=== PATIENT | male | born 1990 | race Caucasian/White ===

== ENCOUNTER 2016-10-27 19:38 | Emergency (ER) | payer MEDICAID ==
[2016-10-27] MEDS ORDERED: NS 0.9% 1000 ML* 1,000 ML IV ONE (19:56)
[2016-10-27] MEDS ORDERED: Morphine INJ* 2 MG/ML 1 ML SYRINGE IV ONE (19:56)
[2016-10-27] MEDS ORDERED: Ondansetron INJ* 2 MG/ML VIAL IV ONE (19:56)
--- NOTE | 2016-10-27 20:07 | ED ---
Catrina Epstein SooYoung, scribed for Renzo Higgins MD on 10/27/16 at 1953 . Abdominal Pain/Male - HPI Summary HPI Summary: A 25 y/o M CHANTALE presents to ED with worsening umbilical pain onset last night. Associated sx: fever, vomiting. Denies diarrhea. Pt states he went to [facility] this afternoon but that they "did nothing." - History of Current Complaint Chief Complaint: EDAbdPain Stated Complaint: ABD PAIN Time Seen by Provider: 10/27/16 19:46 Hx Obtained From: Patient Onset/Duration: Lasting Hours - onset yesterday, Still Present Timing: Constant Severity Currently: Moderate Pain Intensity: 6 Pain Scale Used: 0-10 Numeric Location: Umbilical Associated Signs And Symptoms: Positive: Fever, Vomiting. Negative: Diarrhea - Allergies/Home Medications Allergies/Adverse Reactions: Allergies Allergy/AdvReac Type Severity Reaction Status Date / Time Amoxicillin Allergy Hives/Diff. Verified 04/28/16 17:34 Breathing/I tching Penicillins [PCN] Allergy Rash Verified 04/28/16 17:34 PMH/Surg Hx/FS Hx/Imm Hx Previously Healthy: No Endocrine/Hematology History: Denies: Hx Anticoagulant Therapy, Hx Diabetes, Hx Thyroid Disease Cardiovascular History: Denies: Hx Congestive Heart Failure, Hx Deep Vein Thrombosis, Hx Hypertension , Hx Myocardial Infarction, Hx Pacemaker/ICD Respiratory History: Reports: Hx Asthma, Hx Chronic Bronchitis, Hx Chronic Obstructive Pulmonary Disease (COPD) - emphysemia, Hx Sleep Apnea - previous dx mild ILIA 2010, Other Respiratory Problems/Disorders - current 1.5 ppd smoker Denies: Hx Lung Cancer, Hx Pneumonia, Hx Pulmonary Embolism GI History: Denies: Hx Gall Bladder Disease, Hx Gastrointestinal Bleed, Hx Ulcer, Hx Urosepsis, Other GI Disorders History: Denies: Hx Dialysis, Hx Kidney Stones, Hx Renal Disease Musculoskeletal History: Reports: Hx Back Problems Sensory History: Reports: Hx Vision Problem - (right) eye stabismus Denies: Hx Hearing Aid Opthamlomology History: Reports: Hx Vision Problem - (right) eye stabismus Neurological History: Denies: Hx Dementia, Hx Migraine, Hx Seizures, Hx Transient Ischemic Attacks (TIA) Psychiatric History: Reports: Other Psychiatric Issues/Disorders - learning disorder Denies: Hx Anxiety, Hx Depression, Hx Panic Disorder, Hx Schizophrenia, Hx Bipolar Disorder, Hx Substance Abuse - Surgical History Surgery Procedure, Year, and Place: LT EYE STRABISMUS SURGERY, DENTAL EXTRACTION 01/30/14 - Immunization History Date of Tetanus Vaccine: 2012 Date of Influenza Vaccine: 2012 Infectious Disease History: Denies: Hx Clostridium Difficile, Hx Hepatitis, Hx Human Immunodeficiency Virus (HIV), Hx of Known/Suspected MRSA, Hx Shingles, Hx Tuberculosis, Hx Known/ Suspected VRE, Hx Known/Suspected VRSA, History Other Infectious Disease, Traveled Outside the [place] in Last 30 Days - Family History Known Family History: Positive: Cardiac Disease, Hypertension, Respiratory Disease - Social History Occupation: Unemployed Lives: With Family Alcohol Use: Occasionally Hx Substance Use: No Substance Use Type: Reports: None Hx Tobacco Use: Yes Smoking Status (MU): Heavy Every Day Tobacco Smoker Type: Cigarettes Amount Used/How Often: 1/2 PPD Length of Time of Smoking/Using Tobacco: started at age 10 Have You Smoked in the Last Year: Yes Review of Systems Positive: Fever Positive: Abdominal Pain, Vomiting. Negative: Diarrhea All Other Systems Reviewed And Are Negative: Yes Physical Exam Triage Information Reviewed: Yes Vital Signs On Initial Exam: Initial Vitals Temp Pulse Resp BP Pulse Ox 97.8 F 68 18 123/58 100 10/27/16 19:48 10/27/16 19:48 10/27/16 19:48 10/27/16 19:48 10/27/16 19:48 Vital Signs Reviewed: Yes Appearance: Positive: Well-Appearing, No Pain Distress Skin: Positive: Warm Head/Face: Positive: Normal Head/Face Inspection Eyes: Positive: CHARMAINE ENT: Positive: Hearing grossly normal Neck: Positive: Supple Respiratory/Lung Sounds: Positive: Clear to Auscultation, Breath Sounds Present Cardiovascular: Positive: RRR Abdomen Description: Positive: No Organomegaly, Soft, Other: - mild diffuse lower abd tenderness. Negative: Distended, Guarding Bowel Sounds: Positive: Present Musculoskeletal: Positive: Strength/ROM Intact Neurological: Positive: Alert, Oriented to Person Place, Time Psychiatric: Positive: Affect/Mood Appropriate Diagnostics - Vital Signs Vital Signs Temp Pulse Resp BP Pulse Ox 10/27/16 19:48 97.8 F 68 18 123/58 100 - Laboratory Result Diagrams: 10/27/16 20:30 10/27/16 20:30 Lab Statement: Any lab studies that have been ordered have been reviewed, and results considered in the medical decision making process. Re-Evaluation - Re-Evaluation 1 Re-Evaluation Time: 20:51 Change: Unchanged Comment: Discussing lab work and [place] CAT scan with pt. reviewed records from [facility], pt had nl labs and abd ct there earlier today. Ot states he doesn't know what they did. In view of recent w/u, no need for ct now, wbc wnl, will d/c pt, to f/u with pcp Abdominal Pain Fem Course/Dx - Course Course Of Treatment: Pt is a 25 y/o M presenting with worsening umbilical pain onset last night. Associated sx: fever, vomiting. Denies diarrhea. Reviewed files from pt's [place] ED visit today, pt did receive a CAT scan, which was negative for acute findings, contradictory to the pt's HPI. Lab work shows pt's WBC is unchaged from today's visit to [place]. Will D/C home. - Diagnoses Provider Diagnoses: Chronic abdominal pain Discharge - Discharge Plan Condition: Stable Disposition: HOME Patient Education Materials: Chronic Abdominal Pain (ED) Referrals: No Primary Care Phys,NOPCP [Primary Care Provider] - [facility] [facility] REFERRAL [Outside] Additional Instructions: Follow with your primary care physician this week. Return to the ED if you experience new or worsening symptoms. The documentation as recorded by the Catrina talbert SooYoung accurately reflects the service I personally performed and the decisions made by me, Renzo Higgins MD.
[2016-10-27 20:44] LABS: Hematocrit 44 % (42-52); Hemoglobin 14.6 g/dl (14.0-18.0); Mean Corpuscular HGB Conc 33 g/dl (31-36); Mean Corpuscular Hemoglobin 29 pg (27-31); Mean Corpuscular Volume 87 fL (80-94); Mean Platelet Volume 9 um3 (7.4-10.4); Red Blood Count 5.07 10^6/ul (4.0-5.4); Red Cell Distribution Width 13 % (10.5-15); White Blood Count 7.8 10^3/ul (3.5-10.8)
[2016-10-27 20:59] LABS: BUN/Creatinine Ratio 6.3 (8-20); C Reactive Protein 3.2 mg/L (< 5.00); Calcium 8.9 mg/dL (8.6-10.3); EGFR African American 103.8 (>60); EGFR Non-African American 80.7 (>60); Globulin 2.6 g/dL (2-4); Magnesium 2.1 mg/dL (1.9-2.7); Potassium 3.7 mmol/L (3.5-5.0); Total Bilirubin 0.3 mg/dL (0.2-1.0); Total Protein 6.6 g/dL (6.4-8.9)
[2016-10-27 21:06] VITALS: BP 122/78
== END 2016-10-27 21:05 | disposition home or self-care (01) ==
LOC: ED 19:38
DX: R10.33 Periumbilical pain (principal); G89.29 Other chronic pain; J44.9 Chronic obstructive pulmonary disease, unspecified; F17.210 Nicotine dependence, cigarettes, uncomplicated
CPT/HCPCS: 36415; 80053; 83605; 83690; 83735; 85025; 86140; 99282

== ENCOUNTER 2016-12-22 22:00 | Emergency (ER) | payer MEDICAID ==
--- NOTE | 2016-12-22 22:27 | ED ---
Jae Epstein Benjamin, scribed for Renzo Higgins MD on 12/22/16 at 2216 . GI/ HPI - HPI Summary HPI Summary: 26yo male CHANTALE c/o nausea, vomiting and dizziness today since 5pm today. Pt reported vomiting up blood twice, at 5pm and at 5:30pm. Pt also vomited again at 8pm without any blood. Pt was seen by his PCP yesterday for his routine check up. Pt hasnt eaten anything today. - History of Current Complaint Time Seen by Provider: 12/22/16 22:03 Stated Complaint: VOMITING Hx Obtained From: Patient Onset/Duration: Started Hours Ago, Still Present Timing: Intermittent Severity: Mild Current Severity: None Pain Intensity: 0 Location of Pain: None Associated Signs and Symptoms: Positive: Hematemesis - x2, Dizziness, Nausea, Vomiting - x1 - Allergy/Home Medications Allergies/Adverse Reactions: Allergies Allergy/AdvReac Type Severity Reaction Status Date / Time Amoxicillin Allergy Hives/Diff. Verified 12/22/16 22:24 Breathing/I tching Penicillins [PCN] Allergy Rash Verified 12/22/16 22:24 PMH/Surg Hx/FS Hx/Imm Hx Endocrine/Hematology History: Denies: Hx Anticoagulant Therapy, Hx Diabetes, Hx Thyroid Disease Cardiovascular History: Denies: Hx Congestive Heart Failure, Hx Deep Vein Thrombosis, Hx Hypertension , Hx Myocardial Infarction, Hx Pacemaker/ICD Respiratory History: Reports: Hx Asthma, Hx Chronic Bronchitis, Hx Chronic Obstructive Pulmonary Disease (COPD) - emphysemia, Hx Sleep Apnea - previous dx mild ILIA 2010, Other Respiratory Problems/Disorders - current 1.5 ppd smoker Denies: Hx Lung Cancer, Hx Pneumonia, Hx Pulmonary Embolism GI History: Denies: Hx Gall Bladder Disease, Hx Gastrointestinal Bleed, Hx Ulcer, Hx Urosepsis, Other GI Disorders History: Denies: Hx Dialysis, Hx Kidney Stones, Hx Renal Disease Musculoskeletal History: Reports: Hx Back Problems Sensory History: Reports: Hx Vision Problem - (right) eye stabismus Denies: Hx Hearing Aid Opthamlomology History: Reports: Hx Vision Problem - (right) eye stabismus Neurological History: Denies: Hx Dementia, Hx Migraine, Hx Seizures, Hx Transient Ischemic Attacks (TIA) Psychiatric History: Reports: Other Psychiatric Issues/Disorders - learning disorder Denies: Hx Anxiety, Hx Depression, Hx Panic Disorder, Hx Schizophrenia, Hx Bipolar Disorder, Hx Substance Abuse - Surgical History Surgery Procedure, Year, and Place: LT EYE STRABISMUS SURGERY, DENTAL EXTRACTION 01/30/14 - Immunization History Date of Tetanus Vaccine: 2012 Date of Influenza Vaccine: 2012 Infectious Disease History: Denies: Hx Clostridium Difficile, Hx Hepatitis, Hx Human Immunodeficiency Virus (HIV), Hx of Known/Suspected MRSA, Hx Shingles, Hx Tuberculosis, Hx Known/ Suspected VRE, Hx Known/Suspected VRSA, History Other Infectious Disease, Traveled Outside the [place] in Last 30 Days - Family History Known Family History: Positive: Cardiac Disease, Hypertension, Respiratory Disease - Social History Occupation: Unemployed Lives: With Family Alcohol Use: Occasionally Hx Substance Use: No Substance Use Type: Reports: None Hx Tobacco Use: Yes Smoking Status (MU): Heavy Every Day Tobacco Smoker Type: Cigarettes Amount Used/How Often: 1/2 PPD Length of Time of Smoking/Using Tobacco: started at age 10 Have You Smoked in the Last Year: Yes Review of Systems Constitutional: Negative Eyes: Negative ENT: Negative Cardiovascular: Negative Respiratory: Negative Positive: Vomiting, Nausea, Other - hematemesis Genitourinary: Negative Musculoskeletal: Negative Skin: Negative Neurological: Other - dizziness Psychological: Normal All Other Systems Reviewed And Are Negative: Yes Physical Exam Triage Information Reviewed: Yes Vital Signs On Initial Exam: Initial Vitals Temp Pulse Resp BP Pulse Ox 98.8 F 77 20 110/61 97 12/22/16 22:20 12/22/16 22:20 12/22/16 22:20 12/22/16 22:20 12/22/16 22:20 Vital Signs Reviewed: Yes Appearance: Positive: Well-Appearing, No Pain Distress Skin: Positive: Warm Head/Face: Positive: Normal Head/Face Inspection Eyes: Positive: CHARMAINE ENT: Positive: Hearing grossly normal Neck: Positive: Supple Respiratory/Lung Sounds: Positive: Clear to Auscultation, Breath Sounds Present Cardiovascular: Positive: RRR Abdomen Description: Positive: Nontender, Soft Bowel Sounds: Positive: Present Musculoskeletal: Positive: Strength/ROM Intact Neurological: Positive: Alert, Oriented to Person Place, Time Psychiatric: Positive: Affect/Mood Appropriate Diagnostics - Vital Signs Vital Signs Temp Pulse Resp BP Pulse Ox 12/22/16 22:20 98.8 F 77 20 110/61 97 - Laboratory Result Diagrams: 12/22/16 23:50 12/22/16 23:50 Lab Statement: Any lab studies that have been ordered have been reviewed, and results considered in the medical decision making process. Re-Evaluation - Re-Evaluation First Eval Change: Improved - results d/w pt GIGU Course/Dx - Diagnoses Provider Diagnoses: Vomiting Discharge - Discharge Plan Condition: Stable Disposition: HOME Patient Education Materials: Acute Nausea and Vomiting (ED) Referrals: No Primary Care Phys,NOPCP [Primary Care Provider] - The documentation as recorded by the Jae talbert Benjamin accurately reflects the service I personally performed and the decisions made by me, Renzo Higgins MD.
[2016-12-23 00:21] LABS: Hematocrit 43 % (42-52); Hemoglobin 14.5 g/dl (14.0-18.0); Mean Corpuscular HGB Conc 34 g/dl (31-36); Mean Corpuscular Hemoglobin 30 pg (27-31); Mean Corpuscular Volume 89 fL (80-94); Mean Platelet Volume 10 um3 (7.4-10.4); Red Blood Count 4.86 10^6/ul (4.0-5.4); Red Cell Distribution Width 13 % (10.5-15); White Blood Count 7.4 10^3/ul (3.5-10.8)
[2016-12-23 00:32] LABS: BUN/Creatinine Ratio 8.3 (8-20); Calcium 8.9 mg/dL (8.6-10.3); EGFR African American 121.8 (>60); EGFR Non-African American 94.7 (>60); Potassium 3.6 mmol/L (3.5-5.0)
[2016-12-23 00:57] VITALS: BP 135/79
== END 2016-12-23 00:55 | disposition home or self-care (01) ==
LOC: ED 22:00
DX: K92.0 Hematemesis (principal); R42 Dizziness and giddiness; J44.9 Chronic obstructive pulmonary disease, unspecified; Z88.0 Allergy status to penicillin; F17.210 Nicotine dependence, cigarettes, uncomplicated
CPT/HCPCS: 36415; 80048; 85025; 99282

== ENCOUNTER 2017-01-15 13:31 | Emergency (ER) | payer MEDICAID, OTHER ==
--- NOTE | 2017-01-15 14:05 | ED ---
Shortness of Breath - HPI Summary HPI Summary: Patient is a 26yo M with a history of asthma BIBA after feeling SOB. He states he wears oxygen overnight, but not during the day and would like to be on O2 during the day as needed for any SOB. He states he felt SOB while sitting at a bus stop after leaving his PCP's office. He is currently not prescribed any medication for asthma symptoms and last asthma attack was last week. He has had 1x episode of chest pain which was over the right chest and did not radiate. This is normal for his asthma symptoms. Resolved spontaneously with no medications after 2-3 minutes. No personal history of cardiac problems. No family history. Denies taking any medications at baseline. Patient is a smoker. He was BIBA with 3L O2 at patients request, however O2 sat at 98% on RA. - History of Current Complaint Chief Complaint: EDShortnessOfBreath Time Seen by Provider: 01/15/17 13:42 Hx Obtained From: Patient Onset/Duration: Sudden Onset Timing: Intermittent Episodes Lasting: - several minutes Current Severity: None Dyspnea At: Rest Aggrevating Factors: Nothing Alleviating Factors: Nothing Associated Signs & Symptoms: Negative - Allergy/Home Medications Allergies/Adverse Reactions: Allergies Allergy/AdvReac Type Severity Reaction Status Date / Time Amoxicillin Allergy Hives/Diff. Verified 12/22/16 22:24 Breathing/I tching Penicillins [PCN] Allergy Rash Verified 12/22/16 22:24 PMH/Surg Hx/FS Hx/Imm Hx Previously Healthy: Yes Endocrine/Hematology History: Denies: Hx Anticoagulant Therapy, Hx Diabetes, Hx Thyroid Disease Cardiovascular History: Denies: Hx Congestive Heart Failure, Hx Deep Vein Thrombosis, Hx Hypertension , Hx Myocardial Infarction, Hx Pacemaker/ICD Respiratory History: Reports: Hx Asthma, Hx Chronic Bronchitis, Hx Chronic Obstructive Pulmonary Disease (COPD) - emphysemia, Hx Sleep Apnea - previous dx mild ILIA 2010, Other Respiratory Problems/Disorders - current 1.5 ppd smoker Denies: Hx Lung Cancer, Hx Pneumonia, Hx Pulmonary Embolism GI History: Denies: Hx Gall Bladder Disease, Hx Gastrointestinal Bleed, Hx Ulcer, Hx Urosepsis, Other GI Disorders History: Denies: Hx Dialysis, Hx Kidney Stones, Hx Renal Disease Musculoskeletal History: Reports: Hx Back Problems Sensory History: Reports: Hx Vision Problem - (right) eye stabismus Denies: Hx Hearing Aid Opthamlomology History: Reports: Hx Vision Problem - (right) eye stabismus Neurological History: Denies: Hx Dementia, Hx Migraine, Hx Seizures, Hx Transient Ischemic Attacks (TIA) Psychiatric History: Reports: Other Psychiatric Issues/Disorders - learning disorder Denies: Hx Anxiety, Hx Depression, Hx Panic Disorder, Hx Schizophrenia, Hx Bipolar Disorder, Hx Substance Abuse - Surgical History Surgery Procedure, Year, and Place: LT EYE STRABISMUS SURGERY, DENTAL EXTRACTION 01/30/14 - Immunization History Date of Tetanus Vaccine: 2012 Date of Influenza Vaccine: 2012 Hx Pertussis Vaccination: No Immunizations Up to Date: Unable to Obtain/Confirm Infectious Disease History: No Infectious Disease History: Denies: Hx Clostridium Difficile, Hx Hepatitis, Hx Human Immunodeficiency Virus (HIV), Hx of Known/Suspected MRSA, Hx Shingles, Hx Tuberculosis, Hx Known/ Suspected VRE, Hx Known/Suspected VRSA, History Other Infectious Disease, Traveled Outside the [place] in Last 30 Days - Family History Known Family History: Positive: Cardiac Disease, Hypertension, Respiratory Disease - Social History Occupation: Unemployed Lives: Alone Alcohol Use: Occasionally Hx Substance Use: No Substance Use Type: Reports: None Hx Tobacco Use: Yes Smoking Status (MU): Heavy Every Day Tobacco Smoker Type: Cigarettes Amount Used/How Often: 1/2 PPD Length of Time of Smoking/Using Tobacco: started at age 10 Have You Smoked in the Last Year: Yes Review of Systems Constitutional: Negative Eyes: Negative ENT: Negative Positive: Chest Pain Positive: Shortness Of Breath Gastrointestinal: Negative Positive: no symptoms reported, see HPI Musculoskeletal: Negative Neurological: Negative Psychological: Normal All Other Systems Reviewed And Are Negative: Yes Physical Exam Triage Information Reviewed: Yes Vital Signs On Initial Exam: Initial Vitals Temp Pulse Resp BP Pulse Ox 98.4 F 77 14 117/65 97 01/15/17 13:34 01/15/17 13:34 01/15/17 13:34 01/15/17 13:34 01/15/17 13:34 Vital Signs Reviewed: Yes Appearance: Positive: Well-Appearing, No Pain Distress, Well-Nourished Skin: Positive: Warm, Skin Color Reflects Adequate Perfusion Head/Face: Positive: Normal Head/Face Inspection Eyes: Positive: EOMI, CHARMAINE, Conjunctiva Clear Neck: Positive: Supple, No Lymphadenopathy Respiratory/Lung Sounds: Positive: Clear to Auscultation, Breath Sounds Present Cardiovascular: Positive: Normal, RRR, Pulses are Symmetrical in both Upper and Lower Extremities Musculoskeletal: Positive: Normal, Strength/ROM Intact Neurological: Positive: Sensory/Motor Intact, Alert, Oriented to Person Place, Time, Speech Normal Psychiatric: Positive: Normal AVPU Assessment: Alert - Elle Coma Scale Best Eye Response: 4 - Spontaneous Best Motor Response: 6 - Obeys Commands Best Verbal Response: 5 - Oriented Coma Scale Total: 15 Diagnostics - Vital Signs Vital Signs Temp Pulse Resp BP Pulse Ox 01/15/17 13:40 79 16 98 01/15/17 13:34 98.4 F 77 14 117/65 97 - Laboratory Result Diagrams: 01/15/17 14:15 01/15/17 14:15 Lab Statement: Any lab studies that have been ordered have been reviewed, and results considered in the medical decision making process. Course/Dx - Course Course Of Treatment: Patient comes today with SOB. 100% on RA on arrival. He was placed on 3L cannula on route to ED at his request. Chest xray, trop and EKG all WNL. Patient made aware and discussed asthma symptoms, anxiety attacks and other causes for acute onset dyspnea. Patient is OK with discharge and he will follow up with his PCP this week. - Diagnoses Differential Diagnosis/HQI/PQRI: Positive: Asthma, Chest Wall Pain, Unstable Angina Provider Diagnoses: Shortness of breath Discharge - Discharge Plan Condition: Stable Disposition: HOME Patient Education Materials: Dyspnea (ED) Referrals: Kayla Drummond MD [Primary Care Provider] - Additional Instructions: Follow up with PCP for any medication additions or changes. No signs of active infection or shortness of breath
[2017-01-15 14:29] LABS: Hematocrit 46 % (42-52); Hemoglobin 15.4 g/dl (14.0-18.0); Mean Corpuscular HGB Conc 34 g/dl (31-36); Mean Corpuscular Hemoglobin 29 pg (27-31); Mean Corpuscular Volume 87 fL (80-94); Mean Platelet Volume 9 um3 (7.4-10.4); Red Cell Distribution Width 13 % (10.5-15); White Blood Count 11.4 10^3/ul (3.5-10.8)
--- NOTE | 2017-01-15 14:36 | RAD ---
Indication: Chest pain. Single frontal view of the chest performed at 1403 hours was reviewed. Comparison is made with previous exam dated March 28, 2016. No mediastinal shift is noted. Heart is of normal size and configuration. Lung cid appear clear. Hyperinflated lung cid are noted. IMPRESSION: NO ACTIVE CARDIOPULMONARY DISEASE IS NOTED.
[2017-01-15 14:46] LABS: Albumin 4.2 g/dL (3.2-5.2); BUN/Creatinine Ratio 9.1 (8-20); Calcium 9.2 mg/dL (8.6-10.3); EGFR African American 117.5 (>60); EGFR Non-African American 91.4 (>60); Globulin 2.8 g/dL (2-4); Magnesium 2.1 mg/dL (1.9-2.7); Potassium 3.9 mmol/L (3.5-5.0); Total Bilirubin 0.4 mg/dL (0.2-1.0)
[2017-01-15] MEDS ORDERED: Ibuprofen TAB* 600 MG PO ONE (16:18)
[2017-01-15 17:09] VITALS: BP 112/90
== END 2017-01-15 16:40 | disposition home or self-care (01) ==
LOC: ED 13:31
DX: R06.02 Shortness of breath (principal); R07.9 Chest pain, unspecified; F17.210 Nicotine dependence, cigarettes, uncomplicated
CPT/HCPCS: 36415; 71010; 80053; 82550; 83735; 83874; 84484; 85025; 93005; 99282; A9270-GY

== ENCOUNTER 2017-03-14 20:29 | Emergency (ER) | payer OTHER ==
[2017-03-14 20:44] VITALS: BP 112/49
--- NOTE | 2017-03-14 21:41 | RAD ---
Indication: LEFT hip pain for 2 days without known injury. Decreased range of motion. Comparison: No relevant prior exams available on the [facility] [place] PACS for comparison. Technique: Upright AP pelvis and AP and frog-leg lateral views LEFT hip. Report: The LEFT hip is normally located. Mildly decreased anterolateral femoral head neck offset consistent with a cam deformity. Unremarkable acetabular morphology. Preserved LEFT hip joint space. No stress reaction or fracture evident. Unremarkable sacroiliac joints and pubic symphysis. Unremarkable soft tissue contours. IMPRESSION: Mild LEFT hip cam deformity; correlate for clinical stigmata of femoroacetabular impingement.
[2017-03-14] MEDS ORDERED: Naproxen TAB* 250 MG PO ONE (21:43)
--- NOTE | 2017-03-14 21:49 | UC ---
Hip/Pelvis Pain - HPI Summary HPI Summary: Patient presents with complaints of non-traumatic right hip pain onset 2 days. He denies any new activity and denies any falls of injury. He states that nothing makes it better or worse. He states the pain in 03/12 and that is constant. He states the pain is sharp and non-radiating. He denies any back pain. He states he is taking advil with no relief. - History Of Current Complaint Chief Complaint: UCLowerExtremity Stated Complaint: HIP PAIN Time Seen by Provider: 03/14/17 21:01 Hx Obtained From: Patient Onset/Duration: Sudden Onset, Lasting Days Severity Initially: Moderate Severity Currently: Severe Character Of Pain: Sharp Aggravating Factor(s): Nothing Alleviating Factor(s): Nothing Associated Signs And Symptoms: Positive: Negative - Allergies/Home Medications Allergies/Adverse Reactions: Allergies Allergy/AdvReac Type Severity Reaction Status Date / Time Amoxicillin Allergy Hives/Diff. Verified 03/14/17 20:44 Breathing/I tching Penicillins [PCN] Allergy Rash Verified 03/14/17 20:44 Home Medications: Home Medications Amphetamine-Dextroamphetamine [Adderall 10 mg-] 1 tab PO DAILY 03/14/17 [ History Confirmed 03/14/17] Gabapentin CAP(*) [Neurontin 300 CAP(*)] 300 mg PO BEDTIME 03/14/17 [History Confirmed 03/14/17] PMH/Surg Hx/FS Hx/Imm Hx Previously Healthy: Yes Other History Of: Negative For: HIV, Hepatitis B, Hepatitis C, Anticoagulant Therapy - Surgical History Surgical History: Yes Surgery Procedure, Year, and Place: LT EYE STRABISMUS SURGERY, DENTAL EXTRACTION 01/30/14 - Family History Known Family History: Positive: Cardiac Disease, Hypertension, Respiratory Disease - Social History Occupation: Disabled Lives: Alone Alcohol Use: Occasionally Substance Use Type: None Smoking Status (MU): Heavy Every Day Tobacco Smoker Type: Cigarettes Amount Used/How Often: 1/2 PPD Length of Time of Smoking/Using Tobacco: started at age 10 Have You Smoked in the Last Year: Yes - Immunization History Most Recent Influenza Vaccination: fall 2016 Review of Systems Constitutional: Negative Skin: Negative Eyes: Negative ENT: Negative Respiratory: Negative Cardiovascular: Negative Gastrointestinal: Negative Genitourinary: Negative Motor: Negative Neurovascular: Negative Musculoskeletal: Other: - right hip pain Neurological: Negative Psychological: Negative All Other Systems Reviewed And Are Negative: Yes Physical Exam Triage Information Reviewed: Yes Appearance: Well-Appearing Vital Signs: Initial Vital Signs Temp 98.7 F 03/14/17 20:40 Pulse 64 03/14/17 20:40 Resp 18 03/14/17 20:40 BP 112/49 03/14/17 20:40 Pulse Ox 100 03/14/17 20:40 Eye Exam: Normal ENT Exam: Normal Neck exam: Normal Neck: Positive: 1 Respiratory Exam: Normal Cardiovascular Exam: Normal Abdominal Exam: Normal Musculoskeletal: Positive: Other: - right hip; inspection, no areas of eccymosis , erythema or edema. Palpation, tenderness over the greater trochangeric processes. ROM intact with full flexion,extension, abduction and adduction. vasc PP+. Neuro no deficits. Gait heel-toe. Neurological Exam: Normal Psychological Exam: Normal Skin Exam: Normal Hip Injury Course/Dx - Course Course Of Treatment: Patient presents with non-traumatic right hip pain. exam reveals some reproducible pain on palpation, and with flexion and extension. Xrays of hip and pelvis were negative. Patient was treated conservatively with Naprosen and referred to the orthopedist within two days if pain persist. He was given naprosen in the clinic for pain. - Differential Dx/Diagnosis Differential Diagnosis/HQI/PQRI: Bursitis Provider Diagnoses: Bursitis Discharge - Discharge Plan Condition: Stable Disposition: HOME Prescriptions: Naproxen Sodium [Naproxen Sodium 220 mg] 220 mg PO TID #30 tab Patient Education Materials: Hip Bursitis (ED) Referrals: Kayla Drummond MD [Primary Care Provider] - João Monique MD [Medical Doctor] -
== END 2017-03-14 21:53 | disposition home or self-care (01) ==
LOC: UCEAST 20:29
DX: M71.551 Other bursitis, not elsewhere classified, right hip (principal); F17.210 Nicotine dependence, cigarettes, uncomplicated; Z88.0 Allergy status to penicillin; Z88.1 Allergy status to other antibiotic agents
CPT/HCPCS: 99212; A9270-GY; G0463

== ENCOUNTER 2017-06-27 00:49 | Emergency (ER) | payer OTHER ==
[2017-06-27] MEDS ORDERED: Cyclobenzaprine TAB* 10 MG PO ONE (02:41)
[2017-06-27] MEDS ORDERED: Ondansetron ODT TAB* 4 MG PO ONE (02:41)
[2017-06-27 03:24] VITALS: BP 120/64
--- NOTE | 2017-06-27 04:01 | ED ---
Caio Epstein Julia, scribed for Ari Espino MD on 06/27/17 at 0239 . Abdominal Pain/Male - HPI Summary HPI Summary: This patient is a 26 year old M presenting to [facility] with a chief complaint of vomiting since 22:00. Patient reports back pain. Patient denies diarrhea, abdominal pain, weakness, fever, cough, and congestion. The patient rates the pain 10/10 in severity. Symptoms aggravated by movement. - History of Current Complaint Chief Complaint: EDNauseaVomitDiarrh Stated Complaint: VOMITING/NAUSEA/BACK PAIN Time Seen by Provider: 06/27/17 02:28 Hx Obtained From: Patient Onset/Duration: Sudden Onset Pain Intensity: 0 Pain Scale Used: 0-10 Numeric Location: Other - back Aggravating Factor(s): Movement - Allergies/Home Medications Allergies/Adverse Reactions: Allergies Allergy/AdvReac Type Severity Reaction Status Date / Time Amoxicillin Allergy Hives/Diff. Verified 06/27/17 00:57 Breathing/I tching Penicillins [PCN] Allergy Rash Verified 06/27/17 00:57 PMH/Surg Hx/FS Hx/Imm Hx Endocrine/Hematology History: Reports: Hx Diabetes Denies: Hx Anticoagulant Therapy, Hx Thyroid Disease Cardiovascular History: Denies: Hx Congestive Heart Failure, Hx Deep Vein Thrombosis, Hx Hypertension , Hx Myocardial Infarction, Hx Pacemaker/ICD Respiratory History: Reports: Hx Asthma, Hx Chronic Bronchitis, Hx Chronic Obstructive Pulmonary Disease (COPD), Hx Sleep Apnea - previous dx mild ILIA 2010 , Other Respiratory Problems/Disorders - current 1.5 ppd smoker Denies: Hx Lung Cancer, Hx Pneumonia, Hx Pulmonary Embolism GI History: Denies: Hx Gall Bladder Disease, Hx Gastrointestinal Bleed, Hx Ulcer, Hx Urosepsis, Other GI Disorders History: Denies: Hx Dialysis, Hx Kidney Stones, Hx Renal Disease Musculoskeletal History: Reports: Hx Back Problems Sensory History: Reports: Hx Vision Problem - (right) eye stabismus Denies: Hx Hearing Aid Opthamlomology History: Reports: Hx Vision Problem - (right) eye stabismus Neurological History: Denies: Hx Dementia, Hx Migraine, Hx Seizures, Hx Transient Ischemic Attacks (TIA) Psychiatric History: Reports: Other Psychiatric Issues/Disorders - learning disorder Denies: Hx Anxiety, Hx Depression, Hx Panic Disorder, Hx Schizophrenia, Hx Bipolar Disorder, Hx Substance Abuse - Surgical History Surgery Procedure, Year, and Place: LT EYE STRABISMUS SURGERY, DENTAL EXTRACTION 01/30/14 - Immunization History Date of Tetanus Vaccine: 2012 Date of Influenza Vaccine: 2012 Infectious Disease History: No Infectious Disease History: Denies: Hx Clostridium Difficile, Hx Hepatitis, Hx Human Immunodeficiency Virus (HIV), Hx of Known/Suspected MRSA, Hx Shingles, Hx Tuberculosis, Hx Known/ Suspected VRE, Hx Known/Suspected VRSA, History Other Infectious Disease, Traveled Outside the [place] in Last 30 Days - Family History Known Family History: Positive: Cardiac Disease, Hypertension, Respiratory Disease - Social History Alcohol Use: Occasionally Hx Substance Use: No Substance Use Type: Reports: None Hx Tobacco Use: Yes Smoking Status (MU): Heavy Every Day Tobacco Smoker Type: Cigarettes Amount Used/How Often: 1/2 PPD Length of Time of Smoking/Using Tobacco: started at age 10 Have You Smoked in the Last Year: Yes Review of Systems Negative: Fever Negative: Nasal Discharge Negative: Cough Positive: Vomiting. Negative: Abdominal Pain Positive: Other - back pain Negative: Weakness All Other Systems Reviewed And Are Negative: Yes Physical Exam - Summary Physical Exam Summary: Appearance: Well appearing, no pain distress Skin: warm, dry, reflects adequate perfusion Head/face: bad cystic acne, reddened epidermal cyst on L neck Eyes: EOMI, CHARMAINE ENT: bidirectional horizontal nystagmus Neck: supple, non-tender Respiratory: CTA, breath sounds present Cardiovascular: RRR, pulses symmetrical Abdomen: non-tender, soft Bowel: present Musculoskeletal: normal, strength/ROM intact Neuro: normal, sensory motor intact, A&Ox3 Triage Information Reviewed: Yes Vital Signs On Initial Exam: Initial Vitals Temp Pulse Resp BP Pulse Ox 97.2 F 72 16 116/64 97 06/27/17 00:54 06/27/17 00:54 06/27/17 00:54 06/27/17 00:54 06/27/17 00:54 Vital Signs Reviewed: Yes Diagnostics - Vital Signs Vital Signs Temp Pulse Resp BP Pulse Ox 06/27/17 00:54 97.2 F 72 16 116/64 97 - Laboratory Lab Statement: Any lab studies that have been ordered have been reviewed, and results considered in the medical decision making process. Abdominal Pain Fem Course/Dx - Course Course Of Treatment: Patient presents with vomiting x 1 at 22:00. Patient reports back pain. Pt given Flexeril and Zofran. No nausea here. Treatment for cystic acne inflammed cyst was offered but pt denied. Will give doxy to start in 2d. No abd pain or fever. - Diagnoses Differential Diagnosis/HQI/PQRI: Appendicitis, Bowel Obstruction, Constipation, Other - viral AGE, gastritis Provider Diagnoses: Acute vomiting, Cystic acne, Chronic low back pain Discharge - Discharge Plan Condition: Good Disposition: HOME Prescriptions: Cyclobenzaprine HCl [Flexeril 5 mg (NF)] 5 mg PO TID #15 tab Doxycycline (Monohydrate) [Doxycycline Monohydrate] 100 mg PO BID #20 cap Ondansetron TAB* [Zofran 4 MG Tab*] 4 mg PO Q6H PRN #12 tab PRN Reason: Nausea Patient Education Materials: Gastroenteritis (ED), Low Back Strain (ED) Referrals: Kayla Drummond MD [Primary Care Provider] - Additional Instructions: Call your doctor in the morning for follow up. Have them address the acne as well. Return if unable to keep down fluids, worse or other concerns. Ice, stretching/range of motion exercises for your back. The documentation as recorded by the Caio talbert Julia accurately reflects the service I personally performed and the decisions made by Kenzie mcleod Kirk, MD.
== END 2017-06-27 03:23 | disposition home or self-care (01) ==
LOC: ED 00:49
DX: R11.2 Nausea with vomiting, unspecified (principal); Z53.21 Procedure and treatment not carried out due to patient leaving prior to being seen by health care provider
CPT/HCPCS: A9270-GY

== ENCOUNTER 2017-08-08 16:50 | Emergency (ER) | payer OTHER ==
[2017-08-08 17:20] VITALS: BP 113/74
[2017-08-08] MEDS ORDERED: Ondansetron ODT TAB* 4 MG PO ONE (17:59)
--- NOTE | 2017-08-08 18:07 | UC ---
Abdominal Pain Male HPI - HPI Summary HPI Summary: Day 2 of vomiting and diarrhea no fevers no illness exposure - History of Current Complaint Chief Complaint: UCGI Stated Complaint: VOMITING, ABD PAIN Time Seen by Provider: 08/08/17 17:51 Hx Obtained From: Patient Onset/Duration: Sudden Onset, Lasting Days - 2, Still Present Timing: Constant Severity Initially: Moderate Severity Currently: Moderate Pain Intensity: 10 Location: Diffuse Radiates: No Character: Cramping Aggravating Factor(s): Food Alleviating Factor(s): Nothing Associated Signs And Symptoms: Positive: Decreased Appetite, Nausea, Vomiting, Diarrhea - Allergies/Home Medications Allergies/Adverse Reactions: Allergies Allergy/AdvReac Type Severity Reaction Status Date / Time amoxicillin Allergy Hives/Diff. Verified 08/08/17 17:15 Breathing/I tching Penicillins Allergy Rash Verified 08/08/17 17:15 Home Medications: Home Medications Cyclobenzaprine TAB* [Flexeril 10 MG TAB*] 10 mg PO TID PRN 08/08/17 [History Confirmed 08/08/17] Topiramate [Topamax] 50 mg PO BID 08/08/17 [History Confirmed 08/08/17] PMH/Surg Hx/FS Hx/Imm Hx Previously Healthy: No - developmental delays, chronic back pain Respiratory History: COPD Neurological History: Migraine Psychological History: Other - Adhd Other Psychological History: Adhd Other History Of: Negative For: HIV, Hepatitis B, Hepatitis C, Anticoagulant Therapy - Surgical History Surgical History: Yes Surgery Procedure, Year, and Place: LT EYE STRABISMUS SURGERY, DENTAL EXTRACTION 01/30/14 - Family History Known Family History: Positive: Cardiac Disease, Hypertension, Respiratory Disease - Social History Occupation: Disabled Lives: With Family Alcohol Use: None Substance Use Type: None Smoking Status (MU): Heavy Every Day Tobacco Smoker Type: Cigarettes Amount Used/How Often: 1/2 PPD Length of Time of Smoking/Using Tobacco: started at age 10 Have You Smoked in the Last Year: Yes Cessation Counseling: Counseled 3+Min - 10 Min - Immunization History Most Recent Influenza Vaccination: fall 2016 Review of Systems Constitutional: Negative Skin: Negative Eyes: Negative ENT: Negative Respiratory: Negative Cardiovascular: Negative Gastrointestinal: Abdominal Pain, Vomiting, Diarrhea, Nausea Genitourinary: Negative Motor: Negative Neurovascular: Negative Musculoskeletal: Negative Neurological: Negative Psychological: Negative Is Patient Immunocompromised?: No All Other Systems Reviewed And Are Negative: Yes Physical Exam Triage Information Reviewed: Yes Appearance: No Pain Distress, Ill-Appearing - chronic poor health, Thin Vital Signs: Initial Vital Signs Temp 98.1 F 08/08/17 17:06 Pulse 102 08/08/17 17:06 Resp 16 08/08/17 17:06 BP 113/74 08/08/17 17:06 Pulse Ox 99 08/08/17 17:06 Vital Signs Reviewed: Yes Eye Exam: Normal Eyes: Positive: Conjunctiva Clear ENT Exam: Normal ENT: Positive: Normal ENT inspection, Hearing grossly normal, Pharynx normal, Uvula midline. Negative: Nasal drainage, TMs normal, Tonsillar swelling, Tonsillar exudate, Trismus, Muffled voice, Hoarse voice, Sinus tenderness Dental Exam: Normal Neck exam: Normal Neck: Positive: Supple, Nontender, No Lymphadenopathy Respiratory Exam: Normal Respiratory: Positive: Chest non-tender, Lungs clear, Normal breath sounds, No respiratory distress, No accessory muscle use Cardiovascular Exam: Normal Cardiovascular: Positive: RRR, No Murmur, Pulses Normal, Brisk Capillary Refill Abdominal Exam: Normal Abdomen Description: Positive: Nontender, No Organomegaly, Soft. Negative: CVA Tenderness (R), CVA Tenderness (L), Distended, Guarding, McBurney's Point Tenderness, Peritoneal Signs, Pulsatile Mass Bowel Sounds: Positive: Present Musculoskeletal Exam: Normal Musculoskeletal: Positive: Strength Intact, ROM Intact, No Edema Neurological Exam: Normal Neurological: Positive: Alert, Muscle Tone Normal Psychological Exam: Normal Skin Exam: Normal Re-Evaluation - Re-Evaluation First Eval Change: Improved - feeling better taking po fluids well Abd Pain Male Course/Dx - Course Course Of Treatment: rest clear liquids and advance diet slowley follow with pcp prn, nicotine cesation information provided - Differential Dx/Clinical Impression Provider Diagnoses: acute nausea/vomiting, nicotine dependent Discharge - Discharge Plan Condition: Stable Disposition: HOME Patient Education Materials: Clear Liquid Diet (ED), Acute Nausea and Vomiting (ED) Referrals: Kayla Drummond MD [Primary Care Provider] - If Needed
== END 2017-08-08 18:58 | disposition home or self-care (01) ==
LOC: UCCORT 16:50
DX: R11.2 Nausea with vomiting, unspecified (principal); F17.210 Nicotine dependence, cigarettes, uncomplicated; Z88.0 Allergy status to penicillin; R62.50 Unspecified lack of expected normal physiological development in childhood
CPT/HCPCS: 81003; 99212; A9270-GY; G0463

== ENCOUNTER 2017-12-12 00:44 | Emergency (ER) | payer OTHER ==
[2017-12-12] MEDS ORDERED: PROCHLORPERAZINE INJ 5 MG/ML 2 ML VIAL IM ONE (01:08)
[2017-12-12] MEDS ORDERED: Morphine VIAL* 10 MG/ML 1 ML VIAL IM ONE (01:08)
[2017-12-12] MEDS ORDERED: Lidocaine 2% PF * 5 ML VIAL ONE (01:10)
[2017-12-12] MEDS ORDERED: Morphine VIAL* 4 MG/ML VIAL (1 ml vial) IV ONE (01:13)
--- NOTE | 2017-12-12 01:15 | ED ---
Skin Complaint - HPI Summary HPI Summary: This patient is a 27 year old M presenting to ED with a chief complaint of abscess on his R upper eyelid since the morning of 12/11/17 after waking up. The patient reports he saw his PCP earlier today and was given Rx cream (unknown) and clindamycin (took 1). Prior treatment includes Ibuprofen taken at 2200 on 04/20. The patient rates the pain 10/10 in severity. Symptoms aggravated by nothing. Symptoms alleviated by nothing. Patient reports eye drainage and NI. Patient denies fever. - History of Current Complaint Chief Complaint: EDRashSkinAbscess Time Seen by Provider: 12/12/17 01:00 Stated Complaint: EYE PROBLEM Hx Obtained From: Patient Onset/Duration: Started Hours Ago - morning of 12/11/17 after waking up, Still Present Skin Exposure Onset/Duration: Hours Ago - morning of 12/11/17 after waking up Timing: Constant, Lasting Hours - morning of 12/11/17 after waking up Onset Severity: Severe Current Severity: Severe Pain Intensity: 10 Pain Scale Used: 0-10 Numeric Skin Location: Discrete - R upper yeelid Aggravating Symptom(s): Nothing Alleviating Symptom(s): Nothing - Allergy/Home Medications Allergies/Adverse Reactions: Allergies Allergy/AdvReac Type Severity Reaction Status Date / Time amoxicillin Allergy Hives/Diff. Verified 12/12/17 00:50 Breathing/I tching Penicillins Allergy Rash Verified 12/12/17 00:50 PMH/Surg Hx/FS Hx/Imm Hx Endocrine/Hematology History: Reports: Hx Diabetes Denies: Hx Anticoagulant Therapy, Hx Thyroid Disease Cardiovascular History: Denies: Hx Congestive Heart Failure, Hx Deep Vein Thrombosis, Hx Hypertension , Hx Myocardial Infarction, Hx Pacemaker/ICD Respiratory History: Reports: Hx Asthma, Hx Chronic Bronchitis, Hx Chronic Obstructive Pulmonary Disease (COPD), Hx Sleep Apnea - previous dx mild ILIA 2010 , Other Respiratory Problems/Disorders - current 1.5 ppd smoker Denies: Hx Lung Cancer, Hx Pneumonia, Hx Pulmonary Embolism GI History: Denies: Hx Gall Bladder Disease, Hx Gastrointestinal Bleed, Hx Ulcer, Hx Urosepsis, Other GI Disorders History: Denies: Hx Dialysis, Hx Kidney Stones, Hx Renal Disease Musculoskeletal History: Reports: Hx Back Problems Sensory History: Reports: Hx Vision Problem - (right) eye stabismus Denies: Hx Hearing Aid Opthamlomology History: Reports: Hx Vision Problem - (right) eye stabismus Neurological History: Denies: Hx Dementia, Hx Migraine, Hx Seizures, Hx Transient Ischemic Attacks (TIA) Psychiatric History: Reports: Other Psychiatric Issues/Disorders - learning disorder Denies: Hx Anxiety, Hx Depression, Hx Panic Disorder, Hx Schizophrenia, Hx Bipolar Disorder, Hx Substance Abuse - Surgical History Surgery Procedure, Year, and Place: LT EYE STRABISMUS SURGERY, DENTAL EXTRACTION 01/30/14 - Immunization History Date of Tetanus Vaccine: 2012 Date of Influenza Vaccine: 2012 Infectious Disease History: No Infectious Disease History: Denies: Hx Clostridium Difficile, Hx Hepatitis, Hx Human Immunodeficiency Virus (HIV), Hx of Known/Suspected MRSA, Hx Shingles, Hx Tuberculosis, Hx Known/ Suspected VRE, Hx Known/Suspected VRSA, History Other Infectious Disease, Traveled Outside the [place] in Last 30 Days - Family History Known Family History: Positive: Cardiac Disease, Hypertension, Respiratory Disease - Social History Alcohol Use: None Hx Substance Use: No Substance Use Type: Reports: None Hx Tobacco Use: Yes Smoking Status (MU): Heavy Every Day Tobacco Smoker Type: Cigarettes Amount Used/How Often: 1/2 PPD Length of Time of Smoking/Using Tobacco: started at age 10 Have You Smoked in the Last Year: Yes Review of Systems Negative: Fever Positive: Other - abscess on his R upper eyelid (some drainage) and some eye drainage Positive: Other - abscess on his R upper eyelid (some drainage) Positive: Headache All Other Systems Reviewed And Are Negative: Yes Physical Exam - Summary Physical Exam Summary: VITAL SIGNS: Reviewed. GENERAL: Patient is a well-developed and nourished MALE who is lying comfortable in the stretcher. Patient is not in any acute respiratory distress. HEAD AND FACE: No signs of trauma. No ecchymosis, hematomas or skull depressions. No sinus tenderness. EYES: PERRLA, EOMI x 2, No injected conjunctiva, no nystagmus. Large fluctuant swelling over L upper eyelid. Purulent discharge in R eye. Conjunctiva is normal. EARS: Hearing grossly intact. Ear canals and tympanic membranes are within normal limits. MOUTH: Oropharynx within normal limits. NECK: Supple, trachea is midline, no adenopathy, no JVD, no carotid bruit, no c- spine tenderness, neck with full ROM. CHEST: Symmetric, no tenderness at palpation LUNGS: Clear to auscultation bilaterally. No wheezing or crackles. CVS: Regular rate and rhythm, S1 and S2 present, no murmurs or gallops appreciated. ABDOMEN: Soft, non-tender. No signs of distention. No rebound no guarding, and no masses palpated. Bowel sounds are normal. EXTREMITIES: FROM in all major joints, no edema, no cyanosis or clubbing. NEURO: Alert and oriented x 3. No acute neurological deficits. Speech is normal and follows commands. SKIN: Large fluctuant swelling over L upper eyelid. Triage Information Reviewed: Yes Vital Signs On Initial Exam: Initial Vitals Temp Pulse Resp BP Pulse Ox 97.9 F 62 16 121/71 100 12/12/17 00:45 12/12/17 00:45 12/12/17 00:45 12/12/17 00:45 12/12/17 00:45 Vital Signs Reviewed: Yes Diagnostics - Vital Signs Vital Signs Temp Pulse Resp BP Pulse Ox 12/12/17 00:45 97.9 F 62 16 121/71 100 - Laboratory Lab Statement: Any lab studies that have been ordered have been reviewed, and results considered in the medical decision making process. Re-Evaluation - Re-Evaluation First Eval Re-Evaluation Time: 01:24 Comment: The patient hesitated and wants to think about whether or not he wants the procedure to drain the abscess. Second Eval Re-Evaluation Time: 01:40 Comment: The patient refuses to have I&D procedure done. He was told that it might get worse and might get cellulitis or infection. Course/Dx - Course Assessment/Plan: This patient is a 27 year old M presenting to ED with a chief complaint of abscess on his R upper eyelid since the morning of 12/11/17 after waking up. The patient refuses to have I&D done. I have explained to him that it will get worse, might get cellulitis or infection. The patient already has clindamycin given by his PCP. He will be given eye drops and eye ointment abx and was advised to continue with the clindamycin. - Differential Diagnoses - Skin Complaint Differential Diagnoses: Abscess - over R upper eyelid - Diagnoses Provider Diagnoses: Abscess of right upper eyelid Discharge - Sign-Out/Discharge Documenting (check all that apply): Patient Departure - Discharge Plan Condition: Stable Disposition: HOME Patient Education Materials: Abscess (ED) Referrals: Kayla Drummond MD [Primary Care Provider] - (Follow up with your PCP in 1-2 days.) Adam Adams MD [Medical Doctor] - (Please follow up with Dr. Adams ( opthamologist) in 1-2 days.) Additional Instructions: USE WARM COMPRESSES. USE CIPRO EYE DROPS: 1-2 DROPS TO RIGHT EYE EVERY 4 HOURS. GENTAMICIN OINTMENT: 1 INCH TO RIGHT EYE 2X A DAY. RETURN TO THE EMERGENCY DEPARTMENT FOR CHANGING OR WORSENING SYMPTOMS.
[2017-12-12] MEDS ORDERED: Tobramycin 0.3% OPHTH.OINT* 3.5 GM TUBE (OPTH OINTMENT) RIGHT EYE SCH (02:00)
[2017-12-12] MEDS ORDERED: Ciprofloxacin 0.3% OPTH.SOL* 2.5 ML BTL RIGHT EYE SCH (02:00)
[2017-12-12 02:31] VITALS: BP 111/68
== END 2017-12-12 02:28 | disposition home or self-care (01) ==
LOC: ED 00:44
DX: H00.031 Abscess of right upper eyelid (principal); F17.210 Nicotine dependence, cigarettes, uncomplicated; Z88.3 Allergy status to other anti-infective agents; Z88.0 Allergy status to penicillin
CPT/HCPCS: 96372; 99282; A9270-GY; J0780; J2270

== ENCOUNTER 2017-12-15 16:22 | Emergency (ER) | payer OTHER ==
[2017-12-15 16:30] VITALS: BP 116/73
--- NOTE | 2017-12-15 16:44 | UC ---
Abdominal Pain Male HPI - HPI Summary HPI Summary: This is Thao Reyes documenting for attending Danyel Kang MD. This patient is a 27 year old M presenting to [facility] with a chief complaint of sharp RLQ abd pain radiating to back that began 5 days ago. The patient rates the pain 10/10 in severity. Symptoms aggravated by ambulation. Symptoms alleviated by nothing. Patient reports slight nausea. Patient denies vomiting and diarrhea. Patient reports most recent BM occurring yesterday. - History of Current Complaint Chief Complaint: UCAbdominalPain Stated Complaint: ABD PAIN Time Seen by Provider: 12/15/17 16:36 Hx Obtained From: Patient Onset/Duration: Sudden Onset, Lasting Weeks, Still Present Timing: Constant Severity Initially: Severe Severity Currently: Severe Pain Intensity: 10 Pain Scale Used: 0-10 Numeric Location: Discrete At: RLQ Radiates: Yes Radiates to: Back Character: Sharp Aggravating Factor(s): Other - Ambulation Alleviating Factor(s): Nothing Associated Signs And Symptoms: Positive: Nausea. Negative: Vomiting, Diarrhea - Allergies/Home Medications Allergies/Adverse Reactions: Allergies Allergy/AdvReac Type Severity Reaction Status Date / Time amoxicillin Allergy Hives/Diff. Verified 12/15/17 16:30 Breathing/I tching Penicillins Allergy Rash Verified 12/15/17 16:30 Home Medications: Home Medications Oxygen 12/15/17 [History] PMH/Surg Hx/FS Hx/Imm Hx Previously Healthy: No Endocrine History: Diabetes Respiratory History: COPD Other History Of: Negative For: HIV, Hepatitis B, Hepatitis C, Anticoagulant Therapy - Surgical History Surgical History: Yes Surgery Procedure, Year, and Place: LT EYE STRABISMUS SURGERY, DENTAL EXTRACTION 01/30/14 - Family History Known Family History: Positive: Cardiac Disease, Hypertension, Respiratory Disease - Social History Alcohol Use: Occasionally Substance Use Type: None Smoking Status (MU): Heavy Every Day Tobacco Smoker Type: Cigarettes Amount Used/How Often: 1/2 PPD Length of Time of Smoking/Using Tobacco: started at age 10 Have You Smoked in the Last Year: Yes Household Exposure Type: Cigarettes - Immunization History Most Recent Influenza Vaccination: fall 2016 Review of Systems Constitutional: Other - Negative fever Gastrointestinal: Abdominal Pain, Nausea, Other - Negative vomiting and diarrhea All Other Systems Reviewed And Are Negative: Yes Physical Exam - Summary Physical Exam Summary: VITAL SIGNS: Reviewed. GENERAL: Patient is a well-developed and nourished male who is lying comfortable in the stretcher. Patient is not in any acute respiratory distress. HEAD AND FACE: Normocephalic EYES: PERRLA, EOMI x 2. EARS: Hearing grossly intact. MOUTH: Oropharynx within normal limits. NECK: Supple, trachea is midline, no adenopathy, no JVD, no carotid bruit. CHEST: Symmetric, no tenderness at palpation LUNGS: Clear to auscultation bilaterally. No wheezing or crackles. CVS: Regular rate and rhythm, S1 and S2 present, no murmurs or gallops appreciated. ABDOMEN: Soft, RLQ tenderness with some rebound, no guarding. Bowel sounds are normal. EXTREMITIES: Full ROM in all major joints, no edema, no cyanosis or clubbing. NEURO: Alert and oriented x 3. No acute neurological deficits. Speech is normal and follows commands. SKIN: Dry and warm Triage Information Reviewed: Yes Vital Signs: Initial Vital Signs Temp 98.8 F 12/15/17 16:26 Pulse 70 12/15/17 16:26 Resp 18 12/15/17 16:26 BP 116/73 12/15/17 16:26 Pulse Ox 100 12/15/17 16:26 Vital Signs Reviewed: Yes Abd Pain Male Course/Dx - Course Course Of Treatment: Patient is a 27-year-old male who presents to the urgent care with a chief complaint of having right lower quadrant pain. The patient reports that he has been presents for the last 4-5 days, slight nausea and known vomiting, no diarrhea or constipation. Last bowel movement was yesterday. He reports pain is 10 out of 10 with radiation to the back. Physical exam reveals a right upper quadrant tenderness with guarding but no rebound. At this point her Toradol and acute appendicitis therefore the patient will be sent to the emergency department via ambulance for further workup and management. I discussed the case with Dr. Langston who accepted the patient for transport. This patient is hemodynamically stable alert and oriented 3. - Differential Dx/Clinical Impression Provider Diagnoses: Right lower quadrant pain Discharge - Sign-Out/Discharge Documenting (check all that apply): Patient Departure - Discharge Plan Condition: Stable Disposition: TRANS HIGHER LVL OF CARE FAC Referrals: Kayla Drummond MD [Primary Care Provider] - - Billing Disposition and Condition Condition: STABLE Disposition: Trans Higher Lvl of Care Fac
== END 2017-12-15 17:06 | disposition short-term general hospital (02) ==
LOC: UCEAST 16:22
DX: R10.31 Right lower quadrant pain (principal); R11.0 Nausea; E11.9 Type 2 diabetes mellitus without complications; J44.9 Chronic obstructive pulmonary disease, unspecified; Z88.0 Allergy status to penicillin; Z82.49 Family history of ischemic heart disease and other diseases of the circulatory system; Z83.6 Family history of other diseases of the respiratory system; F17.210 Nicotine dependence, cigarettes, uncomplicated
CPT/HCPCS: 99213; G0463

== ENCOUNTER 2017-12-15 17:16 | Emergency (ER) | payer OTHER ==
[2017-12-15] MEDS ORDERED: NS 0.9% 1000 ML* 1,000 ML IV ONE (17:23)
[2017-12-15 17:34] LABS: ABS Basophils 0 10^3/ul (0-0.2); ABS Eosinophils 0.3 10^3/ul (0-0.6); ABS Lymphocytes 1.7 10^3/ul (1.0-4.8); ABS Monocytes 0.6 10^3/ul (0-0.8); ABS Neutrophils 7.7 10^3/ul (1.5-7.7); ABS Nucleated RBC 0 10^3/ul; Eosinophil % 3.3 % (0-6); Hematocrit 43 % (42-52); Hemoglobin 14.2 g/dl (14.0-18.0); Lymphocyte % 16.4 % (25-47); Mean Corpuscular HGB Conc 33 g/dl (31-36); Mean Corpuscular Hemoglobin 29 pg (27-31); Mean Corpuscular Volume 87 fL (80-94); Nucleated Red Blood Cells % 0.1; Platelet Count 255 10^3/ul (150-450); Red Blood Count 4.91 10^6/ul (4.00-5.40); Red Cell Distribution Width 13 % (10.5-15); White Blood Count 10.4 10^3/ul (3.5-10.8)
[2017-12-15 17:43] LABS: INR 0.99 (0.77-1.02)
[2017-12-15 17:50] LABS: EGFR Non-African American 86.6 (>60)
[2017-12-15] MEDS ORDERED: Metoclopramide IV* 5 MG/ML 2 ML VIAL IV ONE (17:52)
[2017-12-15] MEDS ORDERED: Morphine VIAL* 4 MG/ML VIAL (1 ml vial) IV ONE (17:52)
[2017-12-15] MEDS ORDERED: Iodixanol* (CONTRAST) 320 MG/ML 100 ML SDV IV ONE (18:29)
--- NOTE | 2017-12-15 18:29 | ED ---
Abdominal Pain/Male - HPI Summary HPI Summary: A 27 y/o male CHANTALE presents to ED c/o RLQ pain. The patient was referred to ED by Dr. Kang at [facility] for concern of appendicitis. According to the patient, he has abdominal pain reaching 8/10 in severity, where everything aggravates it. Pt denies any nausea or vomiting, however has lost his appetite. He stated he was given no medications for pain at [facility] and his last meal was this morning. PMHx of COPD. SHx of heavy smoker. No major surgeries. Allergies include Penicillin and Amoxicillin. No other known medical conditions at this time. - History of Current Complaint Chief Complaint: EDAbdPain Stated Complaint: ABD PAIN Time Seen by Provider: 12/15/17 17:21 Hx Obtained From: Patient Onset/Duration: Still Present Timing: Constant Severity Initially: Severe Severity Currently: Severe Pain Intensity: 8 Pain Scale Used: 0-10 Numeric Location: Discrete At: RLQ Radiates: No Aggravating Factor(s): Other: - Everything Alleviating Factor(s): Nothing Associated Signs And Symptoms: Negative: Nausea, Vomiting - Allergies/Home Medications Allergies/Adverse Reactions: Allergies Allergy/AdvReac Type Severity Reaction Status Date / Time amoxicillin Allergy Hives/Diff. Verified 12/15/17 16:30 Breathing/I tching Penicillins Allergy Rash Verified 12/15/17 16:30 Home Medications: Home Medications Dicyclomine CAP* [Bentyl CAP*] 1 cap PO QID 12/15/17 [History Confirmed 12/15/17 ] Ibuprofen TAB* [Motrin TAB* 600 MG] 600 mg PO TID PRN 12/15/17 [History Confirmed 12/15/17] PMH/Surg Hx/FS Hx/Imm Hx Endocrine/Hematology History: Reports: Hx Diabetes Denies: Hx Anticoagulant Therapy, Hx Thyroid Disease Cardiovascular History: Denies: Hx Congestive Heart Failure, Hx Deep Vein Thrombosis, Hx Hypertension , Hx Myocardial Infarction, Hx Pacemaker/ICD Respiratory History: Reports: Hx Asthma, Hx Chronic Bronchitis, Hx Chronic Obstructive Pulmonary Disease (COPD), Hx Sleep Apnea - previous dx mild ILIA 2010 , Other Respiratory Problems/Disorders - current 1.5 ppd smoker Denies: Hx Lung Cancer, Hx Pneumonia, Hx Pulmonary Embolism GI History: Denies: Hx Gall Bladder Disease, Hx Gastrointestinal Bleed, Hx Ulcer, Hx Urosepsis, Other GI Disorders History: Denies: Hx Dialysis, Hx Kidney Stones, Hx Renal Disease Musculoskeletal History: Reports: Hx Back Problems Sensory History: Reports: Hx Vision Problem - (right) eye stabismus Denies: Hx Hearing Aid Opthamlomology History: Reports: Hx Vision Problem - (right) eye stabismus Neurological History: Denies: Hx Dementia, Hx Migraine, Hx Seizures, Hx Transient Ischemic Attacks (TIA) Psychiatric History: Reports: Other Psychiatric Issues/Disorders - learning disorder Denies: Hx Anxiety, Hx Depression, Hx Panic Disorder, Hx Schizophrenia, Hx Bipolar Disorder, Hx Substance Abuse - Surgical History Surgery Procedure, Year, and Place: LT EYE STRABISMUS SURGERY, DENTAL EXTRACTION 01/30/14 - Immunization History Date of Tetanus Vaccine: 2012 Date of Influenza Vaccine: 2012 Infectious Disease History: No Infectious Disease History: Denies: Hx Clostridium Difficile, Hx Hepatitis, Hx Human Immunodeficiency Virus (HIV), Hx of Known/Suspected MRSA, Hx Shingles, Hx Tuberculosis, Hx Known/ Suspected VRE, Hx Known/Suspected VRSA, History Other Infectious Disease, Traveled Outside the [place] in Last 30 Days - Family History Known Family History: Positive: Cardiac Disease, Hypertension, Respiratory Disease - Social History Alcohol Use: Occasionally Hx Substance Use: No Substance Use Type: Reports: None Hx Tobacco Use: Yes Smoking Status (MU): Heavy Every Day Tobacco Smoker Type: Cigarettes Amount Used/How Often: 1/2 PPD Length of Time of Smoking/Using Tobacco: started at age 10 Have You Smoked in the Last Year: Yes Review of Systems Negative: Fever Positive: Abdominal Pain - RLQ. Negative: Vomiting, Nausea All Other Systems Reviewed And Are Negative: Yes Physical Exam - Summary Physical Exam Summary: GENERAL: Patient is a well developed and nourished male who is lying comfortable in the stretcher. Patient is not in any acute respiratory distress. HEAD AND FACE: Normocephalic EYES: PERRLA, EOMI x 2. EARS: Hearing grossly intact. MOUTH: Oropharynx within normal limits. NECK: Supple, trachea is midline, no adenopathy, no JVD, no carotid bruit. CHEST: Symmetric, no tenderness at palpation LUNGS: Clear to auscultation bilaterally. No wheezing or crackles. CVS: Regular rate and rhythm, S1 and S2 present, no murmurs or gallops appreciated. ABDOMEN: Soft, tenderness to palpation in RLQ, no guarding. Bowel sounds are normal. No abdominal abnormal pulsations. EXTREMITIES: Full ROM in all major joints, no edema, no cyanosis or clubbing. NEURO: Alert and oriented x 3. No acute neurological deficits. Speech is normal and follows commands. SKIN: Dry and warm Triage Information Reviewed: Yes Vital Signs On Initial Exam: Initial Vitals Temp Pulse Resp BP Pulse Ox 97.8 F 74 16 129/80 98 12/15/17 17:27 12/15/17 17:27 12/15/17 17:27 12/15/17 17:27 12/15/17 17:27 Vital Signs Reviewed: Yes Diagnostics - Vital Signs Vital Signs Temp Pulse Resp BP Pulse Ox 12/15/17 18:08 76 127/68 97 12/15/17 18:00 75 16 98 12/15/17 17:29 71 98 12/15/17 17:27 97.8 F 74 16 129/80 98 - Laboratory Lab Results: Lab Results 12/15/17 12/15/17 12/15/17 Range/Units 16:55 16:55 16:55 WBC 10.4 (3.5-10.8) 10^3/ul RBC 4.91 (4.00-5.40) 10^6/ul Hgb 14.2 (14.0-18.0) g/dl Hct 43 (42-52) % MCV 87 (80-94) fL MCH 29 (27-31) pg MCHC 33 (31-36) g/dl RDW 13 (10.5-15) % Plt Count 255 (150-450) 10^3/ul MPV 9.0 (7.4-10.4) um3 Neut % (Auto) 74.5 (38-83) % Lymph % (Auto) 16.4 L (25-47) % [place] % (Auto) 5.4 (0-7) % Eos % (Auto) 3.3 (0-6) % Baso % (Auto) 0.4 (0-2) % Absolute Neuts (auto) 7.7 (1.5-7.7) 10^3/ul Absolute Lymphs (auto) 1.7 (1.0-4.8) 10^3/ul Absolute Monos (auto) 0.6 (0-0.8) 10^3/ul Absolute Eos (auto) 0.3 (0-0.6) 10^3/ul Absolute Basos (auto) 0 (0-0.2) 10^3/ul Absolute Nucleated RBC 0 10^3/ul Nucleated RBC % 0.1 INR (Anticoag Therapy) 0.99 (0.77-1.02) APTT 31.0 (26.0-36.3) seconds Sodium 137 (135-145) mmol/L Potassium 3.6 (3.5-5.0) mmol/L Chloride 100 L (101-111) mmol/L Carbon Dioxide 29 (22-32) mmol/L Anion Gap 8 (2-11) mmol/L BUN 11 (6-24) mg/dL Creatinine 1.03 (0.67-1.17) mg/dL Est GFR ( Amer) 104.8 (>60) Est GFR (Non-Af Amer) 86.6 (>60) BUN/Creatinine Ratio 10.7 (8-20) Glucose 90 (70-100) mg/dL Lactic Acid (0.5-2.0) mmol/L Calcium 9.3 (8.6-10.3) mg/dL Total Bilirubin 0.50 (0.2-1.0) mg/dL AST 15 (13-39) U/L ALT 10 (7-52) U/L Alkaline Phosphatase 59 (34-104) U/L C-Reactive Protein 22.57 H (<8.01) mg/L Total Protein 7.3 (6.4-8.9) g/dL Albumin 4.3 (3.2-5.2) g/dL Globulin 3.0 (2-4) g/dL Albumin/Globulin Ratio 1.4 (1-3) Lipase 28 (11.0-82.0) U/L Blood Type Antibody Screen 12/15/17 12/15/17 Range/Units 16:55 16:55 WBC (3.5-10.8) 10^3/ul RBC (4.00-5.40) 10^6/ul Hgb (14.0-18.0) g/dl Hct (42-52) % MCV (80-94) fL MCH (27-31) pg MCHC (31-36) g/dl RDW (10.5-15) % Plt Count (150-450) 10^3/ul MPV (7.4-10.4) um3 Neut % (Auto) (38-83) % Lymph % (Auto) (25-47) % [place] % (Auto) (0-7) % Eos % (Auto) (0-6) % Baso % (Auto) (0-2) % Absolute Neuts (auto) (1.5-7.7) 10^3/ul Absolute Lymphs (auto) (1.0-4.8) 10^3/ul Absolute Monos (auto) (0-0.8) 10^3/ul Absolute Eos (auto) (0-0.6) 10^3/ul Absolute Basos (auto) (0-0.2) 10^3/ul Absolute Nucleated RBC 10^3/ul Nucleated RBC % INR (Anticoag Therapy) (0.77-1.02) APTT (26.0-36.3) seconds Sodium (135-145) mmol/L Potassium (3.5-5.0) mmol/L Chloride (101-111) mmol/L Carbon Dioxide (22-32) mmol/L Anion Gap (2-11) mmol/L BUN (6-24) mg/dL Creatinine (0.67-1.17) mg/dL Est GFR ( Amer) (>60) Est GFR (Non-Af Amer) (>60) BUN/Creatinine Ratio (8-20) Glucose (70-100) mg/dL Lactic Acid 0.8 (0.5-2.0) mmol/L Calcium (8.6-10.3) mg/dL Total Bilirubin (0.2-1.0) mg/dL AST (13-39) U/L ALT (7-52) U/L Alkaline Phosphatase (34-104) U/L C-Reactive Protein (<8.01) mg/L Total Protein (6.4-8.9) g/dL Albumin (3.2-5.2) g/dL Globulin (2-4) g/dL Albumin/Globulin Ratio (1-3) Lipase (11.0-82.0) U/L Blood Type O Positive Antibody Screen Pending Result Diagrams: 12/15/17 16:55 12/15/17 16:55 Lab Statement: Any lab studies that have been ordered have been reviewed, and results considered in the medical decision making process. - CT CT A/P CT Interpretation Completed By: Radiologist - CT findings are consistent with duodenitis and jejunitis of either an infectious or inflammatory etiology. ED physician reviewed this radiology report. Re-Evaluation - Re-Evaluation First Eval Re-Evaluation Time: 19:45 Change: Unchanged Comment: Patient is still in pain. Second Eval Re-Evaluation Time: 20:05 Comment: DISCUSSED DISCHARGE WITH PATIENT. Abdominal Pain Fem Course/Dx - Course Course Of Treatment: A 27 y/o male CHANT[place] presents to ED c/o RLQ pain. The patient was referred to ED by Dr. Kang at [facility] for concern of appendicitis. According to the patient, he has abdominal pain reaching 8/10 in severity, where everything aggravates it. Pt denies any nausea or vomiting, however has lost his appetite. A CT A/P revealed CT findings are consistent with duodenitis and jejunitis of either an infectious or. inflammatory etiology. In the ED course, patient recieved Morphine, Protonix, Reglan, Visipaque and IV fluids. Patient care was discussed with Dr. Caldwell of GI. Patient's pain is improved at this time and was able to drink without difficulty he will follow up as an outpatient. Patient will be discharged with a diagnosis of duodenitis and jejunitis. Patient is to follow up with PCP and GI in 2-3 days. Pt is agreeable with this plan. - Diagnoses Provider Diagnoses: Duodenitis, Jejunitis - Provider Notifications Discussed Care Of Patient With: Ruddy Caldwell Time Discussed With Above Provider: 19:54 Instructed by Provider To: Other - Dr. Caldwell stated that the patient can follow up as an outpatient. Discharge - Sign-Out/Discharge Documenting (check all that apply): Patient Departure - DISCHARGE - Discharge Plan Condition: Stable Disposition: HOME Patient Education Materials: Abdominal Pain (ED), Duodenitis (ED) Referrals: Kayla Drummond MD [Primary Care Provider] - 2 Days (FOLLOW UP WITH PRIMARY CARE PHYSICIAN IN 2-3 DAYS.) Ruddy Caldwlel MD [Medical Doctor] - 2 Days (FOLLOW UP WITH GI IN 2-3 DAYS.) Additional Instructions: RETURN TO ED FOR ANY NEW OR WORSENING SYMPTOMS. - Billing Disposition and Condition Condition: STABLE Disposition: Home
--- NOTE | 2017-12-15 19:32 | RAD ---
CLINICAL HISTORY: Right lower quadrant pain COMPARISON: Most recent CT of the abdomen and pelvis is dated June 17, 2014 TECHNIQUE: Contrast enhanced CT examination of the abdomen and pelvis from the lung bases through the initial tuberosities. The patient received 124 mL of Visipaque 320 intravenously prior to imaging.The patient received oral contrast as well prior to imaging. FINDINGS: VISUALIZED LUNG BASES: The visualized lung bases are grossly clear. There is no pleural effusion. ABDOMEN AND PELVIS: The liver, spleen, pancreas and adrenal glands are grossly normal in appearance. The gallbladder is normal. The kidneys are normal in appearance without focal mass, calcification or signs of hydronephrosis. Evaluation of the gastrointestinal tract is limited in the absence of oral contrast. There is thickening of the wall of the distal duodenum and proximal jejunum measuring up to 1.1 cm in thickness (axial image 37 for example). More distally the ileum does not appear to exhibit as severe wall thickening bowel evaluation is limited without oral contrast and the lumen.. The patient's diminutive in normal appearing appendix is identified in the right abdomen (coronal image 45). There is no gross retroperitoneal or mesenteric lymphadenopathy. The pelvic viscera is normal in appearance. The abdominal aorta and iliac arteries are normal in course and diameter. There are no sinister bone lesions. IMPRESSION: CT findings are consistent with duodenitis and jejunitis of either an infectious or inflammatory etiology.
[2017-12-15] MEDS ORDERED: Pantoprazole IV* 40 MG IV ONE (19:36)
[2017-12-15 20:22] VITALS: BP 111/53
== END 2017-12-15 20:22 | disposition home or self-care (01) ==
LOC: ED 17:16
DX: K29.80 Duodenitis without bleeding (principal); K52.9 Noninfective gastroenteritis and colitis, unspecified; J44.9 Chronic obstructive pulmonary disease, unspecified; F17.210 Nicotine dependence, cigarettes, uncomplicated; Z88.0 Allergy status to penicillin; Z88.3 Allergy status to other anti-infective agents
CPT/HCPCS: 36415; 74177; 80053; 83605; 83690; 85025; 85610; 85730; 86140; 86850; 86900; 86901; 96361; 96374; 96375; 99283; J2270; J2765; Q9967

== ENCOUNTER 2017-12-19 01:03 | Emergency (ER) | payer OTHER ==
[2017-12-19 04:21] LABS: ABS Basophils 0.1 10^3/ul (0-0.2); ABS Eosinophils 0.7 10^3/ul (0-0.6); ABS Lymphocytes 2.4 10^3/ul (1.0-4.8); ABS Monocytes 0.7 10^3/ul (0-0.8); ABS Neutrophils 7.4 10^3/ul (1.5-7.7); ABS Nucleated RBC 0 10^3/ul; Hematocrit 40 % (42-52); Hemoglobin 13.6 g/dl (14.0-18.0); Lymphocyte % 21.1 % (25-47); Mean Corpuscular HGB Conc 34 g/dl (31-36); Mean Corpuscular Hemoglobin 29 pg (27-31); Mean Corpuscular Volume 86 fL (80-94); Mean Platelet Volume 8.5 um3 (7.4-10.4); Nucleated Red Blood Cells % 0; Platelet Count 220 10^3/ul (150-450); Red Blood Count 4.67 10^6/ul (4.00-5.40); Red Cell Distribution Width 13 % (10.5-15); White Blood Count 11.1 10^3/ul (3.5-10.8)
[2017-12-19 04:27] LABS: INR 0.98 (0.77-1.02)
[2017-12-19 04:37] LABS: EGFR Non-African American 109.6 (>60)
--- NOTE | 2017-12-19 05:21 | ED ---
Abdominal Pain/Male - HPI Summary HPI Summary: A 27 y/o male presents to ED c/o RLQ abdominal pain. According to the patient, for the past 2 weeks he has exhibited abdominal pain. He decided to come into the ED today because the pain has constant for 2 weeks and has been getting worse. Pt denies any vomiting, fever, chest pain, dizziness or diarrhea, however he did have a diffuse headache (woke up with it this morning). He noted that his stool this morning was brown and normal. FHx of spine issues, no appendicitis. PMHx of right eye surgery and COPD. SHx of heavy smoker. Current medications are an inhaler and his ADHD medication. Allergic to Penicillin and Amoxicillin. - History of Current Complaint Chief Complaint: EDAbdPain Stated Complaint: ABD PAIN/HEADACHE Time Seen by Provider: 12/19/17 03:52 Hx Obtained From: Patient Onset/Duration: Sudden Onset, Lasting Weeks - 2 weeks, Still Present Timing: Constant Severity Initially: Severe Severity Currently: Severe Pain Intensity: 10 Pain Scale Used: 0-10 Numeric Location: Discrete At: RLQ Radiates: No Character: Sharp Aggravating Factor(s): Nothing Alleviating Factor(s): Nothing Associated Signs And Symptoms: Negative: Fever, Chest Pain, Vomiting, Diarrhea - Allergies/Home Medications Allergies/Adverse Reactions: Allergies Allergy/AdvReac Type Severity Reaction Status Date / Time amoxicillin Allergy Hives/Diff. Verified 12/19/17 01:13 Breathing/I tching Penicillins Allergy Rash Verified 12/19/17 01:13 PMH/Surg Hx/FS Hx/Imm Hx Previously Healthy: No Endocrine/Hematology History: Reports: Hx Diabetes Denies: Hx Anticoagulant Therapy, Hx Thyroid Disease Cardiovascular History: Denies: Hx Congestive Heart Failure, Hx Deep Vein Thrombosis, Hx Hypertension , Hx Myocardial Infarction, Hx Pacemaker/ICD Respiratory History: Reports: Hx Asthma, Hx Chronic Bronchitis, Hx Chronic Obstructive Pulmonary Disease (COPD), Hx Sleep Apnea - previous dx mild ILIA 2010 , Other Respiratory Problems/Disorders - current 1.5 ppd smoker Denies: Hx Lung Cancer, Hx Pneumonia, Hx Pulmonary Embolism GI History: Denies: Hx Gall Bladder Disease, Hx Gastrointestinal Bleed, Hx Ulcer, Hx Urosepsis, Other GI Disorders History: Denies: Hx Dialysis, Hx Kidney Stones, Hx Renal Disease Musculoskeletal History: Reports: Hx Back Problems Sensory History: Reports: Hx Vision Problem - (right) eye stabismus Denies: Hx Hearing Aid Opthamlomology History: Reports: Hx Vision Problem - (right) eye stabismus Neurological History: Denies: Hx Dementia, Hx Migraine, Hx Seizures, Hx Transient Ischemic Attacks (TIA) Psychiatric History: Reports: Other Psychiatric Issues/Disorders - learning disorder Denies: Hx Anxiety, Hx Depression, Hx Panic Disorder, Hx Schizophrenia, Hx Bipolar Disorder, Hx Substance Abuse - Surgical History Surgery Procedure, Year, and Place: LT EYE STRABISMUS SURGERY, DENTAL EXTRACTION 01/30/14 - Immunization History Date of Tetanus Vaccine: utd Date of Influenza Vaccine: utd Infectious Disease History: No Infectious Disease History: Denies: Hx Clostridium Difficile, Hx Hepatitis, Hx Human Immunodeficiency Virus (HIV), Hx of Known/Suspected MRSA, Hx Shingles, Hx Tuberculosis, Hx Known/ Suspected VRE, Hx Known/Suspected VRSA, History Other Infectious Disease, Traveled Outside the [place] in Last 30 Days - Family History Known Family History: Positive: Cardiac Disease, Hypertension, Respiratory Disease - Social History Alcohol Use: Occasionally Hx Substance Use: No Substance Use Type: Reports: None Hx Tobacco Use: Yes Smoking Status (MU): Heavy Every Day Tobacco Smoker Type: Cigarettes Amount Used/How Often: 1/2 PPD Length of Time of Smoking/Using Tobacco: started at age 10 Have You Smoked in the Last Year: Yes Review of Systems Negative: Fever Negative: Chest Pain Respiratory: Negative Positive: Abdominal Pain. Negative: Diarrhea Positive: no symptoms reported Skin: Negative Neurological: Other - NEGATIVE: Dizziness Positive: Headache Psychological: Normal All Other Systems Reviewed And Are Negative: Yes Physical Exam - Summary Physical Exam Summary: Appearance: Ill-appearing, moderate pain distress, well-nourished Skin:Warm, color reflects adequate perfusion, dry Head:Normal Head/Face inspection, atraumatic Eyes: Conjunctiva clear ENT:Normal inspection Neck:Supple, no nodes, no JVD Respiratory: Lungs clear, normal breath sounds, no respiratory distress Cardio: RRR, No murmur, pulses normal, brisk capillary refill Abdomen: Soft, tender RLQ, no guarding, no rebound, no masses, no CVAT Bowel sounds: Present : testicles descended bilaterally with no masses, normal circumcised male, no hernias bilat. Musculoskeletal: Strength Intact/ROM intact, no calf tenderness, no edema. Psychological: Normal Neuro: Alert, muscle tone normal, no focal deficit Triage Information Reviewed: Yes Vital Signs On Initial Exam: Initial Vitals Temp Pulse Resp BP Pulse Ox 98.6 F 68 16 84/68 99 12/19/17 01:11 12/19/17 01:11 12/19/17 01:11 12/19/17 01:11 12/19/17 01:11 Vital Signs Reviewed: Yes Diagnostics - Vital Signs Vital Signs Temp Pulse Resp BP Pulse Ox 12/19/17 04:00 59 100 12/19/17 03:57 57 113/79 100 12/19/17 03:28 55 96/73 98 12/19/17 03:00 55 98 12/19/17 02:59 59 98 12/19/17 02:58 61 114/57 99 12/19/17 01:11 98.6 F 68 16 84/ 99 - Laboratory Lab Results: Lab Results 12/19/17 12/19/17 12/19/17 Range/Units 04:10 04:10 04:10 WBC 11.1 H (3.5-10.8) 10^3/ul RBC 4.67 (4.00-5.40) 10^6/ul Hgb 13.6 L (14.0-18.0) g/dl Hct 40 L (42-52) % MCV 86 (80-94) fL MCH 29 (27-31) pg MCHC 34 (31-36) g/dl RDW 13 (10.5-15) % Plt Count 220 (150-450) 10^3/ul MPV 8.5 (7.4-10.4) um3 Neut % (Auto) 66.1 (38-83) % Lymph % (Auto) 21.1 L (25-47) % [place] % (Auto) 6.2 (0-7) % Eos % (Auto) 6.0 (0-6) % Baso % (Auto) 0.6 (0-2) % Absolute Neuts (auto) 7.4 (1.5-7.7) 10^3/ul Absolute Lymphs (auto) 2.4 (1.0-4.8) 10^3/ul Absolute Monos (auto) 0.7 (0-0.8) 10^3/ul Absolute Eos (auto) 0.7 H (0-0.6) 10^3/ul Absolute Basos (auto) 0.1 (0-0.2) 10^3/ul Absolute Nucleated RBC 0 10^3/ul Nucleated RBC % 0 INR (Anticoag Therapy) 0.98 (0.77-1.02) APTT 32.2 (26.0-36.3) seconds Sodium 137 (135-145) mmol/L Potassium 3.4 L (3.5-5.0) mmol/L Chloride 103 (101-111) mmol/L Carbon Dioxide 26 (22-32) mmol/L Anion Gap 8 (2-11) mmol/L BUN 7 (6-24) mg/dL Creatinine 0.84 (0.67-1.17) mg/dL Est GFR ( Amer) 132.6 (>60) Est GFR (Non-Af Amer) 109.6 (>60) BUN/Creatinine Ratio 8.3 (8-20) Glucose 108 H (70-100) mg/dL Lactic Acid (0.5-2.0) mmol/L Calcium 8.7 (8.6-10.3) mg/dL Magnesium 2.0 (1.9-2.7) mg/dL Total Bilirubin 0.30 (0.2-1.0) mg/dL AST 11 L (13-39) U/L ALT 8 (7-52) U/L Alkaline Phosphatase 51 (34-104) U/L Total Creatine Kinase 39 (10-223) U/L C-Reactive Protein 14.70 H (<8.01) mg/L B-Natriuretic Peptide ( - 100) pg/mL Total Protein 6.3 L (6.4-8.9) g/dL Albumin 3.7 (3.2-5.2) g/dL Globulin 2.6 (2-4) g/dL Albumin/Globulin Ratio 1.4 (1-3) Amylase 35 (29-103) U/L Lipase 26 (11.0-82.0) U/L 12/19/17 12/19/17 Range/Units 04:10 04:10 WBC (3.5-10.8) 10^3/ul RBC (4.00-5.40) 10^6/ul Hgb (14.0-18.0) g/dl Hct (42-52) % MCV (80-94) fL MCH (27-31) pg MCHC (31-36) g/dl RDW (10.5-15) % Plt Count (150-450) 10^3/ul MPV (7.4-10.4) um3 Neut % (Auto) (38-83) % Lymph % (Auto) (25-47) % [place] % (Auto) (0-7) % Eos % (Auto) (0-6) % Baso % (Auto) (0-2) % Absolute Neuts (auto) (1.5-7.7) 10^3/ul Absolute Lymphs (auto) (1.0-4.8) 10^3/ul Absolute Monos (auto) (0-0.8) 10^3/ul Absolute Eos (auto) (0-0.6) 10^3/ul Absolute Basos (auto) (0-0.2) 10^3/ul Absolute Nucleated RBC 10^3/ul Nucleated RBC % INR (Anticoag Therapy) (0.77-1.02) APTT (26.0-36.3) seconds Sodium (135-145) mmol/L Potassium (3.5-5.0) mmol/L Chloride (101-111) mmol/L Carbon Dioxide (22-32) mmol/L Anion Gap (2-11) mmol/L BUN (6-24) mg/dL Creatinine (0.67-1.17) mg/dL Est GFR ( Amer) (>60) Est GFR (Non-Af Amer) (>60) BUN/Creatinine Ratio (8-20) Glucose (70-100) mg/dL Lactic Acid 0.7 (0.5-2.0) mmol/L Calcium (8.6-10.3) mg/dL Magnesium (1.9-2.7) mg/dL Total Bilirubin (0.2-1.0) mg/dL AST (13-39) U/L ALT (7-52) U/L Alkaline Phosphatase (34-104) U/L Total Creatine Kinase (10-223) U/L C-Reactive Protein (<8.01) mg/L B-Natriuretic Peptide 14 ( - 100) pg/mL Total Protein (6.4-8.9) g/dL Albumin (3.2-5.2) g/dL Globulin (2-4) g/dL Albumin/Globulin Ratio (1-3) Amylase (29-103) U/L Lipase (11.0-82.0) U/L Result Diagrams: 12/19/17 04:10 12/19/17 04:10 Lab Statement: Any lab studies that have been ordered have been reviewed, and results considered in the medical decision making process. Re-Evaluation - Re-Evaluation First Eval Re-Evaluation Time: 07:50 Change: Improved Comment: advised of CT results. Pain is controlled. Agrees with DC. Abdominal Pain Fem Course/Dx - Course Course Of Treatment: 27 yo M with 2 week hx worsening RLQ pain. Pt given IV fluids and morphine 4mg IV during ED course. CT abd pelvis with oral and IV contrast, neg for acute appendicitis, or any abnormality. Pt's pain is controlled and pt agrees to DC. - Diagnoses Differential Diagnosis/HQI/PQRI: Appendicitis, Bowel Obstruction, Constipation, Gall Bladder Disease, Pancreatitis, Renal Colic, Testicular Torsion, Urinary Tract Infection Provider Diagnoses: Acute abdominal pain in right lower quadrant Discharge - Sign-Out/Discharge Documenting (check all that apply): Patient Departure - home - Discharge Plan Condition: Stable Disposition: HOME Patient Education Materials: Acute Abdominal Pain (ED) Referrals: Kayla Drummond MD [Primary Care Provider] - 1 Day Additional Instructions: Your CT scan did not show appendicitis or any acute abnormality. Return to the ER if you have any new or worsening symptoms. - Billing Disposition and Condition Condition: STABLE Disposition: Home
[2017-12-19] MEDS ORDERED: Morphine VIAL* 4 MG/ML VIAL (1 ml vial) IV ONE (05:28)
[2017-12-19 06:03] LABS: Urine Appearance Clear; Urine Blood Negative (Negative); Urine Color Yellow; Urine Ketones Negative (Negative); Urine Protein Negative (Negative); Urine Specific Gravity 1.011 (1.010-1.030); Urine Urobilinogen Negative (Negative)
[2017-12-19] MEDS ORDERED: Iodixanol* (CONTRAST) 320 MG/ML 100 ML SDV IV ONE (06:41)
--- NOTE | 2017-12-19 07:40 | RAD ---
INDICATION: Right lower quadrant pain COMPARISON: CT abdomen pelvis December 15, 2017 TECHNIQUE: Axial source images were obtained from the hemidiaphragms to the symphysis pubis following administration of oral and intravenous contrast. 121 mL Visipaque 320 was utilized. Coronal and sagittal reconstructed images were acquired. Lung bases: The lung bases are clear. Liver: The liver is normal in size. There are no masses. There is no ductal dilatation. Gallbladder: There are no calcified gallstones. There is no evidence of wall thickening or pericholecystic fluid. Spleen: The spleen is normal in size. There are no masses. Pancreas: There is no focal pancreatic mass or ductal dilatation. Adrenal glands: There is no evidence of adrenal mass. Kidneys: The kidneys are normal in size and position. There are prompt nephrograms and there is prompt excretion bilaterally. There are no renal parenchymal masses. There is no evidence of nephrolithiasis. Adenopathy: There is no evidence of adenopathy by size criteria. There are several tiny gastrohepatic lymph nodes Fluid collections: There are no free or localized fluid collections. Vessels:There are no significant atherosclerotic changes involving the aorta. There is no focal aneurysm. The iliac vessels are normal in caliber. The IVC appears normal. GI tract: There are no acute CT bowel findings. There is no obstruction. The stomach and small bowel appear normal. The lower GI tract is normal. The cecum, ileocecal valve, and terminal ileum appear normal. There is limited and partial evaluation of the diminutive appendix. There is no periappendiceal inflammatory change. Pelvic organs: The prostate and seminal vesicles appear normal Bladder: There are no bladder masses. Abdominal and pelvic soft tissues: The extraperitoneal abdominal and pelvic soft tissues appear normal.. Osseous structures: There are no acute osseous findings. Other: None IMPRESSION: NO ACUTE CT FINDINGS. NO MASS OR INFLAMMATORY CHANGES.
[2017-12-19 08:16] VITALS: BP 136/67
== END 2017-12-19 08:14 | disposition home or self-care (01) ==
LOC: ED 01:03
DX: R10.31 Right lower quadrant pain (principal); R51 Headache; J45.909 Unspecified asthma, uncomplicated; F90.9 Attention-deficit hyperactivity disorder, unspecified type; Z88.0 Allergy status to penicillin; F17.210 Nicotine dependence, cigarettes, uncomplicated
CPT/HCPCS: 36415; 74177; 80053; 81003; 82150; 82550; 83605; 83690; 83735; 83880; 85025; 85610; 85730; 86140; 96374; 99283; J2270; Q9967

== ENCOUNTER 2017-12-20 19:59 | Emergency (ER) | payer OTHER ==
[2017-12-20 20:13] VITALS: BP 116/67
[2017-12-20] MEDS ORDERED: Ondansetron INJ* 2 MG/ML VIAL IV ONE (20:41)
[2017-12-20] MEDS ORDERED: Morphine INJ* 2 MG/ML 1 ML CARPUJECT IV ONE (20:42)
--- NOTE | 2017-12-20 20:45 | UC ---
Abdominal Pain Male HPI - HPI Summary HPI Summary: 27 yo male with about a 2 week hx of progressively worsening right sided abd pain N/V fever to 102 no diarrhea Has had multiple visits to ED Initial CT scan showed distal DUODENITIS and proximal JEJUNITIS appendix normal today his pain has worsened he states he has lost 10 pounds was referred to GI but his appt is not until 01/01 has been taking motrin without relief. - History of Current Complaint Chief Complaint: UCAbdominalPain Stated Complaint: ABD PAIN Time Seen by Provider: 12/20/17 20:03 Hx Obtained From: Patient Onset/Duration: Sudden Onset, Lasting Weeks Timing: Constant Severity Initially: Moderate Severity Currently: Severe Pain Intensity: 10 Pain Scale Used: 0-10 Numeric Location: Discrete At: RUQ, Discrete At: RLQ Character: Aching Aggravating Factor(s): Movement Alleviating Factor(s): Other Associated Signs And Symptoms: Positive: Fever, Nausea, Vomiting. Negative: Urinary Symptoms - Allergies/Home Medications Allergies/Adverse Reactions: Allergies Allergy/AdvReac Type Severity Reaction Status Date / Time amoxicillin Allergy Hives/Diff. Verified 12/19/17 01:13 Breathing/I tching Penicillins Allergy Rash Verified 12/19/17 01:13 PMH/Surg Hx/FS Hx/Imm Hx Previously Healthy: Yes Endocrine History: Diabetes - "borderline" Other History Of: Negative For: HIV, Hepatitis B, Hepatitis C, Anticoagulant Therapy - Surgical History Surgical History: Yes Surgery Procedure, Year, and Place: LT EYE STRABISMUS SURGERY, DENTAL EXTRACTION 01/30/14 - Family History Known Family History: Positive: Cardiac Disease, Hypertension, Respiratory Disease - Social History Alcohol Use: Occasionally Substance Use Type: None Smoking Status (MU): Heavy Every Day Tobacco Smoker Type: Cigarettes Amount Used/How Often: 1/2 PPD Length of Time of Smoking/Using Tobacco: started at age 10 Have You Smoked in the Last Year: Yes Household Exposure Type: Cigarettes - Immunization History Most Recent Influenza Vaccination: fall 2016 Review of Systems Constitutional: Negative Skin: Negative Eyes: Negative ENT: Negative Respiratory: Negative Cardiovascular: Negative Gastrointestinal: Negative Genitourinary: Negative Motor: Decreased ROM Neurovascular: Negative Musculoskeletal: Negative Neurological: Negative Psychological: Negative Is Patient Immunocompromised?: No All Other Systems Reviewed And Are Negative: Yes Physical Exam Triage Information Reviewed: Yes Appearance: Well-Appearing, Well-Nourished, Pain Distress Vital Signs: Initial Vital Signs Temp 99.5 F 12/20/17 20:08 Pulse 73 12/20/17 20:08 Resp 16 12/20/17 20:08 BP 116/67 12/20/17 20:08 Pulse Ox 99 12/20/17 20:08 Vital Signs Reviewed: Yes Eyes: Positive: Conjunctiva Clear ENT: Positive: Hearing grossly normal. Negative: Nasal congestion, Nasal drainage, Tonsillar swelling, Tonsillar exudate, Trismus, Muffled voice, Hoarse voice Neck: Positive: Supple, Nontender, No Lymphadenopathy Respiratory: Positive: Lungs clear, Normal breath sounds, No respiratory distress, No accessory muscle use Cardiovascular: Positive: RRR, No Murmur Abdomen Description: Positive: No Organomegaly, McBurney's Point Tenderness. Negative: Nontender - tendr RUQ and RLQ, CVA Tenderness (R), CVA Tenderness (L) , Distended Male Genital Exam: Positive: Normal Genitalia. Negative: No Hernia, Bleeding, Epididymal Tenderness, Erythema, Hernia Mass Musculoskeletal: Positive: ROM Intact, No Edema Neurological: Positive: Alert Psychological Exam: Normal Skin Exam: Normal Abd Pain Male Course/Dx - Course Course Of Treatment: D/[place] Renzo ([place] [facility] [place] [facility] [place] - Differential Dx/Clinical Impression Provider Diagnoses: severe abdominal pain. duodentis/jejunitis ? crohns vs other. wt loss Discharge - Sign-Out/Discharge Documenting (check all that apply): Patient Departure - Discharge Plan Condition: Stable Disposition: TRANS HIGHER LVL OF CARE FAC Referrals: Kayla Drummond MD [Primary Care Provider] - - Billing Disposition and Condition Condition: STABLE Disposition: Trans Higher Lvl of Care Fac
[2017-12-20] MEDS ORDERED: NS 0.9% 1000 ML* 1,000 ML BOLUS ONE (20:46)
== END 2017-12-20 21:58 | disposition short-term general hospital (02) ==
LOC: UCEAST 19:59
DX: R10.9 Unspecified abdominal pain (principal); R63.4 Abnormal weight loss; F17.210 Nicotine dependence, cigarettes, uncomplicated; Z88.0 Allergy status to penicillin
CPT/HCPCS: 96360; 96361; 96374; 96375; 99213; G0463; J2270; J2405

== ENCOUNTER 2017-12-20 22:10 | Emergency (ER) | payer OTHER ==
[2017-12-20] MEDS ORDERED: NS 0.9% 1000 ML* 1,000 ML IV ONE (23:14)
[2017-12-20] MEDS ORDERED: Ketorolac INJ* 30 MG/ML 1 ML VIAL IV PUSH ONE (23:14)
[2017-12-20 23:36] LABS: ABS Basophils 0.1 10^3/ul (0-0.2); ABS Eosinophils 0.4 10^3/ul (0-0.6); ABS Lymphocytes 1.6 10^3/ul (1.0-4.8); ABS Monocytes 0.6 10^3/ul (0-0.8); ABS Neutrophils 7.3 10^3/ul (1.5-7.7); ABS Nucleated RBC 0 10^3/ul; Eosinophil % 4.3 % (0-6); Hematocrit 40 % (42-52); Hemoglobin 13.5 g/dl (14.0-18.0); Lymphocyte % 15.9 % (25-47); Mean Corpuscular HGB Conc 34 g/dl (31-36); Mean Corpuscular Hemoglobin 29 pg (27-31); Mean Corpuscular Volume 86 fL (80-94); Mean Platelet Volume 8.5 um3 (7.4-10.4); Nucleated Red Blood Cells % 0; Platelet Count 215 10^3/ul (150-450); Red Blood Count 4.62 10^6/ul (4.00-5.40); Red Cell Distribution Width 13 % (10.5-15)
[2017-12-20 23:54] LABS: EGFR Non-African American 95.1 (>60)
--- NOTE | 2017-12-21 00:39 | ED ---
Abdominal Pain/Male - HPI Summary HPI Summary: Patient sent from urgent care for right lower quadrant pain 2 weeks with associated nausea and vomiting and fever. Patient has been seen here twice before on 12/15/17, and 12/19/[address] abdomen and pelvis x 2, both negative for appendicitis or other acute process. Pt states pain is the same location and type but has increased in intensity at times. Patient has appointment with GI Jan 01 2018. Denies any other symptoms or trauma. Medical history COPD, DM. Abdominal/pelvic surgical history is none. Positive smoker. Occasional EtOH , denies illegal drugs. Patient states unable to keep food down, tolerating fluids. - History of Current Complaint Chief Complaint: EDAbdPain Stated Complaint: ABD PAIN Time Seen by Provider: 12/20/17 22:29 Hx Obtained From: Patient Onset/Duration: Gradual Onset, Lasting Weeks Timing: Constant Severity Initially: Mild Severity Currently: Severe Pain Intensity: 10 Pain Scale Used: 0-10 Numeric Location: Discrete At: RLQ Radiates: No Character: Sharp, Dull Aggravating Factor(s): Nothing Alleviating Factor(s): Nothing Associated Signs And Symptoms: Positive: Fever, Nausea, Vomiting - Allergies/Home Medications Allergies/Adverse Reactions: Allergies Allergy/AdvReac Type Severity Reaction Status Date / Time amoxicillin Allergy Hives/Diff. Verified 12/19/17 01:13 Breathing/I tching Penicillins Allergy Rash Verified 12/19/17 01:13 PMH/Surg Hx/FS Hx/Imm Hx Endocrine/Hematology History: Reports: Hx Diabetes Denies: Hx Anticoagulant Therapy, Hx Thyroid Disease Cardiovascular History: Denies: Hx Congestive Heart Failure, Hx Deep Vein Thrombosis, Hx Hypertension , Hx Myocardial Infarction, Hx Pacemaker/ICD Respiratory History: Reports: Hx Asthma, Hx Chronic Bronchitis, Hx Chronic Obstructive Pulmonary Disease (COPD), Hx Sleep Apnea - previous dx mild ILIA 2010 , Other Respiratory Problems/Disorders - current 1.5 ppd smoker Denies: Hx Lung Cancer, Hx Pneumonia, Hx Pulmonary Embolism GI History: Denies: Hx Gall Bladder Disease, Hx Gastrointestinal Bleed, Hx Ulcer, Hx Urosepsis, Other GI Disorders History: Denies: Hx Dialysis, Hx Kidney Stones, Hx Renal Disease Musculoskeletal History: Reports: Hx Back Problems Sensory History: Reports: Hx Vision Problem - (right) eye stabismus Denies: Hx Hearing Aid Opthamlomology History: Reports: Hx Vision Problem - (right) eye stabismus Neurological History: Denies: Hx Dementia, Hx Migraine, Hx Seizures, Hx Transient Ischemic Attacks (TIA) Psychiatric History: Reports: Other Psychiatric Issues/Disorders - learning disorder Denies: Hx Anxiety, Hx Depression, Hx Panic Disorder, Hx Schizophrenia, Hx Bipolar Disorder, Hx Substance Abuse - Surgical History Surgery Procedure, Year, and Place: LT EYE STRABISMUS SURGERY, DENTAL EXTRACTION 01/30/14 - Immunization History Date of Tetanus Vaccine: utd Date of Influenza Vaccine: utd Infectious Disease History: No Infectious Disease History: Denies: Hx Clostridium Difficile, Hx Hepatitis, Hx Human Immunodeficiency Virus (HIV), Hx of Known/Suspected MRSA, Hx Shingles, Hx Tuberculosis, Hx Known/ Suspected VRE, Hx Known/Suspected VRSA, History Other Infectious Disease, Traveled Outside the [place] in Last 30 Days - Family History Known Family History: Positive: Cardiac Disease, Hypertension, Respiratory Disease - Social History Alcohol Use: Occasionally Hx Substance Use: No Substance Use Type: Reports: None Hx Tobacco Use: Yes Smoking Status (MU): Heavy Every Day Tobacco Smoker Type: Cigarettes Amount Used/How Often: 1/2 PPD Length of Time of Smoking/Using Tobacco: started at age 10 Have You Smoked in the Last Year: Yes Review of Systems Positive: Fever Eyes: Negative ENT: Negative Cardiovascular: Negative Respiratory: Negative Positive: Abdominal Pain, Vomiting, Nausea Genitourinary: Negative Musculoskeletal: Negative Skin: Negative Neurological: Negative Psychological: Normal All Other Systems Reviewed And Are Negative: Yes Physical Exam Triage Information Reviewed: Yes Vital Signs On Initial Exam: Initial Vitals Temp Pulse Resp BP Pulse Ox 99 F 57 16 112/58 99 12/20/17 22:34 12/20/17 22:34 12/20/17 22:34 12/20/17 22:34 12/20/17 22:34 Vital Signs Reviewed: Yes Appearance: Positive: Well-Appearing Skin: Positive: Warm Head/Face: Positive: Normal Head/Face Inspection Eyes: Positive: Normal Neck: Positive: Supple Respiratory/Lung Sounds: Positive: Clear to Auscultation Cardiovascular: Positive: Normal Abdomen Description: Positive: McBurney's Point Tenderness Musculoskeletal: Positive: Normal Neurological: Positive: Normal Psychiatric: Positive: Normal AVPU Assessment: Alert - [place] Coma Scale Best Eye Response: 4 - Spontaneous Best Motor Response: 6 - Obeys Commands Best Verbal Response: 5 - Oriented Coma Scale Total: 15 Diagnostics - Vital Signs Vital Signs Temp Pulse Resp BP Pulse Ox 12/20/17 23:05 55 114/52 99 12/20/17 23:00 59 99 12/20/17 22:35 60 112/58 99 12/20/17 22:34 99 F 52 16 112/58 99 - Laboratory Lab Results: Lab Results 12/20/17 12/20/17 12/20/17 Range/Units 23:19 23:19 23:19 WBC 10.0 (3.5-10.8) 10^3/ul RBC 4.62 (4.00-5.40) 10^6/ul Hgb 13.5 L (14.0-18.0) g/dl Hct 40 L (42-52) % MCV 86 (80-94) fL MCH 29 (27-31) pg MCHC 34 (31-36) g/dl RDW 13 (10.5-15) % Plt Count 215 (150-450) 10^3/ul MPV 8.5 (7.4-10.4) um3 Neut % (Auto) 73.1 (38-83) % Lymph % (Auto) 15.9 L (25-47) % Hardin % (Auto) 5.8 (0-7) % Eos % (Auto) 4.3 (0-6) % Baso % (Auto) 0.9 (0-2) % Absolute Neuts (auto) 7.3 (1.5-7.7) 10^3/ul Absolute Lymphs (auto) 1.6 (1.0-4.8) 10^3/ul Absolute Monos (auto) 0.6 (0-0.8) 10^3/ul Absolute Eos (auto) 0.4 (0-0.6) 10^3/ul Absolute Basos (auto) 0.1 (0-0.2) 10^3/ul Absolute Nucleated RBC 0 10^3/ul Nucleated RBC % 0 Sodium 139 (135-145) mmol/L Potassium 3.7 (3.5-5.0) mmol/L Chloride 106 (101-111) mmol/L Carbon Dioxide 27 (22-32) mmol/L Anion Gap 6 (2-11) mmol/L BUN 4 L (6-24) mg/dL Creatinine 0.95 (0.67-1.17) mg/dL Est GFR ( Amer) 115.1 (>60) Est GFR (Non-Af Amer) 95.1 (>60) BUN/Creatinine Ratio 4.2 L (8-20) Glucose 101 H (70-100) mg/dL Lactic Acid 0.7 (0.5-2.0) mmol/L Calcium 8.3 L (8.6-10.3) mg/dL Total Bilirubin 0.30 (0.2-1.0) mg/dL AST 11 L (13-39) U/L ALT 7 (7-52) U/L Alkaline Phosphatase 59 (34-104) U/L C-Reactive Protein 12.23 H (<8.01) mg/L Total Protein 6.4 (6.4-8.9) g/dL Albumin 3.7 (3.2-5.2) g/dL Globulin 2.7 (2-4) g/dL Albumin/Globulin Ratio 1.4 (1-3) Lipase 17 (11.0-82.0) U/L Result Diagrams: 12/20/17 23:19 12/20/17 23:19 Lab Statement: Any lab studies that have been ordered have been reviewed, and results considered in the medical decision making process. Abdominal Pain Fem Course/Dx - Course Course Of Treatment: Patient sent from urgent care for right lower quadrant pain 2 weeks with associated nausea and vomiting and fever. Patient has been seen here twice before on 12/15/17, and 12/19/[address] abdomen and pelvis x 2, both negative for appendicitis or other acute process. Pt states pain is the same location and type but has increased in intensity at times. Patient has appointment with GI Jan 01 2018. Denies any other symptoms or trauma. Medical history COPD, DM. Abdominal/pelvic surgical history is none. Positive smoker. Occasional EtOH, denies illegal drugs. Patient states unable to keep food down, tolerating fluids. Mild tenderness to palpation in right lower quadrant. Afebrile. Vital signs within normal limits and stable. Blood work unremarkable. Discussed patient with Dr. saxena who agreed that CT of abdomen and pelvis not indicated given 2 recent [address]s. Patient has appointment with GI on January 01. Patient advised to follow-up with GI on his appointment. Rx for Zofran. Tylenol or ibuprofen for pain. - Diagnoses Provider Diagnoses: Right sided abdominal pain Discharge - Sign-Out/Discharge Documenting (check all that apply): Patient Departure - Discharge Plan Condition: Stable Disposition: HOME Prescriptions: Promethazine TAB* [Phenergan TAB*] 25 mg PO Q8H PRN 5 Days #15 tab PRN Reason: Nausea Patient Education Materials: Acute Abdominal Pain (ED), Abdominal Pain (ED) Referrals: Kayla Drummond MD [Primary Care Provider] - Additional Instructions: Follow-up with your appointment with GI on 01/01. Tylenol or ibuprofen for pain. Return to the ED for any new or worsening symptoms - Billing Disposition and Condition Condition: STABLE Disposition: Home
[2017-12-21 01:09] VITALS: BP 114/57
== END 2017-12-21 01:09 | disposition home or self-care (01) ==
LOC: ED 22:10
DX: R10.31 Right lower quadrant pain (principal); R50.9 Fever, unspecified; R11.2 Nausea with vomiting, unspecified; Z88.0 Allergy status to penicillin; F17.210 Nicotine dependence, cigarettes, uncomplicated
CPT/HCPCS: 36415; 80053; 83605; 83690; 85025; 86140; 96374; 99283; J1885

== ENCOUNTER 2017-12-22 23:23 | Emergency (ER) | payer OTHER ==
[2017-12-23] MEDS ORDERED: Ketorolac INJ* 30 MG/ML 1 ML VIAL IV PUSH ONE (00:01)
[2017-12-23] MEDS ORDERED: Metoclopramide IV* 5 MG/ML 2 ML VIAL IV SLOW PU ONE (00:01)
[2017-12-23] MEDS ORDERED: diPHENhydraMINE IV* 50 MG/ML 1 ml VIAL (BENADRYL) IV ONE (00:02)
[2017-12-23] MEDS ORDERED: NS 0.9% 1000 ML* 1,000 ML IV ONE (00:02)
[2017-12-23] MEDS ORDERED: Ketorolac INJ* 30 MG/ML 1 ML VIAL IM ONE (00:22)
[2017-12-23] MEDS ORDERED: diPHENhydraMINE PO* 50 MG PO ONE (00:22)
--- NOTE | 2017-12-23 00:22 | ED ---
Headache - HPI Summary HPI Summary: 27 male presents with headache for the past couple hours. He states he has history of migraines. He states though this does not feel like his typical migraine. He has states that this is most intense headache of his life. Although in the waiting room he was laughing and talking and he does not appear in any distress in the room. He denies any nausea vomiting. Denies any change in vision. No photophobia. No fevers. He states that his pain radiates down into his back. No saddle anesthesia. No loss of bowel or bladder. Is able to ambulate with a normal gait. took 600mg ibuprofen. - History Of Current Complaint Chief Complaint: EDHeadache Stated Complaint: BACK PAIN/HEAD ACHE Time Seen by Provider: 12/22/17 23:50 - Allergies/Home Medications Allergies/Adverse Reactions: Allergies Allergy/AdvReac Type Severity Reaction Status Date / Time amoxicillin Allergy Hives/Diff. Verified 12/19/17 01:13 Breathing/I tching Penicillins Allergy Rash Verified 12/19/17 01:13 PMH/Surg Hx/FS Hx/Imm Hx Endocrine/Hematology History: Reports: Hx Diabetes Denies: Hx Anticoagulant Therapy, Hx Thyroid Disease Cardiovascular History: Denies: Hx Congestive Heart Failure, Hx Deep Vein Thrombosis, Hx Hypertension , Hx Myocardial Infarction, Hx Pacemaker/ICD Respiratory History: Reports: Hx Asthma, Hx Chronic Bronchitis, Hx Chronic Obstructive Pulmonary Disease (COPD), Hx Sleep Apnea - previous dx mild ILIA 2010 , Other Respiratory Problems/Disorders - current 1.5 ppd smoker Denies: Hx Lung Cancer, Hx Pneumonia, Hx Pulmonary Embolism GI History: Denies: Hx Gall Bladder Disease, Hx Gastrointestinal Bleed, Hx Ulcer, Hx Urosepsis, Other GI Disorders History: Denies: Hx Dialysis, Hx Kidney Stones, Hx Renal Disease Musculoskeletal History: Reports: Hx Back Problems Sensory History: Reports: Hx Vision Problem - (right) eye stabismus Denies: Hx Hearing Aid Opthamlomology History: Reports: Hx Vision Problem - (right) eye stabismus Neurological History: Denies: Hx Dementia, Hx Migraine, Hx Seizures, Hx Transient Ischemic Attacks (TIA) Psychiatric History: Reports: Other Psychiatric Issues/Disorders - learning disorder Denies: Hx Anxiety, Hx Depression, Hx Panic Disorder, Hx Schizophrenia, Hx Bipolar Disorder, Hx Substance Abuse - Surgical History Surgery Procedure, Year, and Place: LT EYE STRABISMUS SURGERY, DENTAL EXTRACTION 01/30/14 - Immunization History Date of Tetanus Vaccine: utd Date of Influenza Vaccine: utd Infectious Disease History: No Infectious Disease History: Denies: Hx Clostridium Difficile, Hx Hepatitis, Hx Human Immunodeficiency Virus (HIV), Hx of Known/Suspected MRSA, Hx Shingles, Hx Tuberculosis, Hx Known/ Suspected VRE, Hx Known/Suspected VRSA, History Other Infectious Disease, Traveled Outside the [place] in Last 30 Days - Family History Known Family History: Positive: Cardiac Disease, Hypertension, Respiratory Disease - Social History Alcohol Use: Occasionally Hx Substance Use: No Substance Use Type: Reports: None Hx Tobacco Use: Yes Smoking Status (MU): Heavy Every Day Tobacco Smoker Type: Cigarettes Amount Used/How Often: 1/2 PPD Length of Time of Smoking/Using Tobacco: started at age 10 Have You Smoked in the Last Year: Yes Review of Systems Negative: Fever Negative: Chest Pain Negative: Shortness Of Breath Positive: Headache All Other Systems Reviewed And Are Negative: Yes Physical Exam Triage Information Reviewed: Yes Vital Signs On Initial Exam: Initial Vitals Temp Pulse Resp BP Pulse Ox 97.5 F 75 16 129/61 100 12/22/17 23:26 12/22/17 23:26 12/22/17 23:26 12/22/17 23:26 12/22/17 23:26 Vital Signs Reviewed: Yes Appearance: Positive: Well-Appearing Skin: Positive: Warm, Dry Head/Face: Positive: Normal Head/Face Inspection Eyes: Positive: Normal, EOMI, CHARMAINE, Conjunctiva Clear ENT: Positive: Normal ENT inspection, Pharynx normal, TMs normal Neck: Positive: Other: - full ROM neck. Negative: Nuchal Rigidity Respiratory/Lung Sounds: Positive: Clear to Auscultation, Breath Sounds Present Cardiovascular: Positive: Normal, RRR Abdomen Description: Positive: Nontender, Soft Bowel Sounds: Positive: Absent Neurological: Positive: Sensory/Motor Intact, Alert, Oriented to Person Place, Time, CN Intact II-III Psychiatric: Positive: Normal - Elle Coma Scale Best Eye Response: 4 - Spontaneous Best Motor Response: 6 - Obeys Commands Best Verbal Response: 5 - Oriented Coma Scale Total: 15 Diagnostics - Vital Signs Vital Signs Temp Pulse Resp BP Pulse Ox 12/22/17 23:26 97.5 F 75 16 129/61 100 - Laboratory Result Diagrams: 12/23/17 00:20 12/23/17 00:20 Lab Statement: Any lab studies that have been ordered have been reviewed, and results considered in the medical decision making process. - CT brain CT Interpretation: No Acute Changes CT Interpretation Completed By: Radiologist Re-Evaluation - Re-Evaluation First Eval Re-Evaluation Time: 01:07 Change: Improved Comment: improved after benadryl and toradol Headache Course/Dx - Course Course Of Treatment: 27 male presents with headache for the past couple hours. He states he has history of migraines. He states though this does not feel like his typical migraine. He has states that this is most intense headache of his life. Although in the waiting room he was laughing and talking and he does not appear in any distress in the room. He denies any nausea vomiting. Denies any change in vision. No photophobia. No fevers. He states that his pain radiates down into his back. No saddle anesthesia. No loss of bowel or bladder. Is able to ambulate with a normal gait. took 600mg ibuprofen. On exam normal neuro exam. Head CT as is within the first 6 hours and so sensitivity is a very high. no need for LP and patient appears in no distress. CT brain normal. labs wnl. feeling better after bendaryl and toradol. will have follow up with primary about headache. patient understand and agrees with plan. - Diagnoses Differential Diagnosis/HQI/PQRI: Migraine, Sinus Headache, Tension Headache Provider Diagnoses: Headache Discharge - Sign-Out/Discharge Documenting (check all that apply): Patient Departure - Discharge Plan Condition: Good Disposition: HOME Patient Education Materials: General Headache (ED) Referrals: Kayla Drummond MD [Primary Care Provider] - Additional Instructions: Take Tylenol or ibuprofen for pain every 6 hours Follow up with primary within 5 days Return to ED if develop any new or worsening symptoms - Billing Disposition and Condition Condition: GOOD Disposition: Home
[2017-12-23 00:28] LABS: ABS Basophils 0.1 10^3/ul (0-0.2); ABS Eosinophils 0.5 10^3/ul (0-0.6); ABS Lymphocytes 2.2 10^3/ul (1.0-4.8); ABS Monocytes 0.5 10^3/ul (0-0.8); ABS Neutrophils 4.3 10^3/ul (1.5-7.7); ABS Nucleated RBC 0 10^3/ul; Eosinophil % 6.7 % (0-6); Hematocrit 40 % (42-52); Hemoglobin 13.4 g/dl (14.0-18.0); Lymphocyte % 28.9 % (25-47); Mean Corpuscular HGB Conc 34 g/dl (31-36); Mean Corpuscular Hemoglobin 29 pg (27-31); Mean Corpuscular Volume 87 fL (80-94); Mean Platelet Volume 8.5 um3 (7.4-10.4); Nucleated Red Blood Cells % 0; Platelet Count 239 10^3/ul (150-450); Red Blood Count 4.61 10^6/ul (4.00-5.40); Red Cell Distribution Width 13 % (10.5-15); White Blood Count 7.6 10^3/ul (3.5-10.8)
[2017-12-23 00:47] LABS: EGFR Non-African American 89.6 (>60)
[2017-12-23 01:40] VITALS: BP 112/60
--- NOTE | 2017-12-23 08:08 | RAD ---
HISTORY: headache COMPARISONS: June 23, 2010 TECHNIQUE: Multiple contiguous axial CT scans were obtained of the head without intravenous contrast. FINDINGS: HEMORRHAGE/INFARCT: There is no hemorrhage or acute infarct. MASSES/SHIFT: There is no mass or shift. EXTRA-AXIAL SPACES: There are no extra-axial fluid collections. SULCI AND VENTRICLES: The sulci and ventricles are normal in size and position for the patient's stated age. CEREBRUM: There are no focal parenchymal abnormalities. BRAINSTEM: There are no focal parenchymal abnormalities. CEREBELLUM: There are no focal parenchymal abnormalities. VESSELS: The vessels are grossly normal. PARANASAL SINUSES: There is mucosal thickening of the ethmoid air cells. ORBITS: The orbits are unremarkable. BONES AND SOFT TISSUE: No bone or soft tissue abnormalities are noted. OTHER: None IMPRESSION: NO ACUTE INTRACRANIAL PATHOLOGY. R0
== END 2017-12-23 01:39 | disposition home or self-care (01) ==
LOC: ED 23:23
DX: R51 Headache (principal); Z88.0 Allergy status to penicillin; F17.210 Nicotine dependence, cigarettes, uncomplicated
CPT/HCPCS: 36415; 70450; 80053; 83735; 85025; 96374; 96375; 99283; A9270-GY; J1885

== ENCOUNTER 2018-02-19 15:49 | Emergency (ER) | payer OTHER ==
[2018-02-19 16:18] VITALS: BP 143/75
[2018-02-19] MEDS ORDERED: Ondansetron ODT TAB* 4 MG PO ONE (17:06)
[2018-02-19] MEDS ORDERED: Acetaminophen TAB* 325 MG PO ONE (17:06)
--- NOTE | 2018-02-19 18:21 | UC ---
Throat Pain/Nasal Aldo HPI - HPI Summary HPI Summary: 27 YO MALE who comes to clinic today with a complaint of not feeling well. His symptoms started yesterday. Complains of generalized body aches and nausea fever vomiting and diarrhea. He also complains of generalized weakness. No complaint of headache or stiff neck. No complaint of dysuria. He has tried some ibuprofen which helped somewhat the body aches. There is no blood in the stool or the emesis. - History of Current Complaint Chief Complaint: UCGeneralIllness Stated Complaint: BODY ACHES Time Seen by Provider: 02/19/18 17:02 Pain Intensity: 10 - Allergies/Home Medications Allergies/Adverse Reactions: Allergies Allergy/AdvReac Type Severity Reaction Status Date / Time amoxicillin Allergy Hives/Diff. Verified 02/19/18 16:20 Breathing/I tching naproxen Allergy Rash Verified 02/19/18 16:20 Penicillins Allergy Rash Verified 02/19/18 16:20 Home Medications: Home Medications Adhd Medication DAILY 02/19/18 [History] PMH/Surg Hx/FS Hx/Imm Hx Other History Of: Negative For: HIV, Hepatitis B, Hepatitis C, Anticoagulant Therapy - Surgical History Surgical History: Yes Surgery Procedure, Year, and Place: LT EYE STRABISMUS SURGERY, DENTAL EXTRACTION 01/30/14 - Family History Known Family History: Positive: Cardiac Disease, Hypertension, Respiratory Disease - Social History Alcohol Use: Occasionally Substance Use Type: None Smoking Status (MU): Heavy Every Day Tobacco Smoker Type: Cigarettes Amount Used/How Often: 1/2 PPD Length of Time of Smoking/Using Tobacco: started at age 10 Have You Smoked in the Last Year: Yes Household Exposure Type: Cigarettes - Immunization History Most Recent Influenza Vaccination: fall 2016 Review of Systems Constitutional: Fever, Chills Skin: Negative Eyes: Negative ENT: Sore Throat Respiratory: Negative Cardiovascular: Negative Gastrointestinal: Vomiting, Diarrhea Genitourinary: Negative Motor: Negative Neurovascular: Negative Musculoskeletal: Myalgia Neurological: Negative Psychological: Negative Is Patient Immunocompromised?: No All Other Systems Reviewed And Are Negative: Yes Physical Exam Triage Information Reviewed: Yes Appearance: Ill-Appearing - MILD Vital Signs: Initial Vital Signs Temp 100.0 F 02/19/18 16:15 Pulse 90 02/19/18 16:15 Resp 16 02/19/18 16:15 BP 143/75 02/19/18 16:15 Pulse Ox 100 02/19/18 16:15 Vital Signs Reviewed: Yes Eye Exam: Normal Eyes: Positive: Conjunctiva Clear ENT: Positive: Pharyngeal erythema, Nasal congestion Neck exam: Normal Neck: Positive: Supple Respiratory: Positive: Lungs clear, Normal breath sounds, No respiratory distress Cardiovascular: Positive: RRR Abdominal Exam: Normal Abdomen Description: Positive: Nontender, Soft Bowel Sounds: Positive: Present Musculoskeletal Exam: Normal Musculoskeletal: Positive: Strength Intact, ROM Intact Neurological Exam: Normal Neurological: Positive: Alert Psychological Exam: Normal Skin Exam: Normal Throat Pain/Nasal Course/Dx - Course Course Of Treatment: Patient feels improved in the clinic after Zofran and acetaminophen. Discussed test results with the patient. At this time will continue with symptomatic treatment. Follow up with primary care doctor recheck sooner if worse. - Differential Dx/Diagnosis Provider Diagnoses: MYALGIAS. NAUSEA. VOMITING Discharge - Sign-Out/Discharge Documenting (check all that apply): Patient Departure All imaging exams completed and their final reports reviewed: No Studies - Discharge Plan Condition: Stable Disposition: HOME Prescriptions: Ondansetron ODT TAB* [Zofran 4 MG Odt TAB*] 4 mg PO Q6H PRN #10 tab.odt PRN Reason: Nausea Patient Education Materials: Dehydration (ED), Acute Nausea and Vomiting (ED), Acute Diarrhea (ED) Referrals: Kayla Drummond MD [Primary Care Provider] - Additional Instructions: FOLLOW UP WITH YOUR DOCTOR. GET RECHECKED FOR ANY WORSENING OF YOUR CONDITION OR QUESTIONS OR CONCERNS. - Billing Disposition and Condition Condition: STABLE Disposition: Home
== END 2018-02-19 18:31 | disposition home or self-care (01) ==
LOC: UCCORT 15:49
DX: R11.2 Nausea with vomiting, unspecified (principal); M79.1 Myalgia; Z88.0 Allergy status to penicillin; Z88.6 Allergy status to analgesic agent; F17.210 Nicotine dependence, cigarettes, uncomplicated
CPT/HCPCS: 87651; 99212; A9270-GY; G0463

== ENCOUNTER 2018-03-02 23:20 | Emergency (ER) | payer OTHER ==
[2018-03-02] MEDS ORDERED: Ondansetron INJ* 2 MG/ML VIAL IV ONE (23:48)
[2018-03-02] MEDS ORDERED: NS 0.9% 1000 ML* 1,000 ML IV ONE (23:48)
--- NOTE | 2018-03-02 23:53 | ED ---
Nausea/Vomiting/Diarrhea HPI - HPI Summary HPI Summary: Patient is a 27-year-old male who presents emergency department for vomiting and diarrhea 3 weeks. Patient notes mild diffuse abdominal pain intermittently. Denies blood in stool or emesis. Patient states that multiple family members have been sick with similar symptoms. Patient denies any recent travel, no exposures, recent hospitalizations, antibiotic use. He admits to fever of 100.2F last night. Pt. states he's been having 3 watery bowel movements and 3 episodes of vomiting a day. Past medical history of COPD, ADHD. Symptoms are moderate in severity. No current modifying factors. - History of Current Complaint Chief Complaint: EDAbdPain Stated Complaint: VOMITING Time Seen by Provider: 03/02/18 23:31 Hx Obtained From: Patient Pain Intensity: 9 - Allergies/Home Medications Allergies/Adverse Reactions: Allergies Allergy/AdvReac Type Severity Reaction Status Date / Time amoxicillin Allergy Hives/Diff. Verified 03/02/18 23:42 Breathing/I tching naproxen Allergy Rash Verified 03/02/18 23:42 Penicillins Allergy Rash Verified 03/02/18 23:42 PMH/Surg Hx/FS Hx/Imm Hx Previously Healthy: Yes Endocrine/Hematology History: Reports: Hx Diabetes Denies: Hx Anticoagulant Therapy, Hx Thyroid Disease Cardiovascular History: Denies: Hx Congestive Heart Failure, Hx Deep Vein Thrombosis, Hx Hypertension , Hx Myocardial Infarction, Hx Pacemaker/ICD Respiratory History: Reports: Hx Asthma, Hx Chronic Bronchitis, Hx Chronic Obstructive Pulmonary Disease (COPD), Hx Sleep Apnea - previous dx mild ILIA 2010 , Other Respiratory Problems/Disorders - current 1.5 ppd smoker Denies: Hx Lung Cancer, Hx Pneumonia, Hx Pulmonary Embolism GI History: Denies: Hx Gall Bladder Disease, Hx Gastrointestinal Bleed, Hx Ulcer, Hx Urosepsis, Other GI Disorders History: Denies: Hx Dialysis, Hx Kidney Stones, Hx Renal Disease Musculoskeletal History: Reports: Hx Back Problems Sensory History: Reports: Hx Vision Problem - (right) eye stabismus Denies: Hx Hearing Aid Opthamlomology History: Reports: Hx Vision Problem - (right) eye stabismus Neurological History: Denies: Hx Dementia, Hx Migraine, Hx Seizures, Hx Transient Ischemic Attacks (TIA) Psychiatric History: Reports: Other Psychiatric Issues/Disorders - learning disorder Denies: Hx Anxiety, Hx Depression, Hx Panic Disorder, Hx Schizophrenia, Hx Bipolar Disorder, Hx Substance Abuse - Surgical History Surgery Procedure, Year, and Place: LT EYE STRABISMUS SURGERY, DENTAL EXTRACTION 01/30/14 - Immunization History Date of Tetanus Vaccine: utd Date of Influenza Vaccine: utd Infectious Disease History: No Infectious Disease History: Denies: Hx Clostridium Difficile, Hx Hepatitis, Hx Human Immunodeficiency Virus (HIV), Hx of Known/Suspected MRSA, Hx Shingles, Hx Tuberculosis, Hx Known/ Suspected VRE, Hx Known/Suspected VRSA, History Other Infectious Disease, Traveled Outside the [place] in Last 30 Days - Family History Known Family History: Positive: Cardiac Disease, Hypertension, Respiratory Disease - Social History Occupation: Unemployed Lives: With Family Alcohol Use: Occasionally Hx Substance Use: No Substance Use Type: Reports: None Hx Tobacco Use: Yes Smoking Status (MU): Heavy Every Day Tobacco Smoker Type: Cigarettes Amount Used/How Often: 1/2 PPD Length of Time of Smoking/Using Tobacco: started at age 10 Have You Smoked in the Last Year: Yes Review of Systems Positive: Fever, Chills Eyes: Negative ENT: Negative Positive: Palpitations Respiratory: Negative Positive: Abdominal Pain, Vomiting, Diarrhea, Nausea Musculoskeletal: Negative Skin: Negative Neurological: Negative All Other Systems Reviewed And Are Negative: Yes Physical Exam Triage Information Reviewed: Yes Vital Signs On Initial Exam: Initial Vitals Temp Pulse Resp BP Pulse Ox 98.4 F 63 15 125/77 97 03/02/18 23:22 03/02/18 23:22 03/02/18 23:22 03/02/18 23:22 03/02/18 23:22 Vital Signs Reviewed: Yes Appearance: Positive: Well-Appearing - Pt. lying in bed in NAD. Skin: Positive: Warm, Dry Head/Face: Positive: Normal Head/Face Inspection Eyes: Positive: Normal, EOMI Neck: Positive: Supple Respiratory/Lung Sounds: Positive: Clear to Auscultation, Breath Sounds Present Cardiovascular: Positive: Normal, RRR Abdomen Description: Positive: Other: - Abdomen is soft nontender throughout. No rebound tenderness or guarding. Neurological: Positive: Normal, CN Intact II-III Psychiatric: Positive: Affect/Mood Appropriate Diagnostics - Vital Signs Vital Signs Temp Pulse Resp BP Pulse Ox 03/02/18 23:22 98.4 F 63 15 125/77 97 - Laboratory Result Diagrams: 03/02/18 23:47 03/02/18 23:47 Lab Statement: Any lab studies that have been ordered have been reviewed, and results considered in the medical decision making process. Naus/Vom/Diarrhea Course/Dx - Course Course Of Treatment: Pt. presenting with V/D and abd. pain. He is afebrile. He has a benign abd. exam. Will check basic labs. IV fluids and zofran given. Labs are unremarkable. On re-exam N/V has improved and pt. is tolerating POs. He still c/o lower abd. cramping. Pt. has been seen in ER numerous times for abd. pain and has had numerous CT scans. Pt. states pain today feels the same as his ongoing abd. pain. He describes it as cramping. Pt. was unable to provide stool sample. Will try bentyl for pain. Pt. requesting a sandwich. He is comfortable with dc at this time. Strongly advised to f.u with the [facility]. To return to ER if sxs change or worsen. Pt. understands and agrees with plan. - Differential Dx/Diagnosis Provider Diagnoses: 1. Vomiting and diarrhea 2. Chronic abdominal pain Condition At Discharge: Good Discharge - Sign-Out/Discharge Documenting (check all that apply): Patient Departure - Discharge Plan Condition: Good Disposition: HOME Prescriptions: Dicyclomine CAP* [Bentyl CAP*] 10 mg PO TID PRN #12 cap PRN Reason: Pain Ondansetron TAB* [Zofran 4 MG Tab*] 4 mg PO Q6H PRN #12 tab PRN Reason: Nausea Patient Education Materials: Gastroenteritis (ED), Chronic Abdominal Pain (ED) Referrals: [facility] [Outside] Additional Instructions: Call the [facility] tomorrow for a follow up appointment Medication as directed Increase fluids Return to ER if symptoms change or worsen - Billing Disposition and Condition Condition: GOOD Disposition: Home
[2018-03-03 00:01] LABS: ABS Basophils 0.1 10^3/ul (0-0.2); ABS Eosinophils 0.5 10^3/ul (0-0.6); ABS Lymphocytes 2.6 10^3/ul (1.0-4.8); ABS Monocytes 0.7 10^3/ul (0-0.8); ABS Neutrophils 5.9 10^3/ul (1.5-7.7); ABS Nucleated RBC 0 10^3/ul; Eosinophil % 5.6 % (0-6); Hematocrit 42 % (42-52); Hemoglobin 14.2 g/dl (14.0-18.0); Lymphocyte % 26.6 % (25-47); Mean Corpuscular HGB Conc 34 g/dl (31-36); Mean Corpuscular Hemoglobin 29 pg (27-31); Mean Corpuscular Volume 85 fL (80-94); Mean Platelet Volume 8.5 um3 (7.4-10.4); Nucleated Red Blood Cells % 0.2; Platelet Count 252 10^3/ul (150-450); Red Blood Count 4.91 10^6/ul (4.00-5.40); Red Cell Distribution Width 13 % (10.5-15); White Blood Count 9.9 10^3/ul (3.5-10.8)
[2018-03-03] MEDS ORDERED: Dicyclomine CAP* 10 MG PO ONE (00:54)
[2018-03-03 01:23] VITALS: BP 130/76
== END 2018-03-03 01:22 | disposition home or self-care (01) ==
LOC: ED 23:20
DX: R11.2 Nausea with vomiting, unspecified (principal); R19.7 Diarrhea, unspecified; R50.9 Fever, unspecified; R00.2 Palpitations; F17.210 Nicotine dependence, cigarettes, uncomplicated
CPT/HCPCS: 36415; 80053; 83690; 83735; 85025; 96365; 99283; A9270-GY; J2405

== ENCOUNTER → 2018-04-01 22:47 | Emergency (ER) | payer OTHER ==
--- NOTE | 2018-04-02 00:05 | ED ---
Adult Trauma - HPI Summary HPI Summary: 27 year old male presents with left wrist and knee pain after fall today. He states he tripped and fell down the stairs. He denies any head injury. No loss consciousness or neck pain. He admits to lower back pain. No urinary symptoms. No loss of bowel or bladder. No weakness. No numbness and tingling. He denies any previous fractures. No other injury. has pain over the ulnar aspect of his left wrist. No snuffbox tenderness. - History of Current Complaint Chief Complaint: EDExtremityUpper Stated Complaint: FALL Time Seen by Provider: 04/01/18 23:04 Pain Intensity: 10 - Allergy/Home Medications Allergies/Adverse Reactions: Allergies Allergy/AdvReac Type Severity Reaction Status Date / Time amoxicillin Allergy Hives/Diff. Verified 03/02/18 23:42 Breathing/I tching naproxen Allergy Rash Verified 03/02/18 23:42 Penicillins Allergy Rash Verified 03/02/18 23:42 PMH/Surg Hx/FS Hx/Imm Hx Endocrine/Hematology History: Reports: Hx Diabetes Denies: Hx Anticoagulant Therapy, Hx Thyroid Disease Cardiovascular History: Denies: Hx Congestive Heart Failure, Hx Deep Vein Thrombosis, Hx Hypertension , Hx Myocardial Infarction, Hx Pacemaker/ICD Respiratory History: Reports: Hx Asthma, Hx Chronic Bronchitis, Hx Chronic Obstructive Pulmonary Disease (COPD), Hx Sleep Apnea - previous dx mild ILIA 2010 , Other Respiratory Problems/Disorders - current 1.5 ppd smoker Denies: Hx Lung Cancer, Hx Pneumonia, Hx Pulmonary Embolism GI History: Denies: Hx Gall Bladder Disease, Hx Gastrointestinal Bleed, Hx Ulcer, Hx Urosepsis, Other GI Disorders History: Denies: Hx Dialysis, Hx Kidney Stones, Hx Renal Disease Musculoskeletal History: Reports: Hx Back Problems Sensory History: Reports: Hx Vision Problem - (right) eye stabismus Denies: Hx Hearing Aid Opthamlomology History: Reports: Hx Vision Problem - (right) eye stabismus Neurological History: Denies: Hx Dementia, Hx Migraine, Hx Seizures, Hx Transient Ischemic Attacks (TIA) Psychiatric History: Reports: Other Psychiatric Issues/Disorders - learning disorder Denies: Hx Anxiety, Hx Depression, Hx Panic Disorder, Hx Schizophrenia, Hx Bipolar Disorder, Hx Substance Abuse - Surgical History Surgery Procedure, Year, and Place: LT EYE STRABISMUS SURGERY, DENTAL EXTRACTION 01/30/14 - Immunization History Date of Tetanus Vaccine: utd Date of Influenza Vaccine: utd Infectious Disease History: No Infectious Disease History: Denies: Hx Clostridium Difficile, Hx Hepatitis, Hx Human Immunodeficiency Virus (HIV), Hx of Known/Suspected MRSA, Hx Shingles, Hx Tuberculosis, Hx Known/ Suspected VRE, Hx Known/Suspected VRSA, History Other Infectious Disease, Traveled Outside the [place] in Last 30 Days - Family History Known Family History: Positive: Cardiac Disease, Hypertension, Respiratory Disease - Social History Alcohol Use: Occasionally Hx Substance Use: No Substance Use Type: Reports: None Hx Tobacco Use: Yes Smoking Status (MU): Heavy Every Day Tobacco Smoker Type: Cigarettes Amount Used/How Often: 1/2 PPD Length of Time of Smoking/Using Tobacco: started at age 10 Have You Smoked in the Last Year: Yes Review of Systems Negative: Fever Negative: Chest Pain Negative: Shortness Of Breath Positive: Myalgia - back, left knee pain, left wrist pain All Other Systems Reviewed And Are Negative: Yes Physical Exam Triage Information Reviewed: Yes Vital Signs On Initial Exam: Initial Vitals Temp Pulse Resp BP Pulse Ox 98.3 F 77 20 127/81 97 04/01/18 22:49 04/01/18 22:49 04/01/18 22:49 04/01/18 22:49 04/01/18 22:49 Vital Signs Reviewed: Yes Appearance: Positive: Well-Appearing Skin: Positive: Warm, Dry Head/Face: Positive: Normal Head/Face Inspection Eyes: Positive: Normal, Conjunctiva Clear ENT: Positive: Pharynx normal Respiratory/Lung Sounds: Positive: Clear to Auscultation, Breath Sounds Present Cardiovascular: Positive: Normal, RRR Abdomen Description: Positive: Nontender, Soft Bowel Sounds: Positive: Present Musculoskeletal: Positive: Strength/ROM Intact - knee, Limited @ - wrist, Other - tenderness over left patella, tenderness ulnar aspect of left wrist, good pulses, neg snuff box tenderness, tenderness lower back, neg SLR Neurological: Positive: Normal Psychiatric: Positive: Normal Diagnostics - Vital Signs Vital Signs Temp Pulse Resp BP Pulse Ox 04/01/18 22:49 98.3 F 77 20 127/81 97 - Laboratory Lab Statement: Any lab studies that have been ordered have been reviewed, and results considered in the medical decision making process. - Radiology wrist Radiology Interpretation Completed By: ED Physician Summary of Radiographic Findings: no fx back Radiology Interpretation Completed By: ED Physician Summary of Radiographic Findings: no fx knee Radiology Interpretation Completed By: ED Physician Summary of Radiographic Findings: no fx Adult Trauma Course/Dx - Course Course Of Treatment: 27 year old male presents with left wrist and knee pain after fall today. He states he tripped and fell down the stairs. He denies any head injury. No loss consciousness or neck pain. He admits to lower back pain. No urinary symptoms. No loss of bowel or bladder. No weakness. No numbness and tingling. He denies any previous fractures. No other injury. has pain over the ulnar aspect of his left wrist. No snuffbox tenderness. On exam tenderness over the ulnar aspect. Full range of motion. Neurovascular intact. No snuffbox tenderness. Tenderness over patella left knee. Tenderness over her lower back. X-ray as read by me as normal. We'll treat with rice. Patient understands agrees with plan. - Diagnoses Differential Diagnosis/HQI/PQRI: Positive: Contusion(s), Fracture, Sprain Provider Diagnoses: Fall, Left wrist pain, Left knee pain, Back pain Discharge - Sign-Out/Discharge Documenting (check all that apply): Patient Departure - Discharge Plan Condition: Good Disposition: HOME Patient Education Materials: R.I.C.E. Treatment (ED) Referrals: [facility] [Outside] Additional Instructions: Take Tylenol or ibuprofen every 6 hours as needed for pain Apply ice, rest, elevate Keep yanet on area establish care with primary Return to ED if develop any new or worsening symptoms - Billing Disposition and Condition Condition: GOOD Disposition: Home
[2018-04-02 00:54] VITALS: BP 0/0
--- NOTE | 2018-04-02 08:11 | RAD ---
Indication: Left wrist pain. 3 views of left wrist demonstrates no fracture or dislocation. No other bone or joint abnormality is noted. IMPRESSION: No fracture of the left wrist is noted. R0 .
--- NOTE | 2018-04-02 08:11 | RAD ---
Indication: Left knee pain. 4 views of left knee demonstrates no fracture. Degenerative changes of the patellofemoral joint is noted. No joint effusion noted. IMPRESSION: Unremarkable left knee. R0
--- NOTE | 2018-04-02 08:12 | RAD ---
HISTORY: lower back pain, fall COMPARISONS: None VIEWS: 5 , Frontal, lateral, coned-down lateral sacral, and bilateral oblique views of the lumbar spine. FINDINGS: ALIGNMENT: The alignment is normal. VERTEBRAL BODIES: There is a right-sided pars defect at L5 with a probable small associated dysraphic defect of the lamina. There is no acute displaced fracture. JOINTS: The facet joints are normal. INTERVERTEBRAL DISCS: There is mild diffuse loss of intervertebral disc height. SOFT TISSUE: Unremarkable. OTHER: The pelvis is unremarkable. The lung bases are clear. 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 R2
== END | disposition home or self-care (01) ==
LOC: ED 22:47
DX: M25.532 Pain in left wrist (principal); M54.9 Dorsalgia, unspecified; W10.9XXA Fall (on) (from) unspecified stairs and steps, initial encounter; Y92.9 Unspecified place or not applicable; M51.36 Other intervertebral disc degeneration, lumbar region
CPT/HCPCS: 72110; 99282

== ENCOUNTER 2018-04-19 22:18 | Emergency (ER) | payer OTHER ==
[2018-04-19 23:41] LABS: ABS Basophils 0.1 10^3/ul (0-0.2); ABS Eosinophils 0.4 10^3/ul (0-0.6); ABS Lymphocytes 2.6 10^3/ul (1.0-4.8); ABS Monocytes 0.5 10^3/ul (0-0.8); ABS Neutrophils 4.8 10^3/ul (1.5-7.7); ABS Nucleated RBC 0 10^3/ul; Eosinophil % 5.3 % (0-6); Hematocrit 44 % (42-52); Hemoglobin 15.2 g/dl (14.0-18.0); Lymphocyte % 30.8 % (25-47); Mean Corpuscular HGB Conc 35 g/dl (31-36); Mean Corpuscular Hemoglobin 30 pg (27-31); Mean Corpuscular Volume 85 fL (80-94); Mean Platelet Volume 8.8 fL (7.4-10.4); Nucleated Red Blood Cells % 0.1; Platelet Count 227 10^3/ul (150-450); Red Blood Count 5.16 10^6/ul (4.00-5.40); Red Cell Distribution Width 14 % (10.5-15); White Blood Count 8.4 10^3/ul (3.5-10.8)
[2018-04-19 23:58] LABS: EGFR Non-African American 88.6 (>60)
[2018-04-20 00:23] LABS: Urine Appearance Clear; Urine Blood Negative (Negative); Urine Color Yellow; Urine Ketones Negative (Negative); Urine Protein Negative (Negative); Urine Specific Gravity 1.005 (1.010-1.030); Urine Urobilinogen Negative (Negative)
--- NOTE | 2018-04-20 00:31 | ED ---
Complex/Multi-Sys Presentation - HPI Summary HPI Summary: Patient with recent diagnosis of borderline DM has been monitoring his blood sugar 1 week, complains of irregular blood sugar readings starting last night. States blood sugar reading of 79 last night, 129 this morning and 64 PATROL GUARD this ED. Also complains of headache which is chronic and the same as his usual headache. Denies fever, cough, sore throat, CP, SOB, N/V/D, abdominal pain, change in urine, change in BM. Medical history COPD. - History Of Current Complaint Chief Complaint: EDGeneral Time Seen by Provider: 04/19/18 22:47 Hx Obtained From: Patient Onset/Duration: Gradual Onset Timing: Intermittent, Lasting: Severity Currently: None Location: Negative Associated Signs And Symptoms: Positive: Other - Allergies/Home Medications Allergies/Adverse Reactions: Allergies Allergy/AdvReac Type Severity Reaction Status Date / Time amoxicillin Allergy Hives/Diff. Verified 04/19/18 22:27 Breathing/I tching naproxen Allergy Rash Verified 04/19/18 22:27 Penicillins Allergy Rash Verified 04/19/18 22:27 PMH/Surg Hx/FS Hx/Imm Hx Endocrine/Hematology History: Reports: Hx Diabetes Denies: Hx Anticoagulant Therapy, Hx Thyroid Disease Cardiovascular History: Denies: Hx Congestive Heart Failure, Hx Deep Vein Thrombosis, Hx Hypertension , Hx Myocardial Infarction, Hx Pacemaker/ICD Respiratory History: Reports: Hx Asthma, Hx Chronic Bronchitis, Hx Chronic Obstructive Pulmonary Disease (COPD), Hx Sleep Apnea - previous dx mild ILIA 2010 , Other Respiratory Problems/Disorders - current 1.5 ppd smoker Denies: Hx Lung Cancer, Hx Pneumonia, Hx Pulmonary Embolism GI History: Denies: Hx Gall Bladder Disease, Hx Gastrointestinal Bleed, Hx Ulcer, Hx Urosepsis, Other GI Disorders History: Denies: Hx Dialysis, Hx Kidney Stones, Hx Renal Disease Musculoskeletal History: Reports: Hx Back Problems Sensory History: Reports: Hx Vision Problem - (right) eye stabismus Denies: Hx Hearing Aid Opthamlomology History: Reports: Hx Vision Problem - (right) eye stabismus Neurological History: Denies: Hx Dementia, Hx Migraine, Hx Seizures, Hx Transient Ischemic Attacks (TIA) Psychiatric History: Reports: Other Psychiatric Issues/Disorders - learning disorder Denies: Hx Anxiety, Hx Depression, Hx Panic Disorder, Hx Schizophrenia, Hx Bipolar Disorder, Hx Substance Abuse - Surgical History Surgery Procedure, Year, and Place: LT EYE STRABISMUS SURGERY, DENTAL EXTRACTION 01/30/14 - Immunization History Date of Tetanus Vaccine: utd Date of Influenza Vaccine: utd Infectious Disease History: No Infectious Disease History: Denies: Hx Clostridium Difficile, Hx Hepatitis, Hx Human Immunodeficiency Virus (HIV), Hx of Known/Suspected MRSA, Hx Shingles, Hx Tuberculosis, Hx Known/ Suspected VRE, Hx Known/Suspected VRSA, History Other Infectious Disease, Traveled Outside the [place] in Last 30 Days - Family History Known Family History: Positive: Cardiac Disease, Hypertension, Respiratory Disease - Social History Alcohol Use: Occasionally Hx Substance Use: No Substance Use Type: Reports: None Hx Tobacco Use: Yes Smoking Status (MU): Heavy Every Day Tobacco Smoker Type: Cigarettes Amount Used/How Often: 1/2 PPD Length of Time of Smoking/Using Tobacco: started at age 10 Have You Smoked in the Last Year: Yes Review of Systems Constitutional: Negative Eyes: Negative ENT: Negative Cardiovascular: Negative Respiratory: Negative Gastrointestinal: Negative Genitourinary: Negative Musculoskeletal: Negative Skin: Negative Neurological: Negative Psychological: Normal All Other Systems Reviewed And Are Negative: Yes Physical Exam Triage Information Reviewed: Yes Vital Signs On Initial Exam: Initial Vitals Temp Pulse Resp BP Pulse Ox 98.8 F 72 18 158/82 99 04/19/18 22:22 04/19/18 22:22 04/19/18 22:22 04/19/18 22:22 04/19/18 22:22 Vital Signs Reviewed: Yes Appearance: Positive: Well-Appearing Skin: Positive: Warm Head/Face: Positive: Normal Head/Face Inspection Eyes: Positive: Normal ENT: Positive: Normal ENT inspection Neck: Positive: Supple Respiratory/Lung Sounds: Positive: Clear to Auscultation Cardiovascular: Positive: Normal Abdomen Description: Positive: Nontender Musculoskeletal: Positive: Normal Neurological: Positive: Normal Psychiatric: Positive: Normal AVPU Assessment: Alert - Elle Coma Scale Best Eye Response: 4 - Spontaneous Best Motor Response: 6 - Obeys Commands Best Verbal Response: 5 - Oriented Coma Scale Total: 15 Diagnostics - Vital Signs Vital Signs Temp Pulse Resp BP Pulse Ox 04/19/18 22:22 98.8 F 72 18 158/82 99 - Laboratory Lab Results: Lab Results 11/17/18 11/17/18 11/17/18 Range/Units 23:31 23:31 23:31 WBC 8.4 (3.5-10.8) 10^3/ul RBC 5.16 (4.00-5.40) 10^6/ul Hgb 15.2 (14.0-18.0) g/dl Hct 44 (42-52) % MCV 85 (80-94) fL MCH 30 (27-31) pg MCHC 35 (31-36) g/dl RDW 14 (10.5-15) % Plt Count 227 (150-450) 10^3/ul MPV 8.8 (7.4-10.4) fL Neut % (Auto) 57.3 (38-83) % Lymph % (Auto) 30.8 (25-47) % [place] % (Auto) 5.5 (0-7) % Eos % (Auto) 5.3 (0-6) % Baso % (Auto) 1.1 (0-2) % Absolute Neuts (auto) 4.8 (1.5-7.7) 10^3/ul Absolute Lymphs (auto) 2.6 (1.0-4.8) 10^3/ul Absolute Monos (auto) 0.5 (0-0.8) 10^3/ul Absolute Eos (auto) 0.4 (0-0.6) 10^3/ul Absolute Basos (auto) 0.1 (0-0.2) 10^3/ul Absolute Nucleated RBC 0 10^3/ul Nucleated RBC % 0.1 VBG pH (7.33-7.43) VBG pCO2 (41-51) mmHg VBG pO2 (35-45) mmHg VBG HCO3 (24-28) mmol/L VBG O2 Saturation (70-80) % VBG Base Excess (0-4) Sodium 137 (135-145) mmol/L Potassium 3.5 (3.5-5.0) mmol/L Chloride 104 (101-111) mmol/L Carbon Dioxide 29 (22-32) mmol/L Anion Gap 4 (2-11) mmol/L BUN 9 (6-24) mg/dL Creatinine 1.01 (0.67-1.17) mg/dL Est GFR ( Amer) 107.2 (>60) Est GFR (Non-Af Amer) 88.6 (>60) BUN/Creatinine Ratio 8.9 (8-20) Glucose 109 H (70-100) mg/dL Lactic Acid 0.4 L (0.5-2.0) mmol/L Calcium 9.3 (8.6-10.3) mg/dL Total Bilirubin 0.40 (0.2-1.0) mg/dL AST 16 (13-39) U/L ALT 13 (7-52) U/L Alkaline Phosphatase 64 (34-104) U/L C-Reactive Protein 17.34 H (<8.01) mg/L Total Protein 6.7 (6.4-8.9) g/dL Albumin 4.1 (3.2-5.2) g/dL Globulin 2.6 (2-4) g/dL Albumin/Globulin Ratio 1.6 (1-3) Urine Color Urine Appearance Urine pH (5-9) Ur Specific [place] (1.010-1.030) Urine Protein (Negative) Urine Ketones (Negative) Urine Blood (Negative) Urine Nitrate (Negative) Urine Bilirubin (Negative) Urine Urobilinogen (Negative) Ur Leukocyte Esterase (Negative) Urine Glucose (Negative) 04/19/18 04/20/18 Range/Units 23:31 00:10 WBC (3.5-10.8) 10^3/ul RBC (4.00-5.40) 10^6/ul Hgb (14.0-18.0) g/dl Hct (42-52) % MCV (80-94) fL MCH (27-31) pg MCHC (31-36) g/dl RDW (10.5-15) % Plt Count (150-450) 10^3/ul MPV (7.4-10.4) fL Neut % (Auto) (38-83) % Lymph % (Auto) (25-47) % [place] % (Auto) (0-7) % Eos % (Auto) (0-6) % Baso % (Auto) (0-2) % Absolute Neuts (auto) (1.5-7.7) 10^3/ul Absolute Lymphs (auto) (1.0-4.8) 10^3/ul Absolute Monos (auto) (0-0.8) 10^3/ul Absolute Eos (auto) (0-0.6) 10^3/ul Absolute Basos (auto) (0-0.2) 10^3/ul Absolute Nucleated RBC 10^3/ul Nucleated RBC % VBG pH 7.43 (7.33-7.43) VBG pCO2 45 (41-51) mmHg VBG pO2 45 (35-45) mmHg VBG HCO3 28.1 H (24-28) mmol/L VBG O2 Saturation 87.0 H (70-80) % VBG Base Excess 4.7 H (0-4) Sodium (135-145) mmol/L Potassium (3.5-5.0) mmol/L Chloride (101-111) mmol/L Carbon Dioxide (22-32) mmol/L Anion Gap (2-11) mmol/L BUN (6-24) mg/dL Creatinine (0.67-1.17) mg/dL Est GFR ( Amer) (>60) Est GFR (Non-Af Amer) (>60) BUN/Creatinine Ratio (8-20) Glucose (70-100) mg/dL Lactic Acid (0.5-2.0) mmol/L Calcium (8.6-10.3) mg/dL Total Bilirubin (0.2-1.0) mg/dL AST (13-39) U/L ALT (7-52) U/L Alkaline Phosphatase (34-104) U/L C-Reactive Protein (<8.01) mg/L Total Protein (6.4-8.9) g/dL Albumin (3.2-5.2) g/dL Globulin (2-4) g/dL Albumin/Globulin Ratio (1-3) Urine Color Yellow Urine Appearance Clear Urine pH 7.0 (5-9) Ur Specific [place] 1.005 L (1.010-1.030) Urine Protein Negative (Negative) Urine Ketones Negative (Negative) Urine Blood Negative (Negative) Urine Nitrate Negative (Negative) Urine Bilirubin Negative (Negative) Urine Urobilinogen Negative (Negative) Ur Leukocyte Esterase Negative (Negative) Urine Glucose Negative (Negative) Result Diagrams: 04/19/18 23:31 04/19/18 23:31 Lab Statement: Any lab studies that have been ordered have been reviewed, and results considered in the medical decision making process. Complex Multi-Symp Course/Dx Course Of Treatment: Patient with recent diagnosis of borderline DM has been monitoring his blood sugar 1 week, complains of irregular blood sugar readings starting last night. States blood sugar reading of 79 last night, 129 this morning and 64 PATROL GUARD this ED. Also complains of headache which is chronic and the same as his usual headache. Denies fever, cough, sore throat, CP, SOB, N/V/ D, abdominal pain, change in urine, change in BM. Medical history COPD. Physical exam unremarkable. Labs unremarkable. Patient advised to continue monitoring blood glucose levels and follow-up with primary care. Patient understands and approves plan. - Diagnoses Provider Diagnoses: Blood glucose level instability risk Discharge - Sign-Out/Discharge Documenting (check all that apply): Patient Departure - Discharge Plan Condition: Stable Disposition: HOME Patient Education Materials: How to Check your Blood Sugar (ED) Referrals: No Primary Care Phys,NOPCP [Primary Care Provider] - [facility] [Outside] Additional Instructions: Follow-up with primary care for further evaluation of blood sugar levels. Return to the ED for any worsening symptoms - Billing Disposition and Condition Condition: STABLE Disposition: Home
[2018-04-20 00:46] VITALS: BP 0/0
== END 2018-04-20 00:44 | disposition home or self-care (01) ==
LOC: ED 22:18
DX: R73.03 Prediabetes (principal); R73.09 Other abnormal glucose; R51 Headache; Z88.6 Allergy status to analgesic agent; F17.210 Nicotine dependence, cigarettes, uncomplicated
CPT/HCPCS: 36415; 80053; 81003; 82803; 83605; 85025; 86140; 99282

== ENCOUNTER 2018-04-23 19:37 | Emergency (ER) | payer OTHER ==
[2018-04-23 20:00] VITALS: BP 123/64
--- NOTE | 2018-04-23 20:43 | UC ---
Abdominal Pain Male HPI - HPI Summary HPI Summary: 27 yo male states he checks his fingersticks TID Has no hx of DM Has not had much to eat today felt shaky and sweaty/weak BS 57 had some peanut butter feels better - History of Current Complaint Chief Complaint: UCDizziness Stated Complaint: BLOOD SUGAR Time Seen by Provider: 04/23/18 19:56 Hx Obtained From: Patient Onset/Duration: Sudden Onset, Lasting Hours Timing: Constant Severity Initially: Mild Severity Currently: Moderate Pain Intensity: 6 - chronic abd pain x mos Pain Scale Used: 0-10 Numeric Location: Diffuse Radiates: No Character: Aching Aggravating Factor(s): Nothing Alleviating Factor(s): Nothing Associated Signs And Symptoms: Positive: Diaphoresis - Allergies/Home Medications Allergies/Adverse Reactions: Allergies Allergy/AdvReac Type Severity Reaction Status Date / Time amoxicillin Allergy Hives/Diff. Verified 04/23/18 19:49 Breathing/I tching naproxen Allergy Rash Verified 04/23/18 19:49 Penicillins Allergy Rash Verified 04/23/18 19:49 Home Medications: Home Medications Tiotropium CAP.INH* [Spiriva CAP.INH*] 1 cap.inh INH DAILY 04/23/18 [History Confirmed 04/23/18] PMH/Surg Hx/FS Hx/Imm Hx Previously Healthy: Yes Other History Of: Negative For: HIV, Hepatitis B, Hepatitis C, Anticoagulant Therapy - Surgical History Surgical History: Yes Surgery Procedure, Year, and Place: LT EYE STRABISMUS SURGERY, DENTAL EXTRACTION 01/30/14 - Family History Known Family History: Positive: Cardiac Disease, Hypertension, Respiratory Disease - Social History Alcohol Use: None Substance Use Type: None Smoking Status (MU): Heavy Every Day Tobacco Smoker Type: Cigarettes Amount Used/How Often: 1/2 PPD Length of Time of Smoking/Using Tobacco: started at age 10 Have You Smoked in the Last Year: Yes Household Exposure Type: Cigarettes - Immunization History Most Recent Influenza Vaccination: fall 2016 Review of Systems All Other Systems Reviewed And Are Negative: Yes Constitutional: Positive: Fatigue Skin: Positive: Negative Eyes: Positive: Negative ENT: Positive: Negative Respiratory: Positive: Negative Cardiovascular: Positive: Negative Gastrointestinal: Positive: Abdominal Pain Genitourinary: Positive: Negative Motor: Positive: Negative Neurovascular: Positive: Negative Musculoskeletal: Positive: Negative Neurological: Positive: Negative Psychological: Positive: Negative Physical Exam Triage Information Reviewed: Yes Appearance: Well-Appearing, No Pain Distress, Well-Nourished Vital Signs: Initial Vital Signs Temp 98.1 F 04/23/18 19:52 Pulse 65 04/23/18 19:52 Resp 16 04/23/18 19:52 BP 123/64 04/23/18 19:52 Pulse Ox 98 04/23/18 19:52 Eyes: Positive: Conjunctiva Clear ENT: Positive: Hearing grossly normal, Other - moist mucous menbranes. Negative : Nasal congestion, Nasal drainage, Trismus, Muffled voice, Hoarse voice Neck: Positive: Supple, Nontender, No Lymphadenopathy Respiratory: Positive: Lungs clear, Normal breath sounds, No respiratory distress, No accessory muscle use Cardiovascular: Positive: RRR, No Murmur Abdomen Description: Positive: Nontender, Soft. Negative: CVA Tenderness (R), CVA Tenderness (L) Musculoskeletal: Positive: ROM Intact, No Edema Neurological: Positive: Alert Psychological Exam: Normal Skin Exam: Normal Diagnostics - Laboratory Diagnostic Studies Completed/Ordered: BS 99 here Abd Pain Male Course/Dx - Differential Dx/Clinical Impression Provider Diagnoses: hypoglycemic episode. chronic abd pain Discharge - Sign-Out/Discharge Documenting (check all that apply): Patient Departure All imaging exams completed and their final reports reviewed: No Studies - Discharge Plan Condition: Stable Disposition: HOME Patient Education Materials: What to Do if Your Blood Sugar is Low (ED) Referrals: Eriberto Alvarado MD [Primary Care Provider] - As Soon As Possible - Billing Disposition and Condition Condition: STABLE Disposition: Home
== END 2018-04-23 20:53 | disposition home or self-care (01) ==
LOC: UCEAST 19:37
DX: E16.2 Hypoglycemia, unspecified (principal); R10.9 Unspecified abdominal pain; G89.29 Other chronic pain; F17.210 Nicotine dependence, cigarettes, uncomplicated; Z88.0 Allergy status to penicillin; Z88.6 Allergy status to analgesic agent
CPT/HCPCS: 99212; G0463

== ENCOUNTER → 2018-05-18 22:29 | Emergency (ER) | payer OTHER ==
[~2018-05-18 22:29] MED LIST: Ibuprofen TAB* 600 MG PO ONE; Metoclopramide IV* 5 MG/ML 2 ML VIAL IV ONE; NS 0.9% 1000 ML* 1,000 ML IV ONE; diPHENhydraMINE PO* 25 MG PO ONE
[2018-05-18 23:29] LABS: ABS Basophils 0.1 10^3/ul (0-0.2); ABS Eosinophils 0.7 10^3/ul (0-0.6); ABS Lymphocytes 2.6 10^3/ul (1.0-4.8); ABS Monocytes 0.6 10^3/ul (0-0.8); ABS Neutrophils 4.1 10^3/ul (1.5-7.7); ABS Nucleated RBC 0 10^3/ul; Eosinophil % 8.4 %; Hematocrit 42 % (42-52); Hemoglobin 14.1 g/dl (14.0-18.0); Lymphocyte % 32.2 %; Mean Corpuscular HGB Conc 34 g/dl (31-36); Mean Corpuscular Hemoglobin 29 pg (27-31); Mean Corpuscular Volume 86 fL (80-94); Mean Platelet Volume 8.7 fL (7.4-10.4); Nucleated Red Blood Cells % 0.1; Platelet Count 246 10^3/ul (150-450); Red Blood Count 4.87 10^6/ul (4.00-5.40); Red Cell Distribution Width 14 % (10.5-15); White Blood Count 8.2 10^3/ul (3.5-10.8)
[2018-05-18 23:47] LABS: EGFR Non-African American 98.7 (>60)
--- NOTE | 2018-05-19 00:24 | ED ---
Headache - HPI Summary HPI Summary: Patient complains of headache starting today and acute on chronic right lower backache. Headache described as constant, diffuse, associated with N/V, rated 10/10. States history of headaches but this is a little more intense in pain than usual, otherwise same as prior headaches. Tried Tylenol and ibuprofen with no relief. Denies fever, vision change, EMS, ear pain, cough, sore throat , neck stiffness, CP, SOB, V/D, abdominal pain, change in urine, change in BM. Medical history is DM 2, COPD. - History Of Current Complaint Chief Complaint: EDGeneral Stated Complaint: GENERAL ILLNESS Time Seen by Provider: 05/18/18 23:03 Hx Obtained From: Patient Onset/Duration: Gradual Onset Initially Headache Was: Severe Currently Pain Is: Severe Timing: Constant Character: Throbbing Location of Headache: Diffuse Aggravating Factor: Nothing Allevating Factors: Nothing Associated Signs And Symptoms: Nausea, Vomiting - Allergies/Home Medications Allergies/Adverse Reactions: Allergies Allergy/AdvReac Type Severity Reaction Status Date / Time amoxicillin Allergy Hives/Diff. Verified 05/18/18 22:38 Breathing/I tching naproxen Allergy Rash Verified 05/18/18 22:38 Penicillins Allergy Rash Verified 05/18/18 22:38 PMH/Surg Hx/FS Hx/Imm Hx Endocrine/Hematology History: Reports: Hx Diabetes Denies: Hx Anticoagulant Therapy, Hx Thyroid Disease Cardiovascular History: Denies: Hx Congestive Heart Failure, Hx Deep Vein Thrombosis, Hx Hypertension , Hx Myocardial Infarction, Hx Pacemaker/ICD Respiratory History: Reports: Hx Asthma, Hx Chronic Bronchitis, Hx Chronic Obstructive Pulmonary Disease (COPD), Hx Sleep Apnea - previous dx mild ILIA 2010 , Other Respiratory Problems/Disorders - current 1.5 ppd smoker Denies: Hx Lung Cancer, Hx Pneumonia, Hx Pulmonary Embolism GI History: Denies: Hx Gall Bladder Disease, Hx Gastrointestinal Bleed, Hx Ulcer, Hx Urosepsis, Other GI Disorders History: Denies: Hx Dialysis, Hx Kidney Stones, Hx Renal Disease Musculoskeletal History: Reports: Hx Back Problems Sensory History: Reports: Hx Vision Problem - (right) eye stabismus Denies: Hx Hearing Aid Opthamlomology History: Reports: Hx Vision Problem - (right) eye stabismus Neurological History: Denies: Hx Dementia, Hx Migraine, Hx Seizures, Hx Transient Ischemic Attacks (TIA) Psychiatric History: Reports: Other Psychiatric Issues/Disorders - learning disorder Denies: Hx Anxiety, Hx Depression, Hx Panic Disorder, Hx Schizophrenia, Hx Bipolar Disorder, Hx Substance Abuse - Surgical History Surgery Procedure, Year, and Place: LT EYE STRABISMUS SURGERY, DENTAL EXTRACTION 01/30/14 - Immunization History Date of Tetanus Vaccine: utd Date of Influenza Vaccine: utd Infectious Disease History: No Infectious Disease History: Denies: Hx Clostridium Difficile, Hx Hepatitis, Hx Human Immunodeficiency Virus (HIV), Hx of Known/Suspected MRSA, Hx Shingles, Hx Tuberculosis, Hx Known/ Suspected VRE, Hx Known/Suspected VRSA, History Other Infectious Disease, Traveled Outside the [place] in Last 30 Days - Family History Known Family History: Positive: Cardiac Disease, Hypertension, Respiratory Disease - Social History Alcohol Use: None Hx Substance Use: No Substance Use Type: Reports: None Hx Tobacco Use: Yes Smoking Status (MU): Heavy Every Day Tobacco Smoker Type: Cigarettes Amount Used/How Often: 1/2 PPD Length of Time of Smoking/Using Tobacco: started at age 10 Have You Smoked in the Last Year: Yes Review of Systems Constitutional: Negative Eyes: Negative ENT: Negative Cardiovascular: Negative Respiratory: Negative Gastrointestinal: Negative Genitourinary: Negative Musculoskeletal: Negative Skin: Negative Positive: Headache Psychological: Normal All Other Systems Reviewed And Are Negative: Yes Physical Exam - Summary Physical Exam Summary: Neuro exam normal. Negative neck stiffness. Physical exam otherwise unremarkable. Triage Information Reviewed: Yes Vital Signs On Initial Exam: Initial Vitals Temp Pulse Resp BP Pulse Ox 98.2 F 59 16 138/65 97 05/18/18 22:35 05/18/18 22:35 05/18/18 22:35 05/18/18 22:35 05/18/18 22:35 Vital Signs Reviewed: Yes Appearance: Positive: Well-Appearing Skin: Positive: Warm Head/Face: Positive: Normal Head/Face Inspection Eyes: Positive: Normal ENT: Positive: Normal ENT inspection Neck: Positive: Supple Respiratory/Lung Sounds: Positive: Clear to Auscultation Cardiovascular: Positive: Normal Abdomen Description: Positive: Nontender Musculoskeletal: Positive: Normal Neurological: Positive: Normal Psychiatric: Positive: Normal AVPU Assessment: Alert - Elle Coma Scale Best Eye Response: 4 - Spontaneous Best Motor Response: 6 - Obeys Commands Best Verbal Response: 5 - Oriented Coma Scale Total: 15 Diagnostics - Vital Signs Vital Signs Temp Pulse Resp BP Pulse Ox 05/19/18 00:00 63 96 05/18/18 23:58 71 141/59 97 05/18/18 23:00 73 97 05/18/18 22:58 75 149/82 97 05/18/18 22:35 98.2 F 59 16 138/65 97 - Laboratory Lab Results: Lab Results 05/18/18 05/18/18 Range/Units 23:16 23:16 WBC 8.2 (3.5-10.8) 10^3/ul RBC 4.87 (4.00-5.40) 10^6/ul Hgb 14.1 (14.0-18.0) g/dl Hct 42 (42-52) % MCV 86 (80-94) fL MCH 29 (27-31) pg MCHC 34 (31-36) g/dl RDW 14 (10.5-15) % Plt Count 246 (150-450) 10^3/ul MPV 8.7 (7.4-10.4) fL Neut % (Auto) 50.8 % Lymph % (Auto) 32.2 % [place] % (Auto) 7.4 % Eos % (Auto) 8.4 % Baso % (Auto) 1.2 % Absolute Neuts (auto) 4.1 (1.5-7.7) 10^3/ul Absolute Lymphs (auto) 2.6 (1.0-4.8) 10^3/ul Absolute Monos (auto) 0.6 (0-0.8) 10^3/ul Absolute Eos (auto) 0.7 H (0-0.6) 10^3/ul Absolute Basos (auto) 0.1 (0-0.2) 10^3/ul Absolute Nucleated RBC 0 10^3/ul Nucleated RBC % 0.1 Sodium 138 (135-145) mmol/L Potassium 3.8 (3.5-5.0) mmol/L Chloride 105 (101-111) mmol/L Carbon Dioxide 27 (22-32) mmol/L Anion Gap 6 (2-11) mmol/L BUN 13 (6-24) mg/dL Creatinine 0.92 (0.67-1.17) mg/dL Est GFR ( Amer) 119.4 (>60) Est GFR (Non-Af Amer) 98.7 (>60) BUN/Creatinine Ratio 14.1 (8-20) Glucose 91 (70-100) mg/dL Calcium 8.7 (8.6-10.3) mg/dL Total Bilirubin 0.20 (0.2-1.0) mg/dL AST 13 (13-39) U/L ALT 9 (7-52) U/L Alkaline Phosphatase 61 (34-104) U/L C-Reactive Protein 6.42 (<8.01) mg/L Total Protein 6.3 L (6.4-8.9) g/dL Albumin 3.9 (3.2-5.2) g/dL Globulin 2.4 (2-4) g/dL Albumin/Globulin Ratio 1.6 (1-3) Result Diagrams: 05/18/18 23:16 05/18/18 23:16 Lab Statement: Any lab studies that have been ordered have been reviewed, and results considered in the medical decision making process. Headache Course/Dx - Course Course Of Treatment: Patient complains of headache starting today and acute on chronic right lower backache. Headache described as constant, diffuse, associated with N/V, rated 10/10. States history of headaches but this is a little more intense in pain than usual, otherwise same as prior headaches. Tried Tylenol and ibuprofen with no relief. Denies fever, vision change, EMS, ear pain, cough, sore throat, neck stiffness, CP, SOB, V/D, abdominal pain, change in urine, change in BM. Medical history is DM 2, COPD. Physical exam: Neuro exam normal. Negative neck stiffness. Physical exam otherwise unremarkable. Vital signs within normal limits. Labs unremarkable. Patient states pain is 0/10 after migraine cocktail. - Diagnoses Provider Diagnoses: Migraine headache Discharge - Sign-Out/Discharge Documenting (check all that apply): Patient Departure - Discharge Plan Condition: Stable Disposition: HOME Patient Education Materials: Migraine Headache (ED) Referrals: Eriberto Alvarado MD [Primary Care Provider] - Additional Instructions: Follow-up with primary care. Return to the ED for any new or worsening symptoms - Billing Disposition and Condition Condition: STABLE Disposition: Home
[2018-05-19 00:39] VITALS: BP 137/92
== END | disposition home or self-care (01) ==
LOC: ED 22:29
DX: R10.84 Generalized abdominal pain (principal); R11.0 Nausea; R39.198 Other difficulties with micturition
CPT/HCPCS: 36415; 80053; 85025; 86140; 96374; 96375; 99283; A9270-GY; J2765

== ENCOUNTER 2018-05-25 20:06 | Emergency (ER) | payer OTHER ==
[2018-05-25 20:15] VITALS: BP 125/84
--- NOTE | 2018-05-25 20:45 | UC ---
Respiratory Complaint HPI - HPI Summary HPI Summary: patient is limited in his historical abilities and understanding--he states he has has nausea, vomiting and diarrhea for 2 weeks the diarrhea has resolved-his pcp sent him to [facility] [place] were he was dx with influenza. He is keeping down water but even with the zofran he is not keeping down solid food- Patient states his blood sugars have been fine 100-150. - History of Current Complaint Chief Complaint: UCRespiratory Stated Complaint: COUGH, AND CHEST CONGESTION Time Seen by Provider: 05/25/18 20:38 Hx Obtained From: Patient Onset/Duration: Gradual Onset, Lasting Weeks Timing: Constant Pain Intensity: 0 Pain Scale Used: 0-10 Numeric Character: Cough: Nonproductive Aggravating Factors: Other - food - Allergies/Home Medications Allergies/Adverse Reactions: Allergies Allergy/AdvReac Type Severity Reaction Status Date / Time amoxicillin Allergy Hives/Diff. Verified 05/25/18 20:15 Breathing/I tching naproxen Allergy Rash Verified 05/25/18 20:15 Penicillins Allergy Rash Verified 05/25/18 20:15 PMH/Surg Hx/FS Hx/Imm Hx Previously Healthy: No Endocrine History: Diabetes Respiratory History: COPD Other History Of: Negative For: HIV, Hepatitis B, Hepatitis C, Anticoagulant Therapy - Surgical History Surgical History: Yes Surgery Procedure, Year, and Place: LT EYE STRABISMUS SURGERY, DENTAL EXTRACTION 01/30/14 - Family History Known Family History: Positive: Cardiac Disease, Hypertension, Respiratory Disease - Social History Occupation: Disabled Lives: With Family Alcohol Use: None Substance Use Type: None Smoking Status (MU): Heavy Every Day Tobacco Smoker Type: Cigarettes Amount Used/How Often: 1/2 PPD Length of Time of Smoking/Using Tobacco: started at age 10 Have You Smoked in the Last Year: Yes Household Exposure Type: Cigarettes Cessation Counseling: Counseled 3+Min - 10 Min - Immunization History Most Recent Influenza Vaccination: fall 2016 Review of Systems All Other Systems Reviewed And Are Negative: Yes Constitutional: Positive: Negative Skin: Positive: Negative Eyes: Positive: Negative ENT: Positive: Negative Respiratory: Positive: Negative Cardiovascular: Positive: Negative Gastrointestinal: Positive: Vomiting Genitourinary: Positive: Negative Motor: Positive: Negative Neurovascular: Positive: Negative Musculoskeletal: Positive: Negative Neurological: Positive: Negative Psychological: Positive: Negative Is Patient Immunocompromised?: No Physical Exam Triage Information Reviewed: Yes Appearance: Well-Appearing, No Pain Distress, Well-Nourished Vital Signs: Initial Vital Signs Temp 99.1 F 05/25/18 20:11 Pulse 94 05/25/18 20:11 Resp 18 05/25/18 20:11 BP 125/84 05/25/18 20:11 Pulse Ox 99 05/25/18 20:11 Vital Signs Reviewed: Yes Eye Exam: Normal Eyes: Positive: Conjunctiva Clear ENT Exam: Normal ENT: Positive: Normal ENT inspection, Hearing grossly normal, Pharynx normal, TMs normal, Uvula midline. Negative: Nasal congestion, Trismus, Muffled voice, Hoarse voice, Dental tenderness, Sinus tenderness Dental Exam: Normal Neck exam: Normal Neck: Positive: Supple, Nontender, No Lymphadenopathy Respiratory Exam: Normal Respiratory: Positive: Chest non-tender, Lungs clear, Normal breath sounds, No respiratory distress, No accessory muscle use Cardiovascular Exam: Normal Cardiovascular: Positive: RRR, No Murmur, Pulses Normal, Brisk Capillary Refill Abdominal Exam: Normal Abdomen Description: Positive: Nontender, No Organomegaly, Soft Musculoskeletal Exam: Normal Musculoskeletal: Positive: Strength Intact, ROM Intact, No Edema Neurological Exam: Normal Neurological: Positive: Alert, Muscle Tone Normal Psychological Exam: Normal Skin Exam: Normal UC Diagnostic Evaluation - Laboratory O2 Sat by Pulse Oximetry: 99 Re-Evaluation - Re-Evaluation First Eval Change: Unchanged - taking po fluids well, ua and finger stick blood sugar are all ok influenza (-). Respiratory Course/Dx - Course Course Of Treatment: continue zofran advance clear liquids slowly follow with Dr. Bardales in am - Differential Dx/Diagnosis Provider Diagnosis: Gastritis Discharge - Sign-Out/Discharge Documenting (check all that apply): Patient Departure All imaging exams completed and their final reports reviewed: No Studies - Discharge Plan Condition: Stable Disposition: HOME Prescriptions: Omeprazole CAP* [Prilosec CAP* 20 MG] 20 mg PO BEDTIME #30 cap.dr Patient Education Materials: Gastritis (DC), Diet for Stomach Ulcers and Gastritis (ED) Referrals: Eriberto Alvarado MD [Primary Care Provider] - 1 Day - Billing Disposition and Condition Condition: STABLE Disposition: Home
[2018-05-25] MEDS ORDERED: Omeprazole CAP* 20 MG PO ONE (21:15)
== END 2018-05-25 21:27 | disposition home or self-care (01) ==
LOC: UCEAST 20:06
DX: K29.70 Gastritis, unspecified, without bleeding (principal); Z88.0 Allergy status to penicillin; Z88.3 Allergy status to other anti-infective agents; E11.9 Type 2 diabetes mellitus without complications; F17.210 Nicotine dependence, cigarettes, uncomplicated
CPT/HCPCS: 81003; 99212; A9270-GY; G0463

== ENCOUNTER 2018-05-31 01:48 | Emergency (ER) | payer OTHER ==
[2018-05-31] MEDS ORDERED: NS 0.9% 1000 ML* 2,000 ML IV ONE (02:22)
--- NOTE | 2018-05-31 02:22 | ED ---
Complex/Multi-Sys Presentation - HPI Summary HPI Summary: A 27 y/o male presents to [facility] with a chief complaint of continuous vomiting since 18:00 05/30/18. He rates his pain as a 9/10 in severity. He states that he has had N/V for two weeks [employer] in addition to diarrhea, but he has been able to keep some fluids down before 18:00. He was seen at [facility], who gave the patient cough medication, and then went to his PCP who told the patient he may have PNA. He also reports a cough with phlegm, headache and fever of 101.2 [employer]. In the ED his temperature is 98.2. He claims that he recently lost weight. He denies runny nose or sore throat. He has a Hx of DM, COPD and emphysema. He reports wearing O2 at night, taking Spiriva and ADHD medication. He denies any recent travels or a Hx of ulcers or colitis. He admits to smoking 1/2 ppd. - History Of Current Complaint Chief Complaint: EDGeneral Time Seen by Provider: 05/31/18 02:16 Hx Obtained From: Patient Onset/Duration: Sudden Onset, Lasting Weeks, Still Present Timing: Constant, Weeks Severity Currently: Severe Severity Initially: Severe Character: Unable To Describe Associated Signs And Symptoms: Positive: Headache, Cough, Nausea, Diarrhea, Fever - Allergies/Home Medications Allergies/Adverse Reactions: Allergies Allergy/AdvReac Type Severity Reaction Status Date / Time amoxicillin Allergy Hives/Diff. Verified 05/25/18 20:15 Breathing/I tching naproxen Allergy Rash Verified 05/25/18 20:15 Penicillins Allergy Rash Verified 05/25/18 20:15 PMH/Surg Hx/FS Hx/Imm Hx Endocrine/Hematology History: Reports: Hx Diabetes Denies: Hx Anticoagulant Therapy, Hx Thyroid Disease Cardiovascular History: Denies: Hx Congestive Heart Failure, Hx Deep Vein Thrombosis, Hx Hypertension , Hx Myocardial Infarction, Hx Pacemaker/ICD Respiratory History: Reports: Hx Asthma, Hx Chronic Bronchitis, Hx Chronic Obstructive Pulmonary Disease (COPD), Hx Sleep Apnea - previous dx mild ILIA 2010 , Other Respiratory Problems/Disorders - current 1.5 ppd smoker Denies: Hx Lung Cancer, Hx Pneumonia, Hx Pulmonary Embolism GI History: Denies: Hx Gall Bladder Disease, Hx Gastrointestinal Bleed, Hx Ulcer, Hx Urosepsis, Other GI Disorders History: Denies: Hx Dialysis, Hx Kidney Stones, Hx Renal Disease Musculoskeletal History: Reports: Hx Back Problems Sensory History: Reports: Hx Vision Problem - (right) eye stabismus Denies: Hx Hearing Aid Opthamlomology History: Reports: Hx Vision Problem - (right) eye stabismus Neurological History: Denies: Hx Dementia, Hx Migraine, Hx Seizures, Hx Transient Ischemic Attacks (TIA) Psychiatric History: Reports: Other Psychiatric Issues/Disorders - learning disorder Denies: Hx Anxiety, Hx Depression, Hx Panic Disorder, Hx Schizophrenia, Hx Bipolar Disorder, Hx Substance Abuse - Surgical History Surgery Procedure, Year, and Place: LT EYE STRABISMUS SURGERY, DENTAL EXTRACTION 01/30/14 - Immunization History Date of Tetanus Vaccine: utd Date of Influenza Vaccine: utd Infectious Disease History: No Infectious Disease History: Denies: Hx Clostridium Difficile, Hx Hepatitis, Hx Human Immunodeficiency Virus (HIV), Hx of Known/Suspected MRSA, Hx Shingles, Hx Tuberculosis, Hx Known/ Suspected VRE, Hx Known/Suspected VRSA, History Other Infectious Disease, Traveled Outside the [place] in Last 30 Days - Family History Known Family History: Positive: Cardiac Disease, Hypertension, Respiratory Disease - Social History Alcohol Use: Rare Hx Substance Use: No Substance Use Type: Reports: None Hx Tobacco Use: Yes Smoking Status (MU): Heavy Every Day Tobacco Smoker Type: Cigarettes Amount Used/How Often: 1/2 PPD Length of Time of Smoking/Using Tobacco: started at age 10 Have You Smoked in the Last Year: Yes Review of Systems Positive: Fever Positive: Cough Positive: Vomiting, Diarrhea, Nausea Positive: Headache All Other Systems Reviewed And Are Negative: Yes Physical Exam - Summary Physical Exam Summary: Appearance: Well-appearing, Well-nourished, lying in bed comfortably Skin: Warm, dry, no obvious rash Eyes: sclera anicteric, no conjunctival pallor ENT: mucous membranes moist, pharynx appears normal Neck: Supple, nontender Respiratory: Clear to auscultation, no signs of respiratory distress Cardiovascular: Normal S1, S2. No murmurs. Normal distal pulses in tibial and radial bilaterally. Abdomen: Soft, nontender, normal active bowel sounds present Musculoskeletal: Normal, Strength/ROM Intact Neurological: A&Ox3, awake and alert, mentation is normal, speech is fluent and appropriate Psychiatric: affect is normal, does not appear anxious or depressed Triage Information Reviewed: Yes Vital Signs On Initial Exam: Initial Vitals Temp Pulse Resp BP Pulse Ox 98.2 F 68 18 122/78 97 05/31/18 01:51 05/31/18 01:51 05/31/18 01:51 05/31/18 01:51 05/31/18 01:51 Vital Signs Reviewed: Yes Diagnostics - Vital Signs Vital Signs Temp Pulse Resp BP Pulse Ox 05/31/18 01:51 98.2 F 68 18 122/78 97 - Laboratory Result Diagrams: 05/31/18 02:30 05/31/18 02:30 Lab Statement: Any lab studies that have been ordered have been reviewed, and results considered in the medical decision making process. - Radiology CXR Radiology Interpretation Completed By: ED Physician Summary of Radiographic Findings: No acute disease. Pending official radiology report. - EKG 02:32 Cardiac Rate: NL - 54 bpm EKG Rhythm: Sinus Rhythm Summary of EKG Findings: NSR at 54 BPM, P waves, QRS complex, and T waves are within normal limits, T waves and intervals are normal, no ischemic changes. This is a normal EKG. Re-Evaluation - Re-Evaluation First Eval Re-Evaluation Time: 04:10 Change: Improved Comment: Nausea is better after taking medicine. Complex Multi-Symp Course/Dx Course Of Treatment: A 27 y/o male presents to [facility] with a chief complaint of continuous vomiting since 18:00 05/30/18. He rates his pain as a 9/10 in severity. He states that he has had N/V for two weeks [employer] in addition to diarrhea, but he has been able to keep some fluids down before 18:00. He was seen at [facility], who told him that He also reports a cough with phlegm , headache and fever of 101.2 [employer]. In the ED his temperature is 98.2. He claims that he recently lost weight. He denies runny nose or sore throat. He has a Hx of DM, COPD and emphysema. He reports wearing O2 at night, taking Spiriva and ADHD medication. He denies any recent travels or a Hx of ulcers or colitis. He admits to smoking 1/2 ppd. EKG shows NSR at 54 BPM, P waves, QRS complex, and T waves are within normal limits, T waves and intervals are normal, no ischemic changes. This is a normal EKG. Lab results obtained and are WNL. CXR showed no acute disease. In the ED course the patient was given Zofran IV and Sodium Chloride IV. Influenza A and Influenza B negative. Upon re-eval the patient reports that his nausea is better. The patient will be discharged home with prescriptions for Zofran and Protonix and is agreeable with this plan. - Diagnoses Provider Diagnoses: GERD (gastroesophageal reflux disease) Discharge - Sign-Out/Discharge Documenting (check all that apply): Patient Departure - Discharge Plan Condition: Good Disposition: HOME Prescriptions: Ondansetron ODT TAB* [Zofran 4 MG Odt TAB*] 8 mg PO Q6H PRN #14 tab.odt PRN Reason: Nausea Pantoprazole Sodium [Protonix] 20 mg PO DAILY #30 tablet. Patient Education Materials: Esophagitis (ED) Referrals: Ruddy Caldwell MD [Medical Doctor] - Additional Instructions: Your chest x-ray and blood work all look okay. He can be difficult to tie together symptoms that are quite different, but in your case I would be suspicious that a problem in the esophagus could be causing your gastrointestinal symptoms and also contributed in 2 your cough and respiratory symptoms. I have prescribed some empiric therapy and we will see if this helps at all. I would recommend seeing a modern languages professor for further evaluation. - Billing Disposition and Condition Condition: GOOD Disposition: Home - Attestation Statements Document Initiated by Christopher: Yes Documenting Scribe: Ramakrishna Rader Provider For Whom Christopher is Documenting (Include Credential): Jaspal Conti MD Scribe Attestation: I, Ramakrishna Rader, scribed for Jaspal Conti MD on 05/31/18 at 0541. Scribe Documentation Reviewed: Yes Provider Attestation: The documentation as recorded by the Ramakrishna talbert accurately reflects the service I personally performed and the decisions made by me, Jaspal Conti MD Status of Scribe Document: Viewed
[2018-05-31] MEDS ORDERED: Ondansetron INJ* 2 MG/ML VIAL IV ONE (02:23)
[2018-05-31 02:37] LABS: ABS Basophils 0 10^3/ul (0-0.2); ABS Eosinophils 0.4 10^3/ul (0-0.6); ABS Lymphocytes 2.7 10^3/ul (1.0-4.8); ABS Monocytes 0.5 10^3/ul (0-0.8); ABS Neutrophils 3.6 10^3/ul (1.5-7.7); ABS Nucleated RBC 0 10^3/ul; Eosinophil % 6.2 %; Hematocrit 43 % (42-52); Hemoglobin 14.4 g/dl (14.0-18.0); Lymphocyte % 36.7 %; Mean Corpuscular HGB Conc 34 g/dl (31-36); Mean Corpuscular Hemoglobin 29 pg (27-31); Mean Corpuscular Volume 86 fL (80-94); Mean Platelet Volume 8.5 fL (7.4-10.4); Nucleated Red Blood Cells % 0; Platelet Count 246 10^3/ul (150-450); Red Blood Count 4.97 10^6/ul (4.00-5.40); Red Cell Distribution Width 13 % (10.5-15); White Blood Count 7.2 10^3/ul (3.5-10.8)
[2018-05-31 02:53] LABS: Albumin 3.8 g/dL (3.2-5.2); Albumin/Globulin Ratio 1.5 (1-3); Calcium 9.2 mg/dL (8.6-10.3); EGFR Non-African American 96.3 (>60); Globulin 2.5 g/dL (2-4); Potassium 3.7 mmol/L (3.5-5.0); Total Bilirubin 0.2 mg/dL (0.2-1.0); Total Protein 6.3 g/dL (6.4-8.9)
[2018-05-31 04:30] VITALS: BP 117/75
== END 2018-05-31 04:26 | disposition home or self-care (01) ==
LOC: ED 01:48
DX: K21.9 Gastro-esophageal reflux disease without esophagitis (principal); R51 Headache; R05 Cough; R19.7 Diarrhea, unspecified; R50.9 Fever, unspecified; Z88.0 Allergy status to penicillin; F17.210 Nicotine dependence, cigarettes, uncomplicated; R11.2 Nausea with vomiting, unspecified
CPT/HCPCS: 36415; 71046; 80053; 83605; 83690; 84484; 85025; 93005; 96374; 96375; 99283; J2405

== ENCOUNTER 2018-06-08 20:07 | Emergency (ER) | payer OTHER ==
[2018-06-08] MEDS ORDERED: diPHENhydraMINE PO* 50 MG PO ONE (22:22)
[2018-06-08] MEDS ORDERED: PROCHLORPERAZINE INJ 5 MG/ML 2 ML VIAL IV ONE (22:22)
[2018-06-08] MEDS ORDERED: NS 0.9% 1000 ML* 1,000 ML IV ONE (22:22)
[2018-06-08] MEDS ORDERED: Ketorolac INJ* 30 MG/ML 1 ML VIAL IV PUSH ONE (22:23)
[2018-06-08 22:52] LABS: ABS Basophils 0.1 10^3/ul (0-0.2); ABS Eosinophils 0.5 10^3/ul (0-0.6); ABS Lymphocytes 2.3 10^3/ul (1.0-4.8); ABS Monocytes 0.5 10^3/ul (0-0.8); ABS Nucleated RBC 0 10^3/ul; Hematocrit 44 % (42-52); Hemoglobin 14.8 g/dl (14.0-18.0); Lymphocyte % 24.3 %; Mean Corpuscular HGB Conc 33 g/dl (31-36); Mean Corpuscular Hemoglobin 29 pg (27-31); Mean Corpuscular Volume 86 fL (80-94); Mean Platelet Volume 8.8 fL (7.4-10.4); Nucleated Red Blood Cells % 0; Platelet Count 237 10^3/ul (150-450); Red Blood Count 5.17 10^6/ul (4.00-5.40); Red Cell Distribution Width 14 % (10.5-15); White Blood Count 9.3 10^3/ul (3.5-10.8)
[2018-06-08 23:02] LABS: Albumin 4.2 g/dL (3.2-5.2); Albumin/Globulin Ratio 1.8 (1-3); BUN/Creatinine Ratio 12.8 (8-20); C Reactive Protein 7.62 mg/L (<8.01); Calcium 9.1 mg/dL (8.6-10.3); EGFR Non-African American 106.7 (>60); Globulin 2.4 g/dL (2-4); Magnesium 2.1 mg/dL (1.9-2.7); Total Bilirubin 0.1 mg/dL (0.2-1.0); Total Protein 6.6 g/dL (6.4-8.9)
--- NOTE | 2018-06-08 23:36 | ED ---
Headache - HPI Summary HPI Summary: 27-year-old male presents with headache for past day. He states he has history of migraine states this is similar location. He states that he has been nauseous and has been vomiting. He took his topamax without any relief. He denies any fevers. No sinus congestion. Denies any neck stiffness. He admits to photophobia. no abdominal pain. He hasn't tried anything else for his symptoms. this is not the worst headache of his life. - History Of Current Complaint Chief Complaint: EDNauseaVomitDiarrh Stated Complaint: VOMITING /HEADACHE Time Seen by Provider: 06/08/18 22:03 - Allergies/Home Medications Allergies/Adverse Reactions: Allergies Allergy/AdvReac Type Severity Reaction Status Date / Time amoxicillin Allergy Hives/Diff. Verified 06/08/18 20:10 Breathing/I tching naproxen Allergy Rash Verified 06/08/18 20:10 Penicillins Allergy Rash Verified 06/08/18 20:10 Home Medications: Home Medications Topiramate 50 mg PO DAILY 06/08/18 [History Confirmed 06/08/18] PMH/Surg Hx/FS Hx/Imm Hx Endocrine/Hematology History: Reports: Hx Diabetes Denies: Hx Anticoagulant Therapy, Hx Thyroid Disease Cardiovascular History: Denies: Hx Congestive Heart Failure, Hx Deep Vein Thrombosis, Hx Hypertension , Hx Myocardial Infarction, Hx Pacemaker/ICD Respiratory History: Reports: Hx Asthma, Hx Chronic Bronchitis, Hx Chronic Obstructive Pulmonary Disease (COPD), Hx Sleep Apnea - previous dx mild ILIA 2010 , Other Respiratory Problems/Disorders - current 1.5 ppd smoker Denies: Hx Lung Cancer, Hx Pneumonia, Hx Pulmonary Embolism GI History: Denies: Hx Gall Bladder Disease, Hx Gastrointestinal Bleed, Hx Ulcer, Hx Urosepsis, Other GI Disorders History: Denies: Hx Dialysis, Hx Kidney Stones, Hx Renal Disease Musculoskeletal History: Reports: Hx Back Problems Sensory History: Reports: Hx Vision Problem - (right) eye stabismus Denies: Hx Hearing Aid Opthamlomology History: Reports: Hx Vision Problem - (right) eye stabismus Neurological History: Denies: Hx Dementia, Hx Migraine, Hx Seizures, Hx Transient Ischemic Attacks (TIA) Psychiatric History: Reports: Other Psychiatric Issues/Disorders - learning disorder Denies: Hx Anxiety, Hx Depression, Hx Panic Disorder, Hx Schizophrenia, Hx Bipolar Disorder, Hx Substance Abuse - Surgical History Surgery Procedure, Year, and Place: LT EYE STRABISMUS SURGERY, DENTAL EXTRACTION 01/30/14 - Immunization History Date of Tetanus Vaccine: utd Date of Influenza Vaccine: utd Infectious Disease History: No Infectious Disease History: Denies: Hx Clostridium Difficile, Hx Hepatitis, Hx Human Immunodeficiency Virus (HIV), Hx of Known/Suspected MRSA, Hx Shingles, Hx Tuberculosis, Hx Known/ Suspected VRE, Hx Known/Suspected VRSA, History Other Infectious Disease, Traveled Outside the [place] in Last 30 Days - Family History Known Family History: Positive: Cardiac Disease, Hypertension, Respiratory Disease - Social History Alcohol Use: Rare Hx Substance Use: No Substance Use Type: Reports: None Hx Tobacco Use: Yes Smoking Status (MU): Heavy Every Day Tobacco Smoker Type: Cigarettes Amount Used/How Often: 1/2 PPD Length of Time of Smoking/Using Tobacco: started at age 10 Have You Smoked in the Last Year: Yes Review of Systems Negative: Fever Negative: Chest Pain Negative: Shortness Of Breath Positive: Vomiting, Nausea. Negative: Abdominal Pain Positive: Headache All Other Systems Reviewed And Are Negative: Yes Physical Exam Triage Information Reviewed: Yes Vital Signs On Initial Exam: Initial Vitals Temp Pulse Resp BP Pulse Ox 98.9 F 67 16 142/65 100 06/08/18 20:08 06/08/18 20:08 06/08/18 20:08 06/08/18 20:08 06/08/18 20:08 Vital Signs Reviewed: Yes Appearance: Positive: Well-Appearing Skin: Positive: Warm, Dry Head/Face: Positive: Normal Head/Face Inspection Eyes: Positive: Normal, Conjunctiva Clear ENT: Positive: Pharynx normal Respiratory/Lung Sounds: Positive: Clear to Auscultation, Breath Sounds Present Cardiovascular: Positive: Normal, RRR Abdomen Description: Positive: Nontender, Soft Bowel Sounds: Positive: Present Musculoskeletal: Positive: Normal Neurological: Positive: Sensory/Motor Intact, Alert, Oriented to Person Place, Time, CN Intact II-III Psychiatric: Positive: Normal Diagnostics - Vital Signs Vital Signs Temp Pulse Resp BP Pulse Ox 06/08/18 20:08 98.9 F 67 16 142/65 100 - Laboratory Lab Results: Lab Results 06/08/18 06/08/18 Range/Units 21:46 21:46 WBC 9.3 (3.5-10.8) 10^3/ul RBC 5.17 (4.00-5.40) 10^6/ul Hgb 14.8 (14.0-18.0) g/dl Hct 44 (42-52) % MCV 86 (80-94) fL MCH 29 (27-31) pg MCHC 33 (31-36) g/dl RDW 14 (10.5-15) % Plt Count 237 (150-450) 10^3/ul MPV 8.8 (7.4-10.4) fL Neut % (Auto) 64.4 % Lymph % (Auto) 24.3 % Coal % (Auto) 5.7 % Eos % (Auto) 5.0 % Baso % (Auto) 0.6 % Absolute Neuts (auto) 6.0 (1.5-7.7) 10^3/ul Absolute Lymphs (auto) 2.3 (1.0-4.8) 10^3/ul Absolute Monos (auto) 0.5 (0-0.8) 10^3/ul Absolute Eos (auto) 0.5 (0-0.6) 10^3/ul Absolute Basos (auto) 0.1 (0-0.2) 10^3/ul Absolute Nucleated RBC 0 10^3/ul Nucleated RBC % 0 Sodium 138 (135-145) mmol/L Potassium 4.0 (3.5-5.0) mmol/L Chloride 105 (101-111) mmol/L Carbon Dioxide 28 (22-32) mmol/L Anion Gap 5 (2-11) mmol/L BUN 11 (6-24) mg/dL Creatinine 0.86 (0.67-1.17) mg/dL Est GFR ( Amer) 129.1 (>60) Est GFR (Non-Af Amer) 106.7 (>60) BUN/Creatinine Ratio 12.8 (8-20) Glucose 98 (70-100) mg/dL Calcium 9.1 (8.6-10.3) mg/dL Magnesium 2.1 (1.9-2.7) mg/dL Total Bilirubin 0.10 L (0.2-1.0) mg/dL AST 12 L (13-39) U/L ALT 9 (7-52) U/L Alkaline Phosphatase 57 (34-104) U/L C-Reactive Protein 7.62 (<8.01) mg/L Total Protein 6.6 (6.4-8.9) g/dL Albumin 4.2 (3.2-5.2) g/dL Globulin 2.4 (2-4) g/dL Albumin/Globulin Ratio 1.8 (1-3) Result Diagrams: 06/08/18 21:46 06/08/18 21:46 Lab Statement: Any lab studies that have been ordered have been reviewed, and results considered in the medical decision making process. Re-Evaluation - Re-Evaluation First Eval Re-Evaluation Time: 23:37 Change: Improved Comment: sleeping, headache improved Headache Course/Dx - Course Course Of Treatment: 27-year-old male presents with headache for past day. He states he has history of migraine states this is similar location. He states that he has been nauseous and has been vomiting. He took his topamax without any relief. He denies any fevers. No sinus congestion. Denies any neck stiffness. He admits to photophobia. no abdominal pain. He hasn't tried anything else for his symptoms. this is not the worst headache of his life. on exam has normal neuro exam. Gave migraine cocktail and feeling better. We' ll discharge home to follow up with primary. Patient understand and agrees with plan. - Diagnoses Differential Diagnosis/HQI/PQRI: Migraine, Tension Headache, Viral Syndrome Provider Diagnoses: Headache Discharge - Sign-Out/Discharge Documenting (check all that apply): Patient Departure - Discharge Plan Condition: Good Disposition: HOME Patient Education Materials: Migraine Headache (ED) Referrals: Eriberto Alvarado MD [Primary Care Provider] - Additional Instructions: take tyenlol or ibuprofen every 6 hours as needed for headache Follow up with primary Return to ED if develop any new or worsening symptoms - Billing Disposition and Condition Condition: GOOD Disposition: Home
[2018-06-08 23:56] VITALS: BP 124/78
== END 2018-06-08 23:55 | disposition home or self-care (01) ==
LOC: ED 20:07
DX: G43.909 Migraine, unspecified, not intractable, without status migrainosus (principal); Z88.0 Allergy status to penicillin; F17.210 Nicotine dependence, cigarettes, uncomplicated; R11.2 Nausea with vomiting, unspecified; R51 Headache
CPT/HCPCS: 36415; 80053; 83735; 85025; 86140; 99282; A9270-GY; J0780; J1885

== ENCOUNTER 2018-06-30 01:13 | Emergency (ER) | payer OTHER ==
--- NOTE | 2018-06-30 01:45 | ED ---
Lower Extremity - HPI Summary HPI Summary: Patient states he slipped on the ice yesterday and fell onto his right knee with subsequent pain. Patient states he was seen yesterday evening according in the ER and I did not do an x-ray, but did give him crutches. Patient states pain has been persistent since, has tried ibuprofen and Tylenol without relief. Patient is ambulatory with crutches. Denies any other pain, symptoms or injuries from fall. - History of Current Complaint Chief Complaint: EDExtremityLower Stated Complaint: RT KNEE PAIN Time Seen by Provider: 06/30/18 01:22 Hx Obtained From: Patient Mechanism Of Injury: Fall From A Standing Position Onset of Pain: Immediate Onset/Duration: Days Severity Initially: Severe Severity Currently: Severe Pain Intensity: 10 Pain Scale Used: 0-10 Numeric Timing: Constant Location: Is Discrete @ Character Of Pain: Aching, Throbbing Associated Signs And Symptoms: Positive: Knee Pain Aggravating Factor(s): Standing, Ambulation, Movement, Weight Bearing Alleviating Factor(s): Rest, Elevation Able to Bear Weight: Yes - Allergies/Home Medications Allergies/Adverse Reactions: Allergies Allergy/AdvReac Type Severity Reaction Status Date / Time amoxicillin Allergy Hives/Diff. Verified 06/30/18 01:16 Breathing/I tching naproxen Allergy Rash Verified 06/30/18 01:16 Penicillins Allergy Rash Verified 06/30/18 01:16 PMH/Surg Hx/FS Hx/Imm Hx Endocrine/Hematology History: Reports: Hx Diabetes Denies: Hx Anticoagulant Therapy, Hx Thyroid Disease Cardiovascular History: Denies: Hx Congestive Heart Failure, Hx Deep Vein Thrombosis, Hx Hypertension , Hx Myocardial Infarction, Hx Pacemaker/ICD Respiratory History: Reports: Hx Asthma, Hx Chronic Bronchitis, Hx Chronic Obstructive Pulmonary Disease (COPD), Hx Sleep Apnea - previous dx mild ILIA 2010 , Other Respiratory Problems/Disorders - current 1.5 ppd smoker Denies: Hx Lung Cancer, Hx Pneumonia, Hx Pulmonary Embolism GI History: Denies: Hx Gall Bladder Disease, Hx Gastrointestinal Bleed, Hx Ulcer, Hx Urosepsis, Other GI Disorders History: Denies: Hx Dialysis, Hx Kidney Stones, Hx Renal Disease Musculoskeletal History: Reports: Hx Back Problems Sensory History: Reports: Hx Vision Problem - (right) eye stabismus Denies: Hx Hearing Aid Opthamlomology History: Reports: Hx Vision Problem - (right) eye stabismus Neurological History: Denies: Hx Dementia, Hx Migraine, Hx Seizures, Hx Transient Ischemic Attacks (TIA) Psychiatric History: Reports: Other Psychiatric Issues/Disorders - learning disorder Denies: Hx Anxiety, Hx Depression, Hx Panic Disorder, Hx Schizophrenia, Hx Bipolar Disorder, Hx Substance Abuse - Surgical History Surgery Procedure, Year, and Place: LT EYE STRABISMUS SURGERY, DENTAL EXTRACTION 01/30/14 - Immunization History Date of Tetanus Vaccine: utd Date of Influenza Vaccine: utd Infectious Disease History: No Infectious Disease History: Denies: Hx Clostridium Difficile, Hx Hepatitis, Hx Human Immunodeficiency Virus (HIV), Hx of Known/Suspected MRSA, Hx Shingles, Hx Tuberculosis, Hx Known/ Suspected VRE, Hx Known/Suspected VRSA, History Other Infectious Disease, Traveled Outside the [place] in Last 30 Days - Family History Known Family History: Positive: Cardiac Disease, Hypertension, Respiratory Disease - Social History Alcohol Use: Rare Hx Substance Use: No Substance Use Type: Reports: None Hx Tobacco Use: Yes Smoking Status (MU): Heavy Every Day Tobacco Smoker Type: Cigarettes Amount Used/How Often: 1/2 PPD Length of Time of Smoking/Using Tobacco: started at age 10 Have You Smoked in the Last Year: Yes Review of Systems Constitutional: Negative Eyes: Negative ENT: Negative Cardiovascular: Negative Respiratory: Negative Gastrointestinal: Negative Genitourinary: Negative Musculoskeletal: Other Skin: Negative Neurological: Negative Psychological: Normal All Other Systems Reviewed And Are Negative: Yes Physical Exam - Summary Physical Exam Summary: No swelling, deformity, ecchymosis, erythema, wound noted to right knee. Tenderness to palpation of entire anterior for knee. Patient has about 40 of flexion and extension before pain sits in. PMS intact distally. No pain with palpation of ankle, calf, thigh. Hip flexion and extension intact without pain. Patient sitting in exam room texting on the phone. Triage Information Reviewed: Yes Vital Signs On Initial Exam: Initial Vitals Temp Pulse Resp BP Pulse Ox 98.8 F 88 16 147/88 94 06/30/18 01:13 06/30/18 01:13 06/30/18 01:13 06/30/18 01:13 06/30/18 01:13 Vital Signs Reviewed: Yes Appearance: Positive: Well-Appearing Skin: Positive: Warm Head/Face: Positive: Normal Head/Face Inspection Eyes: Positive: Normal Neck: Positive: Supple Respiratory/Lung Sounds: Positive: Clear to Auscultation Cardiovascular: Positive: Normal Abdomen Description: Positive: Nontender Musculoskeletal: Positive: Normal Neurological: Positive: Normal Psychiatric: Positive: Normal AVPU Assessment: Alert - [place] Coma Scale Best Eye Response: 4 - Spontaneous Best Motor Response: 6 - Obeys Commands Best Verbal Response: 5 - Oriented Coma Scale Total: 15 Diagnostics - Vital Signs Vital Signs Temp Pulse Resp BP Pulse Ox 06/30/18 01:13 98.8 F 88 16 147/88 94 - Laboratory Lab Statement: Any lab studies that have been ordered have been reviewed, and results considered in the medical decision making process. Lower Extremity Course/Dx - Course Course Of Treatment: Patient states he slipped on the ice yesterday and fell onto his right knee with subsequent pain. Patient states he was seen yesterday evening according in the ER and I did not do an x-ray, but did give him crutches. Patient states pain has been persistent since, has tried ibuprofen and Tylenol without relief. Patient is ambulatory with crutches. Denies any other pain, symptoms or injuries from fall. Physical exam:No swelling, deformity, ecchymosis, erythema, wound noted to right knee. Tenderness to palpation of entire anterior for knee. Patient has about 40 of flexion and extension before pain sits in. PMS intact distally. No pain with palpation of ankle, calf, thigh. Hip flexion and extension intact without pain. Patient sitting in exam room texting on the phone. X-ray negative. Patient already has crutches. Sebastián wrap administered. Follow-up with orthopedics if symptoms do not improve. Patient understands and approves of plan. - Diagnoses Provider Diagnoses: Fall, Knee pain, acute Discharge - Sign-Out/Discharge Documenting (check all that apply): Patient Departure - Discharge Plan Condition: Stable Disposition: HOME Patient Education Materials: Knee Pain (ED) Referrals: Eriberto Alvarado MD [Primary Care Provider] - Brittney Calles MD [Medical Doctor] - Additional Instructions: Weightbearing as tolerated. Ice, rest, elevation and ibuprofen for pain. Symptoms should improve over the next 4-5 days. If symptoms persist follow-up with orthopedics Dr. Calles for further evaluation. Return to the ED for any new or worsening symptoms. - Billing Disposition and Condition Condition: STABLE Disposition: Home
[2018-06-30 02:43] VITALS: BP 139/72
== END 2018-06-30 02:41 | disposition home or self-care (01) ==
LOC: ED 01:13
DX: M25.561 Pain in right knee (principal); Z88.0 Allergy status to penicillin; F17.210 Nicotine dependence, cigarettes, uncomplicated
CPT/HCPCS: 99282

== ENCOUNTER 2018-07-08 01:12 | Emergency (ER) | payer OTHER ==
[2018-07-08] MEDS ORDERED: NS 0.9% 1000 ML** 1,000 ML IV ONE (02:48)
--- NOTE | 2018-07-08 02:48 | ED ---
Headache - HPI Summary HPI Summary: This pt is a 27 y/o male presenting to [facility] c/o headache since 18:30 yesterday 07/07/18. Pt reports he gets very frequent migraine headache. He notes he takes Topamax PRN and today he took 1 tab without relief. Pt notes he did eat dinner last night. Denies dizziness, lightheadedness, nausea, vomiting, chest pain. He states his last blood glucose was 78 around 22:30 on 07/07/18. Pt notes he does not take any medications for diabetes because he is borderline. - History Of Current Complaint Chief Complaint: EDDiabeticProb Stated Complaint: HEADACHE/LOW BLOOD SUGAR Time Seen by Provider: 07/08/18 02:14 Hx Obtained From: Patient Onset/Duration: Started hours ago, Still Present Currently Pain Is: Current Pain Scale(0-10)= - 8, Severe Timing: Constant, Hours Character: Migraine Aggravating Factor: Nothing Allevating Factors: Nothing Associated Signs And Symptoms: Negative - Allergies/Home Medications Allergies/Adverse Reactions: Allergies Allergy/AdvReac Type Severity Reaction Status Date / Time amoxicillin Allergy Hives/Diff. Verified 07/08/18 01:16 Breathing/I tching naproxen Allergy Rash Verified 07/08/18 01:16 Penicillins Allergy Rash Verified 07/08/18 01:16 PMH/Surg Hx/FS Hx/Imm Hx Endocrine/Hematology History: Reports: Hx Diabetes Denies: Hx Anticoagulant Therapy, Hx Thyroid Disease Cardiovascular History: Denies: Hx Congestive Heart Failure, Hx Deep Vein Thrombosis, Hx Hypertension , Hx Myocardial Infarction, Hx Pacemaker/ICD Respiratory History: Reports: Hx Asthma, Hx Chronic Bronchitis, Hx Chronic Obstructive Pulmonary Disease (COPD), Hx Sleep Apnea - previous dx mild ILIA 2010 , Other Respiratory Problems/Disorders - current 1.5 ppd smoker Denies: Hx Lung Cancer, Hx Pneumonia, Hx Pulmonary Embolism GI History: Denies: Hx Gall Bladder Disease, Hx Gastrointestinal Bleed, Hx Ulcer, Hx Urosepsis, Other GI Disorders History: Denies: Hx Dialysis, Hx Kidney Stones, Hx Renal Disease Musculoskeletal History: Reports: Hx Back Problems Sensory History: Reports: Hx Vision Problem - (right) eye stabismus Denies: Hx Hearing Aid Opthamlomology History: Reports: Hx Vision Problem - (right) eye stabismus Neurological History: Denies: Hx Dementia, Hx Migraine, Hx Seizures, Hx Transient Ischemic Attacks (TIA) Psychiatric History: Reports: Other Psychiatric Issues/Disorders - learning disorder Denies: Hx Anxiety, Hx Depression, Hx Panic Disorder, Hx Schizophrenia, Hx Bipolar Disorder, Hx Substance Abuse - Surgical History Surgery Procedure, Year, and Place: LT EYE STRABISMUS SURGERY, DENTAL EXTRACTION 01/30/14 - Immunization History Date of Tetanus Vaccine: utd Date of Influenza Vaccine: utd Infectious Disease History: No Infectious Disease History: Denies: Hx Clostridium Difficile, Hx Hepatitis, Hx Human Immunodeficiency Virus (HIV), Hx of Known/Suspected MRSA, Hx Shingles, Hx Tuberculosis, Hx Known/ Suspected VRE, Hx Known/Suspected VRSA, History Other Infectious Disease, Traveled Outside the [place] in Last 30 Days - Family History Known Family History: Positive: Cardiac Disease, Hypertension, Respiratory Disease - Social History Alcohol Use: Rare Hx Substance Use: No Substance Use Type: Reports: None Hx Tobacco Use: Yes Smoking Status (MU): Heavy Every Day Tobacco Smoker Type: Cigarettes Amount Used/How Often: 1/2 PPD Length of Time of Smoking/Using Tobacco: started at age 10 Have You Smoked in the Last Year: Yes Review of Systems Negative: Fever, Chills Negative: Chest Pain Negative: Vomiting, Nausea Neurological: Other - NEG: dizziness, lightheadedness Positive: Headache All Other Systems Reviewed And Are Negative: Yes Physical Exam - Summary Physical Exam Summary: VITAL SIGNS: Reviewed. GENERAL: Patient is a well-developed and nourished male who is lying comfortable in the stretcher. Patient is not in any acute respiratory distress. HEAD AND FACE: No signs of trauma. No ecchymosis, hematomas or skull depressions. No sinus tenderness. EYES: PERRLA, EOMI x 2, No injected conjunctiva, no nystagmus. EARS: Hearing grossly intact. Ear canals and tympanic membranes are within normal limits. MOUTH: Oropharynx within normal limits. NECK: Supple, trachea is midline, no adenopathy, no JVD, no carotid bruit, no c- spine tenderness, neck with full ROM. CHEST: Symmetric, no tenderness at palpation LUNGS: Clear to auscultation bilaterally. No wheezing or crackles. CVS: Regular rate and rhythm, S1 and S2 present, no murmurs or gallops appreciated. ABDOMEN: Soft, non-tender. No signs of distention. No rebound no guarding, and no masses palpated. Bowel sounds are normal. EXTREMITIES: FROM in all major joints, no edema, no cyanosis or clubbing. NEURO: Alert and oriented x 3. No acute neurological deficits. Speech is normal and follows commands. SKIN: Dry and warm Triage Information Reviewed: Yes Vital Signs On Initial Exam: Initial Vitals Temp Pulse Resp BP Pulse Ox 98.1 F 65 16 123/80 97 07/08/18 01:14 07/08/18 01:14 07/08/18 01:14 07/08/18 01:14 07/08/18 01:14 Vital Signs Reviewed: Yes Diagnostics - Vital Signs Vital Signs Temp Pulse Resp BP Pulse Ox 07/08/18 01:14 98.1 F 65 16 123/80 97 - Laboratory Lab Results: Lab Results 07/08/18 Range/Units 01:26 POC Glucose (mg/dL) 92 (70-100) mg/dL Lab Statement: Any lab studies that have been ordered have been reviewed, and results considered in the medical decision making process. Headache Course/Dx - Course Assessment/Plan: Pt is a 27 y/o male who presents with a headache since 18:30 yesterday 07/07/18. Pt reports he gets very frequent migraine headache. He notes he takes Topamax PRN and today he took 1 tab without relief. He states his last blood glucose was 78 around 22:30 on 07/07/18. In the ED course the pt was given IV fluids, reglan, morphine. Pt is feeling better. He will be discharged home with follow up fom his PCP. He is instructed to return to the ED for any new or worsening symptoms. - Diagnoses Provider Diagnoses: Headache Discharge - Sign-Out/Discharge Documenting (check all that apply): Patient Departure - Discharge home Patient Received Moderate/Deep Sedation with Procedure: No - Discharge Plan Condition: Stable Disposition: HOME Patient Education Materials: General Headache (ED) Referrals: Eriberto Alvarado MD [Primary Care Provider] - Additional Instructions: Please follow up with your primary care provider in 1-2 days. RETURN TO EMERGENCY DEPARTMENT FOR ANY NEW OR WORSENING SYMPTOMS. - Attestation Statements Document Initiated by Scribe: Yes Documenting Scribe: Monika Khalil Provider For Whom Scribe is Documenting (Include Credential): Kelsey Rivera MD Scribe Attestation: I, Monika Khalil, scribed for Kelsey Rivera MD on 07/08/18 at 0341. Status of Scribbooker Document: Ready
[2018-07-08] MEDS ORDERED: Metoclopramide IV* 5 MG/ML 2 ML VIAL IV SLOW PU ONE (02:49)
[2018-07-08] MEDS ORDERED: Morphine VIAL* 10 MG/ML 1 ML VIAL IV ONE (02:49)
[2018-07-08 03:53] VITALS: BP 127/73
== END 2018-07-08 03:58 | disposition home or self-care (01) ==
LOC: ED 01:12
DX: G43.909 Migraine, unspecified, not intractable, without status migrainosus (principal); E11.649 Type 2 diabetes mellitus with hypoglycemia without coma; Z88.6 Allergy status to analgesic agent; Z88.0 Allergy status to penicillin; F17.210 Nicotine dependence, cigarettes, uncomplicated
CPT/HCPCS: 96374; 96375; 99282; J2270; J2765

== ENCOUNTER 2018-07-11 16:36 | Emergency (ER) | payer OTHER ==
[2018-07-11] MEDS ORDERED: Albuterol/Ipratropium NEB.SOL* Albuterol 2.5 MG/Ipratropium 0.5 MG 3 ML INH ONE (18:50)
[2018-07-11 19:18] LABS: ABS Basophils 0.1 10^3/ul (0-0.2); ABS Eosinophils 0.3 10^3/ul (0-0.6); ABS Lymphocytes 1.7 10^3/ul (1.0-4.8); ABS Monocytes 0.4 10^3/ul (0-0.8); ABS Neutrophils 4.4 10^3/ul (1.5-7.7); ABS Nucleated RBC 0 10^3/ul; Eosinophil % 3.9 %; Hematocrit 44 % (42-52); Hemoglobin 15.2 g/dl (14.0-18.0); Lymphocyte % 25.1 %; Mean Corpuscular HGB Conc 35 g/dl (31-36); Mean Corpuscular Hemoglobin 30 pg (27-31); Mean Corpuscular Volume 85 fL (80-94); Mean Platelet Volume 8.7 fL (7.4-10.4); Nucleated Red Blood Cells % 0.1; Platelet Count 214 10^3/ul (150-450); Red Blood Count 5.15 10^6/ul (4.00-5.40); Red Cell Distribution Width 13 % (10.5-15); White Blood Count 6.7 10^3/ul (3.5-10.8)
[2018-07-11] MEDS ORDERED: Ketorolac INJ* 30 MG/ML 1 ML VIAL IM ONE (19:27)
[2018-07-11] MEDS ORDERED: Ketorolac INJ* 30 MG/ML 1 ML VIAL ONE (19:30)
[2018-07-11 19:39] LABS: CKMB ng/mL 0.4 ng/mL (0.6-6.3)
[2018-07-11 19:40] LABS: Albumin 4.5 g/dL (3.2-5.2); Albumin/Globulin Ratio 1.7 (1-3); BUN/Creatinine Ratio 6.1 (8-20); Calcium 9.2 mg/dL (8.6-10.3); EGFR African American 109.7 (>60); EGFR Non-African American 90.7 (>60); Globulin 2.6 g/dL (2-4); Magnesium 2.1 mg/dL (1.9-2.7); Potassium 4.3 mmol/L (3.5-5.0); Total Bilirubin 0.4 mg/dL (0.2-1.0); Total Protein 7.1 g/dL (6.4-8.9)
[2018-07-11 20:01] LABS: TSH (Thyroid Stimulating Horm) 0.8 mcIU/mL (0.34-5.60)
[2018-07-11 20:18] LABS: Urine Appearance Clear; Urine Bilirubin Negative (Negative); Urine Blood Negative (Negative); Urine Color Yellow; Urine Glucose Negative (Negative); Urine Ketones Negative (Negative); Urine Nitrite Negative (Negative); Urine Protein Negative (Negative); Urine Specific Gravity 1.017 (1.010-1.030); Urine Urobilinogen Negative (Negative)
--- NOTE | 2018-07-11 20:20 | ED ---
HPI Chest Pain - HPI Summary HPI Summary: Patient is a 27 y/o M presenting to ED with complaints of constant, sharp chest pain with radiation to back for the past three days. He notes chest pain is aggravated by deep breaths, cough, movement of arms. He endorses N/V/D but denies abdominal pain. Patient endorses dizziness, states he was SOB last night but not at present. No numbness/tingling is reported. PMHx of COPD, emphysema, borderline diabetes. He notes rare alcohol consumption, claims he has been a smoker since age 10. Patient is on 2L o2 at night, took home treatments today. He also took 500 mg Motrin at 1100 today. On triage, pain is rated 10/10, nothing is noted to aggravate/alleviate Sx. Home medications and allergies are reviewed. - History of Current Complaint Chief Complaint: EDChestPainROMI Time Seen by Provider: 07/11/18 18:43 Hx Obtained From: Patient Onset/Duration: Started Days Ago - chest pain onset three days ago, SOB onset last night, since resolved, Still Present, Resolved - SOB Timing: Constant, Intermittent - SOB onset last night, since resolved, Lasting Days - chest pain onset three days ago Current Severity: Severe - 10/10 Pain Intensity: 10 Pain Scale Used: 0-10 Numeric - 10/10 Chest Pain Location: Diffuse Chest Pain Radiates: Yes Chest Pain Radiates To:: Back Character: Sharp/Stabbing Aggravating Factor(s): Movement, Deep Breaths, Other: - cough Alleviating Factor(s): Nothing Associated Signs and Symptoms: Positive: Chest Pain, Dizziness, Shortness of Breath - since resolved, Nausea, Back Pain, Vomiting, Other: - POSITIVE - DIARRHEA. Negative: Numbness, Tingling, Abdominal Pain - Allergy/Home Medications Allergies/Adverse Reactions: Allergies Allergy/AdvReac Type Severity Reaction Status Date / Time amoxicillin Allergy Hives/Diff. Verified 07/08/18 01:16 Breathing/I tching naproxen Allergy Rash Verified 07/08/18 01:16 Penicillins Allergy Rash Verified 07/08/18 01:16 Home Medications: Home Medications Cyclobenzaprine TAB* [Flexeril 10 MG TAB*] 10 mg PO BID PRN 07/11/18 [History Confirmed 07/11/18] Topiramate TAB(*) [Topamax 100 mg tab] 100 mg PO BEDTIME 07/11/18 [History Confirmed 07/11/18] PMH/Surg Hx/FS Hx/Imm Hx Endocrine/Hematology History: Reports: Hx Diabetes Denies: Hx Anticoagulant Therapy, Hx Thyroid Disease Cardiovascular History: Denies: Hx Congestive Heart Failure, Hx Deep Vein Thrombosis, Hx Hypertension , Hx Myocardial Infarction, Hx Pacemaker/ICD Respiratory History: Reports: Hx Asthma, Hx Chronic Bronchitis, Hx Chronic Obstructive Pulmonary Disease (COPD), Hx Sleep Apnea - previous dx mild ILIA 2010 , Other Respiratory Problems/Disorders - current 1.5 ppd smoker Denies: Hx Lung Cancer, Hx Pneumonia, Hx Pulmonary Embolism GI History: Denies: Hx Gall Bladder Disease, Hx Gastrointestinal Bleed, Hx Ulcer, Hx Urosepsis, Other GI Disorders History: Denies: Hx Dialysis, Hx Kidney Stones, Hx Renal Disease Musculoskeletal History: Reports: Hx Back Problems Sensory History: Reports: Hx Vision Problem - (right) eye stabismus Denies: Hx Hearing Aid Opthamlomology History: Reports: Hx Vision Problem - (right) eye stabismus Neurological History: Denies: Hx Dementia, Hx Migraine, Hx Seizures, Hx Transient Ischemic Attacks (TIA) Psychiatric History: Reports: Other Psychiatric Issues/Disorders - learning disorder Denies: Hx Anxiety, Hx Depression, Hx Panic Disorder, Hx Schizophrenia, Hx Bipolar Disorder, Hx Substance Abuse - Surgical History Surgery Procedure, Year, and Place: LT EYE STRABISMUS SURGERY, DENTAL EXTRACTION 01/30/14 - Immunization History Date of Tetanus Vaccine: utd Date of Influenza Vaccine: utd Infectious Disease History: No Infectious Disease History: Denies: Hx Clostridium Difficile, Hx Hepatitis, Hx Human Immunodeficiency Virus (HIV), Hx of Known/Suspected MRSA, Hx Shingles, Hx Tuberculosis, Hx Known/ Suspected VRE, Hx Known/Suspected VRSA, History Other Infectious Disease, Traveled Outside the [place] in Last 30 Days - Family History Known Family History: Positive: Cardiac Disease, Hypertension, Respiratory Disease - Social History Alcohol Use: None Hx Substance Use: No Substance Use Type: Reports: None Hx Tobacco Use: Yes Smoking Status (MU): Heavy Every Day Tobacco Smoker Type: Cigarettes Amount Used/How Often: 1/2 PPD Length of Time of Smoking/Using Tobacco: started at age 10 Have You Smoked in the Last Year: Yes Review of Systems Positive: Chest Pain Positive: Shortness Of Breath - SINCE RESOLVED Positive: Vomiting, Diarrhea, Nausea. Negative: Abdominal Pain Musculoskeletal: Other - POSITIVE - BACK PAIN Neurological: Other - POSITIVE - DIZZINESS Negative: Numbness - NO TINGLING All Other Systems Reviewed And Are Negative: Yes Physical Exam - Summary Physical Exam Summary: VITAL SIGNS: Reviewed. GENERAL: Patient is a well-developed and nourished male who is lying comfortable in the stretcher. Patient is not in any acute respiratory distress. HEAD AND FACE: No signs of trauma. No ecchymosis, hematomas or skull depressions. No sinus tenderness. EYES: PERRLA, EOMI x 2, No injected conjunctiva, no nystagmus. EARS: Hearing grossly intact. Ear canals and tympanic membranes are within normal limits. MOUTH: Oropharynx within normal limits. NECK: Supple, trachea is midline, no adenopathy, no JVD, no carotid bruit, no c- spine tenderness, neck with full ROM. CHEST: Symmetric, reproducible chest pain LUNGS: Coarse breath sounds throughout, slight wheezing at the apices of lungs CVS: Regular rate and rhythm, S1 and S2 present, no murmurs or gallops appreciated. ABDOMEN: Soft, non-tender. No signs of distention. No rebound no guarding, and no masses palpated. Bowel sounds are normal. EXTREMITIES: FROM in all major joints, no edema, no cyanosis or clubbing. NEURO: Alert and oriented x 3. No acute neurological deficits. Speech is normal and follows commands. SKIN: Dry and warm Triage Information Reviewed: Yes Vital Signs On Initial Exam: Initial Vitals Temp Pulse Resp BP Pulse Ox 98.9 F 74 18 137/73 98 07/11/18 16:38 07/11/18 16:38 07/11/18 16:38 07/11/18 16:38 07/11/18 16:38 Vital Signs Reviewed: Yes Diagnostics - Vital Signs Vital Signs Temp Pulse Resp BP Pulse Ox 07/11/18 20:09 63 13 138/61 97 07/11/18 19:38 70 17 144/65 95 07/11/18 19:07 67 16 100 07/11/18 19:00 68 11 98 07/11/18 18:40 59 99 07/11/18 18:39 64 134/79 98 07/11/18 16:38 98.9 F 74 18 137/73 98 - Laboratory Lab Results: Lab Results 07/11/18 07/11/18 07/11/18 Range/Units 19:11 19:11 19:11 WBC 6.7 (3.5-10.8) 10^3/ul RBC 5.15 (4.00-5.40) 10^6/ul Hgb 15.2 (14.0-18.0) g/dl Hct 44 (42-52) % MCV 85 (80-94) fL MCH 30 (27-31) pg MCHC 35 (31-36) g/dl RDW 13 (10.5-15) % Plt Count 214 (150-450) 10^3/ul MPV 8.7 (7.4-10.4) fL Neut % (Auto) 64.9 % Lymph % (Auto) 25.1 % [place] % (Auto) 5.3 % Eos % (Auto) 3.9 % Baso % (Auto) 0.8 % Absolute Neuts (auto) 4.4 (1.5-7.7) 10^3/ul Absolute Lymphs (auto) 1.7 (1.0-4.8) 10^3/ul Absolute Monos (auto) 0.4 (0-0.8) 10^3/ul Absolute Eos (auto) 0.3 (0-0.6) 10^3/ul Absolute Basos (auto) 0.1 (0-0.2) 10^3/ul Absolute Nucleated RBC 0 10^3/ul Nucleated RBC % 0.1 Sodium 138 (135-145) mmol/L Potassium 4.3 (3.5-5.0) mmol/L Chloride 103 (101-111) mmol/L Carbon Dioxide 29 (22-32) mmol/L Anion Gap 6 (2-11) mmol/L BUN 6 (6-24) mg/dL Creatinine 0.99 (0.67-1.17) mg/dL Est GFR ( Amer) 109.7 (>60) Est GFR (Non-Af Amer) 90.7 (>60) BUN/Creatinine Ratio 6.1 L (8-20) Glucose 109 H (70-100) mg/dL Lactic Acid 0.6 (0.5-2.0) mmol/L Calcium 9.2 (8.6-10.3) mg/dL Magnesium 2.1 (1.9-2.7) mg/dL Total Bilirubin 0.40 (0.2-1.0) mg/dL AST 12 L (13-39) U/L ALT 9 (7-52) U/L Alkaline Phosphatase 57 (34-104) U/L Total Creatine Kinase 35 (10-223) U/L CK-MB (CK-2) 0.4 L (0.6-6.3) ng/mL Troponin I 0.00 (<0.04) ng/mL B-Natriuretic Peptide (<=100) pg/mL Total Protein 7.1 (6.4-8.9) g/dL Albumin 4.5 (3.2-5.2) g/dL Globulin 2.6 (2-4) g/dL Albumin/Globulin Ratio 1.7 (1-3) TSH 0.80 (0.34-5.60) mcIU/mL Urine Color Urine Appearance Urine pH (5-9) Ur Specific [place] (1.010-1.030) Urine Protein (Negative) Urine Ketones (Negative) Urine Blood (Negative) Urine Nitrate (Negative) Urine Bilirubin (Negative) Urine Urobilinogen (Negative) Ur Leukocyte Esterase (Negative) Urine Glucose (Negative) 07/11/18 07/11/18 Range/Units 19:11 20:05 WBC (3.5-10.8) 10^3/ul RBC (4.00-5.40) 10^6/ul Hgb (14.0-18.0) g/dl Hct (42-52) % MCV (80-94) fL MCH (27-31) pg MCHC (31-36) g/dl RDW (10.5-15) % Plt Count (150-450) 10^3/ul MPV (7.4-10.4) fL Neut % (Auto) % Lymph % (Auto) % [place] % (Auto) % Eos % (Auto) % Baso % (Auto) % Absolute Neuts (auto) (1.5-7.7) 10^3/ul Absolute Lymphs (auto) (1.0-4.8) 10^3/ul Absolute Monos (auto) (0-0.8) 10^3/ul Absolute Eos (auto) (0-0.6) 10^3/ul Absolute Basos (auto) (0-0.2) 10^3/ul Absolute Nucleated RBC 10^3/ul Nucleated RBC % Sodium (135-145) mmol/L Potassium (3.5-5.0) mmol/L Chloride (101-111) mmol/L Carbon Dioxide (22-32) mmol/L Anion Gap (2-11) mmol/L BUN (6-24) mg/dL Creatinine (0.67-1.17) mg/dL Est GFR ( Amer) (>60) Est GFR (Non-Af Amer) (>60) BUN/Creatinine Ratio (8-20) Glucose (70-100) mg/dL Lactic Acid (0.5-2.0) mmol/L Calcium (8.6-10.3) mg/dL Magnesium (1.9-2.7) mg/dL Total Bilirubin (0.2-1.0) mg/dL AST (13-39) U/L ALT (7-52) U/L Alkaline Phosphatase (34-104) U/L Total Creatine Kinase (10-223) U/L CK-MB (CK-2) (0.6-6.3) ng/mL Troponin I (<0.04) ng/mL B-Natriuretic Peptide 9 (<=100) pg/mL Total Protein (6.4-8.9) g/dL Albumin (3.2-5.2) g/dL Globulin (2-4) g/dL Albumin/Globulin Ratio (1-3) TSH (0.34-5.60) mcIU/mL Urine Color Yellow Urine Appearance Clear Urine pH 6.0 (5-9) Ur Specific [place] 1.017 (1.010-1.030) Urine Protein Negative (Negative) Urine Ketones Negative (Negative) Urine Blood Negative (Negative) Urine Nitrate Negative (Negative) Urine Bilirubin Negative (Negative) Urine Urobilinogen Negative (Negative) Ur Leukocyte Esterase Negative (Negative) Urine Glucose Negative (Negative) Result Diagrams: 07/11/18 19:11 07/11/18 19:11 Lab Statement: Any lab studies that have been ordered have been reviewed, and results considered in the medical decision making process. - Radiology CXR Radiology Interpretation Completed By: ED Physician Summary of Radiographic Findings: COPD, pending official report. - EKG 1710 Cardiac Rate: NL - rate of 67 BPM EKG Rhythm: Sinus Rhythm Summary of EKG Findings: EKG showed sinus rhythm with rate of 67 BPM, no ST elevations. Re-Evaluation - Re-Evaluation First Eval Re-Evaluation Time: 20:23 Change: Improved Comment: In the ED course and the patient was given DuoNeb and the symptoms have significantly improved. The patient also was given Toradol and the chest pain has resolved. Therefore the patient will be discharged home with follow- up with primary care physician. I discussed all the findings and test results with the patient. Patient was instructed to return to the emergency room immediately if any of the symptoms return or worsens. Plan of care was discussed with the patient and understands and agrees. All questions were answered at patient satisfaction. There were no further complaints or concerns. Lung exam before discharge: CTA B/L. Good air exchange. No wheezing or crackles heard. CVS: S1 and S2 present. No murmurs appreciated. Patient is alert and oriented x 3. Patient is hemodynamically stable. Patient will be discharged home with follow up PCP in the next 2-3 days Chest Pain Course/Dx - Course Assessment/Plan: Patient is a 27 y/o M presenting to ED with complaints of constant, sharp chest pain with radiation to back for the past three days. He notes chest pain is aggravated by deep breaths, cough, movement of arms. He endorses N/V/D but denies abdominal pain. Patient endorses dizziness, states he was SOB last night but not at present. No numbness/tingling is reported. PMHx of COPD, emphysema, borderline diabetes. He notes rare alcohol consumption, claims he has been a smoker since age 10. Patient is on 2L o2 at night, took home treatments today. He also took 500 mg Motrin at 1100 today. Test results without any significant abnormality except for glucose of 109, AST is 12, troponin 0.00. Chest x-ray is consistent with COPD. There is no infiltrate. In the ED course and the patient was given DuoNeb and the symptoms have significantly improved. The patient also was given Toradol and the chest pain has resolved. Therefore the patient will be discharged home with follow-up with primary care physician. I discussed all the findings and test results with the patient. Patient was instructed to return to the emergency room immediately if any of the symptoms return or worsens. Plan of care was discussed with the patient and understands and agrees. All questions were answered at patient satisfaction. There were no further complaints or concerns. Lung exam before discharge: CTA B/L. Good air exchange. No wheezing or crackles heard. CVS: S1 and S2 present. No murmurs appreciated. Patient is alert and oriented x 3. Patient is hemodynamically stable. Patient will be discharged home with follow up PCP in the next 2-3 days - Chest Pain Differential Diagnosis/HQI/PQRI: Acute GA, ACS, Angina, CHF, Chest Wall, GI Disease, Lower Respiratory Infection - Diagnoses Provider Diagnoses: COPD (chronic obstructive pulmonary disease), Atypical chest pain Discharge - Sign-Out/Discharge Documenting (check all that apply): Patient Departure - discharge Patient Received Moderate/Deep Sedation with Procedure: No - NO PROCEDURES DONE - Discharge Plan Condition: Stable Disposition: HOME Patient Education Materials: Chest Pain (ED), COPD (Chronic Obstructive Pulmonary Disease) (ED) Referrals: Eriberto Alvarado MD [Primary Care Provider] - 3 Days Additional Instructions: RETURN TO EMERGENCY DEPARTMENT FOR ANY NEW OR WORSENING SYMPTOMS. FOLLOW UP WITH PRIMARY CARE PHYSICIAN WITHIN THREE DAYS. - Billing Disposition and Condition Condition: STABLE Disposition: Home - Attestation Statements Document Initiated by Christopher: Yes Documenting Scribe: BJ DENT Provider For Whom Christopher is Documenting (Include Credential): MC ANNA MD Scribe Attestation: BJ Epstein scribed for MC ANNA MD on 07/12/18 at 1053. Scribe Documentation Reviewed: Yes Provider Attestation: The documentation as recorded by the BJ talbert accurately reflects the service I personally performed and the decisions made by MC mcleod MD Status of Scribe Document: Viewed
[2018-07-11 20:28] VITALS: BP 145/63
== END 2018-07-11 20:40 | disposition home or self-care (01) ==
LOC: ED 16:36
DX: J44.9 Chronic obstructive pulmonary disease, unspecified (principal); R07.89 Other chest pain; R42 Dizziness and giddiness; R06.02 Shortness of breath; M54.9 Dorsalgia, unspecified; Z88.0 Allergy status to penicillin; E11.9 Type 2 diabetes mellitus without complications; F17.210 Nicotine dependence, cigarettes, uncomplicated
CPT/HCPCS: 36415; 71045; 80053; 81003; 82550; 82553; 83605; 83735; 83880; 84443; 84484; 85025; 93005; 96372; 96374; 99283; A9270-GY; J1885

== ENCOUNTER 2018-09-22 20:46 | Emergency (ER) | payer OTHER ==
[2018-09-22 21:39] VITALS: BP 133/79
--- NOTE | 2018-09-22 21:52 | UC ---
Back Pain HPI - HPI Summary HPI Summary: 27 -year-old male who was moving furniture 2 days ago and he experienced some low back strain. He denies any difficulty urinating, no saddle anesthesia, no illness or tingling in his extremities. - History of Current Complaint Chief Complaint: UCBackPain Stated Complaint: BACK PAIN Time Seen by Provider: 09/22/18 21:43 Hx Obtained From: Patient Onset/Duration: Gradual Onset Timing: Intermittent Severity Initially: Moderate Severity Currently: Mild Pain Intensity: 10 Back Pain: Is Diffuse Character: Dull, Aching - Cross lower back. Aggravating Factor(s): Movement, Bending Alleviating Factor(s): Rest Associated Signs And Symptoms: Positive: Negative. Negative: Weakness, Numbness , Tingling, Bladder Incontinence, Bowel Incontinence - Allergies/Home Medications Allergies/Adverse Reactions: Allergies Allergy/AdvReac Type Severity Reaction Status Date / Time amoxicillin Allergy Hives/Diff. Verified 09/22/18 21:35 Breathing/I tching naproxen Allergy Rash Verified 09/22/18 21:35 Penicillins Allergy Rash Verified 09/22/18 21:35 Home Medications: Home Medications Oxygen 3 inh SEE INSTRUCTIONS 09/22/18 [History Confirmed 09/22/18] PMH/Surg Hx/FS Hx/Imm Hx Previously Healthy: Yes Other History Of: Negative For: HIV, Hepatitis B, Hepatitis C, Anticoagulant Therapy - Surgical History Surgical History: Yes Surgery Procedure, Year, and Place: LT EYE STRABISMUS SURGERY, DENTAL EXTRACTION 01/30/14 - Family History Known Family History: Positive: Cardiac Disease, Hypertension, Respiratory Disease - Social History Alcohol Use: None Substance Use Type: None Smoking Status (MU): Heavy Every Day Tobacco Smoker Type: Cigarettes Amount Used/How Often: 1/2 PPD Length of Time of Smoking/Using Tobacco: started at age 10 Have You Smoked in the Last Year: Yes Household Exposure Type: Cigarettes - Immunization History Most Recent Influenza Vaccination: fall 2016 Review of Systems All Other Systems Reviewed And Are Negative: Yes Musculoskeletal: Positive: Other: - Describes pain across low back as aching. Is Patient Immunocompromised?: No Physical Exam Triage Information Reviewed: Yes Appearance: Well-Appearing, No Pain Distress, Well-Nourished Vital Signs: Initial Vital Signs Temp 98.5 F 09/22/18 21:36 Pulse 101 09/22/18 21:36 Resp 16 09/22/18 21:36 BP 133/79 09/22/18 21:36 Pulse Ox 97 09/22/18 21:36 Vital Signs Reviewed: Yes Respiratory Exam: Normal Respiratory: Positive: Lungs clear, Normal breath sounds, No respiratory distress, No accessory muscle use Cardiovascular: Positive: RRR, No Murmur, Pulses Normal, Brisk Capillary Refill Musculoskeletal Exam: Normal - Negative straight leg raise, mild tenderness on palpation to the paraspinal muscle areas bilaterally. Neurological Exam: Normal Psychological Exam: Normal Skin Exam: Normal Back Pain Course/Dx - Course Course Of Treatment: The patient is to continue Motrin which he is able to take every 8 hours and can alternate that with Tylenol which he had no money to buy that medication so a prescription was sent in - Differential Dx/Diagnosis Provider Diagnosis: Low back strain Discharge - Sign-Out/Discharge Documenting (check all that apply): Patient Departure All imaging exams completed and their final reports reviewed: No Studies - Discharge Plan Condition: Good Disposition: HOME Prescriptions: Acetaminophen TAB* [Tylenol TAB*] 650 mg PO Q4H PRN #1 bottle PRN Reason: Pain Patient Education Materials: Low Back Strain (ED) Referrals: Kayla Drummond MD [Primary Care Provider] - Additional Instructions: Apply heat to the sore area, avoid movements that cause pain, you may alternate Tylenol every 4 hours with Motrin every 8 hours as needed for pain. Follow-up with your primary care provider if no improvement in 4-5 days. - Billing Disposition and Condition Condition: GOOD Disposition: Home - Attestation Statements Provider Attestation: Per institutional requirements, I have reviewed the chart, however, I was not consulted specifically or made aware of this patient by the midlevel provider. I did not personally evaluate, interact with , or disposition this patient.
== END 2018-09-22 22:00 | disposition home or self-care (01) ==
LOC: UCCORT 20:46
DX: S39.012A Strain of muscle, fascia and tendon of lower back, initial encounter (principal); F17.210 Nicotine dependence, cigarettes, uncomplicated; Z88.0 Allergy status to penicillin; Z88.8 Allergy status to other drugs, medicaments and biological substances; X50.9XXA Other and unspecified overexertion or strenuous movements or postures, initial encounter; Y92.9 Unspecified place or not applicable
CPT/HCPCS: 99212; G0463

== ENCOUNTER 2018-09-27 17:35 | Emergency (ER) | payer OTHER ==
[2018-09-27 17:53] VITALS: BP 131/69
[2018-09-27] MEDS ORDERED: methylPREDNISolone SOD 40 MG* 1 ML VIAL IV ONE (18:17)
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
== END 2018-09-27 18:51 | disposition home or self-care (01) ==
LOC: UCCORT 17:35
DX: M54.5 Low back pain (principal); E11.9 Type 2 diabetes mellitus without complications; J44.9 Chronic obstructive pulmonary disease, unspecified; F17.210 Nicotine dependence, cigarettes, uncomplicated; Z88.8 Allergy status to other drugs, medicaments and biological substances; Z88.0 Allergy status to penicillin
CPT/HCPCS: 96372; 99212; G0463; J2920

== ENCOUNTER 2018-10-23 15:21 | Emergency (ER) | payer OTHER ==
[2018-10-23 17:32] LABS: ABS Basophils 0.1 10^3/ul (0-0.2); ABS Eosinophils 0.3 10^3/ul (0-0.6); ABS Lymphocytes 2.1 10^3/ul (1.0-4.8); ABS Monocytes 0.4 10^3/ul (0-0.8); ABS Neutrophils 5.2 10^3/ul (1.5-7.7); Eosinophil % 4.3 %; Hematocrit 44 % (42-52); Hemoglobin 14.5 g/dL (14.0-18.0); Mean Corpuscular HGB Conc 33 g/dL (31-36); Mean Corpuscular Hemoglobin 28 pg (27-31); Mean Corpuscular Volume 86 fL (80-94); Mean Platelet Volume 8.5 fL (7.4-10.4); Nucleated Red Blood Cells % 0.1; Platelet Count 230 10^3/uL (150-450); Red Blood Count 5.12 10^6 /uL (4.18-5.48); Red Cell Distribution Width 14 % (10.5-15); White Blood Count 8.1 10^3/uL (3.5-10.8)
[2018-10-23 17:51] LABS: Albumin 4.4 g/dL (3.2-5.2); Albumin/Globulin Ratio 1.8 (1-3); BUN/Creatinine Ratio 6.3 (8-20); C Reactive Protein 5.75 mg/L (<8.01); Calcium 9.3 mg/dL (8.6-10.3); EGFR African American 115.1 (>60); EGFR Non-African American 95.1 (>60); Globulin 2.5 g/dL (2-4); Potassium 3.9 mmol/L (3.5-5.0); Total Bilirubin 0.4 mg/dL (0.2-1.0); Total Protein 6.9 g/dL (6.4-8.9)
[2018-10-23 17:51] LABS: Urine Appearance Clear; Urine Bilirubin Negative (Negative); Urine Blood Negative (Negative); Urine Color Yellow; Urine Glucose Negative (Negative); Urine Ketones Negative (Negative); Urine Nitrite Negative (Negative); Urine Protein Negative (Negative); Urine Specific Gravity 1.008 (1.010-1.030); Urine Urobilinogen Negative (Negative)
--- NOTE | 2018-10-23 18:36 | ED ---
Abdominal Pain/Male - HPI Summary HPI Summary: The patient is a 27 y/o M presenting to [facility] with a chief complaint of sudden onset low abd pain radiating from LLQ to RLQ, right flank, and low right back starting today. Currently, the pain is rated 10/10 in severity. He additionally c/o nausea and vomiting. He denies previous hx of kidney stones. - History of Current Complaint Chief Complaint: EDAbdPain Stated Complaint: RIGHT FLANK,BACK PAIN PER PT Time Seen by Provider: 10/23/18 18:01 Hx Obtained From: Patient Onset/Duration: Sudden Onset, Lasting Hours, Still Present Timing: Constant, Lasting Hours Severity Initially: Moderate Severity Currently: Severe Pain Intensity: 10 Pain Scale Used: 0-10 Numeric Location: Discrete At: RLQ, Flank - right Radiates: Yes Radiates to: Back - low right Character: Sharp Aggravating Factor(s): Nothing Alleviating Factor(s): Nothing Associated Signs And Symptoms: Positive: Back Pain, Nausea, Vomiting - Allergies/Home Medications Allergies/Adverse Reactions: Allergies Allergy/AdvReac Type Severity Reaction Status Date / Time amoxicillin Allergy Hives/Diff. Verified 10/23/18 15:30 Breathing/I tching naproxen Allergy Rash Verified 10/23/18 15:30 Penicillins Allergy Rash Verified 10/23/18 15:30 PMH/Surg Hx/FS Hx/Imm Hx Endocrine/Hematology History: Reports: Hx Diabetes Denies: Hx Anticoagulant Therapy, Hx Thyroid Disease Cardiovascular History: Denies: Hx Congestive Heart Failure, Hx Deep Vein Thrombosis, Hx Hypertension , Hx Myocardial Infarction, Hx Pacemaker/ICD Respiratory History: Reports: Hx Asthma, Hx Chronic Bronchitis, Hx Chronic Obstructive Pulmonary Disease (COPD), Hx Sleep Apnea - previous dx mild ILIA 2010 , Other Respiratory Problems/Disorders - current 1.5 ppd smoker Denies: Hx Lung Cancer, Hx Pneumonia, Hx Pulmonary Embolism GI History: Denies: Hx Gall Bladder Disease, Hx Gastrointestinal Bleed, Hx Ulcer, Hx Urosepsis, Other GI Disorders History: Denies: Hx Dialysis, Hx Kidney Stones, Hx Renal Disease Musculoskeletal History: Reports: Hx Back Problems Sensory History: Reports: Hx Vision Problem - (right) eye stabismus Denies: Hx Hearing Aid Opthamlomology History: Reports: Hx Vision Problem - (right) eye stabismus Neurological History: Denies: Hx Dementia, Hx Migraine, Hx Seizures, Hx Transient Ischemic Attacks (TIA) Psychiatric History: Reports: Other Psychiatric Issues/Disorders - learning disorder Denies: Hx Anxiety, Hx Depression, Hx Panic Disorder, Hx Schizophrenia, Hx Bipolar Disorder, Hx Substance Abuse - Surgical History Surgery Procedure, Year, and Place: LT EYE STRABISMUS SURGERY, DENTAL EXTRACTION 01/30/14 - Immunization History Date of Tetanus Vaccine: utd Date of Influenza Vaccine: utd Infectious Disease History: No Infectious Disease History: Denies: Hx Clostridium Difficile, Hx Hepatitis, Hx Human Immunodeficiency Virus (HIV), Hx of Known/Suspected MRSA, Hx Shingles, Hx Tuberculosis, Hx Known/ Suspected VRE, Hx Known/Suspected VRSA, History Other Infectious Disease, Traveled Outside the [place] in Last 30 Days - Family History Known Family History: Positive: Cardiac Disease, Hypertension, Respiratory Disease - Social History Alcohol Use: Rare Hx Substance Use: No Substance Use Type: Reports: None Hx Tobacco Use: Yes Smoking Status (MU): Heavy Every Day Tobacco Smoker Type: Cigarettes Amount Used/How Often: 1/2 PPD Length of Time of Smoking/Using Tobacco: started at age 10 Have You Smoked in the Last Year: Yes Review of Systems Positive: Abdominal Pain - low abd including RLQ and right flank, Vomiting, Nausea Positive: Other - right low back pain All Other Systems Reviewed And Are Negative: Yes Physical Exam - Summary Physical Exam Summary: VITAL SIGNS: Reviewed. GENERAL: Patient is a well-developed and nourished male who is lying comfortable in the stretcher. Patient is not in any acute respiratory distress. HEAD AND FACE: Normocephalic and atraumatic. EYES: PERRLA, EOMI x 2, No injected conjunctiva. EARS: Hearing grossly intact. Ear canals and tympanic membranes are WNL. MOUTH: Oropharynx within normal limits. NECK: Supple, trachea is midline, no adenopathy, no JVD. CHEST: Symmetric, no tenderness at palpation LUNGS: Clear to auscultation bilaterally. No wheezing or crackles. CVS: RRR, S1 and S2 present, no murmurs or gallops appreciated. ABDOMEN: Soft, right flank tenderness. No signs of distention. Positive bowel sounds. No rebound no guarding, and no masses palpated. No abdominal bruit or pulsations. EXTREMITIES: FROM in all major joints, no edema, no cyanosis or clubbing. NEURO: Alert and oriented x 3. No acute neurological deficits. Speech is normal. SKIN: Dry and warm. Triage Information Reviewed: Yes Vital Signs On Initial Exam: Initial Vitals Temp Pulse Resp BP Pulse Ox 98.3 F 67 18 152/70 98 10/23/18 15:27 10/23/18 15:27 10/23/18 15:27 10/23/18 15:27 10/23/18 15:27 Vital Signs Reviewed: Yes Diagnostics - Vital Signs Vital Signs Temp Pulse Resp BP Pulse Ox 10/23/18 18:12 60 129/75 98 10/23/18 18:00 65 100 10/23/18 17:42 51 120/72 98 10/23/18 17:08 61 98 10/23/18 15:27 98.3 F 67 18 152/70 98 - Laboratory Lab Results: Lab Results 10/23/18 10/23/18 10/23/18 Range/Units 17:24 17:24 17:24 WBC 8.1 (3.5-10.8) 10^3/uL RBC 5.12 (4.18-5.48) 10^6 /uL Hgb 14.5 (14.0-18.0) g/dL Hct 44 (42-52) % MCV 86 (80-94) fL MCH 28 (27-31) pg MCHC 33 (31-36) g/dL RDW 14 (10.5-15) % Plt Count 230 (150-450) 10^3/uL MPV 8.5 (7.4-10.4) fL Neut % (Auto) 64.4 % Lymph % (Auto) 26.0 % [place] % (Auto) 4.5 % Eos % (Auto) 4.3 % Baso % (Auto) 0.8 % Absolute Neuts (auto) 5.2 (1.5-7.7) 10^3/ul Absolute Lymphs (auto) 2.1 (1.0-4.8) 10^3/ul Absolute Monos (auto) 0.4 (0-0.8) 10^3/ul Absolute Eos (auto) 0.3 (0-0.6) 10^3/ul Absolute Basos (auto) 0.1 (0-0.2) 10^3/ul Absolute Nucleated RBC 0.0 10^3/ul Nucleated RBC % 0.1 Sodium 139 (135-145) mmol/L Potassium 3.9 (3.5-5.0) mmol/L Chloride 106 (101-111) mmol/L Carbon Dioxide 29 (22-32) mmol/L Anion Gap 4 (2-11) mmol/L BUN 6 (6-24) mg/dL Creatinine 0.95 (0.67-1.17) mg/dL Est GFR ( Amer) 115.1 (>60) Est GFR (Non-Af Amer) 95.1 (>60) BUN/Creatinine Ratio 6.3 L (8-20) Glucose 98 (70-100) mg/dL Lactic Acid 0.5 (0.5-2.0) mmol/L Calcium 9.3 (8.6-10.3) mg/dL Total Bilirubin 0.40 (0.2-1.0) mg/dL AST 13 (13-39) U/L ALT 10 (7-52) U/L Alkaline Phosphatase 52 (34-104) U/L C-Reactive Protein 5.75 (<8.01) mg/L Total Protein 6.9 (6.4-8.9) g/dL Albumin 4.4 (3.2-5.2) g/dL Globulin 2.5 (2-4) g/dL Albumin/Globulin Ratio 1.8 (1-3) Lipase 26 (11.0-82.0) U/L Urine Color Urine Appearance Urine pH (5-9) Ur Specific [place] (1.010-1.030) Urine Protein (Negative) Urine Ketones (Negative) Urine Blood (Negative) Urine Nitrate (Negative) Urine Bilirubin (Negative) Urine Urobilinogen (Negative) Ur Leukocyte Esterase (Negative) Urine Glucose (Negative) 10/23/18 Range/Units 17:36 WBC (3.5-10.8) 10^3/uL RBC (4.18-5.48) 10^6 /uL Hgb (14.0-18.0) g/dL Hct (42-52) % MCV (80-94) fL MCH (27-31) pg MCHC (31-36) g/dL RDW (10.5-15) % Plt Count (150-450) 10^3/uL MPV (7.4-10.4) fL Neut % (Auto) % Lymph % (Auto) % [place] % (Auto) % Eos % (Auto) % Baso % (Auto) % Absolute Neuts (auto) (1.5-7.7) 10^3/ul Absolute Lymphs (auto) (1.0-4.8) 10^3/ul Absolute Monos (auto) (0-0.8) 10^3/ul Absolute Eos (auto) (0-0.6) 10^3/ul Absolute Basos (auto) (0-0.2) 10^3/ul Absolute Nucleated RBC 10^3/ul Nucleated RBC % Sodium (135-145) mmol/L Potassium (3.5-5.0) mmol/L Chloride (101-111) mmol/L Carbon Dioxide (22-32) mmol/L Anion Gap (2-11) mmol/L BUN (6-24) mg/dL Creatinine (0.67-1.17) mg/dL Est GFR ( Amer) (>60) Est GFR (Non-Af Amer) (>60) BUN/Creatinine Ratio (8-20) Glucose (70-100) mg/dL Lactic Acid (0.5-2.0) mmol/L Calcium (8.6-10.3) mg/dL Total Bilirubin (0.2-1.0) mg/dL AST (13-39) U/L ALT (7-52) U/L Alkaline Phosphatase (34-104) U/L C-Reactive Protein (<8.01) mg/L Total Protein (6.4-8.9) g/dL Albumin (3.2-5.2) g/dL Globulin (2-4) g/dL Albumin/Globulin Ratio (1-3) Lipase (11.0-82.0) U/L Urine Color Yellow Urine Appearance Clear Urine pH 6.0 (5-9) Ur Specific [place] 1.008 L (1.010-1.030) Urine Protein Negative (Negative) Urine Ketones Negative (Negative) Urine Blood Negative (Negative) Urine Nitrate Negative (Negative) Urine Bilirubin Negative (Negative) Urine Urobilinogen Negative (Negative) Ur Leukocyte Esterase Negative (Negative) Urine Glucose Negative (Negative) Result Diagrams: 10/23/18 17:24 10/23/18 17:24 Lab Statement: Any lab studies that have been ordered have been reviewed, and results considered in the medical decision making process. - CT Abd/Pel CT CT Interpretation Completed By: Radiologist Summary of CT Findings: 1. The appendix is unremarkable. 2. No visible renal, ureteral or bladder calculi. ED physician has reviewed this report. Re-Evaluation - Re-Evaluation First Eval Re-Evaluation Time: 19:55 Change: Improved Comment: I discussed with the patient the results and discharge home. Abdominal Pain Male Course/Dx - Course Assessment/Plan: The patient is a 27 y/o M presenting to [facility] with a chief complaint of sudden onset low abd pain radiating from LLQ to RLQ, right flank, and low right back starting today. Currently, the pain is rated 10/10 in severity. He denies previous hx of kidney stones. Blood work without any significant abnormality, urinalysis is negative for UTI. Abdominopelvic CT impression: The appendix is unremarkable. No visible renal or ureteral or bladder calculi. In the ED course, the patient was given Tylenol for the pain. He seems that the patient has a more muscular skeletal pain therefore he will be discharged home with follow-up with primary care physician. I discussed all the findings and test results with the patient. Patient was instructed to return to the emergency room immediately if any of the symptoms return or worsen. Plan of care was discussed with the patient, and he understands and agrees. All questions were answered at patient satisfaction. There were no further complaints or concerns. Lung exam before discharge: CTA B/L. Good air exchange. No wheezing or crackles heard. CVS: S1 and S2 present. No murmurs appreciated. Patient is alert and oriented x 3. Patient is hemodynamically stable. Patient will be discharged home with follow up PCP in the next 2-3 days. - Diagnoses Provider Diagnoses: Right flank pain Discharge - Sign-Out/Discharge Documenting (check all that apply): Patient Departure - Patient will be discharged home. Patient Received Moderate/Deep Sedation with Procedure: No - Discharge Plan Condition: Stable Disposition: HOME Patient Education Materials: Flank Pain (ED) Referrals: [facility] [place] [facility] REFERR[facility] [Outside] - 3 Days Additional Instructions: FOLLOW UP WITH YOUR PRIMARY CARE PROVIDER WITHIN ONE WEEK. RETURN TO THE ED FOR ANY WORSENING OR NEW SYMPTOMS. - Billing Disposition and Condition Condition: STABLE Disposition: Home - Attestation Statements Document Initiated by Scribe: Yes Documenting Scribe: Bibiana Rajan Provider For Whom Sheriibbooker is Documenting (Include Credential): Dr. Danyel Kang MD Scribe Attestation: I, Bibiana Rajan, scribed for Dr. Danyel Kang MD on 10/23/18 at 2205. Scribe Documentation Reviewed: Yes Provider Attestation: The documentation as recorded by the gali, Bibiana Rajan accurately reflects the service I personally performed and the decisions made by me, Dr. Danyel Kang MD Status of Scribe Document: Viewed
[2018-10-23] MEDS ORDERED: Acetaminophen TAB* 325 MG PO ONE (19:52)
[2018-10-23 20:43] VITALS: BP 115/65
== END 2018-10-23 20:15 | disposition home or self-care (01) ==
LOC: ED 15:21
DX: R10.9 Unspecified abdominal pain (principal); E11.9 Type 2 diabetes mellitus without complications; J44.9 Chronic obstructive pulmonary disease, unspecified; F17.210 Nicotine dependence, cigarettes, uncomplicated; Z88.3 Allergy status to other anti-infective agents; Z88.6 Allergy status to analgesic agent; Z88.0 Allergy status to penicillin
CPT/HCPCS: 36415; 74176; 80053; 81003; 83605; 83690; 85025; 86140; 99283; A9270-GY

== ENCOUNTER 2018-11-09 23:59 | Emergency (ER) | payer OTHER ==
[2018-11-10] MEDS ORDERED: NS 0.9% 1000 ML** 1,000 ML IV ONE (02:05)
[2018-11-10] MEDS ORDERED: Metoclopramide IV* 5 MG/ML 2 ML VIAL IV SLOW PU ONE (02:06)
--- NOTE | 2018-11-10 02:16 | ED ---
Respiratory - HPI Summary HPI Summary: Patient is a 27 y/o M presenting to ED claiming that he has PNA. He reports that he was admitted to [facility] yesterday and was discharged today, 11/09/18. Patient claims that he only received x-rays and did not receive a Rx for antibiotics. Patient states that he has been experiencing fever, cough, N/V. Sx are reported to have been worsening. However, he denies SOB, diarrhea and abdominal pain. Patient has not taken Motrin, Tylenol BOX LINER. On triage, pain is denied, nothing is noted to aggravate/alleviate Sx. Home medications and allergies are reviewed. - History of Current Complaint Chief Complaint: EDUpperRespComplaint Stated Complaint: "PNEUMONIA" PER PT Time Seen by Provider: 11/10/18 01:53 Hx Obtained From: Patient Onset/Duration: Still Present, Worse Since Timing: Constant Current Severity: None Pain Intensity: 0 Aggravating Factor(s): Nothing Alleviating Factor(s): Nothing Associated Signs and Symptoms: Fever - Allergy/Home Medications Allergies/Adverse Reactions: Allergies Allergy/AdvReac Type Severity Reaction Status Date / Time amoxicillin Allergy Hives/Diff. Verified 11/10/18 00:03 Breathing/I tching naproxen Allergy Rash Verified 11/10/18 00:03 Penicillins Allergy Rash Verified 11/10/18 00:03 PMH/Surg Hx/FS Hx/Imm Hx Endocrine/Hematology History: Reports: Hx Diabetes Denies: Hx Anticoagulant Therapy, Hx Thyroid Disease Cardiovascular History: Denies: Hx Congestive Heart Failure, Hx Deep Vein Thrombosis, Hx Hypertension , Hx Myocardial Infarction, Hx Pacemaker/ICD Respiratory History: Reports: Hx Asthma, Hx Chronic Bronchitis, Hx Chronic Obstructive Pulmonary Disease (COPD), Hx Sleep Apnea - previous dx mild ILIA 2010 , Other Respiratory Problems/Disorders - current 1.5 ppd smoker Denies: Hx Lung Cancer, Hx Pneumonia, Hx Pulmonary Embolism GI History: Denies: Hx Gall Bladder Disease, Hx Gastrointestinal Bleed, Hx Ulcer, Hx Urosepsis, Other GI Disorders History: Denies: Hx Dialysis, Hx Kidney Stones, Hx Renal Disease Musculoskeletal History: Reports: Hx Back Problems Sensory History: Reports: Hx Vision Problem - (right) eye stabismus Denies: Hx Hearing Aid Opthamlomology History: Reports: Hx Vision Problem - (right) eye stabismus Neurological History: Denies: Hx Dementia, Hx Migraine, Hx Seizures, Hx Transient Ischemic Attacks (TIA) Psychiatric History: Reports: Other Psychiatric Issues/Disorders - learning disorder Denies: Hx Anxiety, Hx Depression, Hx Panic Disorder, Hx Schizophrenia, Hx Bipolar Disorder, Hx Substance Abuse - Surgical History Surgery Procedure, Year, and Place: LT EYE STRABISMUS SURGERY, DENTAL EXTRACTION 01/30/14 - Immunization History Date of Tetanus Vaccine: utd Date of Influenza Vaccine: utd Infectious Disease History: No Infectious Disease History: Denies: Hx Clostridium Difficile, Hx Hepatitis, Hx Human Immunodeficiency Virus (HIV), Hx of Known/Suspected MRSA, Hx Shingles, Hx Tuberculosis, Hx Known/ Suspected VRE, Hx Known/Suspected VRSA, History Other Infectious Disease, Traveled Outside the [place] in Last 30 Days - Family History Known Family History: Positive: Cardiac Disease, Hypertension, Respiratory Disease - Social History Alcohol Use: Rare Hx Substance Use: No Substance Use Type: Reports: None Hx Tobacco Use: Yes Smoking Status (MU): Heavy Every Day Tobacco Smoker Type: Cigarettes Amount Used/How Often: 1/2 PPD Length of Time of Smoking/Using Tobacco: started at age 10 Have You Smoked in the Last Year: Yes Review of Systems Positive: Fever Positive: Cough. Negative: Shortness Of Breath Positive: Vomiting, Nausea. Negative: Abdominal Pain, Diarrhea All Other Systems Reviewed And Are Negative: Yes Physical Exam - Summary Physical Exam Summary: VITAL SIGNS: Reviewed. GENERAL: Patient is a well-developed and nourished male who is lying comfortable in the stretcher. Patient is not in any acute respiratory distress. HEAD AND FACE: No signs of trauma. No ecchymosis, hematomas or skull depressions. No sinus tenderness. EYES: PERRLA, EOMI x 2, No injected conjunctiva, no nystagmus. EARS: Hearing grossly intact. Ear canals and tympanic membranes are within normal limits. MOUTH: Oropharynx within normal limits. NECK: Supple, trachea is midline, no adenopathy, no JVD, no carotid bruit, no c- spine tenderness, neck with full ROM CHEST: Symmetric, no tenderness at palpation LUNGS: Clear to auscultation bilaterally. No wheezing or crackles. CVS: Regular rate and rhythm, S1 and S2 present, no murmurs or gallops appreciated. ABDOMEN: Soft, non-tender. No signs of distention. No rebound no guarding, and no masses palpated. Bowel sounds are normal. EXTREMITIES: FROM in all major joints, no edema, no cyanosis or clubbing. NEURO: Alert and oriented x 3. No acute neurological deficits. Speech is normal and follows commands. SKIN: Dry and warm Triage Information Reviewed: Yes Vital Signs On Initial Exam: Initial Vitals Temp Pulse Resp BP Pulse Ox 99.2 F 78 18 120/93 98 11/10/18 00:01 11/10/18 00:01 11/10/18 00:01 11/10/18 00:01 11/10/18 00:01 Vital Signs Reviewed: Yes Diagnostics - Vital Signs Vital Signs Temp Pulse Resp BP Pulse Ox 11/10/18 00:01 99.2 F 78 18 120/93 98 - Laboratory Result Diagrams: 11/10/18 02:12 11/10/18 02:12 Lab Statement: Any lab studies that have been ordered have been reviewed, and results considered in the medical decision making process. - Radiology CHEST X-RAY Radiology Interpretation Completed By: ED Physician Summary of Radiographic Findings: CXR showed NAD, pending official report. Re-Evaluation - Re-Evaluation First Eval Re-Evaluation Time: 03:21 Comment: Results of labs and imaging were discussed, patient will be discharged to home and follow up with PCP. Strict return precautions were given. He is agreeable with this. Disposition - Course Course Of Treatment: Patient is a 27 y/o M presenting to ED claiming that he has PNA. He reports that he was admitted to [facility] yesterday and was discharged today, 11/09/18. Patient claims that he only received x-rays and did not receive a Rx for antibiotics. Patient states that he has been experiencing fever, cough, N/V. Sx are reported to have been worsening. However, he denies SOB, diarrhea and abdominal pain. Patient has not taken Motrin, Tylenol BOX LINER. Physical exam was unremarkable. CXR showed NAD. Labs showed BUN 5, BUN/ creatinine ratio 5.7, glucose 101, AST 12, CRP 42.05, lipase 18, amylase 35. During ED course, patient received fluids and reglan 10 mg IV. Results of labs and imaging were discussed, patient will be discharged to home and follow up with PCP. Strict return precautions were given. He is agreeable with this. - Diagnoses Provider Diagnoses: Vomiting Discharge - Sign-Out/Discharge Documenting (check all that apply): Patient Departure - discharge Patient Received Moderate/Deep Sedation with Procedure: No - Discharge Plan Condition: Stable Disposition: HOME Prescriptions: Metoclopramide TAB* [Reglan TAB*] 10 mg PO Q6H PRN #20 tab PRN Reason: Nausea/Vomiting Patient Education Materials: Acute Nausea and Vomiting (ED) Referrals: [facility] [Outside] - 3 Days Additional Instructions: PLEASE RETURN TO THE ED IMMEDIATELY FOR WORSENING OR CONCERNING SYMPTOMS. FOLLOW UP WITH YOUR PRIMARY CARE PHYSICIAN WITHIN THREE DAYS - Billing Disposition and Condition Condition: STABLE Disposition: Home - Attestation Statements Document Initiated by Rileye: Yes Documenting Scribe: BJ DENT Provider For Whom Christopher is Documenting (Include Credential): JARRET MONTALVO MD Scribe Attestation: BJ Epstein scribed for JARRET MONTALVO MD on 11/10/18 at 0537. Scribe Documentation Reviewed: Yes Provider Attestation: The documentation as recorded by the BJ talbert accurately reflects the service I personally performed and the decisions made by WAQAR mcleod MD Status of Scribbooker Document: Viewed
[2018-11-10 02:19] LABS: ABS Eosinophils 0.3 10^3/ul (0-0.6); ABS Lymphocytes 1.9 10^3/ul (1.0-4.8); ABS Monocytes 0.7 10^3/ul (0-0.8); ABS Neutrophils 4.9 10^3/ul (1.5-7.7); Eosinophil % 3.3 %; Hematocrit 42 % (42-52); Hemoglobin 14.2 g/dL (14.0-18.0); Lymphocyte % 24.7 %; Mean Corpuscular HGB Conc 34 g/dL (31-36); Mean Corpuscular Hemoglobin 29 pg (27-31); Mean Corpuscular Volume 85 fL (80-94); Mean Platelet Volume 8.5 fL (7.4-10.4); Nucleated Red Blood Cells % 0.2; Platelet Count 202 10^3/uL (150-450); Red Blood Count 4.89 10^6 /uL (4.18-5.48); Red Cell Distribution Width 14 % (10-15); White Blood Count 7.8 10^3/uL (3.5-10.8)
[2018-11-10 02:35] LABS: Albumin 3.9 g/dL (3.2-5.2); Albumin/Globulin Ratio 1.4 (1-3); BUN/Creatinine Ratio 5.7 (8-20); C Reactive Protein 42.05 mg/L (<8.01); EGFR African American 127.4 (>60); EGFR Non-African American 105.3 (>60); Globulin 2.8 g/dL (2-4); Potassium 3.5 mmol/L (3.5-5.0); Total Bilirubin 0.4 mg/dL (0.2-1.0); Total Protein 6.7 g/dL (6.4-8.9)
[2018-11-10 03:54] VITALS: BP 126/70
== END 2018-11-10 03:53 | disposition home or self-care (01) ==
LOC: ED 23:59
DX: R11.10 Vomiting, unspecified (principal); R50.9 Fever, unspecified; R05 Cough; E11.9 Type 2 diabetes mellitus without complications; J44.9 Chronic obstructive pulmonary disease, unspecified; Z88.6 Allergy status to analgesic agent; Z88.0 Allergy status to penicillin; F17.210 Nicotine dependence, cigarettes, uncomplicated
CPT/HCPCS: 36415; 71045; 80053; 82150; 83690; 85025; 86140; 96361; 96374; 99283; J2765

== ENCOUNTER 2019-01-08 17:40 | Emergency (ER) | payer OTHER ==
[2019-01-08 18:28] VITALS: BP 118/78
--- NOTE | 2019-01-08 18:39 | UC ---
Skin Complaint HPI - HPI Summary HPI Summary: Pt presents with c/o sudden onset of erythematous tend mass in upper left inner corner of eyebrow. - History of Current Complaint Chief Complaint: UCEye Time Seen by Provider: 01/08/19 18:25 Stated Complaint: RIGHT EYE COMPLAINT Hx Obtained From: Patient Onset/Duration: Sudden Onset, Still Present Skin Exposure Onset/Duration: Hours Ago Timing: Constant Onset Severity: Mild Current Severity: Moderate Pain Intensity: 9 Location: Face Character: Pain, Redness, Raised, Painful Aggravating Factor(s): Touch Alleviating Factor(s): Unknown Associated Signs & Symptoms: Positive: Tenderness - Allergy/Home Medications Allergies/Adverse Reactions: Allergies Allergy/AdvReac Type Severity Reaction Status Date / Time amoxicillin Allergy Hives/Diff. Verified 01/08/19 18:17 Breathing/I tching naproxen Allergy Rash Verified 01/08/19 18:17 Penicillins Allergy Rash Verified 01/08/19 18:17 Home Medications: Home Medications Albuterol HFA INHALER* [Ventolin HFA Inhaler*] 2 puff INH Q4H PRN 01/08/19 [ History Confirmed 01/08/19] Budesonide/Formote 160/4.5(NF) [Symbicort 160/4.5 (NF)] 2 puff INH BID 01/08/19 [History Confirmed 01/08/19] Ibuprofen TAB* [Motrin TAB* 600 MG] 600 mg PO Q6H PRN 01/08/19 [History Confirmed 01/08/19] PMH/Surg Hx/FS Hx/Imm Hx Previously Healthy: Yes Other History Of: Negative For: HIV, Hepatitis B, Hepatitis C, Anticoagulant Therapy - Surgical History Surgical History: Yes Surgery Procedure, Year, and Place: LT EYE STRABISMUS SURGERY, DENTAL EXTRACTION 01/30/14 - Family History Known Family History: Positive: Cardiac Disease, Hypertension, Respiratory Disease - Social History Occupation: Unemployed Lives: With Family Alcohol Use: Rare Substance Use Type: None Smoking Status (MU): Light Every Day Tobacco Smoker Type: Cigarettes Amount Used/How Often: 4 CIGS A DAY Length of Time of Smoking/Using Tobacco: started at age 10 Have You Smoked in the Last Year: Yes Household Exposure Type: Cigarettes - Immunization History Most Recent Influenza Vaccination: fall 2016 Review of Systems All Other Systems Reviewed And Are Negative: Yes Constitutional: Positive: Negative Skin: Positive: Other - acne on face Eyes: Positive: Negative ENT: Positive: Negative Respiratory: Positive: Negative Cardiovascular: Positive: Negative Gastrointestinal: Positive: Negative Genitourinary: Positive: Negative Motor: Positive: Negative Neurovascular: Positive: Negative Musculoskeletal: Positive: Negative Neurological: Positive: Headache Psychological: Positive: Negative Is Patient Immunocompromised?: No Physical Exam Triage Information Reviewed: Yes Vital Signs: Initial Vital Signs Temp 98 F 01/08/19 18:19 Pulse 72 01/08/19 18:19 Resp 18 01/08/19 18:19 BP 118/78 01/08/19 18:19 Pulse Ox 99 01/08/19 18:19 Vital Signs Reviewed: Yes Eye Exam: Normal ENT Exam: Normal Dental: Positive: Gross Decay/Caries @ Neck exam: Normal Respiratory: Positive: No respiratory distress Musculoskeletal Exam: Normal Neurological Exam: Normal Psychological Exam: Normal Skin Exam: Other - infected sebaceous cyst right upper inner eyebrow Course/Dx - Differential Diagnoses - Skin Complaint Differential Diagnoses: Cellulitis, MRSA - Diagnoses Provider Diagnosis: Infected sebaceous cyst of skin Discharge - Sign-Out/Discharge Documenting (check all that apply): Patient Departure All imaging exams completed and their final reports reviewed: No Studies - Discharge Plan Condition: Stable Disposition: HOME Prescriptions: DOXYcycline CAP(*) [DOXYcycline 100MG CAP(*)] 100 mg PO Q12H #20 cap Patient Education Materials: Cyst (ED), Warm Compress or Soak (ED) Referrals: [facility] [Outside] No Primary Care Phys,NOPCP [Primary Care Provider] - Additional Instructions: If your symptoms do not improve or worsen please seek care at the closest emergency room. - Billing Disposition and Condition Condition: STABLE Disposition: Home
== END 2019-01-08 18:51 | disposition home or self-care (01) ==
LOC: UCCORT 17:40
DX: L72.3 Sebaceous cyst (principal); Z88.0 Allergy status to penicillin; F17.210 Nicotine dependence, cigarettes, uncomplicated
CPT/HCPCS: 99212; G0463

== ENCOUNTER 2019-01-24 23:46 | Emergency (ER) | payer OTHER ==
--- OUTSIDE RECORDS SUMMARY | 2019-01-24 23:59 | XMS REPORT | Continuity of Care Document ---
:1990 External Reference #:[id number] Author Name João Cantu N.P. Address [address] [place] [address] Care Team Providers Name Role Phone Kayla Drummond MD - Family Medicine Care Team Information It Recruiter [facility] Physical Therapy - Care Team Information It Recruiter Physical Therapist Problems Active Problems Provider Date Moderate intellectual disability Kayla Drummond M.D. Onset: 03/11/2012 Anxiety state Kayla Drummond M.D. Onset: 03/11/2012 Social History Type Date Description Comments Sex Unknown Tobacco Use Start: Unknown Current Cigarette Smoker pt smokes a pack a day since age 18 ETOH Use Denies alcohol use Tobacco Use Start: Unknown Patient is a current smoker, smokes every day Smoking Status Reviewed: 12/17/17 Patient is a current smoker, smokes every day Allergies, Adverse Reactions, Alerts Active Allergies Reaction Severity Comments Date Penicillin GETS HIVES ALL OVER 05/07/2017 Amoxicillin GETS HIVES ALL OVER 05/07/2017 Inactive Allergies NKDA 02/29/2012 Medications Active Medications SIG Qnty Indications Ordering Date Provider Skelaxin 1 tab by mouth 90tabs M54.6 Kayla Drummond 01/16/2019 800mg three times a day James Sheppard Tablets as needed for Back spasm Benzoyl Peroxide Cleanse Face as 170.300gm L70.0 Kayla Drummond 01/16/2019 Cleanser Directed James Sheppard 6% Liquid Nebulizer nebulize 1units J45.909 Kayla Drummond 01/14/2019 Device nebulizable James Sheppard medicationas directed Hepa Filter For uad 1units J45.909 Kayla Drummond 01/14/2019 Room Air James Sheppard Clindamycin HCL 1 cap by mouth 42caps L03.211 BhanuKayla lindsey 01/09/2019 three times a day James Sheppard 300mg Capsules Clindamycin apply to acne twice 60gm L70.0 BhanuKayla lindsey 01/09/2019 Phosphate daily after washing MValarie oCleD. 1% Gel with mild soap and water and pat dry then apply Ibuprofen take one tablet by 90tabs G43.119 BhanuKayla lindsey 01/09/2019 600mg mouth three times Valarie MKelseyDKelsey Tablets daily with food as Needed For Migraine Proair HFA inhale 2 puffs by 17gm J45.909 Kayla Drummond 10/29/2017 mouth every 4 hours James Sheppard 108(90Base) if needed mcg/Act Aerosol Airduo Respiclick 1 by mouth twice a 1units Kayla Drummond 10/01/2017 113/14 day James Sheppard 113-14mcg/Act Aerosol Topamax 1 tab by mouth 60tabs R51 Kayla Drummond 04/30/2017 50mg twice a day James Sheppard Tablets History Medications Neutrogena Facial Wash Face With 1units L70.0 Kayla Drummond, 01/09/2019 - Soap Original Formula Soap And Water Anthony.DKelsey 01/15/2019 Twice Daily Bar Medications Administered in Office Medication SIG Qnty Indications Ordering Provider Date Rocephin 250 Kayla Drummond M.D. 05/17/2017 Injection Immunizations Description No Information Available Vital Signs Date Vital Result Comment 01/16/2019 9:49am BP Systolic 118 mmHg BP Diastolic 82 mmHg Height 84 inches 7'0" Weight 227.00 lb BMI (Body Mass Index) 22.6 kg/m2 Heart Rate 70 /min Respiratory Rate 16 /min 01/14/2019 2:08pm BP Systolic 132 mmHg BP Diastolic 64 mmHg Height 84 inches 7'0" Weight 227.00 lb BMI (Body Mass Index) 22.6 kg/m2 Heart Rate 94 /min Respiratory Rate 16 /min Results Test Date Facility Test Result H/L Range Note Hemoglobin A1c 01/16/2019 [facility] Hemoglobin A1c @ 5.5 % (4.0-6.0) 1 [address] (607)- - Est Average Glucose 111 mg/dL CBC With Diff 01/16/2019 [facility] WBC 11.1 10*3/uL High (4.1-11.0) [address] (607)- - RBC 5.07 10*6/uL (4.60-6.10) HGB 14.7 g/dL (13.5-18.0) HCT 43.7 % (41.0-53.0) MCV 86.2 fL (80.0-95.0) MCH 29.0 pg (27.0-32.0) MCHC 33.7 g/dL (32.0-36.0) RDW 13.9 % (10.5-14.5) PLT 235 10*3/uL (150-450) MPV 8.9 fL (7.1-10.7) Neut % 72.9 % (35.0-75.0) Lymph % 17.0 % (16.0-52.0) Phelps % 5.1 % (0.0-8.0) Eos % 4.4 % (0.0-5.0) Baso % 0.6 % (0.0-4.0) Neut # 8.1 10*3/uL High (1.8-7.7) Lymph # 1.9 10*3/uL (1.2-4.8) Phelps # 0.6 10*3/uL (0.0-0.8) Eos # 0.5 10*3/uL (0.0-0.5) Baso # 0.1 10*3/uL (0.0-0.2) CMP 01/16/2019 [facility] Sodium 140 mmol/L (136-145) [facility] (607)- - Potassium 3.9 mmol/L (3.6-5.2) Chloride 108 mmol/L (100-108) Co2 25 mmol/L (22-31) Anion Gap 7 mmol/L (7-16) Urea Nitrogen 8 mg/dL (7-24) Creatinine 0.98 mg/dL (0.80-1.30) BUN/Creat Ratio 8.2 RATIO Low (10.0-20.0) Glucose 77 mg/dL (70-99) Calcium 8.7 mg/dL (8.4-10.2) Total Protein 6.9 g/dL (6.4-8.2) Albumin 3.7 g/dL (3.5-4.6) Globulin 3.2 g/dL (2.7-4.3) Alb/Glob Ratio 1.2 RATIO Alkaline Phosphatase 63 U/L (45-117) Bilirubin,Total 0.3 mg/dL (0.0-1.0) Ast (Sgot) 17 U/L (11-39) Alt (SGPT) 14 U/L (12-78) GFR >60 ml/min/1.73m2 (>59) GFR ( Amer) >60 ml/min/1.73m2 (>59) GFR Interpretation <SEE NOTE> 2 Lipid 01/16/2019 [facility] Cholesterol @ 150 mg/dL (0-200) Eduin [facility] (607)- - Triglyceride @ 90 mg/dL (30-200) HDL Cholesterol @ 44 mg/dL (>40) 3 Chol/HDL Ratio 3.4 RATIO 4 LDL Chol (Calc) 88 mg/dL (<130) 5 Laboratory test finding 01/16/2019 [facility] Lipase 98 U/L (65-230) [facility] (607)- - Amylase 52 U/L (25-115) TSH,Ultrasensitive @ 1.760 mIU/L (0.360-4.170) 25 Hydroxy Vit D @ 21 ng/mL Low (31-100) 6 1 Performed using Siemens [place] immunoassay. Care must be taken when interpreting HbA1c results in patients with a hemoglobin variant or decreased erythrocyte lifespan. Values 5.7 - 6.4% suggest prediabetes. Values >=6.5% are diagnostic for diabetes. REFERENCE: DIABETES CARE 2018: 41(S13-S27). 2 NORMAL KIDNEY FUNCTION OR MILD DISEASE - GFR >OR= 60 CHRONIC KIDNEY DISEASE - GFR 15 - 59 RENAL FAILURE - GFR <15 Est. GFR calculation based on the MDRD study equation, which assumes a steady state for creatinine. Est. GFR should not be used for medication dosing. 3 PER NCEP ATP III GUIDELINES: RESULTS LOWER THAN 40 MG/DL ARE SUGGESTIVE OF INCREASED RISK FOR CORONARY ARTERY DISEASE. RESULTS > OR = TO 60 MG/DL ARE CONSIDERED A NEGATIVE RISK FACTOR. 4 INTERPRETATION OF CHOL-HDL RATIO CHD RISK FEMALE MALE VERY HIGH >8.3 >14.3 HIGH 5.6- 8.3 6.7- 14.3 AVERAGE 3.7- 5.6 4.0- 6.7 BELOW AVERAGE 2.5- 3.7 2.7- 4.0 PROTECTED <2.5 <2.7 5 PER NCEP ATP III GUIDELINES: OPTIMAL < 100 NEAR OPTIMAL 100 - 129 BORDERLINE HIGH 130 - 159 HIGH 160 - 189 VERY HIGH > 189 6 A REVIEW OF THE LITERATURE SUGGESTS THE FOLLOWING RANGES FOR THE CLASSIFICATION OF 25-OH VITAMIN D STATUS: VITAMIN D STATUS 25-OH VITAMIN D DEFICIENCY <20 NG/ML INSUFFICIENCY 20-30 NG/ML SUFFICIENCY 31 - 100 NG/ML TOXICITY > 100 NG/ML A PEDIATRIC REFERENCE RANGE HAS NOT BEEN ESTABLISHED USING THIS METHOD. Procedures Date Code Description Status 01/14/2019 47193 Spirometry Completed Medical Devices Description No Information Available Encounters Type Date Location Provider Dx Diagnosis Office Visit 01/16/2019 [facility] João Cantu, F90.2 Attention- deficit 9:30a N.P. hyperactivity disorder, combined type F71 Moderate intellectual disabilities F17.210 Nicotine dependence, cigarettes, uncomplicated M54.5 Low back pain Z83.3 Family history of diabetes mellitus R73.01 Impaired fasting glucose F41.9 Anxiety disorder, unspecified R10.32 Left lower quadrant pain R45.4 Irritability and anger L20.9 Atopic dermatitis, unspecified R19.7 Diarrhea, unspecified J30.9 Allergic rhinitis, unspecified J45.909 Unspecified asthma, uncomplicated R07.9 Chest pain, unspecified R51 Headache R63.1 Polydipsia L72.3 Sebaceous cyst G47.33 Obstructive sleep apnea (adult) (pediatric) M54.6 Pain in thoracic spine L03.211 Cellulitis of face L70.0 Acne vulgaris G43.119 Migraine with aura, intractable, without status migrainosus Office Visit 01/14/2019 2:30p [facility] João F90.2 Attention- deficit Pepe N.P. hyperactivity disorder, combined type F71 Moderate intellectual disabilities F17.210 Nicotine dependence, cigarettes, uncomplicated M54.5 Low back pain Z83.3 Family history of diabetes mellitus R73.01 Impaired fasting glucose F41.9 Anxiety disorder, unspecified R10.32 Left lower quadrant pain R45.4 Irritability and anger L20.9 Atopic dermatitis, unspecified R19.7 Diarrhea, unspecified J30.9 Allergic rhinitis, unspecified J45.909 Unspecified asthma, uncomplicated R07.9 Chest pain, unspecified R51 Headache R63.1 Polydipsia L72.3 Sebaceous cyst G47.33 Obstructive sleep apnea (adult) (pediatric) M54.6 Pain in thoracic spine L03.211 Cellulitis of face L70.0 Acne vulgaris G43.119 Migraine with aura, intractable, without status migrainosus Office Visit 01/09/2019 11:15a [facility] João F90.2 Attention- deficit Pepe, N.P. hyperactivity disorder, combined type F71 Moderate intellectual disabilities F17.210 Nicotine dependence, cigarettes, uncomplicated M54.5 Low back pain Z83.3 Family history of diabetes mellitus R73.01 Impaired fasting glucose F41.9 Anxiety disorder, unspecified R10.32 Left lower quadrant pain R45.4 Irritability and anger L20.9 Atopic dermatitis, unspecified R19.7 Diarrhea, unspecified J30.9 Allergic rhinitis, unspecified J45.909 Unspecified asthma, uncomplicated R07.9 Chest pain, unspecified R51 Headache R63.1 Polydipsia L72.3 Sebaceous cyst G47.33 Obstructive sleep apnea (adult) (pediatric) M54.6 Pain in thoracic spine L03.211 Cellulitis of face L70.0 Acne vulgaris G43.119 Migraine with aura, intractable, without status migrainosus Assessments Date Code Description Provider 01/16/2019 F90.2 Attention-deficit hyperactivity disorder, João Cantu NCourtney. combined type 01/16/2019 F71 Moderate intellectual disabilities João Cantu N.P. 01/16/2019 F17.210 Nicotine dependence, cigarettes, João Cantu N.P. uncomplicated 01/16/2019 M54.5 Low back pain João Cantu N.P. 01/16/2019 Z83.3 Family history of diabetes mellitus João Cantu N.P. 01/16/2019 R73.01 Impaired fasting glucose João Cantu N.P. 01/16/2019 F41.9 Anxiety disorder, unspecified João Cantu N.P. 01/16/2019 R10.32 Left lower quadrant pain João Cantu N.P. 01/16/2019 R45.4 Irritability and anger João Cantu N.P. 01/16/2019 L20.9 Atopic dermatitis, unspecified João Cantu N.P. 01/16/2019 R19.7 Diarrhea, unspecified João Cantu, N.P. 01/16/2019 J30.9 Allergic rhinitis, unspecified João Cantu N.P. 01/16/2019 J45.909 Unspecified asthma, uncomplicated João Cantu N.P. 01/16/2019 R07.9 Chest pain, unspecified João Cantu, N.P. 01/16/2019 R51 Headache João Cantu N.P. 01/16/2019 R63.1 Polydipsia João Cantu N.P. 01/16/2019 L72.3 Sebaceous cyst João Cantu N.P. 01/16/2019 G47.33 Obstructive sleep apnea (adult) (pediatric) João Cantu N.P. 01/16/2019 M54.6 Pain in thoracic spine João Cantu N.PKelsey 01/16/2019 L03.211 Cellulitis of face João Cantu N.P. 01/16/2019 L70.0 Acne vulgaris João Cantu N.P. 01/16/2019 G43.119 Migraine with aura, intractable, without João Cantu, N.PKelsey status migrainosus 01/14/2019 F90.2 Attention-deficit hyperactivity disorder, João Cantu N.P. combined type 01/14/2019 F71 Moderate intellectual disabilities João Cantu N.P. 01/14/2019 F17.210 Nicotine dependence, cigarettes, João Cantu N.PKelsey uncomplicated 01/14/2019 M54.5 Low back pain João Cantu N.P. 01/14/2019 Z83.3 Family history of diabetes mellitus João Cantu N.PKelsey 01/14/2019 R73.01 Impaired fasting glucose João Cantu N.PKelsey 01/14/2019 F41.9 Anxiety disorder, unspecified João Cantu N.PKelsey 01/14/2019 R10.32 Left lower quadrant pain Aubrey Castañeda.PKelsey 01/14/2019 R45.4 Irritability and anger João Cantu N.PKelsey 01/14/2019 L20.9 Atopic dermatitis, unspecified João Cantu N.PKelsey 01/14/2019 R19.7 Diarrhea, unspecified João Cantu N.P. 01/14/2019 J30.9 Allergic rhinitis, unspecified João Cantu N.PKelsey 01/14/2019 J45.909 Unspecified asthma, uncomplicated João Cantu N.PKelsey 01/14/2019 R07.9 Chest pain, unspecified João Cantu N.PKelsey 01/14/2019 R51 Headache João Cantu N.PKelsey 01/14/2019 R63.1 Polydipsia João Cantu N.PKelsey 01/14/2019 L72.3 Sebaceous cyst João Cantu N.PKelsey 01/14/2019 G47.33 Obstructive sleep apnea (adult) (pediatric) Ramy CastañedaPKelsey 01/14/2019 M54.6 Pain in thoracic spine João Cantu N.PKelsey 01/14/2019 L03.211 Cellulitis of face João Cantu N.PKelsey 01/14/2019 L70.0 Acne vulgaris João Cantu N.PKelsey 01/14/2019 G43.119 Migraine with aura, intractable, without João Cantu N.PKelsey status migrainosus 01/09/2019 F90.2 Attention-deficit hyperactivity disorder, João Cantu N.Jose. combined type 01/09/2019 F71 Moderate intellectual disabilities João Cantu N.Kavon 01/09/2019 F17.210 Nicotine dependence, cigarettes, Aubrey Castañeda.Kavon uncomplicated 01/09/2019 M54.5 Low back pain João Cantu N.PKelsey 01/09/2019 Z83.3 Family history of diabetes mellitus Aubrey Castañeda.PKelsey 01/09/2019 R73.01 Impaired fasting glucose João Cantu N.PKelsey 01/09/2019 F41.9 Anxiety disorder, unspecified João Cantu, N.P. 01/09/2019 R10.32 Left lower quadrant pain João Cantu, N.P. 01/09/2019 R45.4 Irritability and anger João Cantu, N.P. 01/09/2019 L20.9 Atopic dermatitis, unspecified João Cantu, N.P. 01/09/2019 R19.7 Diarrhea, unspecified João Cantu, N.P. 01/09/2019 J30.9 Allergic rhinitis, unspecified João Cantu, N.P. 01/09/2019 J45.909 Unspecified asthma, uncomplicated João Cantu, N.P. 01/09/2019 R07.9 Chest pain, unspecified João Cantu, N.P. 01/09/2019 R51 Headache João Cantu, N.P. 01/09/2019 R63.1 Polydipsia João Cantu, N.P. 01/09/2019 L72.3 Sebaceous cyst João Cantu, N.P. 01/09/2019 G47.33 Obstructive sleep apnea (adult) (pediatric) João Cantu , N.P. 01/09/2019 M54.6 Pain in thoracic spine João Cantu, N.P. 01/09/2019 L03.211 Cellulitis of face João Cantu, N.P. 01/09/2019 L70.0 Acne vulgaris João Cantu, N.P. 01/09/2019 G43.119 Migraine with aura, intractable, without João Cantu, N.P. status migrainosus 09/18/2018 R10.31 Right lower quadrant pain Kayla Drummond M.D. 09/18/2018 F90.2 Attention-deficit hyperactivity disorder, Kayla Drummond M.D. combined type 09/18/2018 F71 Moderate intellectual disabilities Kayla Drummond M.D. 09/18/2018 F17.210 Nicotine dependence, cigarettes, Kayla Drummond M.D. uncomplicated 09/18/2018 M54.5 Low back pain Kayla Drummond M.D. 09/18/2018 Z83.3 Family history of diabetes mellitus Kayla Drummond M.D. 09/18/2018 R73.01 Impaired fasting glucose Kayla Drummond M.D. 09/18/2018 M25.561 Pain in right knee Kayla Drummond M.D. 09/18/2018 F41.9 Anxiety disorder, unspecified Kayla Drummond M.D. 09/18/2018 R10.32 Left lower quadrant pain Kayla Drummond M.D. 09/18/2018 R45.4 Irritability and anger Kayla Drummond M.D. 09/18/2018 L20.9 Atopic dermatitis, unspecified Kayla Drummond M.D. 09/18/2018 R19.7 Diarrhea, unspecified Kayla Drummond M.D. 09/18/2018 J30.9 Allergic rhinitis, unspecified Kayla Drummond M.D. 09/18/2018 J45.909 Unspecified asthma, uncomplicated Kayla Drummond M.D. 09/18/2018 R07.9 Chest pain, unspecified Kayla Drummond M.D. 09/18/2018 R51 Headache Kayla Drummond M.D. 09/18/2018 R35.0 Frequency of micturition Kayla Drummond M.D. 09/18/2018 R63.1 Polydipsia Kayla Drummond M.D. 09/18/2018 L72.3 Sebaceous cyst Kayla Drummond M.D. 09/18/2018 G47.33 Obstructive sleep apnea (adult) (pediatric) Kayla Drummond M.D. 09/18/2018 M54.6 Pain in thoracic spine Kayla Drummond M.D. 09/18/2018 L03.211 Cellulitis of face Kayla Drummond M.D. Plan of Treatment Future Appointment(s):02/04/2019 2:30 pm - João Cantu N.P. at [facility] Functional Status Description No Information Available Mental Status Description No Information Available Referrals Description No Information Available
--- OUTSIDE RECORDS SUMMARY | 2019-01-24 23:59 | XMS REPORT | Continuity of Care Document ---
:1990 External Reference #:[id number] Author Name João Cantu N.P. Address [address] [facility] [address] [place] [address] Care Team Providers Name Role Phone Kayla Drummond MD - Family Medicine Care Team Information Salesforce Business Analyst [facility] Physical Therapy - Care Team Information Salesforce Business Analyst Physical Therapist Problems Active Problems Provider Date [...] Medications SIG Qnty Indications Ordering Date Provider Atomoxetine HCL One Cap By Mouth X 3 60caps F90.2 Kayla Drummond, 2018 Days Then One Cap PO M.D. 40mg Capsules bid Benzoyl Peroxide Uad bid To Acne 60gm Kayla Drummond, 01/20/2019 M.D. 10% Gel Tizanidine HCL 1 tab by mouth three 90tabs Kayla Drummond, 01/20/2019 4mg times a day as M.D. Tablets needed Nebulizer nebulize nebulizable 1units J45.909 Kayla Drummond, 01/14/2019 Device medicationas James directed Hepa Filter For uad 1units J45.909 Kayla Drummond, 01/14/2019 Room Air M.D. Clindamycin HCL 1 cap by mouth three 42caps L03.211 Kayla Drummond, 01/09 times a day M.D. 300mg Capsules Clindamycin apply to acne twice 60gm L70.0 Kayla Drummond, 01/09/2019 Phosphate daily after washing M.D. 1% Gel with mild soap and water and pat dry then apply Ibuprofen take one tablet by 90tabs G43.119 Kayla Drummond, 01/09/2019 600mg mouth three times M.D. Tablets daily with food as Needed For Migraine Proair HFA inhale 2 puffs by 17gm J45.909 Kayla Drummond, 10/29/2017 mouth every 4 hours M.DKelsey 108(90Base) mcg/Act if needed Aerosol Airduo Respiclick 1 by mouth twice a 1units Kayla Drummond, 10/01/2017 113/14 day M.D. 113-14mcg/Act Aerosol Topamax 1 tab by mouth twice 60tabs R51 Kayla Drummond, 04/30/2017 50mg a day M.D. Tablets History Medications Skelaxin 1 tab by mouth 90tabs M54.6 Kayla Drummond 01/16/2019 - 800mg three times a day Jaems Sheppard 01/19/2019 Tablets as needed for Back spasm Benzoyl Peroxide Cleanse Face as 170.300gm L70.0 Kayla Drummond 01/16/2019 - Cleanser Directed James Sheppard 01/19/2019 6% Liquid Neutrogena Facial Wash Face With 1units L70.0 Kayla Drummond 01/09/2019 - Soap Original Soap And Water James Sheppard 01/15/2019 Formula Twice Daily Bar Medications Administered in Office Medication SIG Qnty Indications Ordering Provider Date Rocephin 250 Kayla Drummond M.D. 05/17/2017 Injection Immunizations Description No Information Available Vital Signs Date Vital Result Comment 01/21/2019 10:01am BP Systolic 122 mmHg BP Diastolic 70 mmHg Height 84 inches 7'0" Weight 227.00 lb BMI (Body Mass Index) 22.6 kg/m2 Heart Rate 62 /min Respiratory Rate 16 /min 01/16/2019 9:49am BP Systolic 118 mmHg BP Diastolic 82 mmHg Height 84 inches 7'0" Weight 227.00 lb BMI (Body Mass Index) 22.6 kg/m2 Heart Rate 70 /min Respiratory Rate 16 /min Results Test Date Facility Test Result H/L Range Note Hemoglobin A1c 01/16/2019 [facility] [place] Hemoglobin A1c @ 5.5 % (4.0-6.0) 1 [address] [facility] (607)- - Est Average Glucose 111 mg/dL CBC With Diff 01/16/2019 [facility] WBC 11.1 10*3/uL High (4.1-11.0) [address] [facility] (607)- - RBC 5.07 10*6/uL (4.60-6.10) HGB 14.7 g/dL (13.5-18.0) HCT 43.7 % (41.0-53.0) MCV 86.2 fL (80.0-95.0) MCH 29.0 pg (27.0-32.0) MCHC 33.7 g/dL (32.0-36.0) RDW 13.9 % (10.5-14.5) PLT 235 10*3/uL (150-450) MPV 8.9 fL (7.1-10.7) Neut % 72.9 % (35.0-75.0) Lymph % 17.0 % (16.0-52.0) [place] % 5.1 % (0.0-8.0) Eos % 4.4 % (0.0-5.0) Baso % 0.6 % (0.0-4.0) Neut # 8.1 10*3/uL High (1.8-7.7) Lymph # 1.9 10*3/uL (1.2-4.8) [place] # 0.6 10*3/uL (0.0-0.8) Eos # 0.5 10*3/uL (0.0-0.5) Baso # 0.1 10*3/uL (0.0-0.2) CMP 01/16/2019 [facility] Sodium 140 mmol/L (136-145) Eduin GARCIA (607)- [...] Interpretation <SEE NOTE> 2 Lipid 01/16/2019 [facility] Cholesterol @ 150 mg/dL (0-200) Eduin GARCIA (607)- - Triglyceride @ 90 mg/dL (30-200) HDL Cholesterol @ 44 mg/dL (>40) 3 Chol/HDL Ratio 3.4 RATIO 4 LDL Chol (Calc) 88 mg/dL (<130) 5 Laboratory test finding 01/16/2019 [facility] Lipase 98 U/L (65-230) Eduin GARCIA (607)- - Amylase 52 U/L (25-115) TSH,Ultrasensitive @ 1.760 mIU/L (0.360-4.170) 25 Hydroxy Vit D @ 21 ng/mL Low (31-100) 6 1 Performed using Siemens [place] immunoassay. Care must be taken when interpreting [...] METHOD. Procedures Date Code Description Status 01/14/2019 40627 Spirometry Completed Medical Devices Description No Information Available Encounters Type Date Location Provider Dx Diagnosis Office Visit 01/21/2019 [facility] João Cantu, F90.2 Attention- deficit 10:00a N.P. hyperactivity disorder, combined type F71 Moderate [...] Migraine with aura, intractable, without status migrainosus R06.83 Snoring Office Visit 01/16/2019 9:30a [facility] João F90.2 Attention- deficit Pepe, N.P. hyperactivity [...] without status migrainosus Office Visit 01/14/2019 2:30p [facility] Jooã F90.2 Attention- deficit Cantu, N.P. hyperactivity disorder, combined type F71 Moderate [...] without status migrainosus Office Visit 01/09/2019 11:15a [facility] João F90.2 Attention- deficit Cantu, N.P. hyperactivity disorder, combined type F71 Moderate [...] status migrainosus Assessments Date Code Description Provider 01/21/2019 F90.2 Attention-deficit hyperactivity disorder, João Cantu N.P. combined type 01/21/2019 F71 Moderate intellectual disabilities João Cantu N.PKelsey 01/21/2019 F17.210 Nicotine dependence, cigarettes, João Cantu N.P. uncomplicated 01/21/2019 M54.5 Low back pain João Cantu N.PKelsey 01/21/2019 Z83.3 Family history of diabetes mellitus João Cantu N.PKelsey 01/21/2019 R73.01 Impaired fasting glucose João Cantu N.PKelsey 01/21/2019 F41.9 Anxiety disorder, unspecified João Cantu N.P. 01/21/2019 R10.32 Left lower quadrant pain João Cantu N.PKelsey 01/21/2019 R45.4 Irritability and anger João Cantu N.P. 01/21/2019 L20.9 Atopic dermatitis, unspecified João Cantu N.P. 01/21/2019 R19.7 Diarrhea, unspecified João Cantu N.P. 01/21/2019 J30.9 Allergic rhinitis, unspecified João Cantu N.P. 01/21/2019 J45.909 Unspecified asthma, uncomplicated João Cantu N.P. 01/21/2019 R07.9 Chest pain, unspecified João Cantu N.P. 01/21/2019 R51 Headache João Cantu N.PKelsey 01/21/2019 R63.1 Polydipsia João Cantu N.P. 01/21/2019 L72.3 Sebaceous cyst João Cantu N.P. 01/21/2019 G47.33 Obstructive sleep apnea (adult) (pediatric) João Cantu N.PKelsey 01/21/2019 M54.6 Pain in thoracic spine João Cantu N.P. 01/21/2019 L03.211 Cellulitis of face João Cantu N.PKelsey 01/21/2019 L70.0 Acne vulgaris João Cantu N.P. 01/21/2019 G43.119 Migraine with aura, intractable, without João Cantu, N.P. status migrainosus 01/21/2019 R06.83 Snoring João Cantu N.PKelsey 01/16/2019 F90.2 Attention-deficit hyperactivity disorder, João Cantu N.P. combined type 01/16/2019 F71 Moderate intellectual disabilities João aCntu N.PKelsey 01/16/2019 F17.210 Nicotine dependence, cigarettes, João Cantu N.PKelsey uncomplicated 01/16/2019 M54.5 Low back pain João Cantu N.PKelsey 01/16/2019 Z83.3 Family history of diabetes mellitus João Cantu N.PKelsey 01/16/2019 R73.01 Impaired fasting glucose João Cantu N.PKelsey 01/16/2019 F41.9 Anxiety disorder, unspecified João Cantu N.P. 01/16/2019 R10.32 Left lower quadrant pain João Cantu N.P. 01/16/2019 R45.4 Irritability and anger João Cantu N.P. 01/16/2019 L20.9 Atopic dermatitis, unspecified João Cantu N.P. 01/16/2019 R19.7 Diarrhea, unspecified João Cantu N.P. 01/16/2019 J30.9 Allergic rhinitis, unspecified João Cantu, N.P. 01/16/2019 J45.909 Unspecified asthma, uncomplicated João Cantu, N.P. 01/16/2019 R07.9 Chest pain, unspecified João Cantu, N.P. 01/16/2019 R51 Headache João Cantu N.P. 01/16/2019 R63.1 Polydipsia João Cantu N.P. 01/16/2019 L72.3 Sebaceous cyst João Cantu N.P. 01/16/2019 G47.33 Obstructive sleep apnea (adult) (pediatric) João Cantu N.P. 01/16/2019 M54.6 Pain in thoracic spine João Cantu N.P. 01/16/2019 L03.211 Cellulitis of face João Cantu [...] history of diabetes mellitus João Cantu N.P. 01/14/2019 R73.01 Impaired fasting glucose João Cantu N.P. 01/14/2019 F41.9 Anxiety disorder, unspecified João Cantu, N.P. 01/14/2019 R10.32 Left lower quadrant pain João Cantu N.P. 01/14/2019 R45.4 Irritability and anger João Cantu N.P. 01/14/2019 L20.9 Atopic dermatitis, unspecified João Cantu N.P. 01/14/2019 R19.7 Diarrhea, unspecified João Cantu N.P. 01/14/2019 J30.9 Allergic rhinitis, unspecified João Cantu N.P. 01/14/2019 J45.909 Unspecified asthma, uncomplicated João Cantu, N.P. 01/14/2019 R07.9 Chest pain, unspecified João Cantu N.P. 01/14/2019 R51 Headache João Cantu N.P. 01/14/2019 R63.1 Polydipsia João Cantu N.P. 01/14/2019 L72.3 Sebaceous cyst João Cantu N.P. 01/14/2019 G47.33 Obstructive sleep apnea (adult) (pediatric) João Cantu N.P. 01/14/2019 M54.6 Pain in thoracic spine João Cantu N.P. 01/14/2019 L03.211 Cellulitis of face João Cantu N.P. 01/14/2019 L70.0 Acne vulgaris João Cantu N.P. 01/14/2019 G43.119 Migraine with aura, intractable, without João Cantu, N.P. status migrainosus 01/09/2019 F90.2 Attention-deficit hyperactivity disorder, João Cantu N.P. combined type 01/09/2019 F71 Moderate intellectual disabilities João Cantu N.PKelsey 01/09/2019 F17.210 Nicotine dependence, cigarettes, João Cantu N.P. uncomplicated 01/09/2019 M54.5 Low back pain João Cantu N.P. 01/09/2019 Z83.3 Family history of diabetes mellitus João Cantu N.PKelsey 01/09/2019 R73.01 Impaired fasting glucose João Cantu N.P. 01/09/2019 F41.9 Anxiety disorder, unspecified João Cantu N.P. 01/09/2019 R10.32 Left lower quadrant pain João Cantu N.P. 01/09/2019 R45.4 Irritability and anger João Cantu N.P. 01/09/2019 L20.9 Atopic dermatitis, unspecified João Cantu N.P. 01/09/2019 R19.7 Diarrhea, unspecified João Cantu N.P. 01/09/2019 J30.9 Allergic rhinitis, unspecified João Cantu N.P. 01/09/2019 J45.909 Unspecified asthma, uncomplicated João Cantu, N.P. 01/09/2019 R07.9 Chest pain, unspecified João Cantu N.P. 01/09/2019 R51 Headache João Cantu N.P. 01/09/2019 R63.1 Polydipsia João Cantu N.P. 01/09/2019 L72.3 Sebaceous cyst João Cantu N.P. 01/09/2019 G47.33 Obstructive sleep apnea (adult) (pediatric) Aubrey Castañeda.PKelsey 01/09/2019 M54.6 Pain in thoracic spine João Cantu N.P. 01/09/2019 L03.211 Cellulitis of face Aubrey Castañeda.PKelsey 01/09/2019 L70.0 Acne vulgaris João Cantu N.PKelsey 01/09/2019 G43.119 Migraine with aura, intractable, without João Cantu, N.PKelsey status migrainosus 09/18/2018 R10.31 Right lower quadrant [...] Kayla Drummond M.D. Plan of Treatment Future Appointment(s):02/23/2019 2:00 pm - João Cantu N.P. at [facility]01/21/2019 - João Cantu N.P.F90.2 Attention-deficit hyperactivity disorder, combined typeNew Medication:Atomoxetine HCL 40 mg - One Cap By Mouth X 3 Days Then One Cap PO bidComments:COUNCELLING AND REASSURANCE RELAXATION TECHNIQUES DISCUSSEDCOUNSELED RE: STRESSORS IN LIFE AVOID ALLENERGY/HIGH CAFFEINE DRINKSDUR [id number] Moderate intellectual disabilitiesComments: GUARDIANSHIP COUNCELLING WCHGVBR48.210 Nicotine dependence, cigarettes, uncomplicatedComments:SMOKING CESSATION QHCBJHUZMZFH59.5 Low back painComments: EXERCISE/HEAT /MESSAGEAVOID HEAVY LIFTING WT LOSSTYLENOL OR MOTRIN PRN DUR XFCSYMUA20.3 Family history of diabetes mellitusComments:OBSERVEF/U LAB HUOCHEY23.01 Impaired fasting glucoseComments:F/U HGAICFS QAC AN HS PRNLOW GLUCOSE DIETF41.9 Anxiety disorder, unspecifiedComments:COUNCELLING AND REASSURANCE RELAXATION TECHNIQUES DISCUSSEDCOUNSELED RE: STRESSORS IN LIFE AVOID ALLENERGY/HIGH CAFFEINE DRINKS DUR XXFOZOHI56.32 Left lower quadrant painR45.4 Irritability and angerComments:COUNCELLING AND REASSURANCE RELAXATION TECHNIQUES DISCUSSEDCOUNSELED RE: STRESSORS IN LIFE AVOID ALLENERGY/HIGH CAFFEINE UOZIQQI65.9 Atopic dermatitis, unspecifiedComments:SKIN CARE INSTRUCTIONS LOTION OR BABY OIL 2-3 APPLICATION PER DAYUSE MOISTURIZING SOAPAVOID PROLONGED WATER EXPOSUREAVOID USING HOT WATER IN SVUTPJX93.7 Diarrhea , frhegjtlmriU91.9 Allergic rhinitis, unspecifiedComments:INCREASE PO FLUID USE ANTIHISTAMINE PRN SECOND HAND SMOKING OIHQWVLIIK00.909 Unspecified asthma, uncomplicatedComments:STABLE SMOKING ZGMTIDOCSV90.9 Chest pain, unspecifiedComments:EXERCISE/HEAT/MESSAGE TYLENOL OR MOTRIN PRNHEAT PACKR51 HeadacheComments:TYLENOL OR MOTRIN PRNR63.1 PolydipsiaComments:OBSERVE AND WSQMRDCEC21.3 Sebaceous cystComments:HNRWHOVB08.33 Obstructive sleep apnea ( adult) (pediatric)Comments:F/U WITH ENT PRN SMOKING LSJZAYAQCT55.6 Pain in thoracic spineComments:EXERCISE/HEAT /MESSAGEAVOID HEAVY LIFTING WT LOSSTYLENOL OR MOTRIN PRNL03.211 Cellulitis of faceComments:SKIN CAREL70.0 Acne vulgarisComments:SKIN CARE JJCGHIRGDHDR01.119 Migraine with aura, intractable, without status migrainosusComments:COUNCELLING AND REASSURANCE F/U WITH NEUROLOGY PRNR06.83 SnoringComments:OBSERVE FOR NOWWT LOSSReferral:Ran Lobo MD, Otolaryngology Functional Status Description No Information Available Mental Status Description No Information Available Referrals Refer to Reason for Referral Status Appt Date Ran Lobo MD Created [address] [place] [address] ENT [phone]
--- OUTSIDE RECORDS SUMMARY | 2019-01-24 23:59 | XMS REPORT | Continuity of Care Document ---
:1990 External Reference #:[id number] Author Name João Cantu N.P. Address [address] [facility] [address] [place] [address] Care Team Providers Name Role Phone Kayla Drummond MD - Family Medicine Care Team Information Cyanide Case Hardener [facility] Physical Therapy - Care Team Information Cyanide Case Hardener Physical Therapist Problems Active Problems Provider Date [...] Medications SIG Qnty Indications Ordering Date Provider Clindamycin HCL 1 cap by mouth 42caps L03.211 Kayla Drummond, 01/09/2019 300mg three times a M.D. Capsules day Clindamycin Phosphate apply to acne 60gm L70.0 Kayla Drummond, 01/09/2019 1% twice daily M.D. Gel after washing with mild soap and water and pat dry then apply Ibuprofen take one tablet 90tabs G43.119 Kayla Drummond, 01/09/2019 600mg Tablets by mouth three M.D. times daily with food as Needed For Migraine Neutrogena Facial Soap Wash Face With 1units L70.0 Kayla Drummond, 2018 Original Formula Soap And Water M.D. Bar Twice Daily Proair HFA inhale 2 puffs 17gm J45.909 Kayla Drummond, 10/29/2017 108(90Base) by mouth every 4 M.D. mcg/Act Aerosol hours if needed Airduo Respiclick 1 by mouth twice 1units Kayla Drummond, 10/01/2017 113/14 a day M.D. 113-14mcg/Act Aerosol Cyclobenzaprine HCL 1 tab by mouth 60tabs M54.5 Kayla Drummond, 2016 10mg three times a M.D. Tablets day as needed for muscle spasms Topamax 1 tab by mouth 60tabs R51 Kayla Drummond, 04/30/2017 50mg Tablets twice a day M.DKelsey Medications Administered in Office Medication SIG Qnty Indications Ordering Provider Date Rocephin 250 Kayla Drummond M.D. 05/17/2017 Injection Immunizations Description No Information Available Vital Signs Date Vital Result Comment 01/09/2019 11:27am BP Systolic 126 mmHg BP Diastolic 70 mmHg Height 84 inches 7'0" Weight 228.00 lb BMI (Body Mass Index) 22.7 kg/m2 Heart Rate 73 /min Respiratory Rate 16 /min 12/17/2017 2:10pm BP Systolic 130 mmHg BP Diastolic 60 mmHg Height 84 inches 7'0" Weight 214.00 lb BMI (Body Mass Index) 21.3 kg/m2 Heart Rate 78 /min Respiratory Rate 16 /min Results Description No Information Available Procedures Description No Information Available Medical Devices Description No Information Available Encounters Type Date Location Provider Dx Diagnosis Office Visit 01/09/2019 [place] [facility] João Cantu F90.2 Attention- deficit 11:15a N.P. hyperactivity disorder, combined type F71 Moderate [...] status migrainosus Assessments Date Code Description Provider 01/09/2019 F90.2 Attention-deficit hyperactivity disorder, João Cantu [...] Left lower quadrant pain João Cantu N.PKelsey 01/09/2019 R45.4 Irritability and anger João Cantu N.P. 01/09/2019 L20.9 Atopic dermatitis, unspecified oJão Cantu N.P. 01/09/2019 R19.7 Diarrhea, unspecified João Cantu N.P. 01/09/2019 J30.9 Allergic rhinitis, unspecified João Cantu, N.P. 01/09/2019 J45.909 Unspecified asthma, uncomplicated João Cantu, N.P. 01/09/2019 R07.9 Chest pain, unspecified João Cantu N.P. 01/09/2019 R51 Headache João Cantu N.P. 01/09/2019 R63.1 Polydipsia João Cantu N.P. 01/09/2019 L72.3 Sebaceous cyst João Cantu N.P. 01/09/2019 G47.33 Obstructive sleep apnea (adult) (pediatric) João Cantu N.P. 01/09/2019 M54.6 Pain in thoracic spine João Cantu N.P. 01/09/2019 L03.211 Cellulitis of face Aubrey Castañeda.PKelsey 01/09/2019 L70.0 Acne vulgaris João Cantu N.PKelsey 01/09/2019 G43.119 Migraine with aura, intractable, without João Cantu N.P. status migrainosus 09/18/2018 R10.31 Right lower [...] Kayla Drummond M.D. Plan of Treatment Future Appointment(s):01/16/2019 2:15 pm - Aubrey Castañeda.[facility] at [facility] Functional Status Description No Information Available Mental Status Description No Information Available Referrals Description No Information Available
--- OUTSIDE RECORDS SUMMARY | 2019-01-24 23:59 | XMS REPORT | Continuity of Care Document ---
:1990 External Reference #:[id number] Author Name João Cantu N.P. Address [address] [facility] [address] [place] [address] Care Team Providers Name Role Phone Kayla Drummond MD - Family Medicine Care Team Information Logistics/Shipper [phone] [facility] Physical Therapy - Care Team Information Logistics/Shipper [phone] Physical Therapist Problems Active Problems Provider Date [...] lindsey 01/09/2019 Phosphate daily after washing MValarie ColeD. 1% Gel with mild soap and water [...] 94 /min Respiratory Rate 16 /min Results Description No Information Available Procedures Date Code Description Status 01/14/2019 19980 Spirometry Completed Medical Devices Description No Information Available Encounters Type Date Location Provider Dx Diagnosis Office Visit 01/16/2019 [facility] Ly Castañeda.2 Attention- deficit 9:30a N.P. hyperactivity disorder, combined [...] without status migrainosus Office Visit 01/14/2019 2:30p [facility] João Modi.2 Attention- deficit Pepe, N.P. hyperactivity disorder, combined [...] without status migrainosus Office Visit 01/09/2019 11:15a [facility] João Modi.2 Attention- deficit Pepe, N.P. hyperactivity disorder, combined [...] Provider 01/16/2019 F90.2 Attention-deficit hyperactivity disorder, João Cantu, N.P. combined type 01/16/2019 F71 Moderate intellectual disabilities João Cantu N.P. 01/16/2019 F17.210 Nicotine dependence, cigarettes, João Cantu, N.P. uncomplicated 01/16/2019 M54.5 Low back pain João Cantu, N.P. 01/16/2019 Z83.3 Family history of diabetes mellitus João Cantu, N.P. 01/16/2019 R73.01 Impaired fasting glucose João Cantu N.P. 01/16/2019 F41.9 Anxiety disorder, unspecified João Cantu, N.P. 01/16/2019 R10.32 Left lower quadrant pain João Cantu N.P. 01/16/2019 R45.4 Irritability and anger João Cantu N.P. 01/16/2019 L20.9 Atopic dermatitis, unspecified João Cantu, N.P. 01/16/2019 R19.7 Diarrhea, unspecified João Cantu, [...] intractable, without João Cantu, N.P. status migrainosus 01/14/2019 F90.2 Attention-deficit hyperactivity disorder, João Cantu N.P. combined type 01/14/2019 F71 Moderate intellectual disabilities João Cantu N.PKelsey 01/14/2019 F17.210 Nicotine dependence, cigarettes, João Cantu N.P. uncomplicated 01/14/2019 M54.5 Low back pain João Cantu N.PKelsey 01/14/2019 Z83.3 Family history of diabetes mellitus João Cantu N.PKelsey 01/14/2019 R73.01 Impaired fasting glucose João Cantu N.P. 01/14/2019 F41.9 Anxiety disorder, unspecified João Cantu N.P. 01/14/2019 R10.32 Left lower quadrant pain João Cantu N.P. 01/14/2019 R45.4 Irritability and anger João Cantu N.P. 01/14/2019 L20.9 Atopic dermatitis, unspecified João Cantu N.P. 01/14/2019 R19.7 Diarrhea, unspecified João Cantu N.P. 01/14/2019 J30.9 Allergic rhinitis, unspecified João Cantu N.P. 01/14/2019 J45.909 Unspecified asthma, uncomplicated João Cantu, N.P. 01/14/2019 R07.9 Chest pain, unspecified João Cantu N.P. 01/14/2019 R51 Headache João Cantu, N.P. 01/14/2019 R63.1 Polydipsia João Cantu N.P. 01/14/2019 L72.3 Sebaceous cyst João Cantu N.P. 01/14/2019 G47.33 Obstructive sleep apnea (adult) (pediatric) João Cantu N.P. 01/14/2019 M54.6 Pain in thoracic spine João Cantu N.P. 01/14/2019 L03.211 Cellulitis of face João Cantu N.P. 01/14/2019 L70.0 Acne vulgaris João Cantu, N.P. 01/14/2019 G43.119 Migraine with aura, intractable, without João Cantu, N.PKelsey status migrainosus 01/09/2019 F90.2 Attention-deficit hyperactivity disorder, João Cantu N.Jose. combined type 01/09/2019 F71 Moderate intellectual disabilities João Cantu N.P. 01/09/2019 F17.210 Nicotine dependence, cigarettes, João Cantu [...] João Cantu N.P. 01/09/2019 R51 Headache João Cantu, N.P. 01/09/2019 R63.1 Polydipsia João Cantu N.P. 01/09/2019 L72.3 Sebaceous cyst João Cantu N.P. 01/09/2019 G47.33 Obstructive sleep apnea (adult) (pediatric) João Cantu N.PKelsey 01/09/2019 M54.6 Pain in thoracic spine Jãoo Cantu N.P. 01/09/2019 L03.211 Cellulitis of face João Cantu N.P. 01/09/2019 L70.0 Acne vulgaris João Cantu N.P. 01/09/2019 G43.119 Migraine with aura, intractable, [...] 2:30 pm - João Cantu N.P. at [facility] Functional Status Description No Information Available Mental Status Description No Information Available Referrals Description No Information Available
[2019-01-25] MEDS ORDERED: Ketorolac INJ* 30 MG/ML 1 ML VIAL IV PUSH ONE (01:47)
[2019-01-25] MEDS ORDERED: PROCHLORPERAZINE INJ 5 MG/ML 2 ML VIAL IV ONE (01:47)
[2019-01-25] MEDS ORDERED: NS 0.9% 1000 ML** 2,000 ML IV ONE (01:47)
[2019-01-25] MEDS ORDERED: diPHENhydraMINE IV* 50 MG/ML 1 ml VIAL (BENADRYL) IV ONE (01:47)
--- NOTE | 2019-01-25 02:34 | ED ---
Back Pain - HPI Summary HPI Summary: The pt is a 28 yr old male presenting to [facility] c/o back pain beginning 5 hours [employer]. He was walking around his home when the pain started. He states that the pain is located in his lower back and rates its severity a 10/10. No aggravating or alleviating factors noted. He also reports headache but denies any N/V or vision changes. He has Hx of migraines. - History of Current Complaint Chief Complaint: EDHeadache Stated Complaint: BACK AND HEAD PAIN PER PT Time Seen by Provider: 01/25/19 01:40 Hx Obtained From: Patient Onset/Duration: Sudden Onset, Lasting Hours Onset/Duration: Started Hours Ago Timing: Constant, Lasting Hours Severity Initially: Severe Severity Currently: Severe Pain Intensity: 10 Pain Scale Used: 0-10 Numeric Aggravating Symptom(s): Nothing Alleviating Symptom(s): Nothing Associated Signs And Symptoms: Positive: Other - pos - headache, neg - Allergies/Home Medications Allergies/Adverse Reactions: Allergies Allergy/AdvReac Type Severity Reaction Status Date / Time amoxicillin Allergy Hives/Diff. Verified 01/25/19 02:18 Breathing/I tching naproxen Allergy Rash Verified 01/25/19 02:18 Penicillins Allergy Rash Verified 01/25/19 02:18 PMH/Surg Hx/FS Hx/Imm Hx Endocrine/Hematology History: Reports: Hx Diabetes - "BORDERLINE" Denies: Hx Anticoagulant Therapy, Hx Thyroid Disease Cardiovascular History: Denies: Hx Congestive Heart Failure, Hx Deep Vein Thrombosis, Hx Hypertension , Hx Myocardial Infarction, Hx Pacemaker/ICD Respiratory History: Reports: Hx Asthma, Hx Chronic Bronchitis, Hx Chronic Obstructive Pulmonary Disease (COPD), Hx Sleep Apnea - previous dx mild ILIA 2010 , Other Respiratory Problems/Disorders - current 1.5 ppd smoker Denies: Hx Lung Cancer, Hx Pneumonia, Hx Pulmonary Embolism GI History: Denies: Hx Gall Bladder Disease, Hx Gastrointestinal Bleed, Hx Ulcer, Hx Urosepsis, Other GI Disorders History: Denies: Hx Dialysis, Hx Kidney Stones, Hx Renal Disease Musculoskeletal History: Reports: Hx Back Problems Sensory History: Reports: Hx Vision Problem - (right) eye stabismus Denies: Hx Hearing Aid Opthamlomology History: Reports: Hx Vision Problem - (right) eye stabismus Neurological History: Denies: Hx Dementia, Hx Migraine, Hx Seizures, Hx Transient Ischemic Attacks (TIA) Psychiatric History: Reports: Other Psychiatric Issues/Disorders - learning disorder Denies: Hx Anxiety, Hx Depression, Hx Panic Disorder, Hx Schizophrenia, Hx Bipolar Disorder, Hx Substance Abuse - Surgical History Surgery Procedure, Year, and Place: LT EYE STRABISMUS SURGERY, DENTAL EXTRACTION 01/30/14 - Immunization History Date of Tetanus Vaccine: utd Date of Influenza Vaccine: utd Infectious Disease History: No Infectious Disease History: Denies: Hx Clostridium Difficile, Hx Hepatitis, Hx Human Immunodeficiency Virus (HIV), Hx of Known/Suspected MRSA, Hx Shingles, Hx Tuberculosis, Hx Known/ Suspected VRE, Hx Known/Suspected VRSA, History Other Infectious Disease, Traveled Outside the [place] in Last 30 Days - Family History Known Family History: Positive: Cardiac Disease, Hypertension, Respiratory Disease - Social History Alcohol Use: Rare Hx Substance Use: No Substance Use Type: Reports: None Hx Tobacco Use: Yes Smoking Status (MU): Light Every Day Tobacco Smoker Type: Cigarettes Amount Used/How Often: 4 CIGS A DAY Length of Time of Smoking/Using Tobacco: started at age 10 Have You Smoked in the Last Year: Yes Review of Systems Negative: Vomiting, Nausea Positive: Other - pos - back pain Positive: Headache All Other Systems Reviewed And Are Negative: Yes Physical Exam - Summary Physical Exam Summary: Appearance: Well-appearing, Well-nourished, lying in bed comfortably Skin: Warm, dry, no obvious rash Eyes: sclera anicteric, no conjunctival pallor ENT: mucous membranes moist, pharynx appears normal Neck: Supple, nontender Respiratory: Clear to auscultation, no signs of respiratory distress Cardiovascular: Normal S1, S2. No murmurs. Normal distal pulses in tibial and radial bilaterally. Abdomen: Soft, nontender, normal active bowel sounds present Musculoskeletal: Normal, Strength/ROM Intact Neurological: A&Ox3, awake and alert, mentation is normal, speech is fluent and appropriate Psychiatric: affect is normal, does not appear anxious or depressed Triage Information Reviewed: Yes Vital Signs On Initial Exam: Initial Vitals Temp Pulse Resp BP Pulse Ox 97.8 F 67 18 120/76 94 01/24/19 23:50 01/24/19 23:50 01/24/19 23:50 01/24/19 23:50 01/24/19 23:50 Vital Signs Reviewed: Yes Diagnostics - Vital Signs Vital Signs Temp Pulse Resp BP Pulse Ox 01/24/19 23:50 97.8 F 67 18 120/76 94 - Laboratory Lab Statement: Any lab studies that have been ordered have been reviewed, and results considered in the medical decision making process. Back Pain Course/Dx - Course Course Of Treatment: The pt is a 28 yr old male presenting to [facility] c/o back pain beginning 5 hours [employer]. He also reports headache but denies any N/V or vision changes. No lab or imaging results to report. In the ED course pt was given 25 mg Benadryl, 10 mg Toradol, 10 mg Compazine, and 2000 mls fluids. Final Dx is migraines. The pt will be discharged with PCP follow up. Pt is agreeable with this plan. - Diagnoses Provider Diagnoses: Migraines Discharge ED - Sign-Out/Discharge Documenting (check all that apply): Patient Departure - discharge Patient Received Moderate/Deep Sedation with Procedure: No - Discharge Plan Condition: Good Disposition: HOME Patient Education Materials: Migraine Headache (ED) Referrals: Pepe MAST,Eriberto Huffman [Primary Care Provider] - If Needed - Attestation Statements Document Initiated by Scribe: Yes Documenting Scribe: Juan J Espino Provider For Whom Scribe is Documenting (Include Credential): Jaspal Conti MD Scribe Attestation: Juan J Epstein, scribed for Jaspal Conti MD on 01/25/19 at 0545. Status of Scribe Document: Ready
[2019-01-25 04:34] VITALS: BP 107/67
== END 2019-01-25 04:19 | disposition home or self-care (01) ==
LOC: ED 23:46
DX: G43.909 Migraine, unspecified, not intractable, without status migrainosus (principal); J44.9 Chronic obstructive pulmonary disease, unspecified; F17.210 Nicotine dependence, cigarettes, uncomplicated; Z79.899 Other long term (current) drug therapy; Z88.1 Allergy status to other antibiotic agents; Z88.0 Allergy status to penicillin; Z88.8 Allergy status to other drugs, medicaments and biological substances
CPT/HCPCS: 96361; 96374; 96375; 99282; J0780; J1200; J1885

== ENCOUNTER 2019-08-18 18:38 | Emergency (ER) | payer OTHER ==
--- OUTSIDE RECORDS SUMMARY | 2019-08-18 19:02 | XMS REPORT | Continuity of Care Document ---
:1990 External Reference #:[id number] Author Name Kayla Drummond M.D. Address [address] [place] [address] Care Team Providers Name Role Phone Kayla Drummond MD - Family Medicine Care Team Information Director [facility] Physical Therapy - Care Team Information Director [facility] Physical Therapist Problems Active Problems Provider Date Moderate intellectual disability Kayla Drummond M.D. Onset: 03/11/2012 Anxiety state Kayla Drummond M.D. Onset: 03/11/2012 Abdominal pain Onset: 10/08/2013 Abscess of back Onset: 05/28/2014 Acute necrotizing ulcerative gingivitis Onset: 07/16/2014 Viral disease Onset: 11/10/2013 Structure of right ankle Onset: 01/02/2015 Backache Onset: 10/18/2014 Cellulitis Onset: 03/16/2017 Strain of neck muscle Onset: 01/24/2015 Chest pain Onset: 01/28/2014 Chest wall pain Onset: 01/28/2014 Chronic obstructive lung disease co-occurrent Onset: 01/17/2016 with acute bronchitis Cyst Onset: 10/27/2018 Cystitis Onset: 10/27/2016 Dental abscess Onset: 03/07/2014 Diarrhea Onset: 10/27/2018 Abscess of face Onset: 03/16/2017 Fever Onset: 11/09/2018 Foot pain Onset: 05/29/2015 Gastroenteritis Onset: 11/09/2018 Gastrointestinal hemorrhage Onset: 03/22/2016 Injury of head Onset: 01/24/2015 Headache Onset: 12/18/2014 Knee pain Onset: 06/28/2018 Low back pain Onset: 03/26/2014 Low back pain Onset: 03/27/2015 Lumbar sprain Onset: 04/29/2016 Low back strain Onset: 02/10/2015 Mechanical low back pain Onset: 12/16/2015 Strain of tendon of foot and ankle Onset: 11/08/2017 Musculoskeletal pain Onset: 10/24/2016 Nausea Onset: 10/18/2014 Nausea and vomiting Onset: 06/23/2015 Nausea and vomiting Onset: 11/03/2014 Nausea, vomiting and diarrhea Onset: 08/09/2018 Neck sprain Onset: 04/29/2016 Pain Onset: 06/24/2014 Pharyngitis Onset: 08/17/2017 Rib pain Onset: 05/01/2015 Rib pain Onset: 11/14/2014 Dyspnea Onset: 10/18/2014 Suprapubic pain Onset: 04/06/2014 Tobacco dependence syndrome Onset: 01/17/2016 Tooth disorder Onset: 01/08/2014 Toothache Onset: 09/22/2013 Diarrhea and vomiting Onset: 11/10/2013 Asthenia Onset: 04/23/2018 Pain in wrist Onset: 06/01/2014 Xiphoidalgia syndrome Onset: 05/11/2014 Abdominal pain Onset: Abscess of back Onset: Abscess of face Onset: Acute necrotizing ulcerative gingivitis Onset: Acute viral disease Onset: Asthenia Onset: Backache Onset: Cellulitis Onset: Chest pain Onset: Chest wall pain Onset: Chronic obstructive lung disease co-occurrent Onset: with acute bronchitis Cyst Onset: Cystitis Onset: Dental abscess Onset: Diarrhea Onset: Diarrhea and vomiting Onset: Dyspnea Onset: Fever Onset: Foot pain Onset: Gastroenteritis Onset: Gastrointestinal hemorrhage Onset: Headache Onset: Injury of head Onset: Knee pain Onset: Low back pain Onset: Low back strain Onset: Lumbar sprain Onset: Mechanical low back pain Onset: Musculoskeletal pain Onset: Nausea Onset: Nausea and vomiting Onset: Nausea, vomiting and diarrhea Onset: Neck sprain Onset: Pain Onset: Pain in wrist Onset: Pharyngitis Onset: Rib pain Onset: Ankle pain Onset: Strain of neck muscle Onset: Strain of tendon of foot and ankle Onset: Suprapubic pain Onset: Tobacco dependence syndrome Onset: Tooth disorder Onset: Toothache Onset: Xiphoidalgia syndrome Onset: Social History Type Date Description Comments Sex [...] Date Penicillin GETS HIVES ALL OVER 05/07/2017 Penicillins Jaw Swells 02/06/2019 Amoxicillin GETS HIVES ALL OVER 05/07/2017 Inactive Allergies NKDA 02/29/2012 Medications Active Medications SIG Qnty Indications Ordering Date Provider Cyclobenzaprine HCL 1 tab by mouth once 30tabs M54.5 BhanuKayla lindsey 2019 10mg a day as needed James Sheppard Tablets Atomoxetine HCL Take One Capsule By 60caps F90.2 Bhanu farzad 01/21/2019 40mg Mouth Twice A Day James Sheppard Capsules Benzoyl Peroxide Uad bid To Acne 60gm Kayla Drummond 01/20/2019 10% Gel James Sheppard Tizanidine HCL 1 tab by mouth 90tabs Bhanu farzad 01/20/2019 4mg three times a day James Sheppard Tablets as needed Nebulizer nebulize 1units J45.909 Kayla Drummond 01/14/2019 Device nebulizable James Sheppard medicationas directed Hepa Filter For Room uad 1units J45.909 Bhanu, farzad 01/14/2019 Air James Sheppard Clindamycin Phosphate apply to acne twice 60gm L70.0 Bhanu, farzad 2018 1% daily after washing M. M.D. Gel with mild soap and water and pat dry then apply Ibuprofen take one tablet by 90tabs G43.119 Bhanu, farzad 01/09/2019 600mg Tablets mouth three times M., M.DKelsey daily with food as Needed For Migraine Proair HFA inhale 2 puffs by 17gm J45.909 Bhanu, farzad 10/29/2017 108(90Base) mouth every 4 hours James Sheppard mcg/Act Aerosol if needed Airduo Respiclick 1 by mouth twice a 1units Kayla Drummond 10/01/2017 113/14 day James Sheppard 113-14mcg/Act Aerosol Topamax 1 tab by mouth 60tabs R51 Bhanu, farzad 04/30/2017 50mg Tablets twice a day James Sheppard History Medications Cyclobenzaprine HCL 1 tab by mouth 30tabs M54.5 Bhanu, farzad 07/14/2019 - 10mg three times a MValarie ColeDKelsey 07/23/2019 Tablets day as needed Sulfamethoxazole/Trimeth 1 tab by mouth 30tabs Bhanu farzad 02/23/2019 - oprim DS twice a day James Sheppard 03/10/2019 800-160mg Tablets Medications Administered in Office Medication SIG Qnty Indications Ordering Provider Date Rocephin 250 Kayla Drummond M.D. 05/17/2017 Injection Immunizations Description No Information Available Vital Signs Date Vital Result Comment 07/29/2019 10:47am BP Systolic 118 mmHg BP Diastolic 66 mmHg Height 84 inches 7'0" Weight 226.00 lb BMI (Body Mass Index) 22.5 kg/m2 Heart Rate 74 /min Respiratory Rate 16 /min 07/14/2019 2:13pm BP Systolic 122 mmHg BP Diastolic 65 mmHg Height 84 inches 7'0" Weight 226.00 lb BMI (Body Mass Index) 22.5 kg/m2 Heart Rate 102 /min Respiratory Rate 16 /min Results Description No Information Available Procedures Description No Information Available Medical Devices Description No Information Available Encounters Type Date Location Provider Dx Diagnosis Office Visit 07/29/2019 [facility] Kayla Drummond F90.2 Attention- deficit 11:15a James hyperactivity disorder, combined type F71 Moderate intellectual disabilities F17.210 Nicotine dependence, cigarettes, uncomplicated M54.5 Low back pain Z83.3 Family history of diabetes mellitus R73.01 Impaired fasting glucose M25.561 Pain in right knee F41.9 Anxiety disorder, unspecified R45.4 Irritability and anger L20.9 Atopic dermatitis, unspecified J30.9 Allergic rhinitis, unspecified J45.909 Unspecified asthma, uncomplicated R07.9 Chest pain, unspecified R51 Headache R35.0 Frequency of micturition R63.1 Polydipsia L72.3 Sebaceous cyst G47.33 Obstructive sleep apnea (adult) (pediatric) M54.6 Pain in thoracic spine R10.31 Right lower quadrant pain L03.211 Cellulitis of face L70.0 Acne vulgaris G43.119 Migraine with aura, intractable, without status migrainosus R06.83 Snoring Office Visit 07/14/2019 2:15p [facility] Kayla Drummond F90.2 Attention- deficit James Sheppard hyperactivity disorder, combined type F71 Moderate intellectual disabilities F17.210 Nicotine dependence, cigarettes, uncomplicated M54.5 Low back pain Z83.3 Family history of diabetes mellitus R73.01 Impaired fasting glucose M25.561 Pain in right knee F41.9 Anxiety disorder, unspecified R10.32 Left lower quadrant pain R45.4 Irritability and anger L20.9 Atopic dermatitis, unspecified R19.7 Diarrhea, unspecified J30.9 Allergic rhinitis, unspecified J45.909 Unspecified asthma, uncomplicated R07.9 Chest pain, unspecified R51 Headache R35.0 Frequency of micturition R63.1 Polydipsia L72.3 Sebaceous cyst G47.33 Obstructive sleep apnea (adult) (pediatric) M54.6 Pain in thoracic spine R10.31 Right lower quadrant pain L03.211 Cellulitis of face L70.0 Acne vulgaris G43.119 Migraine with aura, intractable, without status migrainosus R06.83 Snoring Office Visit 06/29/2019 2:00p [facility] Kayla Drummond F90.2 Rashida- deficit James Sheppard hyperactivity disorder, combined type F71 Moderate intellectual disabilities F17.210 Nicotine dependence, cigarettes, uncomplicated M54.5 Low back pain Z83.3 Family history of diabetes mellitus R73.01 Impaired fasting glucose M25.561 Pain in right knee F41.9 Anxiety disorder, unspecified R10.32 Left lower quadrant pain R45.4 Irritability and anger L20.9 Atopic dermatitis, unspecified R19.7 Diarrhea, unspecified J30.9 Allergic rhinitis, unspecified J45.909 Unspecified asthma, uncomplicated R07.9 Chest pain, unspecified R51 Headache R35.0 Frequency of micturition R63.1 Polydipsia L72.3 Sebaceous cyst G47.33 Obstructive sleep apnea (adult) (pediatric) M54.6 Pain in thoracic spine R10.31 Right lower quadrant pain L03.211 Cellulitis of face L70.0 Acne vulgaris G43.119 Migraine with aura, intractable, without status migrainosus R06.83 Snoring Office Visit 02/23/2019 2:00p [facility] João F90.2 Attention- deficit Pepe, N.P. [...] aura, intractable, without status migrainosus R06.83 Snoring Assessments Date Code Description Provider 07/29/2019 F90.2 Attention-deficit hyperactivity disorder, Kayla Drummond M.D. combined type 07/29/2019 F71 Moderate intellectual disabilities Kayla Drummond M.D. 07/29/2019 F17.210 Nicotine dependence, cigarettes, Kayla Drummond M.D. uncomplicated 07/29/2019 M54.5 Low back pain Kayla Drummond M.D. 07/29/2019 Z83.3 Family history of diabetes mellitus Kayla Drummond M.D. 07/29/2019 R73.01 Impaired fasting glucose Kayla Drummond M.D. 07/29/2019 M25.561 Pain in right knee Kayla Drummond M.D. 07/29/2019 F41.9 Anxiety disorder, unspecified Kayla Drummond M.D. 07/29/2019 R45.4 Irritability and anger Kayla Drummond M.D. 07/29/2019 L20.9 Atopic dermatitis, unspecified Kayla Drummond M.D. 07/29/2019 J30.9 Allergic rhinitis, unspecified Kayla Drummond M.D. 07/29/2019 J45.909 Unspecified asthma, uncomplicated Kayla Drummond M.D. 07/29/2019 R07.9 Chest pain, unspecified Kayla Drummond M.D. 07/29/2019 R51 Headache Kayla Drummond M.D. 07/29/2019 R35.0 Frequency of micturition Kayla Drummond M.D. 07/29/2019 R63.1 Polydipsia Kayla Drummond M.D. 07/29/2019 L72.3 Sebaceous cyst Kayla Drummond M.D. 07/29/2019 G47.33 Obstructive sleep apnea (adult) (pediatric) Kayla Drummond M.D. 07/29/2019 M54.6 Pain in thoracic spine Kayla Drummond M.D. 07/29/2019 R10.31 Right lower quadrant pain Kayla Drummond M.D. 07/29/2019 L03.211 Cellulitis of face Kayla Drummond M.D. 07/29/2019 L70.0 Acne vulgaris Kayla Drummond M.D. 07/29/2019 G43.119 Migraine with aura, intractable, without Kayla Drummond M.D. status migrainosus 07/29/2019 R06.83 Snoring Kayla Drummond M.D. 07/14/2019 F90.2 Attention-deficit hyperactivity disorder, Kayla Drummond M.D. combined type 07/14/2019 F71 Moderate intellectual disabilities Kayla Drummond M.D. 07/14/2019 F17.210 Nicotine dependence, cigarettes, Kayla Drummond M.D. uncomplicated 07/14/2019 M54.5 Low back pain Kayla Drummond M.D. 07/14/2019 Z83.3 Family history of diabetes mellitus Kayla Drummond M.D. 07/14/2019 R73.01 Impaired fasting glucose Kayla Drummond M.D. 07/14/2019 M25.561 Pain in right knee Kayla Drummond M.D. 07/14/2019 F41.9 Anxiety disorder, unspecified Kayla Drummond M.D. 07/14/2019 R10.32 Left lower quadrant pain Kayla Drummond M.D. 07/14/2019 R45.4 Irritability and anger Kayla Drummond M.D. 07/14/2019 L20.9 Atopic dermatitis, unspecified Kayla Drummond M.D. 07/14/2019 R19.7 Diarrhea, unspecified Kayla Drummond M.D. 07/14/2019 J30.9 Allergic rhinitis, unspecified Kayla Drummond M.D. 07/14/2019 J45.909 Unspecified asthma, uncomplicated Kayla Drummond M.D. 07/14/2019 R07.9 Chest pain, unspecified Kayla Drummond M.D. 07/14/2019 R51 Headache Kayla Drummond M.D. 07/14/2019 R35.0 Frequency of micturition Kayla Drummond M.D. 07/14/2019 R63.1 Polydipsia Kayla Drummond M.D. 07/14/2019 L72.3 Sebaceous cyst Kayla Drummond M.D. 07/14/2019 G47.33 Obstructive sleep apnea (adult) (pediatric) Kayla Drummond M.D. 07/14/2019 M54.6 Pain in thoracic spine Kayla Drummond M.D. 07/14/2019 R10.31 Right lower quadrant pain Kayla Drummond M.D. 07/14/2019 L03.211 Cellulitis of face Kayla Drummond M.D. 07/14/2019 L70.0 Acne vulgaris Kayla Drummond M.D. 07/14/2019 G43.119 Migraine with aura, intractable, without Kayla Drummond M.D. status migrainosus 07/14/2019 R06.83 Snoring Kayla Drummond M.D. 06/29/2019 F90.2 Attention-deficit hyperactivity disorder, Kayla Drummond M.D. combined type 06/29/2019 F71 Moderate intellectual disabilities Kayla Drummond M.D. 06/29/2019 F17.210 Nicotine dependence, cigarettes, Kayla Drummond M.D. uncomplicated 06/29/2019 M54.5 Low back pain Kayla Drummond M.D. 06/29/2019 Z83.3 Family history of diabetes mellitus Kayla Drummond M.D. 06/29/2019 R73.01 Impaired fasting glucose Kayla Drummond M.D. 06/29/2019 M25.561 Pain in right knee Kayla Drummond M.D. 06/29/2019 F41.9 Anxiety disorder, unspecified Kayla Drummond M.D. 06/29/2019 R10.32 Left lower quadrant pain Kayla Drummond M.D. 06/29/2019 R45.4 Irritability and anger Kayla Drummond M.D. 06/29/2019 L20.9 Atopic dermatitis, unspecified Kayla Drummond M.D. 06/29/2019 R19.7 Diarrhea, unspecified Kayla Drummond M.D. 06/29/2019 J30.9 Allergic rhinitis, unspecified Kayla Drummond M.D. 06/29/2019 J45.909 Unspecified asthma, uncomplicated Kalya Drummond M.D. 06/29/2019 R07.9 Chest pain, unspecified Kayla Drummond M.D. 06/29/2019 R51 Headache Kayla Drummond M.D. 06/29/2019 R35.0 Frequency of micturition Kayla Drummond M.D. 06/29/2019 R63.1 Polydipsia Kayla Drummond M.D. 06/29/2019 L72.3 Sebaceous cyst Kayla Drummond M.D. 06/29/2019 G47.33 Obstructive sleep apnea (adult) (pediatric) Kayla Drummond M.D. 06/29/2019 M54.6 Pain in thoracic spine Kayla Drummond M.D. 06/29/2019 R10.31 Right lower quadrant pain Kayla Drummond M.D. 06/29/2019 L03.211 Cellulitis of face Kayla Drummond M.D. 06/29/2019 L70.0 Acne vulgaris Kayla Drummond M.D. 06/29/2019 G43.119 Migraine with aura, intractable, without Kayla Drummond M.D. status migrainosus 06/29/2019 R06.83 Snoring Kayla Drummond M.D. 06/26/2019 F90.2 Attention-deficit hyperactivity disorder, João Cantu N.P. combined type 06/26/2019 F71 Moderate intellectual disabilities João Cantu N.P. 06/26/2019 F17.210 Nicotine dependence, cigarettes, João Cantu N.P. uncomplicated 06/26/2019 M54.5 Low back pain João Cantu N.P. 06/26/2019 Z83.3 Family history of diabetes mellitus João Cantu N.P. 06/26/2019 R73.01 Impaired fasting glucose João Cantu N.P. 06/26/2019 F41.9 Anxiety disorder, unspecified Jooã Cantu N.P. 06/26/2019 R10.32 Left lower quadrant pain João Cantu N.P. 06/26/2019 R45.4 Irritability and anger João Cantu N.P. 06/26/2019 L20.9 Atopic dermatitis, unspecified João Cantu N.P. 06/26/2019 R19.7 Diarrhea, unspecified João Cantu N.P. 06/26/2019 J30.9 Allergic rhinitis, unspecified João Cantu, N.P. 06/26/2019 J45.909 Unspecified asthma, uncomplicated João Cantu, N.P. 06/26/2019 R07.9 Chest pain, unspecified João Cantu N.P. 06/26/2019 R51 Headache João Cantu N.P. 06/26/2019 R63.1 Polydipsia João Cantu N.P. 06/26/2019 L72.3 Sebaceous cyst João Cantu N.P. 06/26/2019 G47.33 Obstructive sleep apnea (adult) (pediatric) João Cantu N.P. 06/26/2019 M54.6 Pain in thoracic spine João Cantu N.P. 06/26/2019 L03.211 Cellulitis of face João Cantu N.P. 06/26/2019 L70.0 Acne vulgaris João Cantu N.P. 06/26/2019 G43.119 Migraine with aura, intractable, without João Cantu N.PKelsey status migrainosus 06/26/2019 R06.83 Snoring João Cantu N.P. 02/23/2019 F90.2 Attention-deficit hyperactivity disorder, Aubrey Castañeda.Kavon combined type 02/23/2019 F71 Moderate intellectual disabilities João Cantu N.P. 02/23/2019 F17.210 Nicotine dependence, cigarettes, João Cantu N.PKelsey uncomplicated 02/23/2019 M54.5 Low back pain João Cantu N.PKelsey 02/23/2019 Z83.3 Family history of diabetes mellitus João Cantu N.P. 02/23/2019 R73.01 Impaired fasting glucose João Cantu N.PKelsey 02/23/2019 F41.9 Anxiety disorder, unspecified João Cantu N.P. 02/23/2019 R10.32 Left lower quadrant pain João Cantu N.P. 02/23/2019 R45.4 Irritability and anger João Cantu N.P. 02/23/2019 L20.9 Atopic dermatitis, unspecified João Cantu N.P. 02/23/2019 R19.7 Diarrhea, unspecified João Cantu N.P. 02/23/2019 J30.9 Allergic rhinitis, unspecified João Cantu N.P. 02/23/2019 J45.909 Unspecified asthma, uncomplicated João Cantu N.P. 02/23/2019 R07.9 Chest pain, unspecified João Cantu N.P. 02/23/2019 R51 Headache João Cantu N.PKelsey 02/23/2019 R63.1 Polydipsia João Cantu N.PKelsey 02/23/2019 L72.3 Sebaceous cyst João Cantu N.P. 02/23/2019 G47.33 Obstructive sleep apnea (adult) (pediatric) João Cantu N.PKelsey 02/23/2019 M54.6 Pain in thoracic spine João Cantu N.PKelsey 02/23/2019 L03.211 Cellulitis of face João Cantu N.PKelsey 02/23/2019 L70.0 Acne vulgaris João Cantu N.P. 02/23/2019 G43.119 Migraine with aura, intractable, without João Cantu N.PKelsey status migrainosus 02/23/2019 R06.83 Snoring João Cantu N.Jose. Plan of Treatment 07/14/2019 - Kayla Drummond M.D.F90.2 Attention-deficit hyperactivity disorder , combined typeComments:COUNCELLING AND REASSURANCE RELAXATION TECHNIQUES DISCUSSEDCOUNSELED RE: STRESSORS IN LIFE AVOID ALLENERGY/HIGH CAFFEINE DRINKSDUR [id number] Moderate intellectual disabilitiesComments:GUARDIANSHIP COUNCELLING HDFOUUA25.210 Nicotine dependence, cigarettes, uncomplicatedComments :SMOKING CESSATION [id number] Low back painNew Medication:Cyclobenzaprine HCL 10 mg - 1 tab by mouth three times a day as neededComments:EXERCISE/HEAT / MESSAGEAVOID HEAVY LIFTING WT LOSSTYLENOL OR MOTRIN PRN DUR UFCCJJYA38.3 Family history of diabetes mellitusComments:OBSERVEF/U LAB SFJPPXH03.01 Impaired fasting glucoseComments:F/U HGAICFS QAC AN HS PRNLOW GLUCOSE DIETM25.561 Pain in right kneeComments:EXERCISE/HEAT /MESSAGEAVOID HEAVY LIFTING WT LOSSTYLENOL OR MOTRIN PRN DUR JWPTFZVS21.9 Anxiety disorder, unspecifiedComments:COUNCELLING AND REASSURANCE RELAXATION TECHNIQUES DISCUSSEDCOUNSELED RE: STRESSORS IN LIFE AVOID ALLENERGY/HIGH CAFFEINE DRINKS DUR QRMIPEEZ21.32 Left lower quadrant painR45.4 Irritability and angerComments: COUNCELLING AND REASSURANCE RELAXATION TECHNIQUES DISCUSSEDCOUNSELED RE: STRESSORS IN LIFE AVOID ALLENERGY/HIGH CAFFEINE YTHRWYM77.9 Atopic dermatitis, unspecifiedComments:SKIN CARE INSTRUCTIONS LOTION OR BABY OIL 2-3 APPLICATION PER DAYUSE MOISTURIZING SOAPAVOID PROLONGED WATER EXPOSUREAVOID USING HOT WATER IN CRDROSN43.7 Diarrhea, jifafywwcbzP10.9 Allergic rhinitis, unspecifiedComments :INCREASE PO FLUID USE ANTIHISTAMINE PRN SECOND HAND SMOKING YLRUDVDFBZ58.909 Unspecified asthma, uncomplicatedComments:STABLE SMOKING RGWIDFOQFJ40.9 Chest pain, unspecifiedComments:EXERCISE/HEAT/MESSAGE TYLENOL OR MOTRIN PRNHEAT PACKR51 HeadacheComments:TYLENOL OR MOTRIN PRNR35.0 Frequency of micturitionComments:OBSERVE AND SCXQEYMNH82.1 PolydipsiaComments:OBSERVE AND ZACIOSNQD23.3 Sebaceous cystComments:XQUPBHXE29.33 Obstructive sleep apnea ( adult) (pediatric)Comments:F/U WITH ENT PRN SMOKING UIBSQIENCQ85.6 Pain in thoracic spineComments:EXERCISE/HEAT /MESSAGEAVOID HEAVY LIFTING WT LOSSTYLENOL OR MOTRIN PRNR10.31 Right lower quadrant painComments:TYLENOL OR MOTRIN PRNINCREASE PO FLUIDLAXATIVE PRN F/U DIRECTEDF/U IBMCSIIAE63.211 Cellulitis of faceComments:SKIN CAREL70.0 Acne vulgarisComments:SKIN CARE AKEBZSYPLQBH73.119 Migraine with aura, intractable, without status migrainosusComments:COUNCELLING AND REASSURANCE F/U WITH NEUROLOGY PRNR06.83 SnoringComments:OBSERVE FOR NOWWT LOSS SMOKING CESSATION Functional Status Description No Information Available Mental Status Description No Information Available Referrals Refer to Reason for Referral Status Appt Date Shala Baron MD Closed 04/08/2019 [address] [place] [address] [phone]
--- OUTSIDE RECORDS SUMMARY | 2019-08-18 19:02 | XMS REPORT | Continuity of Care Document ---
:1990 External Reference #:[id number] Author Name Kayla Drummond M.D. Address [address] [facility] [address] [place] [address] Care Team Providers Name Role Phone Kayla Drummond MD - Family Medicine Care Team Information Legal Administrator [facility] Physical Therapy - Care Team Information Legal Administrator Physical Therapist Problems Active Problems Provider Date Moderate intellectual disability Kayla Drummond M.D. Onset: 03/11/2012 Anxiety state Kayla rDummond M.D. Onset: 03/11/2012 Abdominal pain Onset: 10/08/2013 [...] Provider Cyclobenzaprine HCL 1 tab by mouth 30tabs M54.5 [facility] 10mg three times a day James Sheppard Tablets as needed Atomoxetine HCL take 1 capsule by 60caps F90.2 [facility] 01/21/2019 40mg mouth twice daily James Sheppard Capsules Benzoyl Peroxide Uad bid To Acne 60gm [facility], [facility] 01/20/2019 10% Gel James Sheppard Tizanidine HCL 1 tab by mouth 90tabs [facility] 01/20/2019 4mg three times a day James Sheppard Tablets as needed Nebulizer nebulize 1units J45.909 [facility] 01/14/2019 Device nebulizable James Sheppard medicationas directed Hepa Filter For Room uad 1units J45.909 [facility] 01/14/2019 Air James Sheppard Clindamycin Phosphate apply to acne twice 60gm L70.0 [facility], [facility] 2018 1% daily after washing M., M.D. Gel with mild soap and water and pat dry then apply Ibuprofen take one tablet by 90tabs G43.119 [facility] 01/09/2019 600mg Tablets mouth three times M., M.D. daily with food as Needed For Migraine Proair HFA inhale 2 puffs by 17gm J45.909 [facility] 10/29/2017 108(90Base) mouth every 4 hours M. MKelseyDKelsey mcg/Act Aerosol if needed Airduo Respiclick 1 by mouth twice a 1units Bhanu, farzad 10/01/2017 113/14 day M. MKelseyD. 113-14mcg/Act Aerosol Topamax 1 tab by mouth 60tabs R51 [facility], [facility] 04/30/2017 50mg Tablets twice a day Anthony. MKelseyDKelsey History Medications Sulfamethoxazole/Trimethoprim DS 1 tab by 30tabs Bhanu, 02/23/2019 - 800-160mg mouth twice a mad M., 03/10/2019 Tablets day M.D. Skelaxin 800mg 1 tab by 90tabs M54. [facility], 01/16/2019 - Tablets mouth three 6 Ahmad M., 01/19/2019 times a day M.D. as needed for Back spasm Benzoyl Peroxide Cleanser Cleanse Face 170.300gm L70. [facility], 01/16/2019 - 6% Liquid as Directed 0 Ahmad M., 01/19/2019 M.DKelsey Medications Administered in Office Medication SIG Qnty Indications Ordering Provider Date Rocephiaubrey 250 Kayla Drummond M.D. 05/17/2017 Injection Immunizations Description No Information Available Vital Signs Date Vital Result Comment 07/14/2019 2:13pm BP Systolic 122 mmHg BP Diastolic 65 mmHg Height 84 inches 7'0" Weight 226.00 lb BMI (Body Mass Index) 22.5 kg/m2 Heart Rate 102 /min Respiratory Rate 16 /min 06/29/2019 1:42pm BP Systolic 124 mmHg BP Diastolic 67 mmHg Height 84 inches 7'0" Weight 223.00 lb BMI (Body Mass Index) 22.2 kg/m2 Heart Rate 98 /min Respiratory Rate 16 /min Results Test Acquired Date Facility Test Result H/L Range Note Hemoglobin A1c 01/16/2019 [facility] [place] Hemoglobin A1c 5.5 % (4.0-6.0) 1 [address] [facility] @ (607)- - Est Average Glucose 111 mg/dL CBC With Diff 01/16/2019 [facility] [place] WBC 11.1 10*3/uL High (4.1-11.0) [address] [facility] (607)- - RBC 5.07 10*6/uL (4.60-6.10) HGB 14.7 g/dL (13.5-18.0) HCT 43.7 % (41.0-53.0) MCV 86.2 fL (80.0-95.0) MCH 29.0 pg (27.0-32.0) MCHC 33.7 g/dL (32.0-36.0) RDW 13.9 % (10.5-14.5) PLT 235 10*3/uL (150-450) MPV 8.9 fL (7.1-10.7) Neut % 72.9 % (35.0-75.0) Lymph % 17.0 % (16.0-52.0) [place] % 5.1 % (0.0-8.0) Eos % 4.4 % (0.0-5.0) Baso % 0.6 % (0.0-4.0) Neut # 8.1 10*3/uL High (1.8-7.7) Lymph # 1.9 10*3/uL (1.2-4.8) [place] # 0.6 10*3/uL (0.0-0.8) Eos # 0.5 10*3/uL (0.0-0.5) Baso # 0.1 10*3/uL (0.0-0.2) CMP 01/16/2019 [facility] [place] Sodium 140 mmol/L (136-145) [address] [facility] (607)- - Potassium 3.9 mmol/L (3.6-5.2) Chloride [...] Interpretation <SEE NOTE> 2 Lipid 01/16/2019 [facility] [place] Cholesterol @ 150 mg/dL (0-200) Eduin GARCIA (617)- - Triglyceride @ 90 mg/dL (30-200) HDL Cholesterol @ 44 mg/dL (>40) 3 Chol/HDL Ratio 3.4 RATIO 4 LDL Chol (Calc) 88 mg/dL (<130) 5 Laboratory test finding 01/16/2019 [facility] [place] Lipase 98 U/L (65-230) Eduin GARCIA (607)- - Amylase 52 U/L (25-115) TSH,Ultrasensitive @ 1.760 mIU/L (0.360-4.170) 25 Hydroxy Vit D @ 21 ng/mL Low (31-100) 6 1 Performed using Siemens [place] immunoassay. Care must be taken when interpreting [...] METHOD. Procedures Date Code Description Status 01/14/2019 52651 Spirometry Completed Medical Devices Description No Information Available Encounters Type Date Location Provider Dx Diagnosis Office Visit 07/14/2019 [facility] Kayla Drummond, F90.2 Attention- deficit 2:15p M.D. hyperactivity disorder, combined type F71 Moderate intellectual [...] migrainosus R06.83 Snoring Office Visit 06/29/2019 2:00p [facility] Kayla Drummond F90.2 Attention- deficit MKelsey, MJayesh. hyperactivity disorder, combined type F71 Moderate intellectual [...] migrainosus R06.83 Snoring Office Visit 02/23/2019 2:00p [facility] João F90.2 Attention- deficit Cantu, N.P. [...] without status migrainosus R06.83 Snoring Office Visit 01/21/2019 10:00a [facility] João F90.2 Attention- deficit Cantu, N.P. hyperactivity [...] migrainosus R06.83 Snoring Office Visit 01/16/2019 9:30a [facility] João 90.2 Attention- deficit Cantu, N.P. hyperactivity disorder, combined [...] without status migrainosus Office Visit 01/14/2019 2:30p [facility] João F90.2 Attention- deficit Cantu, N.P. [...] status migrainosus Assessments Date Code Description Provider 07/14/2019 F90.2 Attention-deficit hyperactivity disorder, Kayla Drummond [...] Drummond M.D. 06/29/2019 J45.909 Unspecified asthma, uncomplicated Kayla Drummond M.D. 06/29/2019 R07.9 Chest pain, unspecified [...] 06/29/2019 G43.119 Migraine with aura, intractable, without BhanuKayla lindsey M.D. status migrainosus 06/29/2019 R06.83 Snoring Kayla Drummond M.D. 06/26/2019 F90.2 Attention-deficit hyperactivity disorder, João Cantu, N.P. combined type 06/26/2019 F71 Moderate intellectual disabilities João Cantu N.P. 06/26/2019 F17.210 Nicotine dependence, cigarettes, João Cantu N.PKelsey uncomplicated 06/26/2019 M54.5 Low back pain João Cantu N.P. 06/26/2019 Z83.3 Family history of diabetes mellitus João Cantu N.P. 06/26/2019 R73.01 Impaired fasting glucose João Cantu N.P. 06/26/2019 F41.9 Anxiety disorder, unspecified João Cantu N.P. 06/26/2019 R10.32 Left lower quadrant pain João Cantu N.P. 06/26/2019 R45.4 Irritability and anger João Cantu N.P. 06/26/2019 L20.9 Atopic dermatitis, unspecified João Cantu N.P. 06/26/2019 R19.7 Diarrhea, unspecified João Cantu N.P. 06/26/2019 J30.9 Allergic rhinitis, unspecified João Cantu N.P. 06/26/2019 J45.909 Unspecified asthma, uncomplicated João Cantu N.P. 06/26/2019 R07.9 Chest pain, unspecified João [...] intractable, without João Cantu, N.PKelsey status migrainosus 06/26/2019 R06.83 Snoring João Cantu, N.P. 02/23/2019 F90.2 Attention-deficit hyperactivity disorder, João Cantu N.P. combined type 02/23/2019 F71 Moderate intellectual disabilities João Cantu N.P. 02/23/2019 F17.210 Nicotine dependence, cigarettes, João Cantu N.P. uncomplicated 02/23/2019 M54.5 Low back pain João Cantu N.P. 02/23/2019 Z83.3 Family history of diabetes mellitus João Cantu N.P. 02/23/2019 R73.01 Impaired fasting glucose João Cantu N.P. 02/23/2019 F41.9 Anxiety disorder, unspecified João Cantu, N.P. 02/23/2019 R10.32 Left lower quadrant pain João Cantu N.P. 02/23/2019 R45.4 Irritability and anger João Cantu, N.P. 02/23/2019 L20.9 Atopic dermatitis, unspecified João Cantu N.P. 02/23/2019 R19.7 Diarrhea, unspecified João Cantu N.P. 02/23/2019 J30.9 Allergic rhinitis, unspecified João Cantu, N.P. 02/23/2019 J45.909 Unspecified asthma, uncomplicated João Cantu, N.P. 02/23/2019 R07.9 Chest pain, unspecified João Cantu N.P. 02/23/2019 R51 Headache João Cantu N.P. 02/23/2019 R63.1 Polydipsia João Cantu N.P. 02/23/2019 L72.3 Sebaceous cyst João Cantu N.P. 02/23/2019 G47.33 Obstructive sleep apnea (adult) (pediatric) João Cantu N.P. 02/23/2019 M54.6 Pain in thoracic spine João Cantu N.P. 02/23/2019 L03.211 Cellulitis of face João Cantu N.PKelsey 02/23/2019 L70.0 Acne vulgaris João Cantu N.P. 02/23/2019 G43.119 Migraine with aura, intractable, without João Cantu N.PKelsey status migrainosus 02/23/2019 R06.83 Snoring João Cantu N.PKelsey 01/21/2019 F90.2 Attention-deficit hyperactivity disorder, João Cantu N.P. combined type 01/21/2019 F71 Moderate intellectual disabilities João Cantu N.PKelsey 01/21/2019 F17.210 Nicotine dependence, cigarettes, João Cantu N.PKelsey uncomplicated 01/21/2019 M54.5 Low back pain João Cantu N.P. 01/21/2019 Z83.3 Family history of diabetes mellitus João Cantu N.PKelsey 01/21/2019 R73.01 Impaired fasting glucose João Cantu N.PKelsey 01/21/2019 F41.9 Anxiety disorder, unspecified João Cantu N.P. 01/21/2019 R10.32 Left lower quadrant pain João Cantu N.PKelsey 01/21/2019 R45.4 Irritability and anger João Cantu N.PKelsey 01/21/2019 L20.9 Atopic dermatitis, unspecified João Cantu [...] sleep apnea (adult) (pediatric) João Cantu N.P. 01/21/2019 M54.6 Pain in thoracic spine João Cantu N.PKelsey 01/21/2019 L03.211 Cellulitis of face Aubrey Castañeda.PKelsey 01/21/2019 L70.0 Acne vulgaris João Cantu N.P. 01/21/2019 G43.119 Migraine with aura, intractable, without João Cantu N.PKelsey status migrainosus 01/21/2019 R06.83 Snoring João Cantu N.P. 01/16/2019 F90.2 Attention-deficit hyperactivity disorder, João Cantu [...] Cantu, N.P. 01/16/2019 R19.7 Diarrhea, unspecified João Cantu N.P. 01/16/2019 J30.9 Allergic rhinitis, unspecified João Cantu, N.P. 01/16/2019 J45.909 Unspecified asthma, uncomplicated João Cantu, N.P. 01/16/2019 R07.9 Chest pain, unspecified João Cantu N.P. 01/16/2019 R51 Headache João Cantu N.P. [...] intractable, without João Cantu N.P. status migrainosus 01/14/2019 F90.2 Attention-deficit hyperactivity disorder, João Cantu N.P. combined type 01/14/2019 F71 Moderate intellectual disabilities Ramy CastañedaPKelsey 01/14/2019 F17.210 Nicotine dependence, cigarettes, João Cantu N.P. uncomplicated 01/14/2019 M54.5 Low back pain Ramy CastañedaPKelsey 01/14/2019 Z83.3 Family history of diabetes mellitus João Cantu N.PKelsey 01/14/2019 R73.01 Impaired fasting glucose João Cantu N.PKelsey 01/14/2019 F41.9 Anxiety disorder, unspecified João Cantu N.PKelsey 01/14/2019 R10.32 Left lower quadrant pain João Cantu N.PKelsey 01/14/2019 R45.4 Irritability and anger João Cantu N.PKelsey 01/14/2019 L20.9 Atopic dermatitis, unspecified João Cantu N.PKelsey 01/14/2019 R19.7 Diarrhea, unspecified João Cantu N.PKelsey 01/14/2019 J30.9 Allergic rhinitis, unspecified João Cantu N.PKelsey 01/14/2019 J45.909 Unspecified asthma, uncomplicated João Cantu N.PKelsey 01/14/2019 R07.9 Chest pain, unspecified João [place]ut N.PKelsey 01/14/2019 R51 Headache João Cantu N.PKelsey 01/14/2019 R63.1 Polydipsia Aubrey Castañeda.PKelsey 01/14/2019 L72.3 Sebaceous cyst João Cantu N.PKelsey 01/14/2019 G47.33 Obstructive sleep apnea (adult) (pediatric) João Cantu N.PKelsey 01/14/2019 M54.6 Pain in thoracic spine João Cantu N.PKelsey 01/14/2019 L03.211 Cellulitis of face João Cantu N.PKelsey 01/14/2019 L70.0 Acne vulgaris João Cantu N.PKelsey 01/14/2019 G43.119 Migraine with aura, intractable, without João Cantu N.P. status migrainosus Plan of Treatment Future Appointment(s):07/29/2019 11:15 am - Kayla Drummond M.D. at [facility]07/14/2019 - Bhanu, Kayla Sheppard M.D.F90.2 Attention-deficit hyperactivity disorder, combined typeComments:COUNCELLING AND REASSURANCE RELAXATION TECHNIQUES DISCUSSEDCOUNSELED RE: STRESSORS IN LIFE AVOID ALLENERGY/HIGH CAFFEINE DRINKSDUR [id number] Moderate intellectual disabilitiesComments: [employer] COUNCELLING XXUQNQF50.210 Nicotine dependence, cigarettes, uncomplicatedComments:SMOKING CESSATION RWJIVBIJZMBE88.5 Low back painNew Medication:Cyclobenzaprine HCL 10 mg - 1 tab by mouth three times a day as neededComments:EXERCISE/HEAT /MESSAGEAVOID HEAVY LIFTING WT LOSSTYLENOL OR MOTRIN PRN DUR IJKQJVFH77.3 Family history of diabetes mellitusComments: OBSERVEF/U LAB NTSQNMY94.01 Impaired fasting glucoseComments:F/U HGAICFS QAC AN HS PRNLOW GLUCOSE DIETM25.561 Pain in right kneeComments:EXERCISE/HEAT / MESSAGEAVOID HEAVY LIFTING WT LOSSTYLENOL OR MOTRIN PRN DUR CZRCDBTZ06.9 Anxiety disorder, unspecifiedComments:COUNCELLING AND REASSURANCE RELAXATION TECHNIQUES DISCUSSEDCOUNSELED RE: STRESSORS IN LIFE AVOID ALLENERGY/HIGH CAFFEINE DRINKS DUR WDZLJBWB97.32 Left lower quadrant painR45.4 Irritability and angerComments:COUNCELLING AND REASSURANCE RELAXATION TECHNIQUES DISCUSSEDCOUNSELED RE: STRESSORS IN LIFE AVOID ALLENERGY/HIGH CAFFEINE NXGBNXQ60.9 Atopic dermatitis, unspecifiedComments:SKIN CARE INSTRUCTIONS LOTION OR BABY OIL 2-3 APPLICATION PER DAYUSE MOISTURIZING SOAPAVOID PROLONGED WATER EXPOSUREAVOID USING HOT WATER IN BCHPLOY99.7 Diarrhea, dsdfmjrmatdV31.9 Allergic rhinitis, unspecifiedComments:INCREASE PO FLUID USE ANTIHISTAMINE PRN SECOND HAND SMOKING NVEHDFQRYN11.909 Unspecified asthma, uncomplicatedComments: STABLE SMOKING KNSMHHYJZQ77.9 Chest pain, unspecifiedComments:EXERCISE/HEAT/ MESSAGE TYLENOL OR MOTRIN PRNHEAT PACKR51 HeadacheComments:TYLENOL OR MOTRIN PRNR35.0 Frequency of micturitionComments:OBSERVE AND LLHUZLKPF72.1 PolydipsiaComments:OBSERVE AND SUEWSPUKC29.3 Sebaceous cystComments: DIJFBYKC15.33 Obstructive sleep apnea (adult) (pediatric)Comments:F/U WITH ENT PRN SMOKING FSQCHGIKUA57.6 Pain in thoracic spineComments:EXERCISE/HEAT / MESSAGEAVOID HEAVY LIFTING WT LOSSTYLENOL OR MOTRIN PRNR10.31 Right lower quadrant painComments:TYLENOL OR MOTRIN PRNINCREASE PO FLUIDLAXATIVE PRN F/U DIRECTEDF/U EHOCKBAVT01.211 Cellulitis of faceComments:SKIN CAREL70.0 Acne vulgarisComments:SKIN CARE HIRXMWAWLDXL47.119 Migraine with aura, intractable, without status migrainosusComments:COUNCELLING AND REASSURANCE F/U WITH NEUROLOGY PRNR06.83 SnoringComments:OBSERVE FOR NOWWT LOSS SMOKING CESSATION Functional Status Description No Information Available Mental Status Description No Information Available Referrals Refer to Reason for Referral Status Appt Date Shala Baron MD Closed 04/08/[address] [place] [address] [phone] Ran Lobo MD Closed 03/02/2019 [address], [place] [address] [phone]
--- OUTSIDE RECORDS SUMMARY | 2019-08-18 19:02 | XMS REPORT | Continuity of Care Document ---
:1990 External Reference #:[id number] Author Name Kayla Drummond M.D. Address [address] [facility] [address] [place] [address] Care Team Providers Name Role Phone Kayla Drummond MD - Family Medicine Care Team Information Manager Field Service [facility] Physical Therapy - Care Team Information Manager Field Service Physical Therapist Problems Active Problems Provider Date [...] Location Provider Dx Diagnosis Office Visit 07/29/2019 [facility] Kayla Drummond F90.2 Attention- deficit 11:15a James [...] migrainosus R06.83 Snoring Office Visit 07/14/2019 2:15p [facility] Kayla Drummond F90.2 Attention- deficit James Sheppard [...] migrainosus R06.83 Snoring Office Visit 06/29/2019 2:00p [place] [facility] Kayla Drummond F90.2 Rashida- deficit James [...] migrainosus R06.83 Snoring Office Visit 02/23/2019 2:00p [place] [facility] João F90.2 Attention- deficit Pepe, N.P. [...] Z83.3 Family history of diabetes mellitus João aCntu N.P. 06/26/2019 R73.01 Impaired fasting glucose João [...] N.PKelsey status migrainosus 02/23/2019 R06.83 Snoring João Cantu, N.P. Plan of Treatment 07/29/2019 - Kayla Drummond M.D.F90.2 Attention-deficit hyperactivity disorder , combined typeComments:COUNCELLING AND REASSURANCE RELAXATION TECHNIQUES DISCUSSEDCOUNSELED RE: STRESSORS IN LIFE AVOID ALLENERGY/HIGH CAFFEINE DRINKSDUR [id number] Moderate intellectual disabilitiesComments:[employer] COUNCELLING KDQOHQI09.210 Nicotine dependence, cigarettes, uncomplicatedComments :SMOKING CESSATION NGEBTNZDULRF70.5 Low back painNew Medication:Cyclobenzaprine HCL 10 mg - 1 tab by mouth once a day as neededComments:EXERCISE/HEAT / MESSAGEAVOID HEAVY LIFTING WT LOSSTYLENOL OR MOTRIN PRNZ83.3 Family history of diabetes mellitusComments:OBSERVEF/U LAB WGIWBKA48.01 Impaired fasting glucoseComments:F/U HGAICLOW GLUCOSE DIETM25.561 Pain in right kneeComments: EXERCISE/HEAT /MESSAGEAVOID HEAVY LIFTING WT LOSSTYLENOL OR MOTRIN PRN DUR JACWMSZL03.9 Anxiety disorder, unspecifiedComments:COUNCELLING AND REASSURANCE RELAXATION TECHNIQUES DISCUSSEDCOUNSELED RE: STRESSORS IN LIFE AVOID ALLENERGY/ HIGH CAFFEINE DRINKS DUR VZSFJNDV57.4 Irritability and angerComments: COUNCELLING AND REASSURANCE RELAXATION TECHNIQUES DISCUSSEDCOUNSELED RE: STRESSORS IN LIFE AVOID ALLENERGY/HIGH CAFFEINE JRBGGCD70.9 Atopic dermatitis, unspecifiedComments:SKIN CARE INSTRUCTIONS LOTION OR BABY OIL 2-3 APPLICATION PER DAYUSE MOISTURIZING SOAPAVOID PROLONGED WATER EXPOSUREAVOID USING HOT WATER IN AVWAUNO80.9 Allergic rhinitis, unspecifiedComments:INCREASE PO FLUID USE ANTIHISTAMINE PRN SECOND HAND SMOKING RFEQBWROTZ31.909 Unspecified asthma, uncomplicatedComments:STABLE SMOKING OWBOCMLTCD57.9 Chest pain, unspecifiedComments:EXERCISE/HEAT/MESSAGE TYLENOL OR MOTRIN PRNHEAT PACKR51 HeadacheComments:TYLENOL OR MOTRIN PRNR35.0 Frequency of micturitionComments: OBSERVE AND NTRQIXFRS60.1 PolydipsiaComments:OBSERVE AND IXFABVUJR10.3 Sebaceous cystComments:RSGXTEHB68.33 Obstructive sleep apnea (adult) (pediatric) Comments:F/U WITH ENT PRN SMOKING UGJLTYWXJM71.6 Pain in thoracic spineComments: EXERCISE/HEAT /MESSAGEAVOID HEAVY LIFTING WT LOSSTYLENOL OR MOTRIN PRNR10.31 Right lower quadrant painComments:TYLENOL OR MOTRIN PRNINCREASE PO FLUIDLAXATIVE PRN F/U DIRECTEDF/U DVKBSECHP00.211 Cellulitis of faceComments:SKIN CAREL70.0 Acne vulgarisComments:SKIN CARE ZHFRIHMSGMBR43.119 Migraine with aura, intractable, without status migrainosusComments:COUNCELLING AND REASSURANCE F/U WITH NEUROLOGY PRNR06.83 SnoringComments:OBSERVE FOR NOWWT LOSS SMOKING CESSATION Functional Status Description No Information Available Mental Status Description No Information Available Referrals Refer to Reason for Referral Status Appt Date Shala Baron MD Closed 04/08/[address] [place] [address] [phone]
--- OUTSIDE RECORDS SUMMARY | 2019-08-18 19:03 | XMS REPORT | Continuity of Care Document ---
:1990 External Reference #:[id number] Author Name Kayla Drummond M.D. Address [address] [place] [address] Care Team Providers Name Role Phone Kayla Drummond MD - Family Medicine Care Team Information [employer] Professor [facility] Physical Therapy - Care Team Information [employer] Professor Physical Therapist Problems Active Problems Provider Date [...] Qnty Indications Ordering Date Provider Atomoxetine HCL take 1 capsule by 60caps F90.2 Kayla Drummond, 01/21/2019 mouth twice daily M.DKelsey 40mg Capsules Benzoyl Peroxide Uad bid To Acne 60gm Kayla Drummond, 01/20/2019 M.DKelsey 10% Gel Tizanidine HCL 1 tab by mouth three 90tabs Kayla Drummond, 01/20/2019 4mg times a day as M.D. Tablets needed Nebulizer nebulize nebulizable 1units J45.909 Kayla Drummond, 01/14/2019 Device medicationas James directed Hepa Filter For uad 1units J45.909 Kayla Drummond, 01/14/2019 Room Air M.DKelsey Clindamycin apply to acne twice 60gm L70.0 Kayla Drummond, 01/09/2019 Phosphate daily after washing M.D. 1% Gel with mild soap and water and pat dry then apply Ibuprofen take one tablet by 90tabs G43.119 Kayla Drummond, 01/09/2019 600mg mouth three times M.D. Tablets daily with food as Needed For Migraine Proair HFA inhale 2 puffs by 17gm J45.909 BhanuKayla lindsey, 10/29/2017 mouth every 4 hours M.D. 108(90Base) mcg/Act if needed Aerosol Airduo Respiclick 1 by mouth twice a 1units Kayla Drummond, 10/01/2017 113/14 day M.D. 113-14mcg/Act Aerosol Topamax 1 tab by mouth twice 60tabs R51 Kayla Drummond, 04/30/2017 50mg a day M.D. Tablets History Medications Sulfamethoxazole/Trimethoprim DS 1 tab by 30tabs Bhanu, 02/23/2019 - 800-160mg mouth twice a Ahmad MKelsey, 03/10/2019 Tablets day M.D. Skelaxin 800mg 1 tab by 90tabs M54. [facility], 01/16/2019 - Tablets mouth three 6 Ahmad M., 01/19/2019 times a day M.D. as needed for Back spasm Benzoyl Peroxide Cleanser Cleanse Face 170.300gm L70. [facility], 01/16/2019 - 6% Liquid as Directed 0 mad M., 01/19/2019 M.D. Clindamycin HCL 1 cap by 42caps [facility], 01/09/2019 - 300mg Capsules mouth three Ahmad M., 02/22/2019 times a day M.D. Neutrogena Facial Soap Original Wash Face 1units L70. Bhanu, 01/09/2019 - Formula Bar With Soap And 0 mad M., 01/15/2019 Water Twice M.D. Daily Medications Administered in Office Medication SIG Qnty Indications Ordering Provider Date Rocephin 250 Kayla Drummond M.D. 05/17/2017 Injection Immunizations Description No Information Available Vital Signs Date Vital Result Comment 06/29/2019 1:42pm BP Systolic 124 mmHg BP Diastolic 67 mmHg Height 84 inches 7'0" Weight 223.00 lb BMI (Body Mass Index) 22.2 kg/m2 Heart Rate 98 /min Respiratory Rate 16 /min 02/23/2019 1:42pm BP Systolic 135 mmHg BP Diastolic 78 mmHg Height 84 inches 7'0" Weight 222.00 lb BMI (Body Mass Index) 22.1 kg/m2 Heart Rate 94 /min Respiratory Rate 16 /min Results Test Acquired Date Facility Test Result H/L Range Note Hemoglobin A1c 01/16/2019 [facility] Hemoglobin A1c 5.5 % (4.0-6.0) 1 [address] [facility] @ (607)- - Est Average Glucose 111 mg/dL CBC With Diff 01/16/2019 [facility] WBC 11.1 10*3/uL High (4.1-11.0) [address] [facility] (607)- - RBC 5.07 10*6/uL (4.60-6.10) HGB 14.7 g/dL (13.5-18.0) HCT 43.7 % (41.0-53.0) MCV 86.2 fL (80.0-95.0) MCH 29.0 pg (27.0-32.0) MCHC 33.7 g/dL (32.0-36.0) RDW 13.9 % (10.5-14.5) PLT 235 10*3/uL (150-450) MPV 8.9 fL (7.1-10.7) Neut % 72.9 % (35.0-75.0) Lymph % 17.0 % (16.0-52.0) Union % 5.1 % (0.0-8.0) Eos % 4.4 % (0.0-5.0) Baso % 0.6 % (0.0-4.0) Neut # 8.1 10*3/uL High (1.8-7.7) Lymph # 1.9 10*3/uL (1.2-4.8) Union # 0.6 10*3/uL (0.0-0.8) Eos # 0.5 10*3/uL (0.0-0.5) Baso # 0.1 10*3/uL (0.0-0.2) CMP 01/16/2019 [facility] Sodium 140 mmol/L (136-145) [facility] (607)- - Potassium 3.9 mmol/L (3.6-5.2) [...] Interpretation <SEE NOTE> 2 Lipid 01/16/2019 [facility] Cholesterol @ 150 mg/dL (0-200) [address] [facility] (487)- - Triglyceride @ 90 mg/dL (30-200) HDL Cholesterol @ 44 mg/dL (>40) 3 Chol/HDL Ratio 3.4 RATIO 4 LDL Chol (Calc) 88 mg/dL (<130) 5 Laboratory test finding 01/16/2019 [facility] Lipase 98 U/L (65-230) [address] [facility] (437)- - Amylase 52 U/L (25-115) TSH,Ultrasensitive @ 1.760 mIU/L (0.360-4.170) 25 Hydroxy Vit D @ 21 ng/mL Low (31-100) 6 1 Performed using Siemens [place] immunoassay. Care must be taken when interpreting [...] METHOD. Procedures Date Code Description Status 01/14/2019 58982 Spirometry Completed Medical Devices Description No Information Available Encounters Type Date Location Provider Dx Diagnosis Office Visit 06/29/2019 [facility] Kayla Drummond, F90.2 Attention- deficit 2:00p M.D. hyperactivity disorder, combined type F71 Moderate [...] migrainosus R06.83 Snoring Office Visit 02/23/2019 2:00p [facility] João F90.2 Attention- deficit Cantu, N.P. [...] migrainosus R06.83 Snoring Office Visit 01/21/2019 10:00a [facility] João F90.2 Attention- deficit Cantu, N.P. [...] migrainosus R06.83 Snoring Office Visit 01/16/2019 9:30a [place] [facility] João F90.2 Attention- deficit Cantu, N.P. [...] without status migrainosus Office Visit 01/14/2019 2:30p [facility] João F90.2 Attention- deficit Cantu, N.P. [...] without status migrainosus Office Visit 01/09/2019 11:15a [place] [facility] João F90.2 Attention- deficit Cantu, N.P. [...] status migrainosus Assessments Date Code Description Provider 06/29/2019 F90.2 Attention-deficit hyperactivity disorder, Kayla Drummond [...] Cantu N.P. 06/26/2019 R19.7 Diarrhea, unspecified João Cantu, N.P. 06/26/2019 J30.9 Allergic rhinitis, unspecified João Cantu N.P. 06/26/2019 J45.909 Unspecified asthma, uncomplicated João Cantu N.P. 06/26/2019 R07.9 Chest pain, unspecified João Cantu, N.P. 06/26/2019 R51 Headache João Cantu N.P. [...] intractable, without João Cantu, N.P. status migrainosus 06/26/2019 R06.83 Snoring João Cantu N.P. 02/23/2019 F90.2 Attention-deficit hyperactivity disorder, João Cantu N.P. combined type 02/23/2019 F71 Moderate intellectual disabilities João Cantu N.P. 02/23/2019 F17.210 Nicotine dependence, cigarettes, João Cantu N.P. uncomplicated 02/23/2019 M54.5 Low back pain João Cantu N.P. 02/23/2019 Z83.3 Family history of diabetes mellitus João Cantu N.PKelsey 02/23/2019 R73.01 Impaired fasting glucose João Cantu N.P. 02/23/2019 F41.9 Anxiety disorder, unspecified João Cantu N.P. 02/23/2019 R10.32 Left lower quadrant pain João Cantu N.P. 02/23/2019 R45.4 Irritability and anger João Cantu N.P. 02/23/2019 L20.9 Atopic dermatitis, unspecified João Cantu, N.P. 02/23/2019 R19.7 Diarrhea, unspecified João Cantu N.P. 02/23/2019 J30.9 Allergic rhinitis, unspecified João Cantu N.P. 02/23/2019 J45.909 Unspecified asthma, uncomplicated João Cantu N.P. 02/23/2019 R07.9 Chest pain, unspecified João Cantu N.P. 02/23/2019 R51 Headache João Cantu N.PKelsey 02/23/2019 R63.1 Polydipsia João Cantu N.P. 02/23/2019 L72.3 Sebaceous cyst João Cantu N.P. 02/23/2019 G47.33 Obstructive sleep apnea (adult) (pediatric) João Cantu N.PKelsey 02/23/2019 M54.6 Pain in thoracic spine João Cantu N.P. 02/23/2019 L03.211 Cellulitis of face João Cantu N.PKelsey 02/23/2019 L70.0 Acne vulgaris João Cantu N.PKelsey 02/23/2019 G43.119 Migraine with aura, intractable, without João Cantu N.PKelsey status migrainosus 02/23/2019 R06.83 Snoring João Cantu N.PKelsey 01/21/2019 F90.2 Attention-deficit hyperactivity disorder, João Cantu N.Jose. combined type 01/21/2019 F71 Moderate intellectual disabilities João Cantu N.PKelsey 01/21/2019 F17.210 Nicotine dependence, cigarettes, João Cantu N.Kavon uncomplicated 01/21/2019 M54.5 Low back pain João Cantu N.PKelsey 01/21/2019 Z83.3 Family history of diabetes mellitus Aubrey Castañeda.PKelsey 01/21/2019 R73.01 Impaired fasting glucose João Cantu N.PKelsey 01/21/2019 F41.9 Anxiety disorder, unspecified João Cantu N.PKelsey 01/21/2019 R10.32 Left lower quadrant pain João Cantu N.PKelsey 01/21/2019 R45.4 Irritability and anger João Cantu N.PKelsey 01/21/2019 L20.9 Atopic dermatitis, unspecified João Cantu N.PKelsey 01/21/2019 R19.7 Diarrhea, unspecified João Cantu N.P. 01/21/2019 J30.9 Allergic rhinitis, unspecified João Cantu N.P. 01/21/2019 J45.909 Unspecified asthma, uncomplicated João Cantu N.PKelsey 01/21/2019 R07.9 Chest pain, unspecified João Cantu N.P. 01/21/2019 R51 Headache João Cantu N.PKelsey 01/21/2019 R63.1 Polydipsia João Cantu N.PKelsey 01/21/2019 L72.3 Sebaceous cyst João Cantu N.PKelsey 01/21/2019 G47.33 Obstructive sleep apnea (adult) (pediatric) João Cantu N.PKelsey 01/21/2019 M54.6 Pain in thoracic spine João Cantu N.PKelsey 01/21/2019 L03.211 Cellulitis of face João Cantu N.PKelsey 01/21/2019 L70.0 Acne vulgaris João Cantu N.PKelsey 01/21/2019 G43.119 Migraine with aura, intractable, without João Cantu N.Kavon status migrainosus 01/21/2019 R06.83 Snoring João Cantu N.PKelsey 01/16/2019 F90.2 Attention-deficit hyperactivity disorder, João Cantu N.P. combined type 01/16/2019 F71 Moderate intellectual disabilities João Cantu N.PKelsey 01/16/2019 F17.210 Nicotine dependence, cigarettes, João Cantu N.Kavon uncomplicated 01/16/2019 M54.5 Low back pain João [...] sleep apnea (adult) (pediatric) João Cantu N.PKelsey 01/16/2019 M54.6 Pain in thoracic spine João Cantu N.P. 01/16/2019 L03.211 Cellulitis of face João Cantu N.PKelsey 01/16/2019 L70.0 Acne vulgaris João Cantu N.P. 01/16/2019 G43.119 Migraine with aura, intractable, without João Cantu, N.PKelsey status migrainosus 01/14/2019 F90.2 Attention-deficit hyperactivity disorder, João Cantu N.Kavon combined type 01/14/2019 F71 Moderate intellectual disabilities [...] N.P. 01/14/2019 J30.9 Allergic rhinitis, unspecified João Cantu, N.P. 01/14/2019 J45.909 Unspecified asthma, uncomplicated João Cantu N.P. 01/14/2019 R07.9 Chest pain, unspecified João Cantu N.P. 01/14/2019 R51 Headache João Cantu N.PKelsey 01/14/2019 R63.1 Polydipsia João Cantu N.P. 01/14/2019 L72.3 Sebaceous cyst João Cantu N.P. 01/14/2019 G47.33 Obstructive sleep apnea (adult) (pediatric) João Cantu N.P. 01/14/2019 M54.6 Pain in thoracic spine João Cantu N.PKelsey 01/14/2019 L03.211 Cellulitis of face João Cantu N.PKelsey 01/14/2019 L70.0 Acne vulgaris João Cantu N.P. 01/14/2019 G43.119 Migraine with aura, intractable, without João Cantu N.PKelsey status migrainosus 01/09/2019 F90.2 Attention-deficit hyperactivity disorder, João Cantu N.PKelsey combined type 01/09/2019 F71 Moderate intellectual disabilities João aCntu N.PKelsey 01/09/2019 F17.210 Nicotine dependence, cigarettes, João Cantu N.PKelsey uncomplicated 01/09/2019 M54.5 Low back pain João Cantu N.PKelsey 01/09/2019 Z83.3 Family history of diabetes mellitus João Cantu N.PKelsey 01/09/2019 R73.01 Impaired fasting glucose João Cantu N.PKelsey 01/09/2019 F41.9 Anxiety disorder, unspecified João Cantu N.P. 01/09/2019 R10.32 Left lower quadrant pain João Cantu N.P. 01/09/2019 R45.4 Irritability and anger Jãoo Cantu N.P. 01/09/2019 L20.9 Atopic dermatitis, unspecified João Cantu N.P. 01/09/2019 R19.7 Diarrhea, unspecified João Cantu N.P. 01/09/2019 J30.9 Allergic rhinitis, unspecified João Cantu, N.P. 01/09/2019 J45.909 Unspecified asthma, uncomplicated João Cantu, N.P. 01/09/2019 R07.9 Chest pain, unspecified João Cantu, N.P. 01/09/2019 R51 Headache João Cantu, N.P. 01/09/2019 R63.1 Polydipsia João Cantu N.P. 01/09/2019 L72.3 Sebaceous cyst João Cantu, N.P. 01/09/2019 G47.33 Obstructive sleep apnea (adult) (pediatric) João Cantu , N.P. 01/09/2019 M54.6 Pain in thoracic spine João Cantu, N.P. 01/09/2019 L03.211 Cellulitis of face João Cantu N.P. 01/09/2019 L70.0 Acne vulgaris Jooã Cantu N.P. 01/09/2019 G43.119 Migraine with aura, intractable, without João Cantu, N.P. status migrainosus Plan of Treatment 06/29/2019 - Kayla Drummond M.D.F90.2 Attention-deficit hyperactivity disorder , combined typeComments:COUNCELLING AND REASSURANCE RELAXATION TECHNIQUES DISCUSSEDCOUNSELED RE: STRESSORS IN LIFE AVOID ALLENERGY/HIGH CAFFEINE DRINKSDUR [id number] Moderate intellectual disabilitiesComments:GUARDIANSHIP COUNCELLING XVCJAQA83.210 Nicotine dependence, cigarettes, uncomplicatedComments :SMOKING CESSATION QEQNBYCJSIUR42.5 Low back painComments:EXERCISE/HEAT / MESSAGEAVOID HEAVY LIFTING WT LOSSTYLENOL OR MOTRIN PRN DUR NZDXHVSR79.3 Family history of diabetes mellitusComments:OBSERVEF/U LAB YLWJPAY55.01 Impaired fasting glucoseComments:F/U HGAICFS QAC AN HS PRNLOW GLUCOSE DIETM25.561 Pain in right kneeComments:EXERCISE/HEAT /MESSAGEAVOID HEAVY LIFTING WT LOSSTYLENOL OR MOTRIN PRN DUR UNFYARCH69.9 Anxiety disorder, unspecifiedComments:COUNCELLING AND REASSURANCE RELAXATION TECHNIQUES DISCUSSEDCOUNSELED RE: STRESSORS IN LIFE AVOID ALLENERGY/HIGH CAFFEINE DRINKS DUR MFVHKCVB82.32 Left lower quadrant painR45.4 Irritability and angerComments: COUNCELLING AND REASSURANCE RELAXATION TECHNIQUES DISCUSSEDCOUNSELED RE: STRESSORS IN LIFE AVOID ALLENERGY/HIGH CAFFEINE IMSSJGS84.9 Atopic dermatitis, unspecifiedComments:SKIN CARE INSTRUCTIONS LOTION OR BABY OIL 2-3 APPLICATION PER DAYUSE MOISTURIZING SOAPAVOID PROLONGED WATER EXPOSUREAVOID USING HOT WATER IN VDBYZWT53.7 Diarrhea, uyubfpzcrokL71.9 Allergic rhinitis, unspecifiedComments :INCREASE PO FLUID USE ANTIHISTAMINE PRN SECOND HAND SMOKING CGTMTICDXR90.909 Unspecified asthma, uncomplicatedComments:STABLE SMOKING GPIIKUHLNW98.9 Chest pain, unspecifiedComments:EXERCISE/HEAT/MESSAGE TYLENOL OR MOTRIN PRNHEAT PACKR51 HeadacheComments:TYLENOL OR MOTRIN PRNR35.0 Frequency of micturitionComments:OBSERVE AND GYRQHSIYI17.1 PolydipsiaComments:OBSERVE AND FXWPOKWSZ70.3 Sebaceous cystComments:FDXCFDVB55.33 Obstructive sleep apnea ( adult) (pediatric)Comments:F/U WITH ENT PRN SMOKING GKZSSFPYRC82.6 Pain in thoracic spineComments:EXERCISE/HEAT /MESSAGEAVOID HEAVY LIFTING WT LOSSTYLENOL OR MOTRIN PRNR10.31 Right lower quadrant painComments:TYLENOL OR MOTRIN PRNINCREASE PO FLUIDLAXATIVE PRN F/U DIRECTEDF/U GYSKBJDSI69.211 Cellulitis of faceComments:SKIN CAREL70.0 Acne vulgarisComments:SKIN CARE BUJZOQVPGUUT12.119 Migraine with aura, intractable, without status migrainosusComments:COUNCELLING AND REASSURANCE F/U WITH NEUROLOGY PRNR06.83 SnoringComments:OBSERVE FOR NOWWT LOSS SMOKING CESSATION Functional Status Description No Information Available Mental Status Description No Information Available Referrals Refer to Reason for Referral Status Appt Date Shala Baron MD Closed 04/08/2019 [address] [place] [address] [phone] Ran Lobo MD Closed 03/02/2019 [address] [place] [address] ENT [phone]
[2019-08-18 19:32] VITALS: BP 132/80
--- NOTE | 2019-08-18 19:40 | ED ---
Complex/Multi-Sys Presentation - HPI Summary HPI Summary: Patient is a 28 y/o M presenting to [facility] with complaints of a non-productive cough and right anterior chest pain. Cough has been present for the past two days. Chest pain has been present only for one hour. No fever (99 F on vitals), no nasal/chest congestion, no N/V/D noted. No exposure to a person under investigation for COVID-19 reported. He notes that his mother was recently diagnosed with influenza. PMHx of diabetes, asthma, COPD noted. He is a current smoker, drinks alcohol occasionally. Home medications and allergies are reviewed. - History Of Current Complaint Chief Complaint: EDChestWallPain Time Seen by Provider: 08/18/19 19:13 Hx Obtained From: Patient Onset/Duration: Lasting Hours - CP, Lasting Days - cough Timing: Hours, Days Location: Pain At: - chest Associated Signs And Symptoms: Positive: Cough, Chest Pain, Other - negative - chest/nasal congestion. Negative: Nausea, Vomiting, Diarrhea, Fever - Allergies/Home Medications Allergies/Adverse Reactions: Allergies Allergy/AdvReac Type Severity Reaction Status Date / Time amoxicillin Allergy Hives/Diff. Verified 01/25/19 02:18 Breathing/I tching naproxen Allergy Rash Verified 01/25/19 02:18 Penicillins Allergy Rash Verified 01/25/19 02:18 Home Medications: Home Medications Topiramate TAB(*) [Topamax 100 mg tab] 100 mg PO BEDTIME 07/11/18 [History Confirmed 01/25/19] Oxygen 3 udc BOTH NARES BEDTIME 09/22/18 [History Confirmed 01/25/19] Albuterol HFA INHALER* [Ventolin HFA Inhaler*] 2 puff INH Q4H PRN 01/08/19 [ History Confirmed 01/25/19] Budesonide/Formote 160/4.5(NF) [Symbicort 160/4.5 (NF)] 2 puff INH BID 01/08/19 [History Confirmed 01/25/19] Ibuprofen TAB* [Motrin TAB* 600 MG] 600 mg PO Q6H PRN 01/08/19 [History Confirmed 01/25/19] PMH/Surg Hx/FS Hx/Imm Hx Endocrine/Hematology History: Reports: Hx Diabetes - "BORDERLINE" Denies: Hx Anticoagulant Therapy, Hx Thyroid Disease Cardiovascular History: Denies: Hx Congestive Heart Failure, Hx Deep Vein Thrombosis, Hx Hypertension , Hx Myocardial Infarction, Hx Pacemaker/ICD Respiratory History: Reports: Hx Asthma, Hx Chronic Bronchitis, Hx Chronic Obstructive Pulmonary Disease (COPD), Hx Sleep Apnea - previous dx mild ILIA 2010 , Other Respiratory Problems/Disorders - current 1.5 ppd smoker Denies: Hx Lung Cancer, Hx Pneumonia, Hx Pulmonary Embolism GI History: Denies: Hx Gall Bladder Disease, Hx Gastrointestinal Bleed, Hx Ulcer, Hx Urosepsis, Other GI Disorders History: Denies: Hx Dialysis, Hx Kidney Stones, Hx Renal Disease Musculoskeletal History: Reports: Hx Back Problems Sensory History: Reports: Hx Vision Problem - (right) eye stabismus Denies: Hx Hearing Aid Opthamlomology History: Reports: Hx Vision Problem - (right) eye stabismus Neurological History: Denies: Hx Dementia, Hx Migraine, Hx Seizures, Hx Transient Ischemic Attacks (TIA) Psychiatric History: Reports: Other Psychiatric Issues/Disorders - learning disorder Denies: Hx Anxiety, Hx Depression, Hx Panic Disorder, Hx Schizophrenia, Hx Bipolar Disorder, Hx Substance Abuse - Surgical History Surgery Procedure, Year, and Place: LT EYE STRABISMUS SURGERY, DENTAL EXTRACTION 01/30/14 - Immunization History Date of Tetanus Vaccine: utd Date of Influenza Vaccine: utd Infectious Disease History: No Infectious Disease History: Denies: Hx Clostridium Difficile, Hx Hepatitis, Hx Human Immunodeficiency Virus (HIV), Hx of Known/Suspected MRSA, Hx Shingles, Hx Tuberculosis, Hx Known/ Suspected VRE, Hx Known/Suspected VRSA, History Other Infectious Disease, Traveled Outside the [place] in Last 30 Days - Family History Known Family History: Positive: Cardiac Disease, Hypertension, Respiratory Disease - Social History Alcohol Use: Occasionally Hx Substance Use: No Substance Use Type: Reports: Excessive Caffeine Hx Tobacco Use: Yes Smoking Status (MU): Current Every Day Smoker Type: Cigarettes Amount Used/How Often: 4 CIGS A DAY Length of Time of Smoking/Using Tobacco: started at age 10 Have You Smoked in the Last Year: Yes Review of Systems Negative: Fever ENT: Other - negative - chest/nasal congestion Positive: Chest Pain Positive: Cough Negative: Vomiting, Diarrhea, Nausea All Other Systems Reviewed And Are Negative: Yes Physical Exam - Summary Physical Exam Summary: Appearance: Well-appearing, Well-nourished, lying in bed comfortably Skin: Warm, dry, no obvious rash Eyes: sclera anicteric, no conjunctival pallor HENT: mucous membranes moist, pharynx appears normal Neck: Supple, nontender Respiratory: Clear to auscultation, no signs of respiratory distress; Bedside US screening was negative for pneumothorax. Cardiovascular: Normal S1, S2. No murmurs. Normal distal pulses in tibial and radial bilaterally. Abdomen: Soft, nontender, normal active bowel sounds present Musculoskeletal: Normal, Strength/ROM Intact Neurological: A&Ox3, awake and alert, mentation is normal, speech is fluent and appropriate Psychiatric: affect is normal, does not appear anxious or depressed Triage Information Reviewed: Yes Vital Signs On Initial Exam: Initial Vitals Temp Pulse Resp BP Pulse Ox 99.0 F 62 16 123/61 100 08/18/19 18:49 08/18/19 18:49 08/18/19 18:49 08/18/19 18:49 08/18/19 18:49 Vital Signs Reviewed: Yes Procedures - Sedation Patient Received Moderate/Deep Sedation with Procedure: No Diagnostics - Vital Signs Vital Signs Temp Pulse Resp BP Pulse Ox 08/18/19 18:49 99.0 F 62 16 123/61 100 - Laboratory Lab Statement: Any lab studies that have been ordered have been reviewed, and results considered in the medical decision making process. - Ultrasound BEDSIDE US Ultrasound Interpretation Completed By: ED Physician Summary of Ultrasound Findings: Bedside US screening was negative for pneumothorax. - EKG 1846 Cardiac Rate: NL EKG Rhythm: Sinus Rhythm Summary of EKG Findings: EKG showed NSR, P waves, QRS complex, and T waves are within normal limits, T waves and intervals are normal, no ischemic changes. This is a normal EKG. ED physician has reviewed and interpreted this EKG. Complex Multi-Symp Course/Dx Course Of Treatment: Patient is a 28 y/o M presenting to [facility] with complaints of a non-productive cough and right anterior chest pain. Cough has been present for the past two days. Chest pain has been present only for one hour. No fever ( 99 F on vitals), no nasal/chest congestion, no N/V/D noted. No exposure to a person under investigation for COVID-19 reported. He notes that his mother was recently diagnosed with influenza. PMHx of diabetes, asthma, COPD noted. He is a current smoker, drinks alcohol occasionally. Respiratory: Clear to auscultation, no signs of respiratory distress; Bedside US screening was negative for pneumothorax. EKG showed NSR, P waves, QRS complex, and T waves are within normal limits, T waves and intervals are normal, no ischemic changes. Patient was discharged to home with PCP followup. - Diagnoses Provider Diagnoses: Bronchitis, Chest wall pain Discharge ED - Sign-Out/Discharge Documenting (check all that apply): Patient Departure - discharge - Discharge Plan Condition: Good Disposition: HOME Patient Education Materials: Acute Bronchitis (ED), Chest Wall Pain (ED) Referrals: [facility] [Outside] - If Needed - Billing Disposition and Condition Condition: GOOD Disposition: Home - Attestation Statements Document Initiated by Christopher: Yes Documenting Scribe: BJ DENT Provider For Whom Christopher is Documenting (Include Credential): DOMINIQUE GONZALEZ MD Scribe Attestation: BJ Epstein, scribed for DOMINIQUE GONZALEZ MD on 08/18/19 at 2038. Scribe Documentation Reviewed: Yes Provider Attestation: The documentation as recorded by the BJ talbert accurately reflects the service I personally performed and the decisions made by me, DOMINIQUE GONZALEZ MD Status of Scribe Document: Viewed
== END 2019-08-18 19:30 | disposition home or self-care (01) ==
LOC: ED 18:38
DX: J40 Bronchitis, not specified as acute or chronic (principal); R07.89 Other chest pain; R05 Cough; Z88.0 Allergy status to penicillin; R73.03 Prediabetes; Z79.899 Other long term (current) drug therapy; F17.210 Nicotine dependence, cigarettes, uncomplicated
CPT/HCPCS: 93005; 99282

== ENCOUNTER 2019-08-19 14:42 | Emergency (ER) | payer OTHER ==
--- OUTSIDE RECORDS SUMMARY | 2019-08-19 14:48 | XMS REPORT | Continuity of Care Document ---
:1990 External Reference #:[id number] Author Name Renzo Park NP (transmitted by agent of provider Gini Wick) Address [address] [facility]/[address] [place] [address] Care Team Providers Name Role Phone Kayla Drummond MD - Family Medicine Care Team Information Coat Agent [facility] Physical Therapy - Care Team Information Coat Agent Physical Therapist Problems Active Problems Provider Date [...] 1 tab by mouth once 30tabs M54.5 Bhanu, farzad 2019 10mg a day as needed James Sheppard Tablets Atomoxetine HCL take one capsule by 60caps F90.2 [facility] 40mg mouth twice a day James Sheppard Capsules Benzoyl Peroxide Uad bid To Acne 60gm Bhanu farzad 01/20/2019 10% Gel James Sheppard Tizanidine HCL 1 tab by mouth 90tabs Bhanu, farzad 01/20/2019 4mg three times a day James Sheppard Tablets as needed Nebulizer nebulize 1units J45.909 Bhanu, farzad 01/14/2019 Device nebulizable James Sheppard medicationas directed Hepa Filter For Room uad 1units J45.909 Bhanu, farzad 01/14/2019 Air James Sheppard Clindamycin Phosphate apply to acne twice 60gm L70.0 Bhanu, farzad 2018 1% daily after washing Valarie SheppardDKelsey Gel with mild soap and water and pat dry then apply Ibuprofen take one tablet by 90tabs G43.119 Bhanu, farzad 01/09/2019 600mg Tablets mouth three times M. MKelseyDKelsey daily with food as Needed For Migraine Proair HFA inhale 2 puffs by 17gm J45.909 Bhanu, farzad 10/29/2017 108(90Base) mouth every 4 hours James Sheppard mcg/Act Aerosol if needed Airduo Respiclick 1 by mouth twice a 1units Kayla Drummond 10/01/2017 113/14 day James Sheppard 113-14mcg/Act Aerosol Topamax 1 tab by mouth 60tabs R51 [facility] 04/30[facility]2017 50mg Tablets twice a day James Sheppard History Medications Cyclobenzaprine HCL 1 tab by mouth 30tabs M54.5 Bhanu, farzad 07/14/2019 - 10mg three times a James Sheppard 07/23/2019 Tablets day as needed Sulfamethoxazole/Trimeth 1 tab by mouth 30tabs Bhanu, farzad 02/23/2019 - oprim DS twice a day James Sheppard 03/10/2019 800-160mg Tablets Medications Administered in Office Medication SIG Qnty Indications Ordering Provider Date Rocephin 250 Kayla Drummond M.D. 05/17/2017 Injection Immunizations Description No Information Available Vital Signs Date Vital Result Comment 08/19/2019 1:03pm BP Systolic 118 mmHg BP Diastolic 64 mmHg Height 84 inches 7'0" Weight 226.00 lb BMI (Body Mass Index) 22.5 kg/m2 Heart Rate 71 /min Respiratory Rate 16 /min 07/29/2019 10:47am BP Systolic 118 mmHg BP Diastolic 66 mmHg Height 84 inches 7'0" Weight 226.00 lb BMI (Body Mass Index) 22.5 kg/m2 Heart Rate 74 /min Respiratory Rate 16 /min Results Description No Information Available Procedures Description No Information Available Medical Devices Description No Information Available Encounters Type Date Location Provider Dx Diagnosis Office Visit 07/29/2019 [facility] Kayla Drummond F90.2 Attention- deficit 11:15a James [...] migrainosus R06.83 Snoring Office Visit 07/14/2019 2:15p [facility] Kayla Drummond F90.2 Attention- deficit James Sheppard [...] migrainosus R06.83 Snoring Office Visit 06/29/2019 2:00p [place] [facility] Bhanu Svetafarzad F90.2 Attention- deficit James Sheppard hyperactivity disorder, [...] migrainosus R06.83 Snoring Office Visit 02/23/2019 2:00p [place] [facility] João F90.2 Attention- deficit Pepe, N.P. [...] R06.83 Snoring Assessments Date Code Description Provider 08/19/2019 F90.2 Attention-deficit hyperactivity disorder, Renzo Park, CABLE SPLICING TECHNICIAN combined type 08/19/2019 F71 Moderate intellectual disabilities Renzo Park, CABLE SPLICING TECHNICIAN 08/19/2019 F17.210 Nicotine dependence, cigarettes, Renzo Park, CABLE SPLICING TECHNICIAN uncomplicated 08/19/2019 M54.5 Low back pain Renzo Park, CABLE SPLICING TECHNICIAN 08/19/2019 Z83.3 Family history of diabetes mellitus Renzo Park, CABLE SPLICING TECHNICIAN 08/19/2019 R73.01 Impaired fasting glucose Renzo Park, CABLE SPLICING TECHNICIAN 08/19/2019 M25.561 Pain in right knee Renzo Park, CABLE SPLICING TECHNICIAN 08/19/2019 F41.9 Anxiety disorder, unspecified Renzo Park, CABLE SPLICING TECHNICIAN 08/19/2019 R45.4 Irritability and anger Renzo Park, CABLE SPLICING TECHNICIAN 08/19/2019 L20.9 Atopic dermatitis, unspecified Renzo Park, CABLE SPLICING TECHNICIAN 08/19/2019 J30.9 Allergic rhinitis, unspecified Xavier, Renzo Garcia, CABLE SPLICING TECHNICIAN 08/19/2019 J45.909 Unspecified asthma, uncomplicated Renzo Park, CABLE SPLICING TECHNICIAN 08/19/2019 R07.9 Chest pain, unspecified Renzo Park, CABLE SPLICING TECHNICIAN 08/19/2019 R51 Headache eRnzo Park, CABLE SPLICING TECHNICIAN 08/19/2019 R35.0 Frequency of micturition Renzo Prak, CABLE SPLICING TECHNICIAN 08/19/2019 R63.1 Polydipsia Renzo Park, CABLE SPLICING TECHNICIAN 08/19/2019 L72.3 Sebaceous cyst Renzo Park, CABLE SPLICING TECHNICIAN 08/19/2019 G47.33 Obstructive sleep apnea (adult) (pediatric) Renzo Park , CABLE SPLICING TECHNICIAN 08/19/2019 M54.6 Pain in thoracic spine Renzo Park, CABLE SPLICING TECHNICIAN 08/19/2019 R10.31 Right lower quadrant pain Renzo Park, CABLE SPLICING TECHNICIAN 08/19/2019 L03.211 Cellulitis of face Renzo Park, CABLE SPLICING TECHNICIAN 08/19/2019 L70.0 Acne vulgaris Renzo Park, CABLE SPLICING TECHNICIAN 08/19/2019 G43.119 Migraine with aura, intractable, without ParkRenzo reina, CABLE SPLICING TECHNICIAN status migrainosus 08/19/2019 R06.83 Snoring Renzo Park, CABLE SPLICING TECHNICIAN 07/29/2019 F90.2 Attention-deficit hyperactivity disorder, Kayla Drummond [...] Drummond M.D. 07/14/2019 J45.909 Unspecified asthma, uncomplicated Bhanu, Ahmad M., M.D. 07/14/2019 R07.9 Chest pain, unspecified Kayla [...] Drummond M.D. 06/29/2019 R73.01 Impaired fasting glucose BhanuKayla campbell M.D. 06/29/2019 M25.561 Pain in right knee [...] N.P. 06/26/2019 L20.9 Atopic dermatitis, unspecified João Canut, N.P. 06/26/2019 R19.7 Diarrhea, unspecified João Cantu N.P. 06/26/2019 J30.9 Allergic rhinitis, unspecified João Cantu, N.P. 06/26/2019 J45.909 Unspecified asthma, uncomplicated João Cantu, N.P. 06/26/2019 R07.9 Chest pain, unspecified João Cantu N.P. 06/26/2019 R51 Headache João Cantu N.P. 06/26/2019 R63.1 Polydipsia João Cantu, N.P. 06/26/2019 L72.3 Sebaceous cyst João Cantu [...] N.P. 02/23/2019 F90.2 Attention-deficit hyperactivity disorder, Aubrey Castañeda.Jose. combined type 02/23/2019 F71 Moderate intellectual disabilities João Cantu N.PKelsey 02/23/2019 F17.210 Nicotine dependence, cigarettes, João Cantu N.PKelsey uncomplicated 02/23/2019 M54.5 Low back pain João Cantu N.PKelsey 02/23/2019 Z83.3 Family history of diabetes mellitus João Cantu N.PKelsey 02/23/2019 R73.01 Impaired fasting glucose João Cantu N.PKelsey 02/23/2019 F41.9 Anxiety disorder, unspecified Jãoo Cantu N.P. 02/23/2019 R10.32 Left lower quadrant [...] Cantu N.P. 02/23/2019 R63.1 Polydipsia João Cantu N.PKelsey 02/23/2019 [...] Snoring João Cantu N.Jose. Plan of Treatment 08/19/2019 - Renzo Park, NPF90.2 Attention-deficit hyperactivity disorder, combined typeComments:COUNCELLING AND REASSURANCE RELAXATION TECHNIQUES DISCUSSEDCOUNSELED RE: STRESSORS IN LIFE AVOID ALLENERGY/HIGH CAFFEINE DRINKSDUR CYTRBVFF63 Moderate intellectual disabilitiesComments:GUARDIAN[employer]IP COUNCELLING MARRFYA13.210 Nicotine dependence, cigarettes, uncomplicatedComments :SMOKING CESSATION CTIFWMZNDSMC41.5 Low back painComments:EXERCISE/HEAT / MESSAGEAVOID HEAVY LIFTING WT LOSSTYLENOL OR MOTRIN PRNZ83.3 Family history of diabetes mellitusComments:OBSERVEF/U LAB RYEPEWC15.01 Impaired fasting glucoseComments:F/U HGAICLOW GLUCOSE DIETM25.561 Pain in right kneeComments: EXERCISE/HEAT /MESSAGEAVOID HEAVY LIFTING WT LOSSTYLENOL OR MOTRIN PRN DUR ODYYSMJZ66.9 Anxiety disorder, unspecifiedComments:COUNCELLING AND REASSURANCE RELAXATION TECHNIQUES DISCUSSEDCOUNSELED RE: STRESSORS IN LIFE AVOID ALLENERGY/ HIGH CAFFEINE DRINKS DUR PEEULSQA01.4 Irritability and angerComments: COUNCELLING AND REASSURANCE RELAXATION TECHNIQUES DISCUSSEDCOUNSELED RE: STRESSORS IN LIFE AVOID ALLENERGY/HIGH CAFFEINE ZBIZLOI18.9 Atopic dermatitis, unspecifiedComments:SKIN CARE INSTRUCTIONS LOTION OR BABY OIL 2-3 APPLICATION PER DAYUSE MOISTURIZING SOAPAVOID PROLONGED WATER EXPOSUREAVOID USING HOT WATER IN PUWZWRU07.9 Allergic rhinitis, unspecifiedComments:INCREASE PO FLUID USE ANTIHISTAMINE PRN SECOND HAND SMOKING JOJEYBGVZM08.909 Unspecified asthma, uncomplicatedComments:STABLE SMOKING UHWALKMIHU01.9 Chest pain, unspecifiedComments:EXERCISE/HEAT/MESSAGE TYLENOL OR MOTRIN PRNHEAT PACKR51 HeadacheComments:TYLENOL OR MOTRIN PRNR35.0 Frequency of micturitionComments: OBSERVE AND KILEHXDHC64.1 PolydipsiaComments:OBSERVE AND BOSKRJPSM46.3 Sebaceous cystComments:NSTCQCLS47.33 Obstructive sleep apnea (adult) (pediatric) Comments:F/U WITH ENT PRN SMOKING ODOXHNMXKD41.6 Pain in thoracic spineComments: EXERCISE/HEAT /MESSAGEAVOID HEAVY LIFTING WT LOSSTYLENOL OR MOTRIN PRNR10.31 Right lower quadrant painComments:TYLENOL OR MOTRIN PRNINCREASE PO FLUIDLAXATIVE PRN F/U DIRECTEDF/U JNFXMVNQF72.211 Cellulitis of faceComments:SKIN CAREL70.0 Acne vulgarisComments:SKIN CARE JDPDRNHFYFEI59.119 Migraine with aura, intractable, without status migrainosusComments:COUNCELLING AND REASSURANCE F/U WITH NEUROLOGY PRNR06.83 SnoringComments:OBSERVE FOR NOWWT LOSS SMOKING CESSATION Functional Status Description No Information Available Mental Status Description No Information Available Referrals Refer to Reason for Referral Status Appt Date Shala Baron MD Closed 04/08/[address] [place] [address] [phone]
[2019-08-19 15:21] VITALS: BP 123/67
[2019-08-19 15:35] LABS: Influenza A Molecular Negative (Negative); Influenza B Molecular Negative (Negative)
--- NOTE | 2019-08-19 16:01 | UC ---
Nausea/Vomiting/Diarrhea HPI - HPI Summary HPI Summary: PATIENT PRESENTS WITH 2 DAYS OF NAUSEA AND VOMITING AND ABDOMINAL PAIN. STATES HE IS HAVING A HARD TIME KEEPING ANYTHING DOWN. NO DIARRHEA. NO FEVER. STATES HE HAS SOME SHORTNESS OF BREATH WITH AMBULATION BUT ALSO REPORTS A HISTORY OF COPD AND ASTHMA THAT REQUIRE NOCTURNAL O2. NO COUGH. NO RECENT TRAVEL. NO KNOWN COVID 19 EXPOSURE. - History of Current Complaint Chief Complaint: UCGeneralIllness Stated Complaint: VOMITING Time Seen by Provider: 08/19/19 14:53 Hx Obtained From: Patient Onset/Duration: Gradual Onset, Lasting Days, Still Present Timing: Constant Severity Initially: Mild Severity Currently: Mild Pain Intensity: 0 Pain Scale Used: 0-10 Numeric Location: Diffuse Character: Cramping Aggravating Factor(s): Food Alleviating Factor(s): Nothing Nausea/Vomiting Presence: Nauseated, Vomiting Vomiting Frequency: Every 3-4 hours Nausea/Vomiting Duration: 36-48 hours Vomiting Characteristics: Nonbilious Diarrhea Presence: No - Allergies/Home Medications Allergies/Adverse Reactions: Allergies Allergy/AdvReac Type Severity Reaction Status Date / Time amoxicillin Allergy Hives/Diff. Verified 08/19/19 15:03 Breathing/I tching naproxen Allergy Rash Verified 08/19/19 15:03 Penicillins Allergy Rash Verified 08/19/19 15:03 Home Medications: Home Medications Topiramate TAB(*) [Topamax 100 mg tab] 100 mg PO BEDTIME 07/11/18 [History Confirmed 08/19/19] Oxygen 3 udc BOTH NARES BEDTIME 09/22/18 [History Confirmed 08/19/19] Albuterol HFA INHALER* [Ventolin HFA Inhaler*] 2 puff INH Q4H PRN 01/08/19 [ History Confirmed 08/19/19] Budesonide/Formote 160/4.5(NF) [Symbicort 160/4.5 (NF)] 2 puff INH BID 01/08/19 [History Confirmed 08/19/19] Ibuprofen TAB* [Motrin TAB* 600 MG] 600 mg PO Q6H PRN 01/08/19 [History Confirmed 08/19/19] Ondansetron ODT TAB* [Zofran Odt TAB*] 4 mg PO Q6H PRN #20 tab.odt 08/19/19 [Rx] PMH/Surg Hx/FS Hx/Imm Hx Endocrine History: Diabetes - DIET CONTROLLED Respiratory History: COPD, Asthma Other History Of: Negative For: HIV, Hepatitis B, Hepatitis C, Anticoagulant Therapy - Surgical History Surgical History: Yes Surgery Procedure, Year, and Place: LT EYE STRABISMUS SURGERY, DENTAL EXTRACTION 01/30/14 - Family History Known Family History: Positive: Cardiac Disease, Hypertension, Respiratory Disease - Social History Alcohol Use: Occasionally Substance Use Type: Excessive Caffeine Smoking Status (MU): Current Every Day Smoker Type: Cigarettes Amount Used/How Often: 4 CIGS A DAY Length of Time of Smoking/Using Tobacco: started at age 10 Have You Smoked in the Last Year: Yes Household Exposure Type: Cigarettes - Immunization History Most Recent Influenza Vaccination: fall 2016 Review of Systems All Other Systems Reviewed And Are Negative: Yes Constitutional: Positive: Negative ENT: Positive: Negative Respiratory: Positive: Shortness Of Breath Cardiovascular: Positive: Negative Gastrointestinal: Positive: Abdominal Pain, Vomiting, Nausea. Negative: Diarrhea Genitourinary: Positive: Negative Physical Exam Triage Information Reviewed: Yes Appearance: Well-Appearing, No Pain Distress, Well-Nourished Vital Signs: Initial Vital Signs Temp 99.7 F 08/19/19 14:59 Pulse 74 08/19/19 14:59 Resp 16 08/19/19 14:59 BP 123/67 08/19/19 14:59 Pulse Ox 96 08/19/19 14:59 Laboratory Tests 08/19/19 15:23 Influenza A (Rapid) Negative Influenza B (Rapid) Negative Vital Signs Reviewed: Yes Eyes: Positive: Conjunctiva Clear ENT: Positive: Hearing grossly normal, TMs normal Neck: Positive: Supple, Nontender, No Lymphadenopathy Respiratory Exam: Normal Cardiovascular Exam: Normal Abdomen Description: Positive: Soft, Other: - MILDLY TENDER DIFFUSELY. NO REBOUND OR RIGIDITY. Negative: Distended, Guarding Bowel Sounds: Positive: Present Musculoskeletal: Positive: No Edema Neurological: Positive: Alert Psychological: Positive: Age Appropriate Behavior Skin: Negative: Rashes Naus/Vom/Diarrhea Course/Dx - Course Course Of Treatment: FLU SWAB NEGATIVE. ON TRIAGE PATIENT COMPLAINED OF NAUSEA, VOMITING WELL SHORTNESS OF BREATH. ON EXAM BREATH SOUNDS ARE CLEAR AND SYMMETRICAL TO THE BASES. O2 SAT AND ALL VITAL SIGNS NORMAL. HE IS TALKING IN FULL SENTENCES IN NO RESPIRATORY DISTRESS AT ALL. WAS JUST EVALUATED IN THE ER YESTERDAY. NO ACUTE INTERVENTION AT THIS TIME. PATIENT OFFERED AND DECLINED COVID-19 TESTING. WE WILL GIVE ZOFRAN TO HELP WITH NAUSEA. ADVISED PATIENT THAT HIS SYMPTOMS SHOULD RESOLVE ON THEIR OWN WITHIN A FEW DAYS AND IF NOT HE SHOULD FOLLOW-UP WITH PCP. TO THE ER WITHOUT FAIL SYMPTOMS WORSEN. - Differential Dx/Diagnosis Provider Diagnosis: Nausea & vomiting Condition At Discharge: Stable Discharge ED - Sign-Out/Discharge Documenting (check all that apply): Patient Departure All imaging exams completed and their final reports reviewed: No Studies - Discharge Plan Condition: Stable Disposition: HOME Prescriptions: Ondansetron ODT TAB* [Zofran Odt TAB*] 4 mg PO Q6H PRN #20 tab.odt PRN Reason: Nausea/Vomiting Patient Education Materials: Acute Nausea and Vomiting (ED) Referrals: Kayla Drummond MD [Medical Doctor] - If Needed No Primary Care Phys,NOPCP [Primary Care Provider] - Additional Instructions: FLU SWAB NEGATIVE. YOU LIKELY HAVE A VIRALLY MEDIATED GI BUG THAT IS CAUSING YOUR NAUSEA AND VOMITING. BE SURE TO STAY WELL-HYDRATED. ZOFRAN WILL HELP YOUR SYMPTOMS WHICH SHOULD IMPROVE OVER THE NEXT FEW DAYS. GO TO THE ER WITHOUT FAIL IF YOU DEVELOP WORSENING ABDOMINAL PAIN, FEVER, PERSISTENT NAUSEA/ VOMITING, BLOOD IN THE VOMIT OR ANY OTHER CONCERNING SYMPTOMS. - Billing Disposition and Condition Condition: STABLE Disposition: Home
== END 2019-08-19 16:19 | disposition home or self-care (01) ==
LOC: UCEAST 14:42
DX: R11.2 Nausea with vomiting, unspecified (principal); R10.9 Unspecified abdominal pain; R06.02 Shortness of breath; J44.9 Chronic obstructive pulmonary disease, unspecified; E11.9 Type 2 diabetes mellitus without complications; F17.210 Nicotine dependence, cigarettes, uncomplicated; Z88.0 Allergy status to penicillin; Z88.6 Allergy status to analgesic agent; Z79.899 Other long term (current) drug therapy
CPT/HCPCS: 99212; G0463